=== PATIENT | male | born 1960 | race Caucasian/White ===

== ENCOUNTER 2016-05-05 08:18 | Observation (INO) | payer BC ==
[~2016-05-05] VITALS: Ht 175.3 cm; Wt 87.7 kg
--- OUTSIDE RECORDS SUMMARY | 2016-05-05 08:23 | XMS REPORT | Continuity of Care Document ---
Author Author [facility] Organization [facility] Address Unknown Phone Unavailable Allergies Medications Problems Date Dx Coded Attending Type Code Diagnosis Diagnosed By 12/20/2014 LUCY SINGH MD Ot J32.9 05/05/2016 LUCY SINGH MD Ot J32.9 CHRONIC SINUSITIS, UNSPECIFIED Procedures Results Encounters ACCT No. Visit Date/Time Discharge Status Pt. Type Provider Facility Loc./Unit Complaint [id number] 11/26/2014 16:13:00 2014 23:59:59 CLS Outpatient LUCY SINGH MD [facility] RAD CHRONIC SINUSITIS [id number] 05/05/2016 08:19:00 ACT Emergency MADAY SAGASTUME MD [facility] ER L SIDE SWELLING ON LOWER JAW/NECK
[2016-05-05] MEDS ORDERED: NS IV 1000 ML 1,000 ML IV ONE (08:32)
[2016-05-05 08:41] LABS: BASOPHILS % (AUTO) 0 % (0-10); EOSINOPHILS # (AUTO) 0.1 10^3/uL (0.0-0.3); EOSINOPHILS % (AUTO) 1 % (0-10); LYMPHOCYTES % (AUTO) 16 % (12-44); MEAN CORPUSCULAR HEMOGLOBIN 30 PG (25-34); MEAN CORPUSCULAR HGB CONC 35 G/DL (32-36); MEAN CORPUSCULAR VOLUME 87 FL (80-99); MEAN PLATELET VOLUME 9.8 FL (7.4-10.4); MONOCYTES # (AUTO) 1.8 X 10^3 (0.0-1.0); MONOCYTES % (AUTO) 14 % (0-12); NEUTROPHILS % (AUTO) 70 % (42-75); PLATELET COUNT 293 10^3/uL (130-400); RED BLOOD COUNT 5.28 10^6/uL (4.35-5.85); RED CELL DISTRIBUTION WIDTH 12.8 % (10.0-14.5); WHITE BLOOD COUNT 12.9 10^3/uL (4.3-11.0)
--- NOTE | 2016-05-05 08:48 | ED EENT ---
History of Present Illness General Chief Complaint: Oral/Throat Problems Stated Complaint: L SIDE SWELLING ON LOWER JAW/NECK Source: patient Exam Limitations: no limitations History of Present Illness Time seen by provider: 08:26 Initial Comments Here with report of left-sided neck swelling that has been going on for 6 days. It has worsened this day today. He has seen his doctor twice this week. Currently he is on ciprofloxacin and he has not had improvement in his symptoms. States now he is having difficulty with swallowing because of the swelling on the left side and feels that it is impeding on his throat actually. Denies fevers currently but states he may have had fever earlier. He is drinking fluids okay but having difficulty with foods. Denies nausea or vomiting. Denies other upper respiratory symptoms. Timing/Duration: gradual Severity: moderate Location: throat, facial Prearrival Treatment: prescription meds Associated Symptoms: No cough, facial pain/swellingNo fever, No nasal congestion/drainage, poor solids intake sore throat Allergies and Home Medications Allergies Coded Allergies: No Known Drug Allergies (Unverified , 05/05/16) Review of Systems Constitutional: see HPINo chills, No fever Eyes: No Symptoms Reported Ears: No Symptoms Reported Nose: no symptoms reported Mouth: no symptoms reported Throat: see HPI swelling painful swallowing Respiratory: no symptoms reported Cardiovascular: no symptoms reported Gastrointestinal: No abdominal pain, No nausea, No vomiting Musculoskeletal: no symptoms reported Skin: no symptoms reported Neurological: No Symptoms Reported All Other Systems Reviewed Negative Unless Noted: Yes Past Glxdslc-Muqbav-Mivkat Hx Patient Social History Alcohol Use: Denies Use Recreational Drug Use: No Smoking Status: Never a Smoker Type Used: Smokeless Tobacco 2nd Hand Smoke Exposure: No Recent Foreign Travel: No Contact w/Someone Who Travel: No Recent Hopitalizations: No Surgeries HX Surgeries: Yes (SINUS) Respiratory Hx Respiratory Disorders: No Cardiovascular Hx Cardiac Disorders: Yes Cardiac Disorders: Hypertension Neurological Hx Neurological Disorders: No Reproductive System Hx Reproductive Disorders: No Genitourinary Hx Genitourinary Disorders: No Gastrointestinal Hx Gastrointestinal Disorders: No Musculoskeletal Hx Musculoskeletal Disorders: No Endocrine Hx Endocrine Disorders: No HEENT HX ENT Disorders: No Cancer Hx Cancer: No Psychosocial Hx Psychiatric Problems: No Reviewed Nursing Assessment Reviewed/Agree w Nursing PMH: Yes Family Medical History Significant Family History: No Pertinent Family Hx Physical Exam Vital Signs Vital Sign - Last 12Hours 05/05/16 08:20 Temp 97.0 Pulse 75 Resp 16 B/P 142/88 Pulse Ox 97 O2 Delivery Room Air General Appearance: WD/WN mild distress (pain) Eyes: bilateral eye EOMI, bilateral eye PERRL, bilateral eye normal inspection Ears: bilateral ear TM normal, bilateral ear auricle normal, bilateral ear canal normal Mouth/Throat: pharynx swelling (left sided)No tonsillar exudate, No uvula swelling, other (no sublingual fullness or tenderness. Only has lower frontal teeth remaining and otherwise without teeth. No obvious injuries within the mouth.) Neck: full range of motion other (moderate to significant fullness to the left upper neck below the jaw. Moderate tenderness to palpation with this region.) Cardiovascular: regular rate, rhythm no murmur Respiratory: lungs clear normal breath sounds Gastrointestinal: non tender soft Neurologic/Psychiatric: alert oriented x 3 Skin: normal color warm/dry Progress/Results/Core Measures Results/Orders Lab Results Laboratory Tests Test 05/05/16 08:30 Range/Units Alanine Aminotransferase (ALT/SGPT) 21 0-55 U/L Albumin 4.3 3.2-4.5 G/DL Alkaline Phosphatase 98 40-136 U/L Anion Gap 15 H 5-14 MMOL/L Aspartate Amino Transf (AST/SGOT) 19 5-34 U/L BUN/Creatinine Ratio 10 Basophils # (Auto) 0.0 0.0-0.1 10^3/uL Basophils (%) (Auto) 0 0-10 % Blood Urea Nitrogen 10 7-18 MG/DL C-Reactive Protein High Sensitivity 4.84 H 0.00-0.50 MG/DL Calcium Level 10.0 8.5-10.1 MG/DL Carbon Dioxide Level 21 21-32 MMOL/L Chloride Level 103 98-107 MMOL/L Creatinine 0.99 0.60-1.30 MG/DL Eosinophils # (Auto) 0.1 0.0-0.3 10^3/uL Eosinophils (%) (Auto) 1 0-10 % Estimat Glomerular Filtration Rate > 60 Glucose Level 110 H 70-105 MG/DL Hematocrit 46 40-54 % Hemoglobin 16.0 13.3-17.7 G/DL Lymphocytes # (Auto) 2.0 1.0-4.0 X 10^3 Lymphocytes (%) (Auto) 16 12-44 % Mean Corpuscular Hemoglobin 30 25-34 PG Mean Corpuscular Hemoglobin Concent 35 32-36 G/DL Mean Corpuscular Volume 87 80-99 FL Mean Platelet Volume 9.8 7.4-10.4 FL Monocytes # (Auto) 1.8 H 0.0-1.0 X 10^3 Monocytes (%) (Auto) 14 H 0-12 % Neutrophils # (Auto) 9.0 H 1.8-7.8 X 10^3 Neutrophils (%) (Auto) 70 42-75 % Platelet Count 293 130-400 10^3/uL Potassium Level 3.9 3.6-5.0 MMOL/L Red Blood Count 5.28 4.35-5.85 10^6/uL Red Cell Distribution Width 12.8 10.0-14.5 % Sodium Level 139 135-145 MMOL/L Total Bilirubin 0.9 0.1-1.0 MG/DL Total Protein 7.8 6.4-8.2 G/DL White Blood Count 12.9 H 4.3-11.0 10^3/uL My Orders Orders-MADAY SAGASTUME MD Cbc With Automated Diff (05/05/16 08:32) Comprehensive Metabolic Panel (05/05/16 08:32) Hs C Reactive Protein (05/05/16 08:32) Saline Lock/Iv-Start (05/05/16 08:32) Ct Neck (Soft Tissue) W (05/05/16 08:32) Ns Iv 1000 Ml (Sodium Chloride 0.9%) (05/05/16 08:32) Iohexol Injection (Omnipaque 350 Mg/Ml 1 (05/05/16 09:30) Ns (Ivpb) (Sodium Chloride 0.9% Ivpb Bag (05/05/16 09:30) Sodium Chloride Flush (Catheter Flush Sy (05/05/16 09:30) Fentanyl Injection (Sublimaze Injection (05/05/16 10:53) Oxymetazoline 0.05% Nasal [place] (Afrin 0. (05/05/16 21:00) Oxymetazoline 0.05% Nasal [place] (Afrin 0. (05/05/16 11:26) Dexamethasone Pf Injection (Decadron Pf (05/05/16 12:11) Cefuroxime Injection (Zinacef Injection) (05/05/16 12:15) Hydrocodone/Apap Oral Solution (Lortab 7 (05/05/16 12:30) Medications Given in ED Current Medications Medications Dose Ordered Sig/Darek Route Start Time Stop Time Status Last Admin Dose Admin Iohexol 100 ml ONCE ONCE IV 05/05/16 09:30 05/05/16 09:31 DC 05/05/16 09:25 75 ML Sodium Chloride 100 ml ONCE ONCE IV 05/05/16 09:30 05/05/16 09:31 DC 05/05/16 09:25 80 ML Sodium Chloride 1,000 ml @ 0 mls/hr Q0M ONCE IV 05/05/16 08:32 05/05/16 08:34 DC 05/05/16 08:47 0 MLS/HR Vital Signs/I&O Vital Sign - Last 12Hours 05/05/16 08:20 Temp 97.0 Pulse 75 Resp 16 B/P 142/88 Pulse Ox 97 O2 Delivery Room Air Progress Note : Progress Note Seen and evaluated. IV, labs, normal saline [address] neck soft tissue ordered. Monitor patient. 1015: I have reviewed the CT. Results reviewed with Anita Sears APRN, on-call for ear nose and throat. We reviewed the results of the CT and labs. She will come see the patient and contact Dr. Spann. I have reexamined the patient to evaluate if stone is palpable and I am not able to palpate the stone. Patient has fairly significant gag reflex as well limiting exam. 1115: Renu evaluating patient currently. 1215: Decision for admission. Bridge orders written by me with orders requested by Dr. Spann. Decadron 10 mg IV. Ceftin 1.5 g IV. Hydrocodone/APAP 7.5 mg by mouth oral solution. Admit, observation status. Patient agrees with plan. Diagnostic Imaging Diagonstic Imaging: CT Plain Films/CT/US/NM/MRI: other (soft tissue neck) Comments NAME: ISADORA DALE Daniela MED REC#: [id number] PT STATUS: REG ER : 1960 PHYSICIAN: MADAY SAGASTUME MD ADMIT DATE: 05/05/16/ER Draft Date of Exam:05/05/16 CT NECK (SOFT TISSUE) W PROCEDURE: CT neck soft tissue with contrast. TECHNIQUE: Multiple contiguous axial images were obtained through the neck after the administration of contrast. INDICATION: Swelling left side of face with difficulty swallowing. FINDINGS: There is asymmetric enlargement and enhancement in overall edematous appearance about the left submandibular gland. There is a large calcified stone along the medial aspect of the gland measuring 10 x 8 x 13 mm likely reflective of a ductal stone. There is some fluid along the anterior medial margins of this and possibility of developing abscess not excluded. Asymmetric surrounding edema is also present including the left pharyngeal soft tissues. This extends into the left aspect of the hypopharynx with slight deviation asymmetric narrowing of the hypopharynx on the left. Additionally, low-density is noted at the level of the vallecula may reflect some fluid or perhaps extension of the inflammation. The right submandibular gland unremarkable. Parotid glands are unremarkable. The tonsils appearing unremarkable. Patient is noted be edentulous. Visualized paranasal sinuses trace areas of mucosal thickening and thickening of the ethmoid air cells. Lung apices unremarkable. IMPRESSION:. Large stone in the left medial submandibular region with rather marked asymmetric enlargement of the left submandibular gland most compatible to a sialoadenitis. There is surrounding edema possibility of early abscess formation not excluded. Prominent edema about the parapharyngeal soft tissues including extending across the vallecula is present. This does result in some narrowing of the hypopharynx and airway. Clinical correlation recommended. Dictated on workstation # [id number] Dict: 05/05/16 0942 Trans: 05/05/16 1001 [id number] Interpreted by: BORIS ARELLANO DO Electronically signed by: Reviewed: Reviewed by Me Departure Communication Time/Spoke to Admitting Phy: 10:10 Impression Impression: Primary Impression: Sialoadenitis of submandibular gland Disposition: ADMITTED INPATIENT Condition: Stable Decision to Admit Reason: Admit from ER (General) Decision to Admit/Date: May 05, 2016 Time/Decision to Admit Time: 12:15 Departure-Patient Inst. Referrals: JAMESON MCCLELLAN DO (PCP/Family) Primary Care Physician MADAY SAGASTUME MD May 05, 2016 08:48
[2016-05-05 09:07] LABS: ALANINE AMINOTRANSFERASE 21 U/L (0-55); ALBUMIN 4.3 G/DL (3.2-4.5); ANION GAP 15 MMOL/L (5-14); ASPARTATE AMINO TRANSFERASE 19 U/L (5-34); BILIRUBIN,TOTAL 0.9 MG/DL (0.1-1.0); BLOOD UREA NITROGEN 10 MG/DL (7-18); BUN/CREATININE RATIO 10; CARBON DIOXIDE 21 MMOL/L (21-32); CHLORIDE 103 MMOL/L (98-107); CREATININE SERUM 0.99 MG/DL (0.60-1.30); GFR ESTIMATED > 60; GLUCOSE 110 MG/DL (70-105); POTASSIUM 3.9 MMOL/L (3.6-5.0); SODIUM 139 MMOL/L (135-145); TOTAL PROTEIN 7.8 G/DL (6.4-8.2); hs C REACTIVE PROTEIN 4.84 MG/DL (0.00-0.50)
[2016-05-05] MEDS ORDERED: NS 100 ML (IVPB) BAG IV ONE (09:30)
[2016-05-05] MEDS ORDERED: IOHEXOL 350 MG/ML 100 ML (OMNIPAQUE 350) VIAL IV ONE (09:30)
[2016-05-05] MEDS ORDERED: CATHETER FLUSH 10 ML SYR IV PRN ×2 (09:30→13:30)
--- NOTE | 2016-05-05 10:02 | Diagnostic Imaging Report ---
PROCEDURE: CT neck soft tissue with contrast. TECHNIQUE: Multiple contiguous axial images were obtained through the neck after the administration of contrast. INDICATION: Swelling left side of face with difficulty swallowing. FINDINGS: There is asymmetric enlargement and enhancement in overall edematous appearance about the left submandibular gland. There is a large calcified stone along the medial aspect of the gland measuring 10 x 8 x 13 mm likely reflective of a ductal stone. There is some fluid along the anterior medial margins of this and possibility of developing abscess not excluded. Asymmetric surrounding edema is also present including the left pharyngeal soft tissues. This extends into the left aspect of the hypopharynx with slight deviation asymmetric narrowing of the hypopharynx on the left. Additionally, low-density is noted at the level of the vallecula may reflect some fluid or perhaps extension of the inflammation. The right submandibular gland unremarkable. Parotid glands are unremarkable. The tonsils appearing unremarkable. Patient is noted be edentulous. Visualized paranasal sinuses trace areas of mucosal thickening and thickening of the ethmoid air cells. Lung apices unremarkable. IMPRESSION:. Large stone in the left medial submandibular region with rather marked asymmetric enlargement of the left submandibular gland most compatible to a sialoadenitis. There is surrounding edema possibility of early abscess formation not excluded. Prominent edema about the parapharyngeal soft tissues including extending across the vallecula is present. This does result in some narrowing of the hypopharynx and airway. Clinical correlation recommended. Dictated by: Dictated on workstation # [id number]
[2016-05-05] MEDS ORDERED: fentaNYL INJECTION 100 MCG/2 ML AMP IVP STA (10:53)
[2016-05-05] MEDS ORDERED: OXYMETAZOLINE (AFRIN) 0.05% NA 15 ML BTL ONE (11:26)
[2016-05-05] MEDS ORDERED: DEXAMETHASONE PF 10 MG/ML (DECADRON) VIAL IV STA (12:11)
[2016-05-05] MEDS ORDERED: CEFUROXIME INJECTION 1,500 MG in NS (IVPB) 50 ML IV ONE (12:15)
[2016-05-05] MEDS ORDERED: NS (IVPB) 50 ML ONE (12:20)
[2016-05-05] MEDS ORDERED: HYDROcodone/APAP 7.5MG-325 MG/15 ML (LORTAB) UDC PO PRN ×2 (12:30→13:30)
--- NOTE | 2016-05-05 13:14 | Progress Note-Standard ---
Standard Progress Note Progress Notes/Assess & Plan Progress/Assessment & Plan XPW-SAcjb-KGqespz and PHysical cc: Left Neck swelling/pain HPI: Patient presented for evaluation of a 6 day history of left neck pain and swelling. Saw doctor times two. Treataed first iwth tamiflu and then started on cipro. Symptoms progressively worse. Unalbe to swallow or eat for three days at least. CT shows left submandibular sialoadenitis with large stone at hilum of gland. mild inflammation in t hroat PMHX;unremarkable Fam Hx-+ for stones in his fat er both submandibular and kidney all-nkda Meds: cipro Ct-with finding as noted above Exam: OC-no trismus or swelling of floor of the mouth-no stone palpable laterally in duct Phyarnx-clear Neck-marked swelling left submandibular triangle-no abscess sseen or palpated. no swelling lower in neck IMP 1. Acute Left Submandibular Sialoadenitis 2. Left Submandibular Duct Stone REc: 1. admit observation for IV antibiotics nad steroids and fluids. Orders written 2. Hopefully can cool gland off treat infection and will need r emoval of gland /stone after infection better. NO abscess to drain at this time 3. Diet as haley 4. May take home meds 5. Will reevaluate in AM Final Diagnosis Left Submandibualr Sialoadenitis/Stone LUCY SINGH MD May 05, 2016 1:14 pm
[2016-05-05] MEDS ORDERED: NS IV 1000 ML 1,000 ML ONE (13:19)
[2016-05-05 13:20] VITALS: BP 147/75
[2016-05-05] MEDS ORDERED: ONDANSETRON 4 MG/2 ML (SDV) Z0FRAN IV PRN (13:30)
[2016-05-05] MEDS: NS IV 1000 ML 1,000 ML IV SCH ×3 (13:49→20:40)
[2016-05-05] MEDS: CATHETER FLUSH 10 ML SYR IV SCH ×2 (13:50→21:36)
[2016-05-05] MEDS ORDERED: FLU TRIvalent (5 YOA+) 2016-17 (AFLURIA) 0.5 ML IM ONE (14:00)
--- NOTE | 2016-05-05 14:05 | History & Physicial ---
History of Present Illness History of Present Illness Reason for visit/HPI 05-05-16 AT 11OO [facility] ER Consultation due to pt diagnosis with Left jaw swelling, unable to swallow due to pain, and Ct showing Left sialoadenitis Pt stated started having pain last Saturday - noticed some pain and swelling. Went PCP Dr. Pena on Saturday and was treated with Tamiflu this did not help and make pt sick. Continued to have more pain and swelling and was not improving so pt was started on Cipro by PCP. Pt stated Saturday still not improved called PCP office but no call back. Came to ER today due to continued pain, swelling, unable to eat due to pain and decreased drinking due to pain. Pt denies true fever thinks may of had some low grade fever. Date of Admission May 05, 2016 at 12:15 I consulted on this patient on 05/05/16 13:59 Pt was seen in ER. Pt was sitting in room with noticeable Left side jaw line / facial swelling. Ct of neck was reviewed and labs reviewed Pt was breathing well on his own Exam: Pt has Left jaw line swelling with mid jaw line firmness 2 inch long x 1 inch wide no redness or warmth at this time, pt does have discomfort with palpation of this area Pt stated has pain from left ear to middle of chin. Oral Cavity with only bottom teeth frontline missing back teeth and molars- oral cavity and mucosa dry with thick mucus, no swelling of gums or abscess noted Bimanual palpation of left paroitid gland normal no tenderness or discomfort , Left sublingual area no stone palpated some discomfort with palpation Nasopharyngeal endoscopy preformed through left nostril. Neosynephrine and Lidocaine Topical was applied to Left nare. Fiberoptic scope was advanced throught nostril. Abnormals on endoscopy - aretynoid area on Left by vocal cords slightly swollen, pooling of secretion very thick around larynx. Hypopharynx on left has some swelling but it is not impinging on airway at this time. Able to visualize both vocal cords and do look to be moving with full range of motion. Pt and physical exam findings were discussed with Dr. Spann. Orders to admit Observation 1.5 gram IV Ceftin q12 hours 10mg IV Decadron Q6 x 24 hours soft diet NS IV 250ml /hr x 2 hours then decrease to 100ml/hr pain meds discussed with Dr. Zhang in ER Liquid Hydrocodone 7.5mg in 15ml orders were written by Dr Zhang due to computer logon issues Dr. Spann will round on pt later today Attending Physician Lucy Spann MD Admitting Physician Akash Pena DO Consult Allergies and Home Medications Allergies Coded Allergies: No Known Drug Allergies (Unverified , 05/05/16) Home Medications Losartan Potassium 50 Mg Tablet 50 MG PO DAILY (Reported) Past Qjwdmgc-Pzgvgp-Ygtgsf Hx Patient Social History Alcohol Use: Denies Use Recreational Drug Use: No Smoking Status: Never a Smoker Type Used: Smokeless Tobacco 2nd Hand Smoke Exposure: No Physical Abuse Screen: No Sexual Abuse: No Recent Foreign Travel: No Contact w/other who traveled: No Recent Hopitalizations: No Recent Infectious Disease Expo: No Seasonal Allergies Seasonal Allergies: No Surgeries HX Surgeries: Yes (SINUS) Respiratory Hx Respiratory Disorders: No Cardiovascular Hx Cardiovascular Disorders: Yes Cardiac Disorders: Hypertension Neurological Hx Neurological Disorders: No Reproductive System Hx Reproductive Disorders: No Sexually Transmitted Disease: No HIV/AIDS: No Genitourinary Hx Genitourinary Disorders: No Gastrointestinal Hx Gastrointestinal Disorders: No Musculoskeletal Hx Musculoskeletal Disorders: No Endocrine Hx Endocrine Disorders: No HEENT HX ENT Disorders: No Loss of Vision: Bilateral Cancer Hx Cancer: No Psychosocial Hx Psychiatric Problems: No Blood Transfusions Adverse Reaction to a Blood Tr: No Reviewed Nursing Assessment Reviewed/Agree w Nursing PMH: Yes Family Medical History Significant Family History: No Pertinent Family Hx Family Hx: Colon cancer 19 FATHER Diabetes mellitus 19 MOTHER Headache disorder G8 SISTER Thyroid disease G8 SISTER Constitutional: see HPI EENTM: blurred vision dental problems double vision ear discharge ear pain epistaxis eye pain hearing loss hoarseness mouth pain mouth swelling no symptoms reported nose congestion nose pain other see HPI tearing throat pain throat swelling vision loss Respiratory: see HPI Cardiovascular: see HPI Gastrointestinal: see HPI Genitourinary: see HPI Musculoskeletal: see HPI Skin: see HPI Psychiatric/Neurological: No Symptoms Reported See HPI All Other Systems Reviewed Negative Unless Noted: Yes Physical Exam Vital Signs Vital Sign - Last 12Hours 05/05/16 08:20 Temp 97.0 Pulse 75 Resp 16 B/P 142/88 Pulse Ox 97 O2 Delivery Room Air Capillary Refill : Less Than 3 Seconds General Appearance: No Apparent Distress WD/WN Eyes: Bilateral Eye Normal Inspection HEENT: PERRL/EOMI TMs Normal Normal ENT Inspection Pharynx Normal Pale Conjunctivae (L) Pale Conjunctivae (R) Pharyngeal Erythema Photophobia Scleral Icterus (L) Scleral Icterus (R) TM Abnormal (L) TM Abnormal (R) Tonsillar Exudate Tonsillar Enlargement Other (see above) Neck: Other (see above ) Respiratory: Chest Non Tender Lungs Clear Normal Breath Sounds No Accessory Muscle Use No Respiratory Distress Cardiovascular: Regular Rate, Rhythm No Edema No Gallop No JVD No Murmur Normal Peripheral Pulses Gastrointestinal: Normal Bowel Sounds No Organomegaly No Pulsatile Mass Non Tender Soft Back: Normal Inspection No CVA Tenderness No Vertebral Tenderness Extremity: Normal Capillary Refill Normal Inspection Normal Range of Motion Non Tender No Calf Tenderness No Pedal Edema Neurologic/Psychiatric: Alert Oriented x3 No Motor/Sensory Deficits Normal Mood/Affect Skin: Normal Color Warm/Dry Lymphatic: No Adenopathy Assessment/Plan Assessment and Plan see above Admission Diagnosis Sialoadenitis Left Submandibular Dehydration Possible Abscess Uncontrolled Pain Clinical Quality Measures DVT/VTE Risk/Contraindication: Risk Factor Score Per Nursin RFS Level Per Nursing on Admit: 1=Low/No VTE PPX Copy Copies To 1: LUCY SPANN MD, ANDRA J FNP May 05, 2016 14:05
[2016-05-05] MEDS ORDERED: LOSA50TA36 PO (14:26)
[2016-05-05 16:00] VITALS: BP 148/76
[2016-05-05 20:00] VITALS: BP 139/82
[2016-05-05] MEDS ORDERED: OXYMETAZOLINE (AFRIN) 0.05% NA 15 ML BTL SCH (21:00)
[2016-05-05] MEDS: CEFUROXIME INJECTION 1,500 MG in NS (IVPB) 50 ML IV SCH (21:35)
[2016-05-05] MEDS: DEXAMETHASONE 4 MG/ML SDV (DECADRON) IV SCH (21:36)
[2016-05-06] VITALS: BP 135/86
[2016-05-06 04:00] VITALS: BP 130/73
[2016-05-06] MEDS: CEFUROXIME INJECTION 1,500 MG in NS (IVPB) 50 ML IV SCH (06:35)
[2016-05-06] MEDS: DEXAMETHASONE 4 MG/ML SDV (DECADRON) IV SCH (06:35)
[2016-05-06] MEDS: CATHETER FLUSH 10 ML SYR IV SCH (06:36)
--- NOTE | 2016-05-06 07:24 | Progress Note-Standard ---
Standard Progress Note Progress Notes/Assess & Plan Progress/Assessment & Plan QQT-ODzko-YMuzkss and PHysical cc: Left Neck swelling/pain HPI: Patient presented for evaluation of a 6 day history of left neck pain and swelling. Saw doctor times two. Treataed first iwth tamiflu and then started on cipro. Symptoms progressively worse. Unalbe to swallow or eat for three days at least. CT shows left submandibular sialoadenitis with large stone at hilum of gland. mild inflammation in t hroat PMHX;unremarkable Fam Hx-+ for stones in his fat er both submandibular and kidney all-nkda Meds: cipro Ct-with finding as noted above Exam: OC-no trismus or swelling of floor of the mouth-no stone palpable laterally in duct Phyarnx-clear Neck-marked swelling left submandibular triangle-no abscess sseen or palpated. no swelling lower in neck IMP 1. Acute Left Submandibular Sialoadenitis 2. Left Submandibular Duct Stone REc: 1. admit observation for IV antibiotics nad steroids and fluids. Orders written 2. Hopefully can cool gland off treat infection and will need r emoval of gland /stone after infection better. NO abscess to drain at this time 3. Diet as haley 4. May take home meds 5. Will reevaluate in AM ENT-Paula-05/06 Doing much better able to eat and drink-swelling much better no trismus breathing and swallwoing fine danial ld/c after breakfast RTC-2 weeks Discharge prescriptions given and note for work written LUCY SINGH MD May 06, 2016 7:23 am
[2016-05-06] MEDS: NS IV 1000 ML 1,000 ML IV SCH (07:30)
[2016-05-06 08:00] VITALS: BP 155/92
[2016-05-06] MEDS ORDERED: PRD20T PO (08:08)
[2016-05-06] MEDS ORDERED: HYDROCODONE/APAP (08:08)
[2016-05-06] MEDS ORDERED: CEFUROXIME 250 MG (08:08)
[2016-05-06] MEDS ORDERED: CEFUROXIME 250 MG PO (08:09)
[2016-05-06] MEDS ORDERED: HYDROCODONE/APAP PO (08:11)
[2016-05-06 09:00] VITALS: BP 155/92
== END 2016-05-06 07:24 | disposition home or self-care (01) ==
LOC: EDUNIT# 08:18 → ER 08:19 → 4TH 12:15 → UNDOADMOB 12:15 → 4TH 13:30 → UNDODISOB 05-06 09:00
PROVIDERS: ADMIT Otolaryngology Otolaryngology/Facial Plastic Surgery; ATTEND Otolaryngology Otolaryngology/Facial Plastic Surgery
DX: K11.20 Sialoadenitis, unspecified (principal); K11.5 Sialolithiasis; I10 Essential (primary) hypertension
CPT/HCPCS: 36415; 70491; 80053; 85025; 86141; 96361; 96365; 96375; G0378

== ENCOUNTER 2016-05-17 20:25 | Emergency (ER) | payer BC ==
[~2016-05-17] VITALS: Ht 175.3 cm; Wt 90.7 kg
[~2016-05-17 20:25] MED LIST: CEFUROXIME 250 MG; CEFUROXIME 250 MG PO; HYDROCODONE/APAP; HYDROCODONE/APAP PO; LOSA50TA36 PO; PRD20T PO
[2016-05-17 20:56] LABS: BASOPHILS % (AUTO) 0 % (0-10); EOSINOPHILS # (AUTO) 0.1 10^3/uL (0.0-0.3); EOSINOPHILS % (AUTO) 0 % (0-10); LYMPHOCYTES # (AUTO) 2.4 X 10^3 (1.0-4.0); LYMPHOCYTES % (AUTO) 12 % (12-44); MEAN CORPUSCULAR HEMOGLOBIN 30 PG (25-34); MEAN CORPUSCULAR HGB CONC 34 G/DL (32-36); MEAN CORPUSCULAR VOLUME 88 FL (80-99); MEAN PLATELET VOLUME 9.1 FL (7.4-10.4); MONOCYTES # (AUTO) 1.4 X 10^3 (0.0-1.0); MONOCYTES % (AUTO) 7 % (0-12); NEUTROPHILS # (AUTO) 16.9 X 10^3 (1.8-7.8); NEUTROPHILS % (AUTO) 81 % (42-75); PLATELET COUNT 388 10^3/uL (130-400); RED BLOOD COUNT 5.28 10^6/uL (4.35-5.85); RED CELL DISTRIBUTION WIDTH 13.4 % (10.0-14.5); WHITE BLOOD COUNT 20.9 10^3/uL (4.3-11.0)
[2016-05-17] MEDS ORDERED: NS 100 ML (IVPB) BAG IV ONE (21:00)
[2016-05-17] MEDS ORDERED: IOHEXOL 350 MG/ML 100 ML (OMNIPAQUE 350) VIAL IV ONE (21:00)
[2016-05-17] MEDS ORDERED: KETOROLAC 30 MG/ML VIAL IVP ONE (21:00)
--- NOTE | 2016-05-17 21:03 | ED EENT ---
History of Present Illness General Chief Complaint: General Problems/Pain Stated Complaint: RT SIDE FACIAL SWELLING,FEVER Source: patient, old records History of Present Illness Time seen by provider: 20:45 Initial Comments C/O PAIN OVER RIGHT MAXILLA AND SIDE OF NOSE FOR 3-4 DAYS STATES HE HAS BAD ALLERGIES AND SINUS PROBLEMS AND HAS HAD SINUS SURGERY IN THE PAST, AND THIS FEELS LIKE A SINUS INFECTION. HAS CLARITIN AND FLONASE AT HOME, BUT HAS NOT BEEN TAKING THEM HAS HAD SUBJECTIVE FEVER, SWEATS AND CHILLS PT WAS ADMITTED LAST WEEK FOR LEFT SUBMANDIBULAR SALIVARY GLAND STONE AND TOOK 9 DAYS OF PREDNISONE AND ANTIBIOTICS--FINISHED YESTERDAY PT IS TO FOLLOW UP WITH DR. SINGH NEXT SATURDAY TO SCHEDULE SURGERY TO REMOVE STONE THOSE SYMPTOMS ARE MUCH BETTER C/O NAUSEA AND DECREASED APPETITE AND MINIMAL FOOD/FLUID INTAKE--THINKS HE IS DEHYDRATED YESTERDAY A DEPO-MEDROL SHOT WAS ORDERED FOR PT TO HAVE IN DR. MCCLELLAN'S OFFICE AND HAD THAT TODAY--DID NOT SEE ANYONE YESTERDAY OR TODAY. HAS NOT SEEN ANYONE IN CLINIC SINCE DISMISSED FROM HOSPITAL PT HAS PAIN MEDICATION AT HOME, BUT HAS NOT TAKEN ANY PT HAS NOT TAKEN ANYTHING FOR HIS SYMPTOMS PCP: DR. MCCLELLAN ENT: DR. SINGH Allergies and Home Medications Allergies Coded Allergies: No Known Drug Allergies (Unverified , 05/05/16) Home Medications Losartan Potassium 50 Mg Tablet, 50 MG PO DAILY, (Reported) Prednisone 20 Mg Tab, 60 MG PO DAILY, #18 TAKE 3 TABS DAILY TIMES 3 DAYS THEN 2 TABS DAILY TIMES 3 DAYS THEN 1 TAB DAILY TIMES 3 DAYS Prescribed by: MIGUEL BELL on 05/06/16 0808 [[id number]] , 250 MG PO BID, #20 Prescribed by: MIGUEL BELL on 05/06/16 0809 [Hydrocodone/Apap] , 1-2 TAB PO Q4H PRN for PAIN, #40 Prescribed by: MIGUEL BELL on 05/06/16 0811 Review of Systems Constitutional: see HPI, chills, diaphoresis, fever Eyes: No Symptoms Reported Ears: No Symptoms Reported Nose: congestion, other (SINUS PAIN ) Mouth: no symptoms reported Throat: no symptoms reported Respiratory: no symptoms reported Cardiovascular: no symptoms reported Gastrointestinal: see HPI, No abdominal pain, loss of appetite, nausea, No vomiting Musculoskeletal: no symptoms reported Skin: no symptoms reported Neurological: No Symptoms Reported, Denies Headache, Denies Numbness, Denies Paresthesia, Denies Tingling, Denies Tremors, Denies Weakness Hematologic/Lymphatic: No Symptoms Reported Immunological/Allergic: see HPI (ENVIRONMENTAL ALLERGIES) Past Mdfeytf-Xdayak-Yjqsnv Hx Patient Social History Alcohol Use: Denies Use Recreational Drug Use: No Smoking Status: Never a Smoker Type Used: Smokeless Tobacco 2nd Hand Smoke Exposure: No Recent Foreign Travel: No Contact w/Someone Who Travel: No Recent Hopitalizations: No Seasonal Allergies Seasonal Allergies: Yes Surgeries HX Surgeries: Yes (SINUS SURGERY) Respiratory Hx Respiratory Disorders: Yes Respiratory Disorders: Pneumonia Cardiovascular Hx Cardiac Disorders: Yes Cardiac Disorders: Hypertension Neurological Hx Neurological Disorders: No Reproductive System Hx Reproductive Disorders: No Sexually Transmitted Disease: No HIV/AIDS: No Genitourinary Hx Genitourinary Disorders: No Gastrointestinal Hx Gastrointestinal Disorders: No Musculoskeletal Hx Musculoskeletal Disorders: No Endocrine Hx Endocrine Disorders: No HEENT HX ENT Disorders: Yes (SINUSITIS; LEFT SALIVARY GLAND STONE) Loss of Vision: Bilateral Cancer Hx Cancer: No Psychosocial Hx Psychiatric Problems: No Integumentary HX Skin/Integumentary Disorder: No Blood Transfusions Hx Blood Disorders: No Adverse Reaction to a Blood Tr: No Family Medical History Significant Family History: No Pertinent Family Hx Family Medial History: Colon cancer 19 FATHER Diabetes mellitus 19 MOTHER Headache disorder G8 SISTER Thyroid disease G8 SISTER Physical Exam Vital Signs Vital Sign - Last 12Hours 05/17/16 20:37 Temp 95.5 Pulse 77 Resp 18 B/P (MAP) 139/93 Pulse Ox 97 O2 Delivery Room Air General Appearance: WD/WN, no apparent distress Eyes: bilateral eye EOMI, bilateral eye PERRL, bilateral eye normal inspection Ears: bilateral ear TM normal, bilateral ear auricle normal, bilateral ear canal normal Nose: sinus tenderness (RIGHT MAXILLARY AND ETHMOID ), other (MILD NASAL MUCOSAL EDEMA AND POST NASAL DRAINAGE. ) Mouth/Throat: other (THRUSH TO TONGUE; NO UPPER TEETH, LOWER TEETH IN POOR CONDITION) Neck: full range of motion, supple, other (LEFT SUBMANDIBULAR NODULE-- APPROXIMATELY 1 CM IN DIAMETER AND MILDLY TENDER) Cardiovascular: regular rate, rhythm, no murmur Respiratory: normal breath sounds, no respiratory distress, no accessory muscle use Gastrointestinal: non tender, soft Neurologic/Psychiatric: felt coverer II-XII nml as tested, no motor/sensory deficits, alert, normal mood/affect, oriented x 3 Skin: normal color, warm/dry, No rash, tattoos/piercings (MULTIPLE TATTOOS) Progress/Results/Core Measures Results/Orders Lab Results Laboratory Tests Test 05/17/16 20:50 Range/Units White Blood Count 20.9 H 4.3-11.0 10^3/uL Red Blood Count 5.28 4.35-5.85 10^6/uL Hemoglobin 15.8 13.3-17.7 G/DL Hematocrit 46 40-54 % Mean Corpuscular Volume 88 80-99 FL Mean Corpuscular Hemoglobin 30 25-34 PG Mean Corpuscular Hemoglobin Concent 34 32-36 G/DL Red Cell Distribution Width 13.4 10.0-14.5 % Platelet Count 388 130-400 10^3/uL Mean Platelet Volume 9.1 7.4-10.4 FL Neutrophils (%) (Auto) 81 H 42-75 % Lymphocytes (%) (Auto) 12 12-44 % Monocytes (%) (Auto) 7 0-12 % Eosinophils (%) (Auto) 0 0-10 % Basophils (%) (Auto) 0 0-10 % Neutrophils # (Auto) 16.9 H 1.8-7.8 X 10^3 Lymphocytes # (Auto) 2.4 1.0-4.0 X 10^3 Monocytes # (Auto) 1.4 H 0.0-1.0 X 10^3 Eosinophils # (Auto) 0.1 0.0-0.3 10^3/uL Basophils # (Auto) 0.0 0.0-0.1 10^3/uL Neutrophils % (Manual) 86 % Lymphocytes % (Manual) 8 % Monocytes % (Manual) 6 % Eosinophils % (Manual) 0 % Basophils % (Manual) 0 % Band Neutrophils 0 % Blood Morphology Comment NORMAL Sodium Level 139 135-145 MMOL/L Potassium Level 4.1 3.6-5.0 MMOL/L Chloride Level 104 98-107 MMOL/L Carbon Dioxide Level 23 21-32 MMOL/L Anion Gap 12 5-14 MMOL/L Blood Urea Nitrogen 12 7-18 MG/DL Creatinine 0.81 0.60-1.30 MG/DL Estimat Glomerular Filtration Rate > 60 BUN/Creatinine Ratio 15 Glucose Level 104 70-105 MG/DL Calcium Level 9.4 8.5-10.1 MG/DL Total Bilirubin 1.0 0.1-1.0 MG/DL Aspartate Amino Transf (AST/SGOT) 25 5-34 U/L Alanine Aminotransferase (ALT/SGPT) 76 H 0-55 U/L Alkaline Phosphatase 91 40-136 U/L Total Protein 7.2 6.4-8.2 G/DL Albumin 4.1 3.2-4.5 G/DL Amylase Level 59 25-125 U/L Lipase 27 8-78 U/L My Orders Orders - JCOELYNE CHOW DO Saline Lock/Iv-Start (05/17/16 20:46) Amylase (05/17/16 20:46) Cbc With Automated Diff (05/17/16 20:46) Comprehensive Metabolic Panel (05/17/16 20:46) Lipase (05/17/16 20:46) Ct Maxillofacial W (05/17/16 20:46) Ketorolac Injection (Toradol Injection) (05/17/16 21:00) Iohexol Injection (Omnipaque 350 Mg/Ml 1 (05/17/16 21:00) Ns (Ivpb) (Sodium Chloride 0.9% Ivpb Bag (05/17/16 21:00) Manual Differential (05/17/16 20:50) Ceftriaxone Injection (Rocephin Injectio (05/17/16 21:45) Amoxicillin/Clavulanate Tablet (Augmenti (05/17/16 21:45) Medications Given in ED Current Medications Medications Dose Ordered Sig/Darek Route Start Time Stop Time Status Last Admin Dose Admin Iohexol 100 ml ONCE ONCE IV 05/17/16 21:00 05/17/16 21:01 DC 05/17/16 21:06 100 ML Ketorolac Tromethamine 30 mg ONCE ONCE IVP 05/17/16 21:00 05/17/16 21:01 DC 05/17/16 20:56 30 MG Sodium Chloride 100 ml ONCE ONCE IV 05/17/16 21:00 05/17/16 21:01 DC 05/17/16 21:06 80 ML Vital Signs/I&O Vital Sign - Last 12Hours 05/17/16 20:37 Temp 95.5 Pulse 77 Resp 18 B/P (MAP) 139/93 Pulse Ox 97 O2 Delivery Room Air Departure Impression Impression: Primary Impression: Sinusitis Additional Impression: Oral thrush Departure-Patient Inst. Referrals: LUCY SINGH MD, WILLIAM J DO (PCP/Family) Primary Care Physician Patient Instructions: Sinusitis, Adult (DC), Thrush (DC) Add. Discharge Instructions: USE YOUR CLARITIN AND FLONASE DAILY TAKE YOUR HOME PAIN MEDICATION PRESCRIBED FOLLOW UP WITH DR. SINGH NEXT WEEK SCHEDULED All discharge instructions reviewed with patient and/or family. Voiced understanding. Scripts Lactobacillus Acidophilus (Acidophilus) 1 Each Capsule 2 EACH PO QID, #80 CAP Prov: JOCELYNE CHOW DO 05/17/16 Fluconazole (Diflucan) 200 Mg Tablet 200 MG PO DAILY for FOR YEAST INFECTION, #10 TAB Prov: JOCELYNE CHOW DO 05/17/16 Amoxicillin/Potassium Clav (Augmentin 875-125 Tablet) 1 Each Tablet 1 EACH PO BID for INFECTION, #20 TAB Prov: JOCELYNE CHOW DO 05/17/16 JOCELYNE CHOW DO May 17, 2016 21:03
[2016-05-17 21:07] LABS: BAND NEUTROPHILS 0 %; BASOPHILS % (MANUAL) 0 %; EOSINOPHILS % (MANUAL) 0 %; LYMPHOCYTES % (MANUAL) 8 %; NEUTROPHILS % (MANUAL) 86 %
[2016-05-17 21:15] LABS: ALANINE AMINOTRANSFERASE 76 U/L (0-55); ALBUMIN 4.1 G/DL (3.2-4.5); AMYLASE 59 U/L (25-125); ANION GAP 12 MMOL/L (5-14); ASPARTATE AMINO TRANSFERASE 25 U/L (5-34); BLOOD UREA NITROGEN 12 MG/DL (7-18); BUN/CREATININE RATIO 15; CALCIUM 9.4 MG/DL (8.5-10.1); CARBON DIOXIDE 23 MMOL/L (21-32); CHLORIDE 104 MMOL/L (98-107); CREATININE SERUM 0.81 MG/DL (0.60-1.30); GFR ESTIMATED > 60; GLUCOSE 104 MG/DL (70-105); LIPASE 27 U/L (8-78); POTASSIUM 4.1 MMOL/L (3.6-5.0); SODIUM 139 MMOL/L (135-145); TOTAL PROTEIN 7.2 G/DL (6.4-8.2)
--- NOTE | 2016-05-17 21:28 | Diagnostic Imaging Report ---
PROCEDURE: CT maxillofacial with contrast. TECHNIQUE: After intravenous administration of contrast, axial images were obtained through the face and reformatted into coronal and sagittal planes. INDICATION: Right-sided sinus pressure. Fever. History of sinus surgery. Comparison is made with a previous CT of the neck from May 05, 2016. FINDINGS: The patient is status post previous middle meatus antrostomies and uncinectomies as well as partial middle turbinectomies. There have also been previous internal ethmoidectomies. There is no air-fluid level demonstrated within the paranasal sinuses. There is no significant residual mucosal thickening. There is leftward nasal septal deviation. The intraorbital contents appear unremarkable. The visualized portion of the mastoids and the middle ear appear clear. Limited assessment of intracranial contents demonstrates no evidence of mass effect or abnormal enhancement. The visualized suprahyoid soft tissues demonstrate appropriate symmetry. There is a mildly prominent left-sided level II lymph node which measures 1.4 cm. There is a stable calcification associated left submandibular gland compatible with a large sialolith. IMPRESSION: 1. Prior surgical changes of functional endoscopic sinus surgery as described. There is no significant residual mucosal thickening within the paranasal sinuses or evidence of an air-fluid level. 2. Visualized intracranial contents demonstrate no mass effect or abnormal enhancement. 3. Mastoids and middle ears appear clear. 4. Orbital contents unremarkable. 5. Mildly prominent left level II cervical lymph node. 6. Stable left submandibular sialolith. The edema associated with submandibular gland appears slightly improved from the previous exam. Dictated by: Dictated on workstation # [id number]
[2016-05-17] MEDS ORDERED: AUGMENTIN 875 MG TAB (AMOXICILLIN/CLAVULANATE) PO SCH (21:45)
[2016-05-17] MEDS ORDERED: cefTRIAXone INJECTION 1,000 MG in NS (IVPB) 50 ML IV ONE (21:45)
[2016-05-17] MEDS ORDERED: AMOX-358 PO (21:48)
[2016-05-17] MEDS ORDERED: FLUC200T PO (21:48)
[2016-05-17] MEDS ORDERED: LACT1CAP8 PO (21:48)
[2016-05-17 22:22] VITALS: BP 128/95
--- OUTSIDE RECORDS SUMMARY | 2016-05-20 10:49 | XMS REPORT | Continuity of Care Document ---
Author Author [facility] [address] Organization [facility] [address] Address Unknown Phone Unavailable Allergies Active Description Code Type Severity Reaction Onset Reported/Identified Relationship to Patient Clinical Status Yes No Known Drug Allergies [id number] Drug Allergy Unknown N/ A 05/05/2016 Medications Problems Date Dx Coded Attending Type Code Diagnosis Diagnosed By 12/20/2014 LUCY SINGH MD Ot J32.9 05/05/2016 LUCY SINGH MD Ot J32.9 CHRONIC SINUSITIS, UNSPECIFIED 05/06/2016 LUCY SINGH MD Ot I10 ESSENTIAL (PRIMARY) HYPERTENSION 05/06/2016 LUCY SINGH MD Ot K11.20 SIALOADENITIS, UNSPECIFIED 05/06/2016 LUCY SINGH MD Ot K11.5 SIALOLITHIASIS 05/06/2016 LUCY SINGH MD Ot I10 ESSENTIAL (PRIMARY) HYPERTENSION 05/06/2016 LUCY SINGH MD Ot K11.20 SIALOADENITIS, UNSPECIFIED 05/06/2016 LUCY SINGH MD Ot K11.5 SIALOLITHIASIS Procedures Results Test Result Range Complete blood count (CBC) with automated white blood cell (WBC) differential - 05/05/16 08:30 Blood leukocytes automated count (number/volume) 12.9 10*3/ uL 4.3-11.0 Blood erythrocytes automated count (number/volume) 5.28 10*6 /uL 4.35-5.85 Venous blood hemoglobin measurement (mass/volume) 16.0 g/dL 13.3-17.7 Blood hematocrit (volume fraction) 46 % 40-54 Automated erythrocyte mean corpuscular volume 87 [foz_us] 80-99 Automated erythrocyte mean corpuscular hemoglobin (mass per erythrocyte) 30 pg 25-34 Automated erythrocyte mean corpuscular hemoglobin concentration measurement ( mass/volume) 35 g/dL 32-36 Automated erythrocyte distribution width ratio 12.8 % 10.0-14.5 Automated blood platelet count (count/volume) 293 10*3/uL 130-400 Automated blood platelet mean volume measurement 9.8 [foz_us ] 7.4-10.4 Automated blood neutrophils/100 leukocytes 70 % 42-75 Automated blood lymphocytes/100 leukocytes 16 % 12-44 Blood monocytes/100 leukocytes 14 % 0-12 Automated blood eosinophils/100 leukocytes 1 % 0-10 Automated blood basophils/100 leukocytes 0 % 0-10 Blood neutrophils automated count (number/volume) 9.0 10*3 1.8-7.8 Blood lymphocytes automated count (number/volume) 2.0 10*3 1.0-4.0 Blood monocytes automated count (number/volume) 1.8 10*3 0.0-1.0 Automated eosinophil count 0.1 10*3/uL 0.0-0.3 Automated blood basophil count (count/volume) 0.0 10*3/uL 0.0-0.1 Comprehensive metabolic panel - 05/05/16 08:30 Serum or plasma sodium measurement (moles/volume) 139 mmol/ L 135-145 Serum or plasma potassium measurement (moles/volume) 3.9 mmol/L 3.6-5.0 Serum or plasma chloride measurement (moles/volume) 103 mmol /L 98-107 Carbon dioxide 21 mmol/L 21-32 Serum or plasma anion gap determination (moles/volume) 15 mmol/L 5-14 Serum or plasma urea nitrogen measurement (mass/volume) 10 mg/dL 7-18 Serum or plasma creatinine measurement (mass/volume) 0.99 mg /dL 0.60-1.30 Serum or plasma urea nitrogen/creatinine mass ratio 10 NRG Serum or plasma creatinine measurement with calculation of estimated glomerular filtration rate > NRG Serum or plasma glucose measurement (mass/volume) 110 mg/dL 70-105 Serum or plasma calcium measurement (mass/volume) 10.0 mg/ dL 8.5-10.1 Serum or plasma total bilirubin measurement (mass/volume) 0.9 mg/dL 0.1-1.0 Serum or plasma alkaline phosphatase measurement (enzymatic activity/volume) 98 U/L 40-136 Serum or plasma aspartate aminotransferase measurement (enzymatic activity/ volume) 19 U/L 5-34 Serum or plasma alanine aminotransferase measurement (enzymatic activity/volume ) 21 U/L 0-55 Serum or plasma protein measurement (mass/volume) 7.8 g/dL 6.4-8.2 Serum or plasma albumin measurement (mass/volume) 4.3 g/dL 3.2-4.5 Serum or plasma C reactive protein measurement (mass/volume) - 05/05/16 08:30 Serum or plasma C reactive protein measurement (mass/volume) 4.84 mg/dL 0.00-0.50 Complete blood count (CBC) with automated white blood cell (WBC) differential - 05/17/16 20:50 Blood leukocytes automated count (number/volume) 20.9 10*3/ uL 4.3-11.0 Blood erythrocytes automated count (number/volume) 5.28 10*6 /uL 4.35-5.85 Venous blood hemoglobin measurement (mass/volume) 15.8 g/dL 13.3-17.7 Blood hematocrit (volume fraction) 46 % 40-54 Automated erythrocyte mean corpuscular volume 88 [foz_us] 80-99 Automated erythrocyte mean corpuscular hemoglobin (mass per erythrocyte) 30 pg 25-34 Automated erythrocyte mean corpuscular hemoglobin concentration measurement ( mass/volume) 34 g/dL 32-36 Automated erythrocyte distribution width ratio 13.4 % 10.0-14.5 Automated blood platelet count (count/volume) 388 10*3/uL 130-400 Automated blood platelet mean volume measurement 9.1 [foz_us ] 7.4-10.4 Automated blood neutrophils/100 leukocytes 81 % 42-75 Automated blood lymphocytes/100 leukocytes 12 % 12-44 Blood monocytes/100 leukocytes 7 % 0-12 Automated blood eosinophils/100 leukocytes 0 % 0-10 Automated blood basophils/100 leukocytes 0 % 0-10 Blood neutrophils automated count (number/volume) 16.9 10*3 1.8-7.8 Blood lymphocytes automated count (number/volume) 2.4 10*3 1.0-4.0 Blood monocytes automated count (number/volume) 1.4 10*3 0.0-1.0 Automated eosinophil count 0.1 10*3/uL 0.0-0.3 Automated blood basophil count (count/volume) 0.0 10*3/uL 0.0-0.1 Blood manual differential performed detection - 05/17/16 20:50 Blood monocytes/100 leukocytes 6 % NRG Manual blood segmented neutrophils/100 leukocytes 86 % NRG Blood band neutrophils/100 leukocytes 0 % NRG Manual blood lymphocytes/100 leukocytes 8 % NRG Manual eosinophils/100 leukocytes in nose 0 % NRG Manual blood basophils/100 leukocytes 0 % NR Blood erythrocyte morphology finding identification NORMAL [facility] Comprehensive metabolic panel - 05/17/16 20:50 Serum or plasma sodium measurement (moles/volume) 139 mmol/ L 135-145 Serum or plasma potassium measurement (moles/volume) 4.1 mmol/L 3.6-5.0 Serum or plasma chloride measurement (moles/volume) 104 mmol /L 98-107 Carbon dioxide 23 mmol/L 21-32 Serum or plasma anion gap determination (moles/volume) 12 mmol/L 5-14 Serum or plasma urea nitrogen measurement (mass/volume) 12 mg/dL 7-18 Serum or plasma creatinine measurement (mass/volume) 0.81 mg /dL 0.60-1.30 Serum or plasma urea nitrogen/creatinine mass ratio 15 NRG Serum or plasma creatinine measurement with calculation of estimated glomerular filtration rate > NR Serum or plasma glucose measurement (mass/volume) 104 mg/dL 70-105 Serum or plasma calcium measurement (mass/volume) 9.4 mg/dL 8.5-10.1 Serum or plasma total bilirubin measurement (mass/volume) 1.0 mg/dL 0.1-1.0 Serum or plasma alkaline phosphatase measurement (enzymatic activity/volume) 91 U/L 40-136 Serum or plasma aspartate aminotransferase measurement (enzymatic activity/ volume) 25 U/L 5-34 Serum or plasma alanine aminotransferase measurement (enzymatic activity/volume ) 76 U/L 0-55 Serum or plasma protein measurement (mass/volume) 7.2 g/dL 6.4-8.2 Serum or plasma albumin measurement (mass/volume) 4.1 g/dL 3.2-4.5 Serum or plasma amylase measurement (enzymatic activity/volume) - 05/17/16 20: 50 Serum or plasma amylase measurement (enzymatic activity/volume) 59 U/L 25-125 Lipase - 05/17/16 20:50 Lipase 27 U/L 8-78 Encounters ACCT No. Visit Date/Time Discharge Status Pt. Type Provider Facility Loc./Unit Complaint [id number] 05/05/2016 12:15:00 2016 09:00:00 DIS Outpatient FRANCISCO VALADEZ, LUCY Lange [facility] [address] 4TH SIALOADENITIS [id number] 11/26/2014 16:13:00 2014 23:59:59 CLS Outpatient FRANCISCO VALADEZ, LUCY [facility]aga [facility] [address] RAD CHRONIC SINUSITIS [id number] 05/17/2016 20:58:00 Document Registration
== END 2016-05-17 22:22 | disposition home or self-care (01) ==
LOC: EDUNIT# 20:25 → ER 20:26
DX: J32.9 Chronic sinusitis, unspecified (principal); K11.5 Sialolithiasis; B37.0 Candidal stomatitis
CPT/HCPCS: 36415; 70487; 80053; 82150; 83690; 85007; 85025; 85027; 96365; 96375

== ENCOUNTER 2016-06-04 14:41 | Outpatient (CLI) | payer BC ==
[~2016-06-04] VITALS: Ht 175.3 cm; Wt 92.1 kg
[~2016-06-04 14:41] MED LIST changes: +AMOX-358 PO; +FLUC200T PO; +LACT1CAP8 PO
[2016-06-04 14:49] VITALS: BP 145/89
[2016-06-04] MEDS ORDERED: FLUT9.9S NS (14:49)
[2016-06-04] MEDS ORDERED: RT-ALBUINH IH (14:49)
[2016-06-04] MEDS ORDERED: LORA10TA76 PO (14:49)
[2016-06-04 15:35] LABS: BASOPHILS % (AUTO) 0 % (0-10); EOSINOPHILS # (AUTO) 0.2 10^3/uL (0.0-0.3); EOSINOPHILS % (AUTO) 1 % (0-10); LYMPHOCYTES # (AUTO) 2.4 X 10^3 (1.0-4.0); LYMPHOCYTES % (AUTO) 19 % (12-44); MEAN CORPUSCULAR HEMOGLOBIN 30 PG (25-34); MEAN CORPUSCULAR HGB CONC 33 G/DL (32-36); MEAN CORPUSCULAR VOLUME 90 FL (80-99); MEAN PLATELET VOLUME 9.6 FL (7.4-10.4); MONOCYTES % (AUTO) 8 % (0-12); NEUTROPHILS # (AUTO) 9.4 X 10^3 (1.8-7.8); NEUTROPHILS % (AUTO) 72 % (42-75); PLATELET COUNT 338 10^3/uL (130-400)
--- NOTE | 2016-06-04 15:50 | Diagnostic Imaging Report ---
INDICATION: Preoperative evaluation. DISCUSSION: Two views of the chest were obtained, comparison 10/11/2006. No adverse interval change. The heart and lungs remain normal. No osseous abnormality. Antecedent granulomatous disease is again noted, benign. IMPRESSION: 1. Negative chest. Dictated by: Dictated on workstation # [id number]
[2016-06-04 16:00] LABS: ANION GAP 10 MMOL/L (5-14); BLOOD UREA NITROGEN 12 MG/DL (7-18); BUN/CREATININE RATIO 14; CALCIUM 9.2 MG/DL (8.5-10.1); CARBON DIOXIDE 25 MMOL/L (21-32); CHLORIDE 105 MMOL/L (98-107); CREATININE SERUM 0.87 MG/DL (0.60-1.30); GFR ESTIMATED > 60; GLUCOSE 96 MG/DL (70-105); POTASSIUM 3.7 MMOL/L (3.6-5.0); SODIUM 140 MMOL/L (135-145)
== END 2016-06-04 15:15 | disposition home or self-care (01) ==
LOC: PREOP 14:41
PROVIDERS: ATTEND Otolaryngology Otolaryngology/Facial Plastic Surgery
DX: Z01.818 Encounter for other preprocedural examination (principal); Z01.812 Encounter for preprocedural laboratory examination; Z11.2 Encounter for screening for other bacterial diseases; K11.5 Sialolithiasis
CPT/HCPCS: 36415; 71020; 80048; 85025; 87081; 93005

== ENCOUNTER 2016-06-08 06:40 | Day surgery (SDC) | payer BC ==
[~2016-06-08] VITALS: Ht 175.3 cm; Wt 92.1 kg
[~2016-06-08 06:40] MED LIST changes: +FLUT9.9S NS; +LORA10TA76 PO; +RT-ALBUINH IH
--- NOTE | 2016-06-08 06:48 | Progress Note-Pre Operative ---
Pre-Operative Progress Note H&P Reviewed The H&P was reviewed, patient examined and no changes noted. Date H&P Reviewed: Jun 08, 2016 Time H&P Reviewed: 06:45 Pre-Operative Diagnosis: LEft Submandular Gland rec INf with Ductal Stone LUCY SINGH MD Jun 08, 2016 6:48 am
[2016-06-08 07:25] VITALS: BP 118/78
[2016-06-08] MEDS: LACTATED RINGERS 1,000 ML IV PRN ×3 (07:36→11:05)
[2016-06-08] MEDS ORDERED: ONDANSETRON 4 MG/2 ML (SDV) Z0FRAN ONE (07:43)
[2016-06-08] MEDS ORDERED: DEXAMETHASONE PF 10 MG/ML (DECADRON) VIAL ONE (07:43)
[2016-06-08] MEDS ORDERED: LACTATED RINGERS 1,000 ML IV ONE ×3 (07:43→11:02)
[2016-06-08] MEDS ORDERED: ROCURONIUM 50 MG/5 ML (ZEMURON) VIAL IV ONE (07:43)
[2016-06-08] MEDS ORDERED: LIDOCAINE PF 2% 10 ML (XYLOCAINE) AMP ONE (07:43)
[2016-06-08] MEDS ORDERED: proPOfol 200 MG/20 ML (DIPRIVAN) VIAL IV ONE (07:43)
[2016-06-08] MEDS ORDERED: SEVOFLURANE (ULTANE) 15 ML INHAL SOLN ONE ×7 (07:43→10:16)
[2016-06-08] MEDS ORDERED: fentaNYL INJECTION 250 MCG/5 ML AMP ONE (07:44)
[2016-06-08] MEDS ORDERED: MIDAZOLAM 2 MG/2 ML (VERSED) VIAL ONE (07:44)
[2016-06-08] MEDS ORDERED: LIDOCAINE/EPI 1%-1:100,000 (XYLOCAINE) 20ML ONE (08:15)
[2016-06-08] MEDS ORDERED: MUPIROCIN 2% OINT 22 GM (BACTROBAN) TUBE ONE (08:15)
[2016-06-08] MEDS ORDERED: GLYCOPYRROLATE 0.2 MG/ML (ROBINUL) 2 ML VIAL ONE (10:31)
[2016-06-08] MEDS ORDERED: NEOSTIGMINE (BLOXIVERZ ) 1 MG/1ML 10 ML VIAL ONE (10:31)
--- NOTE | 2016-06-08 10:36 | Progress Note-Post Operative ---
Post-Operative Progess Note Surgeon (s)/Stitch Marker (s) Surgeon LUCY SINGH MD Stitch Marker: n/a Pre-Operative Diagnosis LEft Submandular Gland rec INf with Ductal Stone Post-Operative Diagnosis same Post-Op Procedure Note Date of Procedure: Jun 08, 2016 Name of Procedure Performed: Excision of Left Submandibular Gland Description of the Procedure: n/a Findings of the Procedure n/a Anesthesia Type get Estimated blood loss (mL): 25cc Packin 7 ALANNA drain with grenade suction Specimen(s) collected/removed left submandibular gland/stone LUCY SINGH MD Jun 08, 2016 10:36 am
[2016-06-08] MEDS ORDERED: ACETAMINOPHEN 325 MG TABLET/CAPLET (TYLENOL) PO PRN (10:45)
[2016-06-08] MEDS: MEPERIDINE (DEMEROL) INJ 50 MG/ML IVP PRN ×2 (10:59→11:16)
[2016-06-08] MEDS ORDERED: ONDANSETRON 4 MG/2 ML (SDV) Z0FRAN IVP PRN (11:00)
[2016-06-08] MEDS ORDERED: morphine INJ 10 MG/ML 1ML (SYR OR VIAL) IVP PRN (11:00)
[2016-06-08] MEDS ORDERED: morphine INJ 10 MG/ML 1ML (SYR OR VIAL) ONE (11:15)
[2016-06-08] MEDS ORDERED: RT-ALBUTEROL SULF 2.5 MG/3 ML PRE-MIX VIAL IH PRN (11:30)
[2016-06-08] MEDS ORDERED: CATHETER FLUSH 10 ML SYR IV PRN (11:30)
[2016-06-08 12:00] VITALS: BP 152/86
[2016-06-08] MEDS: D5 1/2 NS W/KCL 20 MEQ/L 1,000 ML IV SCH (12:33)
[2016-06-08] MEDS: HYDROcodone/APAP 5 MG/325 MG (LORTAB) TAB PO PRN ×3 (12:33→22:48)
[2016-06-08 15:25] VITALS: BP 150/85
--- NOTE | 2016-06-08 17:23 | Progress Note-Standard ---
Standard Progress Note Progress Notes/Assess & Plan Progress/Assessment & Plan ENT-Paula Doing Well minimal drainage fro mdrain Nerves intact Incision intact and dry [facility] and then home tomorrow after drain removed LUCY SINGH MD Jun 08, 2016 5:23 pm
[2016-06-08 19:25] VITALS: BP 136/81
[2016-06-09] VITALS: BP 144/82
[2016-06-09] MEDS: HYDROcodone/APAP 5 MG/325 MG (LORTAB) TAB PO PRN ×2 (02:39→08:03)
[2016-06-09] MEDS: D5 1/2 NS W/KCL 20 MEQ/L 1,000 ML IV SCH (03:16)
[2016-06-09 04:00] VITALS: BP 98/65
--- NOTE | 2016-06-09 06:28 | Progress Note-Standard ---
Standard Progress Note Progress Notes/Assess & Plan Progress/Assessment & Plan ENT-[facility] Doing Well minimal drainage fro mdrain Nerves intact Incision intact and dry danial lobserve tongiht and then home tomorrow after drain removed ENTShakira-/15-6am Doing well-no problems overnight Drain-D/C'ed Incision dry flat and intact pain controlled with oral pain medication danial ldischarge after breakfast RTC-1 week Discharge instructions given Precription in chart along with note for work Final Diagnosis Left Submandibular sialadenitis with ductal stone LUCY SINGH MD Jun 09, 2016 6:28 am
[2016-06-09 08:00] VITALS: BP 164/83
[2016-06-09] MEDS: LORATADINE (CLARITIN) 10 MG TAB PO SCH ×2 (08:03→08:32)
[2016-06-09] MEDS: LOSARTAN 50 MG (COZAAR) TAB PO SCH ×2 (08:03→08:32)
[2016-06-09 09:48] VITALS: BP 164/83
== END 2016-06-09 08:45 | disposition home or self-care (01) ==
LOC: SDC 06:40 → 4TH 12:27 → SDC 06-09 08:45
PROVIDERS: ATTEND Otolaryngology Otolaryngology/Facial Plastic Surgery
DX: K11.20 Sialoadenitis, unspecified (principal); K11.5 Sialolithiasis
CPT/HCPCS: 88305

== ENCOUNTER 2016-06-16 12:57 | Observation (INO) | payer BC ==
[~2016-06-16] VITALS: Ht 175.3 cm; Wt 92.1 kg
[2016-06-16] MEDS ORDERED: CEFU250T80 PO (13:22)
[2016-06-16] MEDS ORDERED: NS 100 ML (IVPB) BAG IV ONE (13:45)
[2016-06-16] MEDS ORDERED: IOHEXOL 350 MG/ML 100 ML (OMNIPAQUE 350) VIAL IV ONE (13:45)
--- NOTE | 2016-06-16 14:05 | ED Integumentary General ---
General Chief Complaint: Skin/Wound Problems Stated Complaint: L SIDE NECK SURGICAL WOUND, DISCHARGE Nursing Triage Note: AMB TO ED HAD SUBMANDIBULAIR CYST REMOVE [address] SPANN. SATURDAY SUTURES REMOVED, AND WAS STARTED ON ANTIBIOTIC. TODAY IS HAVING DRAINAGE FROM AREA. Source: patient Exam Limitations: no limitations History of Present Illness Time seen by provider: 14:04 Initial Comments On 06/08, patient had excision of a left submandibular gland done here by Dr. Spann. He had the sutures removed 06/[address] Spann and was started on antibiotic due to some drainage. This morning he awakened and noticed more swelling to the side of his neck and much more purulent drainage. No fevers. On Cefuroxime 250mg po BID, this will be his 3rd day. Timing/Duration: getting worse Severity: moderate Possible Cause: no cause identified Allergies and Home Medications Allergies Coded Allergies: No Known Drug Allergies (Unverified , 05/05/16) Home Medications Albuterol Sulfate 1 Puff Puff, 2 PUFF IH Q4H PRN for WHEEZING, (Reported) Cefuroxime Axetil 250 Mg Tablet, 250 MG PO, (Reported) Fluticasone Propionate 9.9 Ml [place].susp, 1 SPRAY NS DAILY, (Reported) Loratadine 10 Mg Tablet, 10 MG PO DAILY, (Reported) Losartan Potassium 50 Mg Tablet, 50 MG PO DAILY, (Reported) Constitutional: see HPI EENTM: other (induration), see HPI, throat swelling Respiratory: no symptoms reported Cardiovascular: no symptoms reported Genitourinary: no symptoms reported Musculoskeletal: no symptoms reported Skin: no symptoms reported Past Cbqxfpe-Ivxzjr-Rumhxq Hx Patient Social History Alcohol Use: Denies Use Recreational Drug Use: No Smoking Status: Never a Smoker Type Used: Smokeless Tobacco 2nd Hand Smoke Exposure: No Recent Foreign Travel: No Contact w/Someone Who Travel: No Recent Infectious Disease Expo: No Recent Hopitalizations: No Seasonal Allergies Seasonal Allergies: Yes Surgeries HX Surgeries: Yes (SINUS SURGEY NECK) Respiratory Hx Respiratory Disorders: Yes Respiratory Disorders: Asthma Cardiovascular Hx Cardiac Disorders: Yes Cardiac Disorders: Hypertension Neurological Hx Neurological Disorders: No Reproductive System Hx Reproductive Disorders: No Sexually Transmitted Disease: No HIV/AIDS: No Genitourinary Hx Genitourinary Disorders: No Gastrointestinal Hx Gastrointestinal Disorders: No Musculoskeletal Hx Musculoskeletal Disorders: No Endocrine Hx Endocrine Disorders: No HEENT HX ENT Disorders: Yes (SINUSITIS; LEFT SALIVARY GLAND STONE) Loss of Vision: Bilateral Cancer Hx Cancer: No Psychosocial Hx Psychiatric Problems: No Integumentary HX Skin/Integumentary Disorder: No Blood Transfusions Hx Blood Disorders: No Adverse Reaction to a Blood Tr: No Family Medical History Significant Family History: No Pertinent Family Hx Family Medial History: Colon cancer 19 FATHER Diabetes mellitus 19 MOTHER Headache disorder G8 SISTER Thyroid disease G8 SISTER Physical Exam Vital Signs Vital Sign - Last 12Hours 06/16/16 13:13 Temp 97.6 Pulse 72 Resp 18 B/P (MAP) 133/84 O2 Delivery Room Air Capillary Refill : Less Than 3 Seconds General Appearance: WD/WN, no apparent distress HEENT: PERRL/EOMI, normal ENT inspection Neck: non-tender, full range of motion, other (induration and erythema the left side of the neck. With palpation of this area I'm able to express a moderate amount of purulent material. Culture of this was collected and sent to lab.) Respiratory: normal breath sounds, no respiratory distress, no accessory muscle use Extremities: normal range of motion, non-tender Neurologic/Psychiatric: alert, normal mood/affect, oriented x 3 Skin: normal color, warm/dry Progress/Results/Core Measures Results/Orders Lab Results Laboratory Tests Test 06/16/16 14:26 Range/Units White Blood Count 19.5 H 4.3-11.0 10^3/uL Red Blood Count 4.82 4.35-5.85 10^6/uL Hemoglobin 14.2 13.3-17.7 G/DL Hematocrit 43 40-54 % Mean Corpuscular Volume 90 80-99 FL Mean Corpuscular Hemoglobin 30 25-34 PG Mean Corpuscular Hemoglobin Concent 33 32-36 G/DL Red Cell Distribution Width 13.3 10.0-14.5 % Platelet Count 346 130-400 10^3/uL Mean Platelet Volume 9.5 7.4-10.4 FL Neutrophils (%) (Auto) 79 H 42-75 % Lymphocytes (%) (Auto) 12 12-44 % Monocytes (%) (Auto) 9 0-12 % Eosinophils (%) (Auto) 0 0-10 % Basophils (%) (Auto) 0 0-10 % Neutrophils # (Auto) 15.4 H 1.8-7.8 X 10^3 Lymphocytes # (Auto) 2.3 1.0-4.0 X 10^3 Monocytes # (Auto) 1.7 H 0.0-1.0 X 10^3 Eosinophils # (Auto) 0.1 0.0-0.3 10^3/uL Basophils # (Auto) 0.1 0.0-0.1 10^3/uL Neutrophils % (Manual) 76 % Lymphocytes % (Manual) 14 % Monocytes % (Manual) 8 % Eosinophils % (Manual) 1 % Basophils % (Manual) 0 % Band Neutrophils 0 % Reactive Lymphocytes 1 % Blood Morphology Comment NORMAL Sodium Level 136 135-145 MMOL/L Potassium Level 4.1 3.6-5.0 MMOL/L Chloride Level 99 98-107 MMOL/L Carbon Dioxide Level 25 21-32 MMOL/L Anion Gap 12 5-14 MMOL/L Blood Urea Nitrogen 10 7-18 MG/DL Creatinine 0.90 0.60-1.30 MG/DL Estimat Glomerular Filtration Rate > 60 BUN/Creatinine Ratio 11 Glucose Level 96 70-105 MG/DL Calcium Level 9.6 8.5-10.1 MG/DL My Orders Orders - NEGRITA GARCIA APRN Wound Culture (06/16/16 13:41) Cbc With Automated Diff (06/16/16 13:41) Basic Metabolic Panel (06/16/16 13:41) Saline Lock/Iv-Start (06/16/16 13:41) Ct Neck (Soft Tissue) W (06/16/16 13:41) Iohexol Injection (Omnipaque 350 Mg/Ml 1 (06/16/16 13:45) Ns (Ivpb) (Sodium Chloride 0.9% Ivpb Bag (06/16/16 13:45) Clindamycin Injection (Cleocin Injection (06/16/16 14:15) Manual Differential (06/16/16 14:26) Medications Given in ED Current Medications Medications Dose Ordered Sig/Darek Route Start Time Stop Time Status Last Admin Dose Admin Clindamycin Phosphate 900 mg/ Sodium Chloride 56 ml @ 100 mls/hr ONCE ONCE IV 06/16/16 14:15 06/16/16 14:48 DC 06/16/16 14:55 100 MLS/HR Iohexol 100 ml ONCE ONCE IV 06/16/16 13:45 06/16/16 13:46 DC 06/16/16 13:58 75 ML Sodium Chloride 100 ml ONCE ONCE IV 06/16/16 13:45 06/16/16 13:46 DC 06/16/16 13:58 80 ML Vital Signs/I&O Vital Sign - Last 12Hours 06/16/16 13:13 Temp 97.6 Pulse 72 Resp 18 B/P (MAP) 133/84 O2 Delivery Room Air Blood Pressure Mean: 100 Departure Communication Time/Spoke to Admitting Phy: 15:57 Communication Miriam Martinez, nurse practitioner for Dr. Spann has been here to see the patient. She evaluated him and discussed the case with Dr. Spann. We'll admit the patient, IV cefuroxime, hydrocodone for pain and repeat CBC in the morning. Impression Impression: Primary Impression: Postoperative abscess Disposition: ADMITTED INPATIENT Condition: Stable Departure-Patient Inst. Referrals: JAMESON MCCLELLAN DO (PCP/Family) Primary Care Physician NEGRITA GARCIA APRN Jun 16, 2016 14:05
[2016-06-16] MEDS ORDERED: CLINDAMYCIN INJECTION 900 MG in NS (IVPB) 50 ML IV ONE (14:15)
--- NOTE | 2016-06-16 14:26 | Diagnostic Imaging Report ---
PROCEDURE: CT neck soft tissue with contrast. TECHNIQUE: Multiple contiguous axial images were obtained through the neck after the administration of contrast. INDICATION: Recent left submandibular gland resection. Left neck soreness. Comparison is made with a previous study from May 05, 2016. Findings: When compared to the previous examination there has been interval surgical resection of the left submandibular gland and the patient's large left-sided sialolith. There is some fluid demonstrated at the surgical bed deep to the platysma as well as some fluid tracking towards the skin surface with overlying left-sided skin thickening. Underlying infection and cellulitis with developing abscess cannot be excluded by imaging alone, but these findings may simply reflect immediate postoperative changes. There is no evidence of mass effect on the airway. The parotid glands, the right submandibular gland appeared normal. There are small left-sided cervical lymph nodes. The largest is at level IIA and measures 14 x 7 mm. This is diminished in size when compared to the previous study. Vascular structures of the neck unremarkable. There is no significant carotid stenosis evident. The internal jugular veins are patent. The intracranial contents appear unremarkable. The mastoids appear clear. The visualized paranasal sinuses clear. Lung apices clear. There are degenerative features within the cervical spine which are unchanged from previous exam. No acute osseous abnormality demonstrated. IMPRESSION: 1. Interval operative changes of resection of the left submandibular gland and prior large left-sided sialolith. There is some fluid within the surgical bed as well as fluid tracking through the platysma to the skin surface with overlying superficial space subcutaneous induration and skin thickening. The findings could simply be on the immediate postoperative basis though infection with cellulitis and possible developing abscess cannot be excluded based on imaging alone. There is no mass effect on the airway. The patient's prior left cervical lymphadenopathy is improving. Dictated by: Dictated on workstation # [id number]
[2016-06-16 14:32] LABS: BASOPHILS # (AUTO) 0.1 10^3/uL (0.0-0.1); BASOPHILS % (AUTO) 0 % (0-10); EOSINOPHILS # (AUTO) 0.1 10^3/uL (0.0-0.3); EOSINOPHILS % (AUTO) 0 % (0-10); LYMPHOCYTES # (AUTO) 2.3 X 10^3 (1.0-4.0); LYMPHOCYTES % (AUTO) 12 % (12-44); MEAN CORPUSCULAR HEMOGLOBIN 30 PG (25-34); MEAN CORPUSCULAR HGB CONC 33 G/DL (32-36); MEAN CORPUSCULAR VOLUME 90 FL (80-99); MEAN PLATELET VOLUME 9.5 FL (7.4-10.4); MONOCYTES # (AUTO) 1.7 X 10^3 (0.0-1.0); MONOCYTES % (AUTO) 9 % (0-12); NEUTROPHILS # (AUTO) 15.4 X 10^3 (1.8-7.8); NEUTROPHILS % (AUTO) 79 % (42-75); PLATELET COUNT 346 10^3/uL (130-400); RED BLOOD COUNT 4.82 10^6/uL (4.35-5.85); RED CELL DISTRIBUTION WIDTH 13.3 % (10.0-14.5); WHITE BLOOD COUNT 19.5 10^3/uL (4.3-11.0)
[2016-06-16 14:48] LABS: ANION GAP 12 MMOL/L (5-14); BLOOD UREA NITROGEN 10 MG/DL (7-18); BUN/CREATININE RATIO 11; CALCIUM 9.6 MG/DL (8.5-10.1); CARBON DIOXIDE 25 MMOL/L (21-32); CHLORIDE 99 MMOL/L (98-107); GFR ESTIMATED > 60; GLUCOSE 96 MG/DL (70-105); POTASSIUM 4.1 MMOL/L (3.6-5.0); SODIUM 136 MMOL/L (135-145)
[2016-06-16 15:19] LABS: BAND NEUTROPHILS 0 %; BASOPHILS % (MANUAL) 0 %; EOSINOPHILS % (MANUAL) 1 %; LYMPHOCYTES % (MANUAL) 14 %; NEUTROPHILS % (MANUAL) 76 %
[2016-06-16 15:20] LABS: REACTIVE LYMPHOCYTES 1 %
--- NOTE | 2016-06-16 16:11 | Progress Note-Standard ---
Standard Progress Note Progress Notes/Assess & Plan Progress/Assessment & Plan Patient evaluated in ER for drainage from left neck incision following surgery. He states he applied heat to the incision and began to have drainage. A culture of the drainage was obtained in the ER. Patient believes the area is smaller in size than when evaluated in office on . He does report some pain. A CT was obtained noting some fluid in the surgical bed. An abscess couldn 't be ruled out. There was no airway concerns. WBC are elevated. Observations- Incision was emily in color with induration. A mild amount of purulent drainage was excised from incision. No warmth noted. . Assessment- Abscess verse cellulitis Plan- We will admit the patient for observation. He will need to be NPO after midnight. Warm compresses to the affected area. Patient was advised to milk the area as best as possible. Will begin Cefuroxime 1.5 grams Q 8. Can have Vicodin 5-324mg 1-2 tabs q 4 hours PRN pain. Patient will need a CBC drawn at 0500 on June 17. We will re-evaluate tomorrow. 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
[2016-06-16 16:44] VITALS: BP 141/70
[2016-06-16] MEDS ORDERED: CATHETER FLUSH 10 ML SYR IV PRN (16:45)
[2016-06-16] MEDS: NS IV 1000 ML 1,000 ML IV SCH (16:59)
[2016-06-16] MEDS: CEFUROXIME 1.5 GM/NS 50 ML IVPB IV SCH ×2 (17:00)
[2016-06-16] MEDS: HYDROcodone/APAP 5 MG/325 MG (LORTAB) TAB PO PRN ×2 (17:00→20:50)
[2016-06-16 19:38] VITALS: BP 134/62
[2016-06-17] VITALS (7 sets, daily range): BP systolic 123–155; BP diastolic 70–90
[2016-06-17] MEDS: NS IV 1000 ML 1,000 ML IV SCH ×4 (01:12→19:30)
[2016-06-17] MEDS: CEFUROXIME 1.5 GM/NS 50 ML IVPB IV SCH ×6 (01:12→16:53)
[2016-06-17] MEDS: HYDROcodone/APAP 5 MG/325 MG (LORTAB) TAB PO PRN ×5 (01:13→20:55)
[2016-06-17 05:08] LABS: BASOPHILS % (AUTO) 0 % (0-10); EOSINOPHILS # (AUTO) 0.2 10^3/uL (0.0-0.3); EOSINOPHILS % (AUTO) 1 % (0-10); LYMPHOCYTES # (AUTO) 2.4 X 10^3 (1.0-4.0); LYMPHOCYTES % (AUTO) 16 % (12-44); MEAN CORPUSCULAR HEMOGLOBIN 29 PG (25-34); MEAN CORPUSCULAR HGB CONC 33 G/DL (32-36); MEAN CORPUSCULAR VOLUME 91 FL (80-99); MEAN PLATELET VOLUME 9.6 FL (7.4-10.4); MONOCYTES # (AUTO) 1.4 X 10^3 (0.0-1.0); MONOCYTES % (AUTO) 10 % (0-12); NEUTROPHILS # (AUTO) 10.8 X 10^3 (1.8-7.8); NEUTROPHILS % (AUTO) 73 % (42-75); PLATELET COUNT 356 10^3/uL (130-400); RED BLOOD COUNT 4.72 10^6/uL (4.35-5.85); RED CELL DISTRIBUTION WIDTH 13.4 % (10.0-14.5); WHITE BLOOD COUNT 14.8 10^3/uL (4.3-11.0)
--- NOTE | 2016-06-17 06:40 | Progress Note-Standard ---
Standard Progress Note Progress Notes/Assess & Plan Progress/Assessment & Plan ENT-Maria Ines Doing better Minimal drainage from incision site overnight WBC-14.8 which is improved over 19 yesterday afternoon Minimal paijn Swelling down Films reviewed Left Neck-much improved over when I saw him t as outpatient minimla discomfort-no fluctuance-redness better will keep today for one more day of IV antibtiocis with cbc in am plan on home in am-watinig on prelim culture results as well may eat normal diet-up and ambulate cbc in am Final Diagnosis Left Neck cellulitis/abscess s/p left submandibualr gland excision LUCY SINGH MD Jun 17, 2016 6:40 am
[2016-06-17] MEDS ORDERED: LOSARTAN 50 MG (COZAAR) TAB PO SCH (09:00)
[2016-06-18] MEDS: HYDROcodone/APAP 5 MG/325 MG (LORTAB) TAB PO PRN (00:41)
[2016-06-18] MEDS: CEFUROXIME 1.5 GM/NS 50 ML IVPB IV SCH ×2 (00:42)
[2016-06-18 04:00] VITALS: BP 161/89
[2016-06-18] MEDS: NS IV 1000 ML 1,000 ML IV SCH (04:09)
[2016-06-18 05:35] LABS: BASOPHILS % (AUTO) 0 % (0-10); EOSINOPHILS # (AUTO) 0.1 10^3/uL (0.0-0.3); EOSINOPHILS % (AUTO) 1 % (0-10); LYMPHOCYTES # (AUTO) 2.4 X 10^3 (1.0-4.0); LYMPHOCYTES % (AUTO) 23 % (12-44); MEAN CORPUSCULAR HEMOGLOBIN 29 PG (25-34); MEAN CORPUSCULAR HGB CONC 33 G/DL (32-36); MEAN CORPUSCULAR VOLUME 91 FL (80-99); MEAN PLATELET VOLUME 9.5 FL (7.4-10.4); MONOCYTES # (AUTO) 0.9 X 10^3 (0.0-1.0); MONOCYTES % (AUTO) 9 % (0-12); NEUTROPHILS # (AUTO) 6.8 X 10^3 (1.8-7.8); NEUTROPHILS % (AUTO) 66 % (42-75); PLATELET COUNT 346 10^3/uL (130-400); RED BLOOD COUNT 4.72 10^6/uL (4.35-5.85); RED CELL DISTRIBUTION WIDTH 13.3 % (10.0-14.5); WHITE BLOOD COUNT 10.3 10^3/uL (4.3-11.0)
--- NOTE | 2016-06-18 06:12 | Progress Note-Standard ---
Standard Progress Note Progress Notes/Assess & Plan Progress/Assessment & Plan ENT-Maria Ines Doing better Minimal drainage from incision site overnight WBC-14.8 which is improved over 19 yesterday afternoon Minimal paijn Swelling down Films reviewed Left Neck-much improved over when I saw him t as outpatient minimla discomfort-no fluctuance-redness better will keep today for one more day of IV antibtiocis with cbc in am plan on home in am-watinig on prelim culture results as well may eat normal diet-up and ambulate cbc in am ENT-06/18 WBC-10.3 this am Minimal to no swelling or drainage will discharge this am Home on ceftin 250bid for ten days Discharge instructions given RTc-2 weeks-sooner is swelling recurs LUCY SINGH MD Jun 18, 2016 6:12 am
== END 2016-06-18 06:16 | disposition home or self-care (01) ==
LOC: EDUNIT# 12:57 → ER 12:58 → 4TH 15:56 → UNDOADMOB 15:56 → 4TH 16:45 → UNDODISOB 06-18 07:05
PROVIDERS: ADMIT Otolaryngology Otolaryngology/Facial Plastic Surgery; ATTEND Otolaryngology Otolaryngology/Facial Plastic Surgery
DX: T81.4XXA Infection following a procedure, initial encounter (principal); I10 Essential (primary) hypertension; J45.909 Unspecified asthma, uncomplicated
CPT/HCPCS: 36415; 70491; 80048; 85007; 85025; 85027; 87070; 87205; 96365; G0378

== ENCOUNTER 2017-02-03 14:11 | Emergency (ER) | payer BC ==
[~2017-02-03] VITALS: Ht 175.3 cm; Wt 90.7 kg
[~2017-02-03 14:11] MED LIST changes: +CEFU250T80 PO
[2017-02-03] MEDS ORDERED: LACTATED RINGERS 1,000 ML IV ONE (15:09)
[2017-02-03] MEDS ORDERED: RT-ALBUTEROL/IPRATROPIUM 3 ML (DUONEB) VIAL INH ONE (15:15)
[2017-02-03] MEDS ORDERED: KETOROLAC 30 MG/ML VIAL IVP ONE (15:15)
[2017-02-03 15:37] LABS: BASOPHILS # (AUTO) 0.1 10^3/uL (0.0-0.1); BASOPHILS % (AUTO) 0 % (0-10); EOSINOPHILS # (AUTO) 0.2 10^3/uL (0.0-0.3); EOSINOPHILS % (AUTO) 1 % (0-10); LYMPHOCYTES # (AUTO) 1.7 X 10^3 (1.0-4.0); LYMPHOCYTES % (AUTO) 11 % (12-44); MEAN CORPUSCULAR HEMOGLOBIN 31 PG (25-34); MEAN CORPUSCULAR HGB CONC 34 G/DL (32-36); MEAN CORPUSCULAR VOLUME 91 FL (80-99); MEAN PLATELET VOLUME 9.3 FL (7.4-10.4); MONOCYTES # (AUTO) 2.3 X 10^3 (0.0-1.0); MONOCYTES % (AUTO) 14 % (0-12); NEUTROPHILS # (AUTO) 11.6 X 10^3 (1.8-7.8); NEUTROPHILS % (AUTO) 73 % (42-75); PLATELET COUNT 351 10^3/uL (130-400); RED BLOOD COUNT 5.27 10^6/uL (4.35-5.85); RED CELL DISTRIBUTION WIDTH 13.6 % (10.0-14.5); WHITE BLOOD COUNT 15.8 10^3/uL (4.3-11.0)
[2017-02-03 15:54] LABS: BAND NEUTROPHILS 3 %; EOSINOPHILS % (MANUAL) 3 %; LYMPHOCYTES % (MANUAL) 9 %; NEUTROPHILS % (MANUAL) 67 %
[2017-02-03 16:02] LABS: ANION GAP 14 MMOL/L (5-14); BLOOD UREA NITROGEN 10 MG/DL (7-18); BUN/CREATININE RATIO 12; CALCIUM 9.9 MG/DL (8.5-10.1); CARBON DIOXIDE 22 MMOL/L (21-32); CHLORIDE 104 MMOL/L (98-107); CREATININE SERUM 0.82 MG/DL (0.60-1.30); GFR ESTIMATED > 60; GLUCOSE 100 MG/DL (70-105); MAGNESIUM 2.2 MG/DL (1.8-2.4); POTASSIUM 3.6 MMOL/L (3.6-5.0); SODIUM 140 MMOL/L (135-145)
[2017-02-03 16:27] VITALS: BP 129/81
[2017-02-03] MEDS ORDERED: PRD20T PO (16:48)
--- NOTE | 2017-02-03 16:48 | ED General ---
General Chief Complaint: Cough/Cold/Flu Symptoms Stated Complaint: SINUS INFECTION Nursing Triage Note: AMB TO ROOM REPORTS HE HAS BEEN TAKING MEDS FOR SINUS INFETION SINCE 01/30 NOT HELPING.HAS BEEN TAKING OTC SINUS MEDS ALSO Nursing Sepsis Screen: No Definite Risk Source of Information: Patient Exam Limitations: No Limitations History of Present Illness Time Seen by Provider: 19:53 Initial Comments This 56-year-old man presents to the emergency room with complaints of sinus pressure, headache especially on the right side, postnasal drip, questionable fever, and leg cramping. He had been in contact with Dr. Spann's office by phone and was started on Dr. Spann's nasal spray and cefuroxime. He has been taking antibiotics for 4 days but still is struggling with symptoms. He particularly has difficulty lying flat because of headache, congestion, and breathing issues. He has a history of asthma and is wheezing. He reports he feels dehydrated. He has been taking yypt-bkv-owjrcsh sinus medications and likely has doubled up on phenylephrine as he is taking multiple brands of similar medicines. His blood pressure is elevated on assessment. Patient reports he was also seen 1-2 weeks ago in the outpatient setting and received an injection of Depo-Medrol. Patient has not taken any medications for his pain today. Allergies and Home Medications Allergies Coded Allergies: No Known Drug Allergies (Unverified , 05/05/16) Home Medications Albuterol Sulfate 1 Puff Puff, 2 PUFF IH Q4H PRN for WHEEZING, (Reported) Cefuroxime Axetil 250 Mg Tablet, 250 MG PO, (Reported) Fluticasone Propionate 9.9 Ml [place].susp, 1 SPRAY NS DAILY, (Reported) Loratadine 10 Mg Tablet, 10 MG PO DAILY, (Reported) Losartan Potassium 50 Mg Tablet, 50 MG PO DAILY, (Reported) Prednisone 20 Mg Tab, 20 MG PO DAILY, #5 Prescribed by: MELVINA HERNANDEZ on 02/03/17 [id number] Constitutional: no symptoms reported EENTM: see HPI Respiratory: see HPI Cardiovascular: no symptoms reported Gastrointestinal: no symptoms reported Genitourinary: no symptoms reported Musculoskeletal: see HPI Skin: no symptoms reported Psychiatric/Neurological: No Symptoms Reported Hematologic/Lymphatic: No Symptoms Reported Past Yjluhyw-Wuiixv-Utuqzd Hx Patient Social History Alcohol Use: Denies Use Recreational Drug Use: No Type Used: Smokeless Tobacco 2nd Hand Smoke Exposure: No Recent Foreign Travel: No Contact w/Someone Who Travel: No Recent Infectious Disease Expo: No Recent Hopitalizations: No Seasonal Allergies Seasonal Allergies: Yes Surgeries History of Surgeries: Yes (SINUS SURGEY, SUBMANDIBULAR GLAND RESECTION) Respiratory History of Respiratory Disorde: Yes Respiratory Disorders: Asthma Currently Using CPAP: No Currently Using BIPAP: No Cardiovascular History of Cardiac Disorders: Yes Cardiac Disorders: Hypertension Neurological History of Neurological Disord: No Reproductive System Hx Reproductive Disorders: No Sexually Transmitted Disease: No HIV/AIDS: No Genitourinary History of Genitourinary Disor: No Gastrointestinal History of Gastrointestinal Di: No Musculoskeletal History of Musculoskeletal Dis: No Endocrine History of Endocrine Disorders: No HEENT History of HEENT Disorders: Yes (wears glasses) Loss of Vision: Bilateral Cancer History of Cancer: No Psychosocial History of Psychiatric Problem: No Integumentary History of Skin or Integumenta: No Blood Transfusions History of Blood Disorders: No Adverse Reaction to a Blood Tr: No Family Medical History Significant Family History: No Pertinent Family Hx Family Medial History: Colon cancer 19 FATHER Diabetes mellitus 19 MOTHER Headache disorder G8 SISTER Thyroid disease G8 SISTER Physical Exam Vital Signs Vital Sign - Last 12Hours 02/03/17 14:51 Temp 98.2 Pulse 94 Resp 18 B/P (MAP) 159/123 (135) Pulse Ox 96 O2 Delivery Room Air Capillary Refill : Less Than 3 Seconds General Appearance: No Apparent Distress, WD/WN HEENT: PERRL/EOMI, TMs Normal, Other (Cobblestoning in the posterior pharynx. 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 II-XII Norm as Tested Skin: Normal Color, Warm/Dry Progress/Results/Core Measures Suspected Sepsis Recent Fever Within 48 Hours: No Infection Criteria Present: Documented Infection New/Unexplained Altered Menta: No Sepsis Screen: No Definite Risk Sepsis Diagnosis: SIRS Temperature:98.2 Pulse: 94 Respiratory Rate: 18 Laboratory Tests 12/10/17 15:21: White Blood Count 15.8H Blood Pressure 129 /81 Mean: 97 Laboratory Tests 02/03/17 15:21: Creatinine 0.82, Platelet Count 351 Results/Orders Lab Results Laboratory Tests Test 02/03/17 15:21 Range/Units White Blood Count 15.8 H 4.3-11.0 10^3/uL Red Blood Count 5.27 4.35-5.85 10^6/uL Hemoglobin 16.2 13.3-17.7 G/DL Hematocrit 48 40-54 % Mean Corpuscular Volume 91 80-99 FL Mean Corpuscular Hemoglobin 31 25-34 PG Mean Corpuscular Hemoglobin Concent 34 32-36 G/DL Red Cell Distribution Width 13.6 10.0-14.5 % Platelet Count 351 130-400 10^3/uL Mean Platelet Volume 9.3 7.4-10.4 FL Neutrophils (%) (Auto) 73 42-75 % Lymphocytes (%) (Auto) 11 L 12-44 % Monocytes (%) (Auto) 14 H 0-12 % Eosinophils (%) (Auto) 1 0-10 % Basophils (%) (Auto) 0 0-10 % Neutrophils # (Auto) 11.6 H 1.8-7.8 X 10^3 Lymphocytes # (Auto) 1.7 1.0-4.0 X 10^3 Monocytes # (Auto) 2.3 H 0.0-1.0 X 10^3 Eosinophils # (Auto) 0.2 0.0-0.3 10^3/uL Basophils # (Auto) 0.1 0.0-0.1 10^3/uL Neutrophils % (Manual) 67 % Lymphocytes % (Manual) 9 % Monocytes % (Manual) 18 % Eosinophils % (Manual) 3 % Band Neutrophils 3 % Toxic Granulation 1+ Blood Morphology Comment NORMAL Sodium Level 140 135-145 MMOL/L Potassium Level 3.6 3.6-5.0 MMOL/L Chloride Level 104 98-107 MMOL/L Carbon Dioxide Level 22 21-32 MMOL/L Anion Gap 14 5-14 MMOL/L Blood Urea Nitrogen 10 7-18 MG/DL Creatinine 0.82 0.60-1.30 MG/DL Estimat Glomerular Filtration Rate > 60 BUN/Creatinine Ratio 12 Glucose Level 100 70-105 MG/DL Calcium Level 9.9 8.5-10.1 MG/DL Magnesium Level 2.2 1.8-2.4 MG/DL My Orders Orders - MELVINA ROOT MD Albuterol/Ipra Inhalation Soln (Duoneb I (02/03/17 15:15) Svn Sm Volume Nebulizer Rt-Rfs (02/03/17 15:09) Basic Metabolic Panel (02/03/17 15:09) Cbc With Automated Diff (02/03/17 15:09) Magnesium (02/03/17 15:09) Saline Lock/Iv-Start (02/03/17 15:09) Ketorolac Injection (Toradol Injection) (02/03/17 15:15) Lactated Ringers (Lr 1000 Ml Iv Solution (02/03/17 15:09) Manual Differential (02/03/17 15:21) Medications Given in ED Current Medications Medications Dose Ordered Sig/Darek Route Start Time Stop Time Status Last Admin Dose Admin Albuterol/ Ipratropium 3 ml ONCE ONCE INH 02/03/17 15:15 02/03/17 15:16 DC 02/03/17 15:21 3 ML Ketorolac Tromethamine 30 mg ONCE ONCE IVP 02/03/17 15:15 02/03/17 15:16 DC 02/03/17 15:28 30 MG Lactated Ringer's 1,000 ml @ 0 mls/hr Q0M ONCE IV 02/03/17 15:09 02/03/17 15:12 DC 02/03/17 15:28 1,000 MLS/HR Vital Signs/I&O Vital Sign - Last 12Hours 02/03/17 02/03/17 02/03/17 14:51 16:27 16:59 Temp 98.2 Pulse 94 77 Resp 18 18 B/P (MAP) 159/123 (135) 129/81 (97) Pulse Ox 96 98 O2 Delivery Room Air Room Air Capillary Refill : Less Than 3 Seconds Blood Pressure Mean: 97 Progress Note : Progress Note Patient was treated with IV fluids and Toradol. This reduced his pain moderately. Blood pressure seemed to improve after treatment of pain. He had a leukocytosis likely owing to recent steroid injection. His wheezing was treated with a DuoNeb treatment. Wheezing resolved and lungs were clear after treatment. He did feel better in regard to his breathing. Patient was instructed to continue on the antibiotics and nasal spray as prescribed by Dr. Spann. I added oral steroids to help with his asthma exacerbation and his sinus symptoms. Departure Impression Impression: Primary Impression: Sinusitis Qualified Codes: J01.90 - Acute sinusitis, unspecified Additional Impressions: Asthma exacerbation Qualified Codes: J45.901 - Unspecified asthma with (acute) exacerbation Muscle cramps Acute headache Qualified Codes: R51 - Headache Hypertension Qualified Codes: I10 - Essential (primary) hypertension Disposition: HOME, SELF-CARE Condition: Improved Departure-Patient Inst. Decision time for Depature: 15:10 Referrals: JAMESON MCCLELLAN DO (PCP/Family) Primary Care Physician Patient Instructions: Sinusitis in Adults Add. Discharge Instructions: Complete your antibiotics as prescribed. Use the steroids (prednisone) as prescribed to help with inflammation and asthma exacerbation. Use your inhaler up to 4 puffs every 4 hours as needed for shortness of air and wheezing. Follow -up with Dr. Spann as soon as possible. Drink plenty of clear liquids. You may use ibuprofen up to 600 mg every 6 hours as needed for headache. Add Tylenol (acetaminophen) up to 1000 g every 6 hours as needed for pain not controlled by ibuprofen. Avoid use of wkxi-zsm-rvpwdly medications with decongestants such as phenylephrine as this may exacerbate your high blood pressure which may in turn worsen your headaches. Return to the ER symptoms are worsening. You do not need an additional nasal steroid spray as Dr. Spann' s nasal spray has a steroid in it. All discharge instructions reviewed with patient and/or family. Voiced understanding. Scripts Prednisone (Prednisone) 20 Mg Tab 20 MG PO DAILY, #5 TAB Prov: MELVINA ROOT MD 02/03/17 Copy Copies To 1: LUCY SPANN MD, JOSHUA T MD Feb 03, 2017 16:48
[2017-02-03 16:59] VITALS: BP 150/97
== END 2017-02-03 16:59 | disposition left against medical advice (07) ==
LOC: EDUNIT# 14:11 → ER 14:12
DX: J01.90 Acute sinusitis, unspecified (principal); J45.901 Unspecified asthma with (acute) exacerbation; R51 Headache; R25.2 Cramp and spasm; I10 Essential (primary) hypertension
CPT/HCPCS: 36415; 80048; 83735; 85007; 85027

== ENCOUNTER 2017-10-06 16:16 | Day surgery (SDC) | payer BC ==
[2017-10-06] VITALS (13 sets, daily range): BP systolic 131–162; BP diastolic 70–98
[~2017-10-06] VITALS: Ht 175.3 cm; Wt 88.3 kg
[2017-10-06] MEDS ORDERED: morphine INJ 10 MG/ML 1ML (SYR OR VIAL) ONE ×2 (16:21→16:32)
--- OUTSIDE RECORDS SUMMARY | 2017-10-06 16:22 | XMS REPORT | Continuity of Care Document ---
Author Author [facility] Organization [facility] Address Unknown Phone Unavailable Allergies Active Description Code Type Severity Reaction Onset Reported/Identified Relationship to Patient Clinical Status Yes No Known Drug Allergies [id number] Drug Allergy Unknown N/A 05/05/2016 Medications There is no data. Problems Date Dx Coded Attending Type Code Diagnosis Diagnosed By 12/20/2014 LUCY SINGH MD, Ot J32.9 05/05/2016 LUCY SINGH MD, Ot J32.9 CHRONIC SINUSITIS, UNSPECIFIED 05/06/2016 LUCY SINGH MD Ot I10 ESSENTIAL (PRIMARY) HYPERTENSION 05/06/2016 LUCY SINGH MD Ot K11.20 SIALOADENITIS, UNSPECIFIED 05/06/2016 LUCY SINGH MD Ot K11.5 SIALOLITHIASIS 05/06/2016 LUCY SINGH MD Ot I10 ESSENTIAL (PRIMARY) HYPERTENSION 05/06/2016 LUCY SINGH MD Ot K11.20 SIALOADENITIS, UNSPECIFIED 05/06/2016 LUCY SINGH MD Ot K11.5 SIALOLITHIASIS 05/17/2016 CLAUDINE NAVARRO JOCELYNE K Ot B37.0 CANDIDAL STOMATITIS 05/17/2016 CLAUDINE NAVARRO JOCELYNE K Ot J32.9 CHRONIC SINUSITIS, UNSPECIFIED 05/17/2016 CLAUDINE NAVARRO JOCELYNE K Ot K11.5 SIALOLITHIASIS 05/17/2016 CLAUDINE DO, JOCELYNE K Ot R22.0 LOCALIZED SWELLING, MASS AND LUMP, HEAD 05/18/2016 CLAUDINEPhilipp NAVARRO JOCELYNE K Ot B37.0 CANDIDAL STOMATITIS 05/18/2016 CLAUDINE NAVARRO JOCELYNE K Ot J32.9 CHRONIC SINUSITIS, UNSPECIFIED 05/18/2016 CLAUDINEPhilipp NAVARRO JOCELYNE K Ot K11.5 SIALOLITHIASIS 05/18/2016 CLAUDINE NAVARRO JOCELYNE K Ot R22.0 LOCALIZED SWELLING, MASS AND LUMP, HEAD 06/04/2016 LUCY SINGH MD Ot K11.5 SIALOLITHIASIS 06/04/2016 LUCY SINGH MD, Ot Z01.812 ENCOUNTER FOR PREPROCEDURAL LABORATORY E 06/04/2016 LUCY SINGH MD Ot Z01.818 ENCOUNTER FOR OTHER PREPROCEDURAL EXAMIN 06/04/2016 LUCY SINGH MD Ot Z11.2 ENCOUNTER FOR SCREENING FOR OTHER BACTER 06/05/2016 LUCY SINGH MD Ot K11.5 SIALOLITHIASIS 06/05/2016 LUCY SINGH MD Ot Z01.812 ENCOUNTER FOR PREPROCEDURAL LABORATORY E 06/05/2016 LUCY SINGH MD Ot Z01.818 ENCOUNTER FOR OTHER PREPROCEDURAL EXAMIN 06/05/2016 LUCY SINGH MD Ot Z11.2 ENCOUNTER FOR SCREENING FOR OTHER BACTER 06/08/2016 LUCY SINGH MD Ot J32.9 CHRONIC SINUSITIS, UNSPECIFIED 06/09/2016 FRANCISCO VALADEZ, LUCY Lange Ot K11.20 SIALOADENITIS, UNSPECIFIED 06/09/2016 FRANCISCO VALADEZ, LUCY Lange Ot K11.5 SIALOLITHIASIS 06/12/2016 LUCY SINGH MD P Ot K11.20 SIALOADENITIS, UNSPECIFIED 06/12/2016 LUCY SINGH MD P Ot K11.5 SIALOLITHIASIS 06/14/2016 FRANCISCO VALADEZ, LUCY P Ot K11.20 SIALOADENITIS, UNSPECIFIED 06/14/2016 FRANCISCO VALADEZ, LUCY Lange Ot K11.5 SIALOLITHIASIS 06/18/2016 FRANCISCO VALADEZ, LUCY Lange Ot I10 ESSENTIAL (PRIMARY) HYPERTENSION 06/18/2016 FRANCISCO VALADEZ, LUCY Lange Ot J45.909 UNSPECIFIED ASTHMA, UNCOMPLICATED 06/18/2016 LUCY SINGH MD Ot T81.4XXA INFECTION FOLLOWING A PROCEDURE, INITIAL 02/03/2017 DK VALADEZ, MELVINA Britton Ot I10 ESSENTIAL (PRIMARY) HYPERTENSION 02/03/2017 DK VALADEZ, MELVINA Britton Ot J01.90 ACUTE SINUSITIS, UNSPECIFIED 02/03/2017 DK VALADEZ, MELVINA Britton Ot J45.901 UNSPECIFIED ASTHMA WITH (ACUTE) EXACERBA 02/03/2017 DK VALADEZ, MELVINA Britton Ot R25.2 CRAMP AND SPASM 02/03/2017 DK VALADEZ, MELVINA Britton Ot R51 HEADACHE Procedures There is no data. Results Test Result Range Complete blood count (CBC) with automated white blood cell (WBC) differential - 05/05/16 08:30 Blood leukocytes automated count (number/volume) 12.9 10*3/uL 4.3-11.0 Blood erythrocytes automated count (number/volume) 5.28 10*6/uL 4.35-5.85 Venous blood hemoglobin measurement (mass/volume) 16.0 [...] Automated blood platelet mean volume measurement 9.8 [foz_us] 7.4-10.4 Automated blood neutrophils/100 leukocytes 70 % [...] Serum or plasma sodium measurement (moles/volume) 139 mmol/L 135-145 Serum or plasma potassium measurement (moles/volume) 3.9 mmol/L 3.6-5.0 Serum or plasma chloride measurement (moles/volume) 103 mmol/L 98-107 Carbon dioxide 21 mmol/L 21-32 Serum or plasma anion gap determination (moles/volume) 15 mmol/L 5-14 Serum or plasma urea nitrogen measurement (mass/volume) 10 mg/dL 7-18 Serum or plasma creatinine measurement (mass/volume) 0.99 mg/dL 0.60-1.30 Serum or plasma urea nitrogen/creatinine mass ratio 10 NRG Serum or plasma creatinine measurement with calculation of estimated glomerular filtration rate > NRG Serum or plasma glucose measurement (mass/volume) 110 mg/dL 70-105 Serum or plasma calcium measurement (mass/volume) 10.0 mg/dL 8.5-10.1 Serum or plasma total bilirubin [...] plasma C reactive protein measurement (mass/volume) 4.84 mg /dL 0.00-0.50 Complete blood count (CBC) with automated white blood cell (WBC) differential - 05/17/16 20:50 Blood leukocytes automated count (number/volume) 20.9 10*3/uL 4.3-11.0 Blood erythrocytes automated count (number/volume) 5.28 10*6/uL 4.35-5.85 Venous blood hemoglobin measurement (mass/volume) 15.8 [...] Automated blood platelet mean volume measurement 9.1 [foz_us] 7.4-10.4 Automated blood neutrophils/100 leukocytes 81 % [...] NRG Manual blood basophils/100 leukocytes 0 % NRG Blood erythrocyte morphology finding identification NORMAL NR Comprehensive metabolic panel - 05/17/16 20:50 Serum or plasma sodium measurement (moles/volume) 139 mmol/L 135-145 Serum or plasma potassium measurement (moles/volume) 4.1 mmol/L 3.6-5.0 Serum or plasma chloride measurement (moles/volume) 104 mmol/L 98-107 Carbon dioxide 23 mmol/L 21-32 Serum or plasma anion gap determination (moles/volume) 12 mmol/L 5-14 Serum or plasma urea nitrogen measurement (mass/volume) 12 mg/dL 7-18 Serum or plasma creatinine measurement (mass/volume) 0.81 mg/dL 0.60-1.30 Serum or plasma urea nitrogen/creatinine mass ratio 15 NRG Serum or plasma creatinine measurement with calculation of estimated glomerular filtration rate > NRG Serum or plasma glucose measurement (mass/volume) 104 [...] or plasma amylase measurement (enzymatic activity/volume) 59 U /L 25-125 Lipase - 05/17/16 20:50 Lipase 27 U/L 8-78 Complete blood count (CBC) with automated white blood cell (WBC) differential - 06/04/16 15:00 Blood leukocytes automated count (number/volume) 13.0 10*3/uL 4.3-11.0 Blood erythrocytes automated count (number/volume) 4.50 10*6/uL 4.35-5.85 Venous blood hemoglobin measurement (mass/volume) 13.4 g/dL 13.3-17.7 Blood hematocrit (volume fraction) 40 % 40-54 Automated erythrocyte mean corpuscular volume 90 [foz_us] 80-99 Automated erythrocyte mean corpuscular hemoglobin (mass per erythrocyte) 30 pg 25-34 Automated erythrocyte mean corpuscular hemoglobin concentration measurement ( mass/volume) 33 g/dL 32-36 Automated erythrocyte distribution width ratio 13.0 % 10.0-14.5 Automated blood platelet count (count/volume) 338 10*3/uL 130-400 Automated blood platelet mean volume measurement 9.6 [foz_us] 7.4-10.4 Automated blood neutrophils/100 leukocytes 72 % 42-75 Automated blood lymphocytes/100 leukocytes 19 % 12-44 Blood monocytes/100 leukocytes 8 % 0-12 Automated blood eosinophils/100 leukocytes 1 % 0-10 Automated blood basophils/100 leukocytes 0 % 0-10 Blood neutrophils automated count (number/volume) 9.4 10*3 1.8-7.8 Blood lymphocytes automated count (number/volume) 2.4 10*3 1.0-4.0 Blood monocytes automated count (number/volume) 1.0 10*3 0.0-1.0 Automated eosinophil count 0.2 10*3/uL 0.0-0.3 Automated blood basophil count (count/volume) 0.0 10*3/uL 0.0-0.1 Whole blood basic metabolic panel - 06/04/16 15:00 Serum or plasma sodium measurement (moles/volume) 140 mmol/L 135-145 Serum or plasma potassium measurement (moles/volume) 3.7 mmol/L 3.6-5.0 Serum or plasma chloride measurement (moles/volume) 105 mmol/L 98-107 Carbon dioxide 25 mmol/L 21-32 Serum or plasma anion gap determination (moles/volume) 10 mmol/L 5-14 Serum or plasma urea nitrogen measurement (mass/volume) 12 mg/dL 7-18 Serum or plasma creatinine measurement (mass/volume) 0.87 mg/dL 0.60-1.30 Serum or plasma urea nitrogen/creatinine mass ratio 14 NRG Serum or plasma creatinine measurement with calculation of estimated glomerular filtration rate > NRG Serum or plasma glucose measurement (mass/volume) 96 mg/dL 70-105 Serum or plasma calcium measurement (mass/volume) 9.2 mg/dL 8.5-10.1 Methicillin resistant Staphylococcus aureus (MRSA) screening culture - 15:00 Methicillin resistant Staphylococcus aureus (MRSA) screening culture NEG NRG Gram stain microscopy - 06/16/16 13:35 GRAM STAIN RESULT MODERATE # WBC'S, NO BACTERIA OBSERVED NRG Bacteria identification in wound by culture - 06/16/16 13:35 Bacteria identification in wound by culture [id number] NRG QUANTITY OF GROWTH Moderate Growth NRG Complete blood count (CBC) with automated white blood cell (WBC) differential - 06/16/16 14:26 Blood leukocytes automated count (number/volume) 19.5 10*3/uL 4.3-11.0 Blood erythrocytes automated count (number/volume) 4.82 10*6/uL 4.35-5.85 Venous blood hemoglobin measurement (mass/volume) 14.2 g/dL 13.3-17.7 Blood hematocrit (volume fraction) 43 % 40-54 Automated erythrocyte mean corpuscular volume 90 [foz_us] 80-99 Automated erythrocyte mean corpuscular hemoglobin (mass per erythrocyte) 30 pg 25-34 Automated erythrocyte mean corpuscular hemoglobin concentration measurement ( mass/volume) 33 g/dL 32-36 Automated erythrocyte distribution width ratio 13.3 % 10.0-14.5 Automated blood platelet count (count/volume) 346 10*3/uL 130-400 Automated blood platelet mean volume measurement 9.5 [foz_us] 7.4-10.4 Automated blood neutrophils/100 leukocytes 79 % 42-75 Automated blood lymphocytes/100 leukocytes 12 % 12-44 Blood monocytes/100 leukocytes 9 % 0-12 Automated blood eosinophils/100 leukocytes 0 % 0-10 Automated blood basophils/100 leukocytes 0 % 0-10 Blood neutrophils automated count (number/volume) 15.4 10*3 1.8-7.8 Blood lymphocytes automated count (number/volume) 2.3 10*3 1.0-4.0 Blood monocytes automated count (number/volume) 1.7 10*3 0.0-1.0 Automated eosinophil count 0.1 10*3/uL 0.0-0.3 Automated blood basophil count (count/volume) 0.1 10*3/uL 0.0-0.1 Whole blood basic metabolic panel - 06/16/16 14:26 Serum or plasma sodium measurement (moles/volume) 136 mmol/L 135-145 Serum or plasma potassium measurement (moles/volume) 4.1 mmol/L 3.6-5.0 Serum or plasma chloride measurement (moles/volume) 99 mmol/L 98-107 Carbon dioxide 25 mmol/L 21-32 Serum or plasma anion gap determination (moles/volume) 12 mmol/L 5-14 Serum or plasma urea nitrogen measurement (mass/volume) 10 mg/dL 7-18 Serum or plasma creatinine measurement (mass/volume) 0.90 mg/dL 0.60-1.30 Serum or plasma urea nitrogen/creatinine mass ratio 11 NRG Serum or plasma creatinine measurement with calculation of estimated glomerular filtration rate > NRG Serum or plasma glucose measurement (mass/volume) 96 mg/dL 70-105 Serum or plasma calcium measurement (mass/volume) 9.6 mg/dL 8.5-10.1 Blood manual differential performed detection - 06/16/16 14:26 Blood monocytes/100 leukocytes 8 % NRG Manual blood segmented neutrophils/100 leukocytes 76 % NRG Blood band neutrophils/100 leukocytes 0 % NRG Manual blood lymphocytes/100 leukocytes 14 % NRG Manual eosinophils/100 leukocytes in nose 1 % NRG Manual blood basophils/100 leukocytes 0 % NRG Blood lymphocytes variant/100 leukocytes 1 % NRG Blood erythrocyte morphology finding identification NORMAL NRG Complete blood count (CBC) with automated white blood cell (WBC) differential - 06/17/16 04:28 Blood leukocytes automated count (number/volume) 14.8 10*3/uL 4.3-11.0 Blood erythrocytes automated count (number/volume) 4.72 10*6/uL 4.35-5.85 Venous blood hemoglobin measurement (mass/volume) 13.9 g/dL 13.3-17.7 Blood hematocrit (volume fraction) 43 % 40-54 Automated erythrocyte mean corpuscular volume 91 [foz_us] 80-99 Automated erythrocyte mean corpuscular hemoglobin (mass per erythrocyte) 29 pg 25-34 Automated erythrocyte mean corpuscular hemoglobin concentration measurement ( mass/volume) 33 g/dL 32-36 Automated erythrocyte distribution width ratio 13.4 % 10.0-14.5 Automated blood platelet count (count/volume) 356 10*3/uL 130-400 Automated blood platelet mean volume measurement 9.6 [foz_us] 7.4-10.4 Automated blood neutrophils/100 leukocytes 73 % 42-75 Automated blood lymphocytes/100 leukocytes 16 % 12-44 Blood monocytes/100 leukocytes 10 % 0-12 Automated blood eosinophils/100 leukocytes 1 % 0-10 Automated blood basophils/100 leukocytes 0 % 0-10 Blood neutrophils automated count (number/volume) 10.8 10*3 1.8-7.8 Blood lymphocytes automated count (number/volume) 2.4 10*3 1.0-4.0 Blood monocytes automated count (number/volume) 1.4 10*3 0.0-1.0 Automated eosinophil count 0.2 10*3/uL 0.0-0.3 Automated blood basophil count (count/volume) 0.0 10*3/uL 0.0-0.1 Complete blood count (CBC) with automated white blood cell (WBC) differential - 06/18/16 04:35 Blood leukocytes automated count (number/volume) 10.3 10*3/uL 4.3-11.0 Blood erythrocytes automated count (number/volume) 4.72 10*6/uL 4.35-5.85 Venous blood hemoglobin measurement (mass/volume) 13.9 g/dL 13.3-17.7 Blood hematocrit (volume fraction) 43 % 40-54 Automated erythrocyte mean corpuscular volume 91 [foz_us] 80-99 Automated erythrocyte mean corpuscular hemoglobin (mass per erythrocyte) 29 pg 25-34 Automated erythrocyte mean corpuscular hemoglobin concentration measurement ( mass/volume) 33 g/dL 32-36 Automated erythrocyte distribution width ratio 13.3 % 10.0-14.5 Automated blood platelet count (count/volume) 346 10*3/uL 130-400 Automated blood platelet mean volume measurement 9.5 [foz_us] 7.4-10.4 Automated blood neutrophils/100 leukocytes 66 % 42-75 Automated blood lymphocytes/100 leukocytes 23 % 12-44 Blood monocytes/100 leukocytes 9 % 0-12 Automated blood eosinophils/100 leukocytes 1 % 0-10 Automated blood basophils/100 leukocytes 0 % 0-10 Blood neutrophils automated count (number/volume) 6.8 10*3 1.8-7.8 Blood lymphocytes automated count (number/volume) 2.4 10*3 1.0-4.0 Blood monocytes automated count (number/volume) 0.9 10*3 0.0-1.0 Automated eosinophil count 0.1 10*3/uL 0.0-0.3 Automated blood basophil count (count/volume) 0.0 10*3/uL 0.0-0.1 Complete blood count (CBC) with automated white blood cell (WBC) differential - 02/03/17 15:21 Blood leukocytes automated count (number/volume) 15.8 10*3/uL 4.3-11.0 Blood erythrocytes automated count (number/volume) 5.27 10*6/uL 4.35-5.85 Venous blood hemoglobin measurement (mass/volume) 16.2 g/dL 13.3-17.7 Blood hematocrit (volume fraction) 48 % 40-54 Automated erythrocyte mean corpuscular volume 91 [foz_us] 80-99 Automated erythrocyte mean corpuscular hemoglobin (mass per erythrocyte) 31 pg 25-34 Automated erythrocyte mean corpuscular hemoglobin concentration measurement ( mass/volume) 34 g/dL 32-36 Automated erythrocyte distribution width ratio 13.6 % 10.0-14.5 Automated blood platelet count (count/volume) 351 10*3/uL 130-400 Automated blood platelet mean volume measurement 9.3 [foz_us] 7.4-10.4 Automated blood neutrophils/100 leukocytes 73 % 42-75 Automated blood lymphocytes/100 leukocytes 11 % 12-44 Blood monocytes/100 leukocytes 14 % 0-12 Automated blood eosinophils/100 leukocytes 1 % 0-10 Automated blood basophils/100 leukocytes 0 % 0-10 Blood neutrophils automated count (number/volume) 11.6 10*3 1.8-7.8 Blood lymphocytes automated count (number/volume) 1.7 10*3 1.0-4.0 Blood monocytes automated count (number/volume) 2.3 10*3 0.0-1.0 Automated eosinophil count 0.2 10*3/uL 0.0-0.3 Automated blood basophil count (count/volume) 0.1 10*3/uL 0.0-0.1 Blood manual differential performed detection - 02/03/17 15:21 Blood monocytes/100 leukocytes 18 % NRG Manual blood segmented neutrophils/100 leukocytes 67 % NRG Blood band neutrophils/100 leukocytes 3 % NRG Manual blood lymphocytes/100 leukocytes 9 % NRG Manual eosinophils/100 leukocytes in nose 3 % NRG Blood erythrocyte morphology finding identification NORMAL NRG Blood toxic granules detection by light microscopy 1+ NRG Whole blood basic metabolic panel - 02/03/17 15:21 Serum or plasma sodium measurement (moles/volume) 140 mmol/L 135-145 Serum or plasma potassium measurement (moles/volume) 3.6 mmol/L 3.6-5.0 Serum or plasma chloride measurement (moles/volume) 104 mmol/L 98-107 Carbon dioxide 22 mmol/L 21-32 Serum or plasma anion gap determination (moles/volume) 14 mmol/L 5-14 Serum or plasma urea nitrogen measurement (mass/volume) 10 mg/dL 7-18 Serum or plasma creatinine measurement (mass/volume) 0.82 mg/dL 0.60-1.30 Serum or plasma urea nitrogen/creatinine mass ratio 12 NRG Serum or plasma creatinine measurement with calculation of estimated glomerular filtration rate > NRG Serum or plasma glucose measurement (mass/volume) 100 mg/dL 70-105 Serum or plasma calcium measurement (mass/volume) 9.9 mg/dL 8.5-10.1 Magnesium - 02/03/17 15:21 Magnesium 2.2 mg/dL 1.8-2.4 Encounters ACCT No. Visit Date/Time Discharge Status Pt. Type Provider Facility Loc./Unit Complaint [id number] 02/03/2017 14:12:00 02/03/2017 16:59:00 DIS Emergency DK VALADEZ, MELVINA [facility] ER SINUS INFECTION [id number] 06/16/2016 15:56:00 06/18/2016 07:05:00 DIS Inpatient LUCY SIGNH MD [facility] 4TH POST OPERATIVE WOUND INFECTION [id number] 06/08/2016 06:40:00 06/09/2016 08:45:00 DIS Outpatient LUCY SINGH MD [facility] SDC LEFT SUBMANDIBULAR CYST [id number] 06/04/2016 14:41:00 06/04/2016 15:15:00 DIS Outpatient LUCY SINGH MD [facility] PREOP LEFT SUBMANDIBULAR CYST [id number] 05/17/2016 20:26:00 05/17/2016 22:22:00 DIS Emergency JOCELYNE CHOW DO [facility] ER RT SIDE FACIAL SWELLING, FEVER [id number] 05/05/2016 12:15:00 05/06/2016 09:00:00 DIS Inpatient LUCY SINGH MD [facility] 4TH SIALOADENITIS [id number] 11/26/2014 16:13:00 11/26/2014 23:59:59 CLS Outpatient LUCY SINGH MD [facility] RAD CHRONIC SINUSITIS [id number] 11/27/2014 07:24:57 ACT Document Registration
[2017-10-06] MEDS ORDERED: HEParin (CATH LAB) 2,000 ML IV ONE (16:27)
[2017-10-06] MEDS ORDERED: LIDOCAINE 1% INJ 20 ML 20 ML VIAL ONE (16:27)
[2017-10-06] MEDS ORDERED: NS IV 1000 ML 1,000 ML ONE ×2 (16:27→17:10)
--- NOTE | 2017-10-06 16:31 | ED Chest Pain ---
General Chief Complaint: Chest Pain Stated Complaint: CHEST PAIN,SOB History of Present Illness Date Seen by Provider: Oct 06, 2017 Time Seen by Provider: 16:18 Initial Comments Here with report of onset of chest pain approximately 20 minutes prior to arrival. EMS called and activated STEMI at 1610. Veterinary Technician Instructor team called. On patient arrival, patient having severe central chest pain with ST elevation ND noted in leads 2, 3 and aVF with reciprocal changes in V1 and V2, indicating inferior posterior infarct. Only has history of hypertension. Does report sweating and nausea. Patient given 324 mg of aspirin in route as well as 4 mg of morphine. Complaining of persistent significant pain. 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 SHIPFITTERS: Yes NTG SL SUPERVISOR SHIPFITTERS: No Associated Symptoms: No abdominal pain, No back pain; nausea/vomiting, shortness of breath; No weakness Allergies and Home Medications Allergies Coded Allergies: No Known Drug Allergies (Unverified , 05/05/16) Home Medications Albuterol Sulfate 1 Puff Puff, 2 PUFF IH Q4H PRN for WHEEZING, (Reported) Fluticasone Propionate 9.9 Ml [place].susp, 1 SPRAY NS DAILY, (Reported) Loratadine 10 Mg Tablet, 10 MG PO DAILY, (Reported) Losartan Potassium 50 Mg Tablet, 50 MG PO DAILY, (Reported) Prednisone 20 Mg Tab, 20 MG PO DAILY Prescribed by: MELVINA HERNANDEZ on 02/03/17 1648 Patient Home Medication List Home Medication List Reviewed: Yes Review of Systems Constitutional: see HPI; No chills, No fever EENTM: No Symptoms Reported Respiratory: No Symptoms Reported Cardiovascular: See HPI, Chest Pain; Denies Palpitations Gastrointestinal: Nausea; Denies Vomiting Genitourinary: No Symptoms Reported All Other Systems Reviewed Negative Unless Noted: Yes Past Oboyxql-Nxnzlt-Ofzkbp Hx Past Med/Social Hx: Reviewed Nursing Past Med/Soc Hx Patient Social History Alcohol Use: Denies Use Recreational Drug Use: No Smoking Status: Never a Smoker Type Used: Smokeless Tobacco 2nd Hand Smoke Exposure: No Recent Foreign Travel: No Contact w/Someone Who Travel: No Recent Hopitalizations: No Seasonal Allergies Seasonal Allergies: Yes Past Medical History Surgeries: Yes (SINUS SURGEY, SUBMANDIBULAR GLAND RESECTION) Respiratory: Yes Asthma Currently Using CPAP: No Currently Using BIPAP: No Cardiac: Yes Hypertension Neurological: No Reproductive Disorders: No Sexually Transmitted Disease: No HIV/AIDS: No Genitourinary: No Gastrointestinal: No Musculoskeletal: No Endocrine: No HEENT: Yes (wears glasses) Loss of Vision: Bilateral Cancer: No Psychosocial: No Integumentary: No Blood Disorders: No Adverse Reaction/Blood Tranf: No Family Medical History Reviewed Nursing Family Hx Colon cancer 19 FATHER Diabetes mellitus 19 MOTHER Headache disorder G8 SISTER Thyroid disease G8 SISTER No Pertinent Family Hx Physical Exam Vital Signs Vital Signs - First Documented 10/06/17 16:17 Temp 98.0 Pulse 73 Resp 18 B/P (MAP) 184/104 (130) Pulse Ox 100 O2 Delivery Nasal Cannula Capillary Refill : Height, Weight, BMI Height: 5'9.00" Weight: 200lbs. 0.0oz. 90.956514al; 30.0 BMI Method:Stated General Appearance: No Apparent Distress, WD/WN HEENT: PERRL/EOMI, Pharynx Normal Neck: Non Tender, Supple Respiratory: Lungs Clear, Normal Breath Sounds Cardiovascular: Regular Rate, Rhythm, Normal Peripheral Pulses Gastrointestinal: Non Tender, Soft Extremity: Normal Range of Motion, Non Tender Neurologic/Psychiatric: Alert, Oriented x3 Skin: Normal Color, Warm/Dry Progress/Results/Core Measures Results/Orders Lab Results Laboratory Tests Test 10/06/17 16:22 Range/Units White Blood Count 27.4 H 4.3-11.0 10^3/uL Red Blood Count 5.13 4.35-5.85 10^6/uL Hemoglobin 15.4 13.3-17.7 G/DL Hematocrit 45 40-54 % Mean Corpuscular Volume 89 80-99 FL Mean Corpuscular Hemoglobin 30 25-34 PG Mean Corpuscular Hemoglobin Concent 34 32-36 G/DL Red Cell Distribution Width 14.2 10.0-14.5 % Platelet Count 368 130-400 10^3/uL Mean Platelet Volume 9.3 7.4-10.4 FL Neutrophils (%) (Auto) 73 42-75 % Lymphocytes (%) (Auto) 17 12-44 % Monocytes (%) (Auto) 9 0-12 % Eosinophils (%) (Auto) 1 0-10 % Basophils (%) (Auto) 0 0-10 % Neutrophils # (Auto) 20.1 H 1.8-7.8 X 10^3 Lymphocytes # (Auto) 4.6 H 1.0-4.0 X 10^3 Monocytes # (Auto) 2.6 H 0.0-1.0 X 10^3 Eosinophils # (Auto) 0.1 0.0-0.3 10^3/uL Basophils # (Auto) 0.0 0.0-0.1 10^3/uL My Orders Orders - MADAY SAGASTUME MD Cbc With Automated Diff (10/06/17 16:17) Comprehensive Metabolic Panel (10/06/17 16:17) Protime With Inr (10/06/17 16:17) Partial Thromboplastin Time (10/06/17 16:17) Magnesium (10/06/17 16:17) Cardiac Profile 1 (10/06/17 16:17) Myoglobin Serum (10/06/17 16:17) Chest 1 View, Ap/Pa Only (10/06/17 16:17) Ekg Tracing (10/06/17 16:17) O2 (10/06/17 16:17) Monitor-Rhythm Ecg Trace Only (10/06/17 16:17) Lipid Panel (10/07/17 06:00) Saline Lock/Iv-Start (10/06/17 16:17) Morphine Injection (Morphine Injection (10/06/17 16:21) Manual Differential (10/06/17 16:22) Medications Given in ED Current Medications Medications Dose Ordered Sig/Darek Route Start Time Stop Time Status Last Admin Dose Admin Morphine Sulfate 10 mg STK-MED ONCE .ROUTE 10/06/17 16:21 10/06/17 16:25 DC 10/06/17 16:25 10 MG Vital Signs/I&O 10/06/17 16:17 Temp 98.0 Pulse 73 Resp 18 B/P (MAP) 184/104 (130) Pulse Ox 100 O2 Delivery Nasal Cannula Progress Progress Note : Progress Note Seen and evaluated on arrival by EMS. Veterinary Technician Instructor team activated prior to patient arrival. As a grocery clerk checking notified and is in route. Patient will get chest pain order set initiated and have morphine 4 mg IV for continued pain. Pending arrival of Veterinary Technician Instructor team. 1636: Repeat morphine 4 mg IV for persistent pain. 1638: I did discuss the case with Dr. Giron. We will give Brillinta 180 mg by mouth as well as 5000 units of heparin IV and 5 mg of Lopressor IV. This was ordered. 1642 patient in route to Veterinary Technician Instructor. Veterinary Technician Instructor team. Meds given to Veterinary Technician Instructor team for administration. Family and patient informed and agree with plan. Initial ECG Impression Date: Oct 06, 2017 Initial ECG Impression Time: 16:20 Initial ECG Rate: 75 Initial ECG Rhythm: Normal Sinus Initial ECG Impression: Acute ND Comment ST elevation in leads 2, 3 and aVF with reciprocal changes in leads V1 and V2 as well as lead 1, aVR and aVL. Findings concerning for inferior posterior infarct that is acute. Interpreted by me. Normal axis noted. Diagnostic Imaging Diagonstic Imaging: Xray Plain Films/CT/US/NM/MRI: chest Comments VIA [facility], [facility]. [place], [place] NAME: ISADORA DALE [facility] REC#: [id number] PT STATUS: REG SDC : 1960 PHYSICIAN: MADAY SAGASTUME MD ADMIT DATE: 10/06/17/CATH Draft Date of Exam:10/06/17 CHEST 1 VIEW, AP/PA ONLY INDICATION: Chest pain. COMPARISON: 06/04/2016. FINDINGS: Single view of the chest demonstrates clear lungs bilaterally. The heart is normal. There is no pneumothorax. Osseous structures are normal. IMPRESSION: Negative chest. Dictated on workstation # [id number] Dict: 10/06/17 1636 Trans: 10/06/[address] [place] [address] [id number] Interpreted by: GENIA SANTANA Electronically signed by: Reviewed: Reviewed by Me Departure Communication (Admissions) Time/Spoke to Admitting Phy: 16:14 Impression Primary Impression: Acute ND, inferoposterior wall Disposition: ADMITTED INPATIENT Condition: Critical Admissions Decision to Admit Reason: Admit from ER (General) Decision to Admit/Date: Oct 06, 2017 Time/Decision to Admit Time: 16:20 Departure-Patient Inst. Referrals: JAMESON MCCLELLAN DO (PCP/Family) Primary Care Physician MADAY SAGASTUME MD Oct 06, 2017 16:31
[2017-10-06 16:33] LABS: BASOPHILS % (AUTO) 0 % (0-10); EOSINOPHILS # (AUTO) 0.1 10^3/uL (0.0-0.3); EOSINOPHILS % (AUTO) 1 % (0-10); HEMATOCRIT 45 % (40-54); HEMOGLOBIN 15.4 G/DL (13.3-17.7); LYMPHOCYTES # (AUTO) 4.6 X 10^3 (1.0-4.0); LYMPHOCYTES % (AUTO) 17 % (12-44); MEAN CORPUSCULAR HEMOGLOBIN 30 PG (25-34); MEAN CORPUSCULAR HGB CONC 34 G/DL (32-36); MEAN CORPUSCULAR VOLUME 89 FL (80-99); MEAN PLATELET VOLUME 9.3 FL (7.4-10.4); MONOCYTES # (AUTO) 2.6 X 10^3 (0.0-1.0); MONOCYTES % (AUTO) 9 % (0-12); NEUTROPHILS # (AUTO) 20.1 X 10^3 (1.8-7.8); NEUTROPHILS % (AUTO) 73 % (42-75); PLATELET COUNT 368 10^3/uL (130-400); RED BLOOD COUNT 5.13 10^6/uL (4.35-5.85); RED CELL DISTRIBUTION WIDTH 14.2 % (10.0-14.5); WHITE BLOOD COUNT 27.4 10^3/uL (4.3-11.0)
[2017-10-06] MEDS ORDERED: MIDAZOLAM 5 MG/5 ML (VERSED) VIAL ONE (16:34)
[2017-10-06] MEDS ORDERED: fentaNYL INJECTION 100 MCG/2 ML AMP ONE (16:34)
--- OUTSIDE RECORDS SUMMARY | 2017-10-06 16:34 | XMS REPORT | Continuity of Care Document ---
Author Author [facility] Organization [facility] Address Unknown Phone Unavailable Allergies Active Description Code Type Severity Reaction Onset Reported/Identified Relationship to Patient Clinical Status Yes No Known Drug Allergies [id number] Drug Allergy Unknown N/A 05/05/2016 Medications There [...] 13:35 Bacteria identification in wound by culture [id number] NRG QUANTITY OF GROWTH Moderate Growth NRG [...] Status Pt. Type Provider Facility Loc./Unit Complaint [id number] 02/03/2017 14:12:00 02/03/2017 16:59:00 DIS Emergency DK VALADEZ, MELVINA [facility] ER SINUS INFECTION [id number] 06/16/2016 15:56:00 06/18/2016 07:05:00 DIS Inpatient LUCY SINGH MD [facility] 4TH POST OPERATIVE WOUND INFECTION [id number] 06/08/2016 06:40:00 06/09/2016 08:45:00 DIS Outpatient LUCY SINGH MD [facility] SDC LEFT SUBMANDIBULAR CYST [id number] 06/04/2016 14:41:00 06/04/2016 15:15:00 DIS Outpatient LUCY SINGH MD [facility] PREOP LEFT SUBMANDIBULAR CYST [id number] 05/17/2016 20:26:00 05/17/2016 22:22:00 DIS Emergency JOCELYNE CHOW DO [facility] ER RT SIDE FACIAL SWELLING, FEVER [id number] 05/05/2016 12:15:00 05/06/2016 09:00:00 DIS Inpatient LUCY SINGH MD [facility] 4TH SIALOADENITIS [id number] 11/26/2014 16:13:00 11/26/2014 23:59:59 CLS Outpatient LUCY SINGH MD [facility] RAD CHRONIC SINUSITIS [id number] 11/27/2014 07:24:57 ACT Document Registration
[2017-10-06] MEDS ORDERED: meTOprolol 5 MG/5 ML (LOPRESSOR) VIAL ONE (16:39)
[2017-10-06] MEDS ORDERED: HEParin 1000 UNIT/ML (10ML VIAL) FOR BOLUS ONE (16:39)
[2017-10-06] MEDS ORDERED: TICAGRELOR 90 MG TABLET (BRILINTA) PO ONE (16:39)
--- NOTE | 2017-10-06 16:41 | Diagnostic Imaging Report ---
INDICATION: Chest pain. COMPARISON: 06/04/2016. FINDINGS: Single view of the chest demonstrates clear lungs bilaterally. The heart is normal. There is no pneumothorax. Osseous structures are normal. IMPRESSION: Negative chest. Dictated by: Dictated on workstation # [id number]
[2017-10-06 16:45] LABS: PROTHROMBIN TIME PATIENT 13.3 SEC (12.2-14.7)
[2017-10-06] MEDS ORDERED: meTOprolol 5 MG/5 ML (LOPRESSOR) VIAL IV ONE (16:45)
[2017-10-06] MEDS ORDERED: morphine INJ 10 MG/ML 1ML (SYR OR VIAL) IVP ONE (16:45)
[2017-10-06 16:49] LABS: BAND NEUTROPHILS 1 %; NEUTROPHILS % (MANUAL) 73 %
[2017-10-06 16:50] LABS: BASOPHILS % (MANUAL) 0 %; EOSINOPHILS % (MANUAL) 0 %; LYMPHOCYTES % (MANUAL) 12 %; METAMYELOCYTES % 1 %; MONOCYTES % (MANUAL) 8 %; RBC MORPH NORMAL; REACTIVE LYMPHOCYTES 5 %; SMUDGE CELLS MOD; TOXIC GRANULATION/VACUOLAZATIO 1+
[2017-10-06 16:53] LABS: ALANINE AMINOTRANSFERASE 33 U/L (0-55); ALBUMIN 4.3 GM/DL (3.2-4.5); ALKALINE PHOSPHATASE 89 U/L (40-136); BILIRUBIN,TOTAL 0.5 MG/DL (0.1-1.0); BUN/CREATININE RATIO 18; CARBON DIOXIDE 24 MMOL/L (21-32); CHLORIDE 102 MMOL/L (98-107); CREATININE SERUM 0.89 MG/DL (0.60-1.30); GFR ESTIMATED > 60; GLUCOSE 111 MG/DL (70-105); MAGNESIUM 2.2 MG/DL (1.8-2.4); POTASSIUM 3.8 MMOL/L (3.6-5.0); SODIUM 138 MMOL/L (135-145); TOTAL PROTEIN 7.6 GM/DL (6.4-8.2)
[2017-10-06] MEDS ORDERED: ATROPINE INJECTION 1 MG/10 ML SYR (ABBOTT) ONE (16:57)
[2017-10-06 16:59] LABS: MYOGLOBIN SERUM 53.3 NG/ML (10.0-92.0)
[2017-10-06] MEDS ORDERED: EPTIFIBATIDE BOLUS 20 ML IV ONE (17:03)
[2017-10-06] MEDS ORDERED: niCARdipine 25 MG/10 ML (CARDENE) AMP IV ONE (17:04)
[2017-10-06] MEDS ORDERED: NS (IVPB) 250 ML ONE (17:05)
[2017-10-06] MEDS ORDERED: EPTIFIBATIDE DRIP 100 ML IV ONE (17:11)
--- NOTE | 2017-10-06 17:31 | History & Physicial-Cardiolgy ---
HPI-Cardiology Cardiology Consultation: Date of Consultation 10/06/17 Date of Admission Attending Physician Latanya Giron MD Admitting Physician Akash Pena DO Consulting Physician Latanya GIRON MD HPI: Time Seen by Provider: 16:30 Chief Complaint: Chest pain This is 57-year-old gentleman who has history of hypertension. He denies smoking, diabetes or hyperlipidemia. He has family history of premature CAD. He presented with acute chest pain for 2 hours. He was found to have injury pattern in the inferior leads on EKG. Review of Systems-Cardiology Review of Systems Constitutional: As described under HPI; No As described under HPI, No no symptoms reported, No chills, No fever, No lightheadedness Eyes: No As described under HPI, No no symptoms reported, No blindness, No blurred vision, No contact lenses, No drainage, No decreased acuity, No foreign body sensation, No pain, No vision change Ears/Nose/Throat: No As described under HPI, No no symptoms reported, No chronic hearing loss, No ear discharge, No ear pain, No nasal drainage, No ulcerations Respiratory: No no symptoms reported; As described under HPI; No As described under HPI, No cough, No orthopnea, No shortness of breath, No SOB with excertion Cardiovascular: No no symptoms reported; As described under HPI; No As described under HPI; chest pain; No edema, No irregular heart rate, No lightheadedness, No palpitations Gastrointestinal: No no symptoms reported, No As described under HPI, No abdomen distended, No abdominal pain, No blood streaked bowels, No constipation , No diarrhea, No nausea, No vomiting, No stool coloration changes Genitourinary: No As described under HPI, No burning, No dysuria, No discharge , No frequency, No flank pain, No hematuria, No urgency Skin: No no symptoms reported, No As described under HPI, No change in color, No change in hair/nails, No dryness, No lesions, No lumps, No rash, No other, No skin related problems, No ulcerations, No rash on exposed areas, No ulcerations on exposed areas Psychiatric/Neurological: No no symptoms reported, No As described under HPI, No anxiety, No depression, No emotional problems, No headache, No numbness, No pre-existing deficit, No seizure, No tingling, No tremors, No weakness, No other , No focal weakness, No syncope Hematologic: No bleeding abnormalities All Other Systems Reviewed Negative Unless Noted: Yes AVD-Eqgbkt-Igjlqh Hx Patient Social History Alcohol Use: Denies Use Recreational Drug Use: No Smoking Status: Never a Smoker Type Used: Smokeless Tobacco 2nd Hand Smoke Exposure: No Recent Foreign Travel: No Recent Infectious Disease Expo: No Hospitalization with Isolation: Denies Past Medical History PMH As described under Assessment. Family Medical History Family History: Colon cancer 19 FATHER Diabetes mellitus 19 MOTHER Headache disorder G8 SISTER Thyroid disease G8 SISTER Allergies and Home Medications Allergies Coded Allergies: No Known Drug Allergies (Unverified , 05/05/16) Home Medications Albuterol Sulfate 1 Puff Puff, 2 PUFF IH Q4H PRN for WHEEZING, (Reported) Fluticasone Propionate 9.9 Ml [place].susp, 1 SPRAY NS DAILY, (Reported) Loratadine 10 Mg Tablet, 10 MG PO DAILY, (Reported) Losartan Potassium 50 Mg Tablet, 50 MG PO DAILY, (Reported) Prednisone 20 Mg Tab, 20 MG PO DAILY Prescribed by: MELVINA HERNANDEZ on 02/03/17 1648 Patient Home Medication List Home Medication List Reviewed: Yes Physical Exam-Cardiology Physical Exam Vital Signs/I&O 10/06/17 10/06/17 10/06/17 10/06/17 16:17 16:28 16:40 16:40 Temp 98.0 Pulse 73 70 70 Resp 18 18 18 B/P (MAP) 184/104 (130) 162/93 (116) 162/93 Pulse Ox 100 100 100 O2 Delivery Nasal Cannula Nasal Cannula Nasal Cannula O2 Flow Rate 2.00 Capillary Refill : Less Than 3 Seconds Constitutional: appears stated age, AAO x 3, apparent distress, well-developed , well-nourished HEENT: PERRL; No discharge; hearing is well preserved, oral hygience is good; No ulceration, No xanthelasmas are seen Neck: No carotid bruit; carotid pulses are 2 + bilaterally Respiratory: No accessory muscle use, No respiratory distress, No chest tender , No chest expansion is symmetric; chest is bilaterally symmetric; No lungs clear to percussion; lungs clear to auscultation; No crackles, No rhonchi, No rales, No stridor, No wheezing, No pleural rub, No other Cardiovascular: regular rate-rhythm; No irregularly irregular, No extra beats, No parasternal heave is noted, No JVD, No edema, No bradycardia, No tachycardia , No point of maximal impulse, No cardiac thrills are palpable; S1 and S2; No gallop/S3, No gallop/S4, No diastolic murmur, No systolic murmur, No friction rub, No click, No other Gastrointestinal: No tender, No soft, No round, No distended, No pulsatile mass , No organomegaly, No guarding, No rebound, No tenderness, No hernia, No mass, No audible bowel sounds, No abnormal bowel sounds, No abdominal bruits, No spleenomegaly, No other Rectal: deferred Extremities: No normal range of motion, No non-tender, No normal inspection, No pedal edema, No calf tenderness, No normal capillary refill, No pelvis stable , No calf tenderness, No inflammation, No pedal edema, No slow capillary refill , No swelling, No other, No abrasion, No clubbing, No cyanosis, No ecchymosis, No laceration, No no lower extremity edema bilateral, No significant edema, No tenderness, No wound Neurologic/Psychiatric: no motor/sensory deficits, alert, normal mood/affect, oriented x 3, power is 5/5 both on sides Skin: No normal color, No warm/dry, No cyanosis, No cool, No diaphoresis, No damp, No ecchymosis, No jaundice, No mottled, No pallor, No rash, No tattoos/ piercings, No ulcerations, No rash on exposed areas, No ulcerations on exposed areas, No other Data Review Labs Laboratory Tests 10/06/17 16:22: White Blood Count 27.4H, Red Blood Count 5.13, Hemoglobin 15.4, Hematocrit 45, Mean Corpuscular Volume 89, Mean Corpuscular Hemoglobin 30, Mean Corpuscular Hemoglobin Concent 34, Red Cell Distribution Width 14.2, Platelet Count 368, Mean Platelet Volume 9.3, Neutrophils (%) (Auto) 73, Lymphocytes (%) (Auto) 17, Monocytes (%) (Auto) 9, Eosinophils (%) (Auto) 1, Basophils (%) (Auto) 0, Neutrophils # (Auto) 20.1H, Lymphocytes # (Auto) 4.6H, Monocytes # (Auto) 2.6H, Eosinophils # (Auto) 0.1, Basophils # (Auto) 0.0, Neutrophils % (Manual) 73, Lymphocytes % (Manual) 12, Monocytes % (Manual) 8, Eosinophils % (Manual) 0, Basophils % (Manual) 0, Metamyelocytes % 1, Band Neutrophils 1, Reactive Lymphocytes 5, Smudge Cells MOD, Toxic Granulation 1+, Blood Morphology Comment NORMAL, Prothrombin Time 13.3, INR Comment 1.0, Activated Partial Thromboplast Time 21L, Sodium Level 138, Potassium Level 3.8, Chloride Level 102, Carbon Dioxide Level 24, Anion Gap 12, Blood Urea Nitrogen 16, Creatinine 0.89, Estimat Glomerular Filtration Rate > 60, BUN/Creatinine Ratio 18, Glucose Level 111H, Calcium Level 10.0, Corrected Calcium 9.8, Magnesium Level 2.2, Total Bilirubin 0.5, Aspartate Amino Transf (AST/SGOT) 27, Alanine Aminotransferase ( ALT/SGPT) 33, Alkaline Phosphatase 89, Myoglobin 53.3, Troponin I 2.02*H, Total Protein 7.6, Albumin 4.3 ECG Impression ECG Initial ECG Impression: Acute ME A/P-Cardiology Assessment/Admission Diagnosis Acute STEMI Admission Status: Inpatient Order (span 2 midnights) Reason for Inpatient Admission: Acute STEMI Plan Primary PCI is recommended. Aspirin bolus, Brilinta bolus, heparin bolus. We will beta chantel and lisinopril post-PCI. All risks and complication explained including the risk of vascular damage, bleeding, stroke, ME and even . Emergent procedure therefore will proceed with coronary angiography. Echocardiogram in the morning. Dr. Eisenberg to take over care tomorrow. Clinical Quality Measures AMI/AHF: ASA po Prior to arrival: Yes Latanya GIRON MD Oct 06, 2017 17:31
--- NOTE | 2017-10-06 17:31 | Cardiac Procedure Note-CS/ASA ---
Pre-Procedure Note Pre-Op Procedure Note H&P Reviewed The H&P was reviewed, patient examined and no changes noted. Date H&P Reviewed: Oct 06, 2017 Time H&P Reviewed: 16:45 Conscious Sedation Pre-Proced Time Reviewed: 16:45 ASA Class: 3 Airway Mallampati Classification: ([place] appropriate class) I. II. III, IV Lungs Heart ASA score ASA 1: a normal healthy patient ASA 2: a patient with a mild systemic disease (mid diabetes, controlled hypertension, obesity ASA 3: a patient with a severe systemic disease that limits activity (angina , COPD, prior Myocardial infarction) ASA 4: a patient with an incapacitating disease that is a constant threat to life (CHF, renal failure) ASA 5: a moribund patient not expected to survive 24 hrs. (ruptured aneurysm) ASA 6: a declared brain patient whose organs are being harvested. For emergent operations, add the letter E after the classification Grade 1 Sedation Plan: Analgesia, Amnesia, Plan communicated to team members, Discussed options with patient/fam, Discussed risks with patient/fam Note The patient is an appropriate candidate to undergo the planned procedure, sedation, and anesthesia. The patient immediately re-assessed prior to indication. Latanya NGUYEN MD Oct 06, 2017 17:31
--- NOTE | 2017-10-06 17:43 | Coronary Angiography & PCI ---
Coronary Angiography & PCI DATE OF PROCEDURE: 10/06/17 INDICATION: Acute inferior posterior STEMI. PREOPERATIVE DIAGNOSIS: Acute inferior posterior STEMI. POSTOPERATIVE DIAGNOSIS: Status post successful primary PCI to proximal RCA. HISTORY: This is 57-year-old gentleman who has history of hypertension. He denies smoking, diabetes or hyperlipidemia. He has family history of premature CAD. He presented with acute chest pain for 2 hours. He was found to have injury pattern in the inferior leads on EKG. Therefore, the patient was scheduled for emergent coronary angiography. PROCEDURES PERFORMED: 1.Coronary angiography. 2.Left heart catheterization. 3.PCI to the proximal RCA with drug-eluting stent. 4. Aortic arch angiogram COMPLICATIONS: None. SPECIMENS: None. ESTIMATED BLOOD LOSS: 10 mL ANESTHESIA: Conscious sedation ANTICOAGULATION: IV heparin, IV Integrilin. CONTRAST: 145 mL. FLUOROSCOPY: 5.9 minutes. FLOUROSCOPY DOSE: 838 MGy. PROCEDURE DETAILS: The patient is a 57 male and was brought to the stucco laborer after informed consent was taken. All the risks and complications were explained in detail; this included the risk of bleeding, vascular damage, stroke , [place] and even . The patient was draped and prepped in the usual sterile fashion. Access was gained in the right femoral artery with a 6 [place] sheath. Right coronary angiography with an JR4 guide, left coronary system was engaged with a JL4 catheter. Pigtail catheter was used for left heart catheterization and aortic arch angiogram. FINDINGS: 1.Left main: Patent. 2.LAD: Mild to moderate mid disease. Apical vessel. 3.Left circumflex artery: No significant disease. 4.RCA: Occluded proximal RCA. 5.Left heart catheterization: Aortic pressure 169/93 mmHg. LV pressure 160/4 mmHg. LVEDP 25 mmHg. Normal LV function with inferior akinesis. No gradient across the aortic valve. 6. Aortic arch angiogram: No evidence of aneurysm or dissection. Patent proximal segments of the great arteries including brachycephalic artery, common carotid artery and subclavian artery. RECOMMENDATIONS: Primary PCI to proximal RCA is recommended. INTERVENTION DETAILS: JR4 guide catheter, BMW guidewire, IV heparin and Integrilin for anticoagulation. ACT was done twice. The first ACT was 185 seconds. The second ACT was over 300 seconds. The lesion was crossed with the guidewire. Initial balloon inflation was done with emerge 2.0 X12 millimeter balloon at 10 josé. Recanalization was established. Though to balloon time 38 minutes. Xience Alpine 4.0 X 23 mm stent was deployed at 18 josé for 23 seconds. Postdilatation with an NC Quantum 4.5X 15 mm noncompliant balloon. 2 inflations in the proximal and distal segment at 18 josé each. Significant clot burden therefore nicardipine intracoronary 200 g was given 3 times. Improved flow was noted however significant distal embolization is noted. Therefore IV Integrilin was started and will be continued on overnight. However MIGUEL ÁNGEL-3 flow with no residue stenosis. Right femoral artery was closed with a Mynx closure device. The patient was transferred to the ICU with stable hemodynamics. CONCLUSIONS: 1. Primary PCI to proximal RCA with drug eluting stent in a patient with acute inferior posterior STEMI. 2. Aspirin and Brilinta for at least a year. Start beta chantel, lisinopril and high-dose statin. 3. Echocardiogram. 4. Admit to the ICU and watch for arrhythmias and BUN/creatinine. Franki Giron MD, FACP, FACC, [facility] Interventional Cardiology Latanya GIRON MD Oct 06, 2017 17:43
[2017-10-06] MEDS ORDERED: PATIENT MAY USE OWN MEDS, ALL PO SCH (17:45)
[2017-10-06] MEDS ORDERED: lisINopril 20 MG (PRINIVIL) TABLET ONE (19:58)
[2017-10-06] MEDS: lisINopril 40 MG (PRINIVIL) TABLET PO SCH (20:07)
[2017-10-06] MEDS: TICAGRELOR 90 MG TABLET (BRILINTA) PO SCH (21:45)
[2017-10-06] MEDS: ATORVASTATIN 80 MG (LIPITOR) TABLET PO SCH (21:45)
[2017-10-06] MEDS: meTOprolol TARTRATE 25 MG (LOPRESSOR) TABLET PO SCH (21:46)
[2017-10-06] MEDS: EPTIFIBATIDE DRIP 100 ML IV SCH (22:52)
[2017-10-07] VITALS (18 sets, daily range): BP systolic 100–145; BP diastolic 57–94
[2017-10-07] MEDS ORDERED: KCL 20 MEQ TAB (K-DUR) PO ONE (00:15)
[2017-10-07 03:42] LABS: HEMOGLOBIN 13.8 G/DL (13.3-17.7); MEAN PLATELET VOLUME 9.2 FL (7.4-10.4); RED BLOOD COUNT 4.56 10^6/uL (4.35-5.85); RED CELL DISTRIBUTION WIDTH 14.2 % (10.0-14.5); WHITE BLOOD COUNT 23.7 10^3/uL (4.3-11.0)
[2017-10-07 04:00] LABS: PHOSPHORUS 3.7 MG/DL (2.3-4.7)
[2017-10-07 04:02] LABS: BUN/CREATININE RATIO 14; CALCIUM 9.2 MG/DL (8.5-10.1); CARBON DIOXIDE 22 MMOL/L (21-32); CHLORIDE 105 MMOL/L (98-107); CHOLESTEROL 189 MG/DL (< 200); CREATININE SERUM 0.77 MG/DL (0.60-1.30); GFR ESTIMATED > 60; GLUCOSE 139 MG/DL (70-105); HDL CHOLESTEROL 40 MG/DL (40-60); POTASSIUM 4.1 MMOL/L (3.6-5.0); SODIUM 136 MMOL/L (135-145); TRIGLYCERIDES 103 MG/DL (<150); VLDL CHOLESTEROL 21 MG/DL (5-40)
[2017-10-07] MEDS: MAGNESIUM 1 GM/100 ML IVPB 100 ML IV SCH (05:07)
[2017-10-07] MEDS: POTASSIUM CL 10MEQ/50ML IVPB 50 ML IV SCH (05:07)
[2017-10-07] MEDS: KCL 20 MEQ TAB (K-DUR) PO SCH (05:08)
[2017-10-07] MEDS ORDERED: EPTIFIBATIDE DRIP 100 ML IV ONE (05:28)
[2017-10-07] MEDS ORDERED: RT-ALBUTEROL SULF 2.5 MG/3 ML PRE-MIX VIAL ONE (05:33)
[2017-10-07] MEDS: EPTIFIBATIDE DRIP 100 ML IV SCH (05:35)
[2017-10-07] MEDS: NS IV 1000 ML 1,000 ML IV SCH ×2 (05:36→09:00)
[2017-10-07] MEDS ORDERED: RT-ALBUTEROL SULF 2.5 MG/3 ML PRE-MIX VIAL IH ONE (06:00)
[2017-10-07] MEDS ORDERED: RT-ALBUTEROL SULF 2.5 MG/3 ML PRE-MIX VIAL IH PRN (06:45)
[2017-10-07] MEDS ORDERED: RT-ALBUTEROL SULF 2.5 MG/3 ML PRE-MIX VIAL IH SCH (08:00)
[2017-10-07] MEDS: TICAGRELOR 90 MG TABLET (BRILINTA) PO SCH ×2 (08:16→20:22)
[2017-10-07] MEDS: meTOprolol TARTRATE 25 MG (LOPRESSOR) TABLET PO SCH ×2 (08:16→20:22)
[2017-10-07] MEDS: lisINopril 40 MG (PRINIVIL) TABLET PO SCH (08:16)
--- NOTE | 2017-10-07 08:40 | Cardiology Progress Note ---
Subjective Date Seen by Provider: Oct 07, 2017 Time Seen by Provider: 08:34 Subjective/Events-last exam Patient is in bed, having mild shortness of breath, no chest pain. No palpitation Review of Systems General: No Chills, No Night Sweats, No Fatigue, No Malaise, No Appetite, No Other HEENT: No Head Aches, No Visual Changes, No Eye Pain, No Ear Pain, No Dysphasia , No Sinus Congestion, No Post Nasal Drip, No Sore Throat, No Other Pulmonary: Dyspnea; No Cough, No Pleuritic Chest Pain, No Other Cardiovascular: No: Chest Pain, Palpitations, Orthopnea, Paroxysmal Noc. Dyspnea, Edema, Lt Headedness, Other Objective-Cardiology Exam Last Set of Vital Signs Vital Signs 10/07/17 10/07/17 10/07/17 00:00 05:39 08:00 Temp 98.5 Pulse 65 Resp 20 B/P (MAP) 129/77 (94) Pulse Ox 98 O2 Delivery Room Air O2 Flow Rate 0.50 Capillary Refill : Less Than 3 Seconds I&O Intake and Output 10/07/17 00:00 Intake Total 400 ml Output Total 650 ml Balance -250 ml Intake Oral 400 ml Output Urine Total 650 ml Daily Weight Change No General: Alert, Oriented X3, Cooperative HEENT: Atraumatic, PERRLA Neck: Supple, No JVD, No Thyromegaly Lungs: Clear to Auscultation, Normal Air Movement Heart: Regular Rate, Normal S1, Normal S2, No Murmurs Abdomen: Normal Bowel Sounds, Soft, No Tenderness, No Hepatosplenomegaly, No Masses Extremities: No Clubbing, No Cyanosis, No Edema, Normal Pulses, No Tenderness/ Swelling Skin: No Rashes, No Breakdown, No Significant Lesion Neuro: Normal Gait, Normal Speech, Strength at 5/5 X4 Ext, Normal Tone, Sensation Intact Psych/Mental Status: Mental Status NL, Mood NL Results Lab Laboratory Tests 10/06/17 16:22 10/07/17 03:26 A/P-Cardiology Admission Diagnosis Acute ST elevation myocardial infarction Shortness of breath Hypertension Hyperlipidemia Assessment/Plan Acute ST elevation myocardial infarction in the inferior wall status post stenting to the right coronary artery, doing well Shortness of breath, slightly worse today. Echocardiogram was done, I will evaluate chest x-ray. Recent steroid injection could be the reason for his leukocytosis or reactive secondary to the myocardial infarction, no signs of infection. I will continue monitoring Hypertension, blood pressure under better control continue to monitor Hyperlipidemia, started on Lipitor 80 mg daily. Continue to monitor Clinical Quality Measures AMI/AHF: ASA po Prior to arrival: Yes DVT/VTE Risk/Contraindication: Risk Factor Score Per Nursin RFS Level Per Nursing on Admit: 4+=Very High ABBEY ARVIZU MD Oct 07, 2017 08:40
[2017-10-07] MEDS ORDERED: ASPIRIN E.C. 81 MG (ECOTRIN) TAB PO SCH (09:00)
--- NOTE | 2017-10-07 09:44 | Diagnostic Imaging Report ---
INDICATION: Dyspnea. Patient is status post myocardial infarct yesterday. TIME OF EXAM: 9:58 AM Correlation is made with prior study from 10/06/2017. FINDINGS: The heart size is normal. No pulmonary infiltrates are detected. There is no evidence of pulmonary edema. No effusion or pneumothorax is seen. IMPRESSION: No acute cardiopulmonary process is detected. Dictated by: Dictated on workstation # [id number]
[2017-10-07] MEDS: ACETAMINOPHEN 500 MG TAB (TYLENOL) PO PRN (19:41)
[2017-10-07] MEDS: ATORVASTATIN 80 MG (LIPITOR) TABLET PO SCH (20:22)
[2017-10-07] MEDS ORDERED: MELATONIN 3 MG TABLET ONE (22:00)
[2017-10-07] MEDS ORDERED: MELATONIN 3 MG TABLET PO PRN (23:00)
[2017-10-08] VITALS (10 sets, daily range): BP systolic 89–114; BP diastolic 52–78
[2017-10-08] MEDS: NS IV 1000 ML 1,000 ML IV SCH (00:22)
[2017-10-08 04:35] LABS: BASOPHILS % (AUTO) 0 % (0-10); EOSINOPHILS # (AUTO) 0.1 10^3/uL (0.0-0.3); EOSINOPHILS % (AUTO) 0 % (0-10); HEMATOCRIT 41 % (40-54); HEMOGLOBIN 13.8 G/DL (13.3-17.7); LYMPHOCYTES # (AUTO) 2.3 X 10^3 (1.0-4.0); LYMPHOCYTES % (AUTO) 9 % (12-44); MEAN CORPUSCULAR HEMOGLOBIN 30 PG (25-34); MEAN CORPUSCULAR HGB CONC 34 G/DL (32-36); MEAN CORPUSCULAR VOLUME 89 FL (80-99); MEAN PLATELET VOLUME 9.6 FL (7.4-10.4); MONOCYTES % (AUTO) 8 % (0-12); NEUTROPHILS # (AUTO) 20.1 X 10^3 (1.8-7.8); NEUTROPHILS % (AUTO) 82 % (42-75); PLATELET COUNT 308 10^3/uL (130-400); RED BLOOD COUNT 4.59 10^6/uL (4.35-5.85); RED CELL DISTRIBUTION WIDTH 14.1 % (10.0-14.5); WHITE BLOOD COUNT 24.4 10^3/uL (4.3-11.0)
[2017-10-08 04:57] LABS: ALANINE AMINOTRANSFERASE 52 U/L (0-55); ALBUMIN 3.8 GM/DL (3.2-4.5); ALKALINE PHOSPHATASE 76 U/L (40-136); BILIRUBIN,TOTAL 1.8 MG/DL (0.1-1.0); BUN/CREATININE RATIO 14; CALCIUM 9.4 MG/DL (8.5-10.1); CARBON DIOXIDE 22 MMOL/L (21-32); CHLORIDE 105 MMOL/L (98-107); CREATININE SERUM 0.78 MG/DL (0.60-1.30); GFR ESTIMATED > 60; GLUCOSE 119 MG/DL (70-105); PHOSPHORUS 3.3 MG/DL (2.3-4.7); POTASSIUM 4.1 MMOL/L (3.6-5.0); SODIUM 136 MMOL/L (135-145); TOTAL PROTEIN 6.8 GM/DL (6.4-8.2)
[2017-10-08] MEDS: KCL 20 MEQ TAB (K-DUR) PO SCH (05:10)
[2017-10-08] MEDS: POTASSIUM CL 10MEQ/50ML IVPB 50 ML IV SCH (05:10)
[2017-10-08] MEDS: MAGNESIUM 1 GM/100 ML IVPB 100 ML IV SCH (05:10)
--- NOTE | 2017-10-08 06:03 | Cardiology Discharge Summary ---
Diagnosis/Chief Complaint Date of Admission October 06, 2017 Date of Discharge October 08, [address] elevation myocardial infarction Shortness of breath Hypertension Hyperlipidemia Discharge Diagnosis Acute ST elevation myocardial infarction Coronary artery disease Shortness of breath Hyperlipidemia Tobaccoism Chief Complaint/HPI Chief Complaint/HPI This is 57-year-old gentleman who has history of hypertension. He denies smoking, diabetes or hyperlipidemia. He has family history of premature CAD. He presented with acute chest pain for 2 hours. He was found to have injury pattern in the inferior leads on EKG. Discharge Summary Hospital Course Hospital Course Acute ST elevation myocardial infarction in the inferior wall status post stenting to the right coronary artery, doing well Shortness of breath, reporting improvement, no shortness of breath was reported today. Chest x-ray was normal. Echocardiogram showed mild hypokinesia Dr. Wall with preserved systolic function. Recent steroid injection could be the reason for his leukocytosis or reactive secondary to the myocardial infarction, no signs of infection. I will continue monitoring Hypertension, borderline low blood pressure today. Hyperlipidemia, started on Lipitor 80 mg daily. Continue to monitor Labs Laboratory Tests 10/06/17 16:22: White Blood Count 27.4H, Neutrophils # (Auto) 20.1H, Lymphocytes # (Auto) 4.6H, Monocytes # (Auto) 2.6H, Activated Partial Thromboplast Time 21L, Glucose Level 111H, Troponin I 2.02*H 10/07/17 03:26: White Blood Count 23.7H, Glucose Level 139H, Troponin I 55.17*H, LDL Cholesterol Direct 132H 10/08/17 04:15: White Blood Count 24.4H, Neutrophils # (Auto) 20.1H, Monocytes # (Auto) 2.0H, Glucose Level 119H, Neutrophils (%) (Auto) 82H, Lymphocytes (%) (Auto) 9L, Total Bilirubin 1.8H, Aspartate Amino Transf (AST/SGOT) 94H Procedures None. Discharge Physical Examination Allergies: Coded Allergies: No Known Drug Allergies (Unverified , 05/05/16) Vitals & I&Os Vital Signs Date Time Temp Pulse Resp B/P (MAP) Pulse Ox O2 Delivery O2 Flow Rate FiO2 10/08/17 04:00 Room Air 10/08/17 04:00 66 24 99/64 (76) 96 10/07/17 08:00 98.0 10/07/17 05:39 0.50 General Appearance: Alert, Oriented X3, Cooperative, No Acute Distress HEENT: Atraumatic, PERRLA Respiratory: Clear to Auscultation, Normal Air Movement Cardiovascular: Regular Rate, Normal S1, Normal S2, No Murmurs Abdominal: Normal Bowel Sounds, Soft, No Tenderness, No Hepatosplenomegaly, No Masses Extremities: No Clubbing, No Cyanosis, No Edema, Normal Pulses, No Tenderness/ Swelling Skin: No Rashes, No Breakdown, No Significant Lesion Neuro: Normal Gait, Normal Speech, Strength at 5/5 X4 Ext, Normal Tone, Sensation Intact, Cranial Nerves 3-12 NL, Reflexes 2+ Psych/Mental Status: Mental Status NL, Mood NL Discharge Home Medications Reviewed and agree with Discharge Medication list on patient's Discharge Instruction sheet Instructions to Patient/Family Please see electronic discharge instructions given to patient. Clinical Quality Measures Admission Status Admission Status: Inpatient Order (span 2 midnights) Reason for Inpatient Admission: Acute ST elevation myocardial infarction Shortness of breath and slight coronary artery disease AMI/AHF: ASA po Prior to arrival: Yes DVT/VTE Risk/Contraindication: Risk Factor Score Per Nursin RFS Level Per Nursing on Admit: 4+=Very High ABBEY ARVIZU MD Oct 08, 2017 06:03
[2017-10-08] MEDS ORDERED: TICA90TA PO (06:05)
[2017-10-08] MEDS ORDERED: ASPI-983 PO (06:05)
[2017-10-08] MEDS ORDERED: LISI-556 PO (06:05)
[2017-10-08] MEDS ORDERED: METO-333 PO (06:05)
[2017-10-08] MEDS ORDERED: ATOR80TA76 PO (06:05)
--- NOTE | 2017-10-08 06:06 | Discharge Inst-Post CATH ---
Discharge Inst-CATH Post Cardiac Cath D/C Inst CARDIAC CATH DISCHARGE INSTRUCTIONS *Hold Metformin for 48 hours post heart cath. ACTIVITY * Go Home directly and rest. * Limit activity of the leg (or wrist if it was used) for 7 days including aerobics, swimming, jogging, bicycling, etc. * Restrict stair-climbing for 7 days if possible, if not, climb up with your non -cath leg, then bring together on the same step. * Avoid lifting, pushing, pulling or excessive movement of the affected extremity for 7 days. * Customary sexual activity may be resumed after 2 days-use caution not to use a position that strains or causes pain to the affected extremity. * No driving for 24 hours. * NO SMOKING. * Avoid straining for bowel movements for 7 days. * Gentle walking on level ground is allowed. * Returning to work will depend on the type of procedure and the results. Your doctor will discuss this with you. CALL YOUR DOCTOR FOR ANY OF THE FOLLOWING: *If bleeding from the puncture site occurs- Apply gentle pressure to site with clean cloth and call your doctor or EMS. * If a knot or lump forms under the skin, increases in size, or causes pain. * If bruising appears to be worsening or moving further down your leg instead of disappearing. * Temperature above 101 F. CARE OF YOUR GROIN INCISION; * Bruising or purple discoloration of the skin near the puncture site is common. * You may shower only, no bathtub bathing for 5 days. Be careful to avoid slipping as your leg may feel stiff. * If a closure device was used on your femoral artery, please see the attached guide regarding care of the device and your leg. * REMOVE the dressing from your groin the next day after your procedure in the shower. CARE OF YOUR WRIST INCISION; * Bruising or purple discoloration of the skin near the puncture site is common. * You may shower. * DO NOT submerge wrist. * Remove dressing in 24 hours. ABBEY ARVIZU MD Oct 08, 2017 06:06
[2017-10-08] MEDS: ACETAMINOPHEN 500 MG TAB (TYLENOL) PO PRN (08:22)
== END 2017-10-08 08:34 | disposition home or self-care (01) ==
LOC: EDUNIT# 16:16 → ER 16:17 → CATH 16:29 → ICU 17:45 → CATH 10-08 08:34
PROVIDERS: ATTEND Internal Medicine Interventional Cardiology
DX: I21.19 ST elevation (STEMI) myocardial infarction involving other coronary artery of inferior wall (principal); I25.10 Atherosclerotic heart disease of native coronary artery without angina pectoris; I10 Essential (primary) hypertension; E78.5 Hyperlipidemia, unspecified; F17.220 Nicotine dependence, chewing tobacco, uncomplicated
CPT/HCPCS: 36415; 71045; 71046; 80048; 80053; 80061; 83735; 83874; 84100; 84484; 85007; 85025; 85027; 85347; 85610; 85730; 87081; 93005; 93041; 93306; 93458

== ENCOUNTER → 2017-10-29 | Outpatient (CLI) | payer BC, OTHER ==
[~2017-10-29] MED LIST changes: +ASPI-983 PO; +ATOR80TA64 PO; +ATOR80TA76 PO; +CEPH-507 PO; +LISI-556 PO; -LOSA50TA36 PO; +LOSA50TA7 PO; +METO-333 PO; +TICA90TA PO
== END ==
LOC: CARD 08:31
PROVIDERS: ATTEND Internal Medicine Interventional Cardiology
DX: I25.10 Atherosclerotic heart disease of native coronary artery without angina pectoris (principal); R42 Dizziness and giddiness; E78.5 Hyperlipidemia, unspecified; I10 Essential (primary) hypertension; R06.02 Shortness of breath; Z72.0 Tobacco use
CPT/HCPCS: 93225; 93226

== ENCOUNTER 2017-10-31 22:01 | Observation (INO) | payer BC, OTHER ==
[~2017-10-31] VITALS: Ht 175.3 cm; Wt 92.4 kg
[~2017-10-31 22:01] MED LIST changes: -ATOR80TA64 PO; -CEPH-507 PO
[2017-10-31 22:18] LABS: BASOPHILS % (AUTO) 0 % (0-10); EOSINOPHILS # (AUTO) 0.1 10^3/uL (0.0-0.3); EOSINOPHILS % (AUTO) 1 % (0-10); HEMATOCRIT 35 % (40-54); LYMPHOCYTES # (AUTO) 3.3 X 10^3 (1.0-4.0); LYMPHOCYTES % (AUTO) 19 % (12-44); MEAN CORPUSCULAR HEMOGLOBIN 30 PG (25-34); MEAN CORPUSCULAR HGB CONC 34 G/DL (32-36); MEAN CORPUSCULAR VOLUME 89 FL (80-99); MEAN PLATELET VOLUME 9.5 FL (7.4-10.4); MONOCYTES # (AUTO) 1.4 X 10^3 (0.0-1.0); MONOCYTES % (AUTO) 8 % (0-12); NEUTROPHILS # (AUTO) 12.5 X 10^3 (1.8-7.8); NEUTROPHILS % (AUTO) 72 % (42-75); PLATELET COUNT 399 10^3/uL (130-400); RED BLOOD COUNT 3.95 10^6/uL (4.35-5.85); RED CELL DISTRIBUTION WIDTH 13.3 % (10.0-14.5); WHITE BLOOD COUNT 17.2 10^3/uL (4.3-11.0)
[2017-10-31 22:31] LABS: INR 1.1 (0.8-1.4); PROTHROMBIN TIME PATIENT 14.6 SEC (12.2-14.7)
[2017-10-31 22:33] LABS: ALANINE AMINOTRANSFERASE 31 U/L (0-55); ALBUMIN 4.1 GM/DL (3.2-4.5); ALKALINE PHOSPHATASE 89 U/L (40-136); BILIRUBIN,TOTAL 0.4 MG/DL (0.1-1.0); BUN/CREATININE RATIO 9; CALCIUM 9.6 MG/DL (8.5-10.1); CARBON DIOXIDE 19 MMOL/L (21-32); CHLORIDE 101 MMOL/L (98-107); CREATININE SERUM 1.67 MG/DL (0.60-1.30); GFR ESTIMATED 43; GLUCOSE 105 MG/DL (70-105); MAGNESIUM 2.2 MG/DL (1.8-2.4); POTASSIUM 3.8 MMOL/L (3.6-5.0); SODIUM 134 MMOL/L (135-145)
[2017-10-31 22:40] LABS: MYOGLOBIN SERUM 142.3 NG/ML (10.0-92.0)
[2017-10-31 22:42] LABS: BAND NEUTROPHILS 1 %; BASOPHILS % (MANUAL) 1 %; EOSINOPHILS % (MANUAL) 2 %; LYMPHOCYTES % (MANUAL) 16 %; MONOCYTES % (MANUAL) 5 %; NEUTROPHILS % (MANUAL) 75 %
[2017-10-31 22:43] LABS: RBC MORPH NORMAL
[2017-10-31] MEDS ORDERED: NS IV 1000 ML 1,000 ML IV ONE (22:50)
--- OUTSIDE RECORDS SUMMARY | 2017-10-31 23:18 | XMS REPORT | Continuity of Care Document ---
Author Author [facility] Organization [facility] Address Unknown Phone Unavailable Allergies Active Description Code Type Severity Reaction Onset Reported/Identified Relationship to Patient Clinical Status Yes No Known Drug Allergies [id number] Drug Allergy Unknown N/A 05/05/2016 Medications There [...] Z01.812 ENCOUNTER FOR PREPROCEDURAL LABORATORY E 06/04/2016 FRANCISCO VALADEZ, LUCY Lange Ot Z01.818 ENCOUNTER FOR OTHER PREPROCEDURAL EXAMIN 06/04/2016 LUCY SINGH MD Ot Z11.2 ENCOUNTER FOR SCREENING FOR OTHER BACTER 06/05/2016 LUCY SINGH MD Ot K11.5 SIALOLITHIASIS 06/05/2016 LUCY SINGH MD Ot Z01.812 ENCOUNTER FOR PREPROCEDURAL LABORATORY E 06/05/2016 LUCY SINGH MD Ot Z01.818 ENCOUNTER FOR OTHER PREPROCEDURAL EXAMIN 06/05/2016 LUCY SINGH MD Ot Z11.2 ENCOUNTER FOR SCREENING FOR OTHER BACTER 06/08/2016 FRANCISCO VALADEZ, LUCY Lange Ot J32.9 CHRONIC SINUSITIS, UNSPECIFIED 06/09/2016 FRANCISCO VALADEZ, LUCY Lange Ot K11.20 SIALOADENITIS, UNSPECIFIED 06/09/2016 FRANCISCO VALADEZ, LUCY Lange Ot K11.5 SIALOLITHIASIS 06/12/2016 FRANCISCO VALADEZ, LUCY P Ot K11.20 SIALOADENITIS, UNSPECIFIED 06/12/2016 FRANCISCO VALADEZ, LUCY P Ot K11.5 SIALOLITHIASIS 06/14/2016 FRANCISCO VALADEZ, LUCY P Ot K11.20 SIALOADENITIS, UNSPECIFIED 06/14/2016 FRANCISCO VALADEZ, LUCY P Ot K11.5 SIALOLITHIASIS 06/18/2016 FRANCISCO VALADEZ, LUCY P Ot I10 ESSENTIAL (PRIMARY) HYPERTENSION 06/18/2016 FRANCISCO VALADEZ, LUCY Lange Ot J45.909 UNSPECIFIED ASTHMA, UNCOMPLICATED 06/18/2016 FRANCISCO VALADEZ, LUCY Lange Ot T81.4XXA INFECTION FOLLOWING A PROCEDURE, INITIAL 02/03/2017 DK VALADEZ, MELVINA T Ot I10 ESSENTIAL (PRIMARY) HYPERTENSION 02/03/2017 DK VALADEZ, MELVINA Britton Ot J01.90 ACUTE SINUSITIS, UNSPECIFIED 02/03/2017 DK VALADEZ, MELVINA Britton Ot J45.901 UNSPECIFIED ASTHMA WITH (ACUTE) EXACERBA 02/03/2017 DK VALADEZ, MELVINA Britton Ot R25.2 CRAMP AND SPASM 02/03/2017 DK VALADEZ, MELVINA Britton Ot R51 HEADACHE 10/08/2017 Latanya NGUYEN MD Ot E78.5 HYPERLIPIDEMIA, UNSPECIFIED 10/08/2017 PATRICK VALADEZ M JAYCEE Ot F17.220 NICOTINE DEPENDENCE, CHEWING TOBACCO, UN 10/08/2017 Latanya NGUYEN MD Ot I10 ESSENTIAL (PRIMARY) HYPERTENSION 10/08/2017 Latanya NGUYEN MD, Ot 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 I 10/08/2017 Latanya NGUYEN MD, Ot I25.10 ATHSCL HEART DISEASE OF [place] CORONARY Procedures Code Description Performed By Performed On [id number] DILATION OF 1 COR ART WITH DRUG-ELUT INT 10/06/2017 [id number] MEASURE OF CARDIAC SAMPL PRESSURE, L H 10/06/2017 [id number] FLUOROSCOPY OF MULT COR ART USING L OSM 10/06/2017 [id number] FLUOROSCOPY OF LEFT HEART USING LOW OSMO 10/06/2017 [id number] FLUOROSCOPY OF THORACIC AORTA USING LOW 10/06/2017 Results Test Result Range Complete blood count [...] 05/17/16 20:50 Blood monocytes/100 leukocytes 6 % NR Manual blood segmented neutrophils/100 leukocytes 86 % NRG Blood band neutrophils/100 leukocytes 0 % NRG Manual blood lymphocytes/100 leukocytes 8 % NRG Manual eosinophils/100 leukocytes in nose 0 % NR Manual blood basophils/100 leukocytes 0 % NR Blood erythrocyte morphology finding identification [facility] Comprehensive metabolic panel - 05/17/16 20:50 Serum [...] 13:35 Bacteria identification in wound by culture [id number] NRG QUANTITY OF GROWTH Moderate Growth NRG [...] Status Pt. Type Provider Facility Loc./Unit Complaint [id number] 10/06/2017 16:29:00 10/08/2017 08:34:00 DIS Outpatient Latanya NGUYEN MD [facility] ICU STEMI [id number] 02/03/2017 14:12:00 02/03/2017 16:59:00 DIS Emergency MELVINA ROOT MD [facility] ER SINUS INFECTION [id number] 06/16/2016 15:56:00 06/18/2016 07:05:00 DIS Inpatient LUCY SINGH MD [facility] 4TH POST OPERATIVE WOUND INFECTION [id number] 06/08/2016 06:40:00 06/09/2016 08:45:00 DIS Outpatient LUCY SINGH MD [facility] SDC LEFT SUBMANDIBULAR CYST [id number] 06/04/2016 14:41:00 06/04/2016 15:15:00 DIS Outpatient LUCY SINGH MD [facility] PREOP LEFT SUBMANDIBULAR CYST [id number] 05/17/2016 20:26:00 05/17/2016 22:22:00 DIS Emergency JOCELYNE CHOW DO [facility] ER RT SIDE FACIAL SWELLING, FEVER [id number] 05/05/2016 12:15:00 05/06/2016 09:00:00 DIS Inpatient LUCY SINGH MD [facility] 4TH SIALOADENITIS [id number] 11/26/2014 16:13:00 11/26/2014 23:59:59 CLS Outpatient FRANCISCO VALADEZ, LUCY [facility] RAD CHRONIC SINUSITIS [id number] 11/27/2014 07:24:57 ACT Document Registration
[2017-10-31 23:26] LABS: BILIRUBIN,URINE NEGATIVE (NEGATIVE); CLARITY,URINE SLIGHTLY CLOUDY; COLOR,URINE YELLOW; GLUCOSE, URINE (UA) NEGATIVE (NEGATIVE); KETONES,URINE 1+ (NEGATIVE); LEUKOCYTE ESTERASE ,URINE 1+ (NEGATIVE); NITRITE,URINE NEGATIVE (NEGATIVE); PH,URINE 5 (5-9); PROTEIN,URINE 3+ (NEGATIVE); UROBILINOGEN,URINE NORMAL (NORMAL)
[2017-10-31] MEDS ORDERED: cefTRIAXone FOR IV USE 1,000 MG in NS (IVPB) 50 ML IV ONE (23:45)
[2017-11-01] VITALS (12 sets, daily range): BP systolic 89–136; BP diastolic 54–84
[2017-11-01] MEDS ORDERED: NS IV 1000 ML 1,000 ML IV ONE ×3 (00:13→14:30)
--- NOTE | 2017-11-01 00:23 | ED General ---
General Chief Complaint: Cardiac/General Problems Stated Complaint: DIZZY,DIAPHORETIC Nursing Triage Note: PT BROUGHT IN BY EMS WITH COMPLAINT OF SWEATING AND DIZZINESS THAT STARTED AROUND 2100. PT HAD A HEART ATTACK ON 10/06 AND HAD STENTS PLACED. PT WAS CONCERNED HE WAS HAVING ANOTHER HEARTATTACK. PT WAS GIVEN 324MG ASPIRIN BY EMS. Nursing Sepsis Screen: No Definite Risk Source of Information: Patient Exam Limitations: No Limitations History of Present Illness Date Seen by Provider: Nov 01, 2017 Time Seen by Provider: 22:08 Initial Comments This 57-year-old gentleman presents to the emergency room with complaints of diaphoresis and dizziness that started while standing in the kitchen at about 21 :00. He denies any chest pain. Patient has been concerned about his symptoms particularly because he had an ST elevation myocardial infarction with RCA stent placement October 06. Dr. Giron is his community life director. Aspirin was administered by EMS. Patient denies having any chest pain at any point in time this evening. Symptoms have since resolved. He denies any cough or fever or other signs of acute infection. Patient reports he has had some mild episodes of lightheadedness since his DC. He therefore decided to hold losartan this morning. He reports compliance with all of his other medications. Allergies and Home Medications Allergies Coded Allergies: No Known Drug Allergies (Unverified , 05/05/16) Home Medications Albuterol Sulfate 1 Puff Puff, 2 PUFF IH Q4H, (Reported) Aspirin 81 Mg Tablet.dr, 81 MG PO DAILY Prescribed by: ABBEY EISENBERG on 10/08/17604 Atorvastatin Calcium 80 Mg Tablet, 80 MG PO HS Prescribed by: ABBEY EISENBERG on 10/08/17604 Fluticasone Propionate 9.9 Ml [place].susp, 1 SPRAY NS DAILY, (Reported) Lisinopril 5 Mg Tablet, 5 MG PO DAILY Prescribed by: ABBEY EISENBERG on 10/08/17604 Loratadine 10 Mg Tablet, 10 MG PO DAILY, (Reported) Losartan Potassium 50 Mg Tablet, 50 MG PO DAILY, (Reported) Metoprolol Tartrate 25 Mg Tablet, 25 MG PO BID Prescribed by: ABBEY EISENBERG on 10/08/17604 Ticagrelor 90 Mg Tablet, 90 MG PO BID Prescribed by: ABBEY EISENBERG on 10/08/17604 Patient Home Medication List Home Medication List Reviewed: Yes Review of Systems Review of Systems Constitutional: see HPI EENTM: no symptoms reported Respiratory: short of breath Cardiovascular: see HPI Gastrointestinal: no symptoms reported Genitourinary: no symptoms reported Musculoskeletal: no symptoms reported Skin: no symptoms reported Psychiatric/Neurological: See HPI Hematologic/Lymphatic: No Symptoms Reported Immunological/Allergic: no symptoms reported Past Cvynase-Dmptrf-Gcbjbj Hx Past Med/Social Hx: Reviewed and Corrections made Patient Social History Alcohol Use: Denies Use Recreational Drug Use: No Type Used: Smokeless Tobacco 2nd Hand Smoke Exposure: No Recent Foreign Travel: No Contact w/Someone Who Travel: No Recent Infectious Disease Expo: No Recent Hopitalizations: No Seasonal Allergies Seasonal Allergies: Yes Past Medical History Surgeries: Yes (SINUS SURGEY, SUBMANDIBULAR GLAND RESECTION) Coronary Stent Respiratory: Yes Asthma Currently Using CPAP: No Currently Using BIPAP: No Cardiac: Yes Coronary Artery Disease, Heart Attack, Hypertension Neurological: No Reproductive Disorders: No Sexually Transmitted Disease: No HIV/AIDS: No Genitourinary: No Gastrointestinal: No Musculoskeletal: No Endocrine: No HEENT: Yes (wears glasses) Loss of Vision: Bilateral Cancer: No Psychosocial: No Integumentary: No Blood Disorders: No Adverse Reaction/Blood Tranf: No Family Medical History Reviewed Nursing Family Hx Colon cancer 19 FATHER Diabetes mellitus 19 MOTHER Headache disorder G8 SISTER Thyroid disease G8 SISTER No Pertinent Family Hx Physical Exam Vital Signs Vital Signs - First Documented 10/31/17 22:03 Temp 98.0 Pulse 70 Resp 20 B/P (MAP) 106/67 (80) Pulse Ox 96 O2 Delivery Room Air Capillary Refill : Less Than 3 Seconds Height, Weight, BMI Height: 5'9.00" Weight: 200lbs. 9.0oz. 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 Norm as Tested Skin: Normal Color, Warm/Dry Progress/Results/Core Measures Suspected Sepsis Recent Fever Within 48 Hours: No Infection Criteria Present: None New/Unexplained Altered Menta: No Sepsis Screen: No Definite Risk SIRS Temperature:98.0 Pulse: 70 Respiratory Rate: 20 Laboratory Tests 10/31/17 22:08: White Blood Count 17.2H Blood Pressure 106 /67 Mean: 80 Laboratory Tests 10/31/17 22:08: Creatinine 1.67H, INR Comment 1.1, Platelet Count 399, Total Bilirubin 0.4 Results/Orders Lab Results Laboratory Tests Test 10/31/17 22:08 10/31/17 23:18 Range/Units White Blood Count 17.2 H 4.3-11.0 10^3/uL Red Blood Count 3.95 L 4.35-5.85 10^6/uL Hemoglobin 12.0 L 13.3-17.7 G/DL Hematocrit 35 L 40-54 % Mean Corpuscular Volume 89 80-99 FL Mean Corpuscular Hemoglobin 30 25-34 PG Mean Corpuscular Hemoglobin Concent 34 32-36 G/DL Red Cell Distribution Width 13.3 10.0-14.5 % Platelet Count 399 130-400 10^3/uL Mean Platelet Volume 9.5 7.4-10.4 FL Neutrophils (%) (Auto) 72 42-75 % Lymphocytes (%) (Auto) 19 12-44 % Monocytes (%) (Auto) 8 0-12 % Eosinophils (%) (Auto) 1 0-10 % Basophils (%) (Auto) 0 0-10 % Neutrophils # (Auto) 12.5 H 1.8-7.8 X 10^3 Lymphocytes # (Auto) 3.3 1.0-4.0 X 10^3 Monocytes # (Auto) 1.4 H 0.0-1.0 X 10^3 Eosinophils # (Auto) 0.1 0.0-0.3 10^3/uL Basophils # (Auto) 0.0 0.0-0.1 10^3/uL Neutrophils % (Manual) 75 % Lymphocytes % (Manual) 16 % Monocytes % (Manual) 5 % Eosinophils % (Manual) 2 % Basophils % (Manual) 1 % Band Neutrophils 1 % Blood Morphology Comment NORMAL Prothrombin Time 14.6 12.2-14.7 SEC INR Comment 1.1 0.8-1.4 Activated Partial Thromboplast Time 24 24-35 SEC Sodium Level 134 L 135-145 MMOL/L Potassium Level 3.8 3.6-5.0 MMOL/L Chloride Level 101 98-107 MMOL/L Carbon Dioxide Level 19 L 21-32 MMOL/L Anion Gap 14 5-14 MMOL/L Blood Urea Nitrogen 15 7-18 MG/DL Creatinine 1.67 H 0.60-1.30 MG/DL Estimat Glomerular Filtration Rate 43 BUN/Creatinine Ratio 9 Glucose Level 105 70-105 MG/DL Calcium Level 9.6 8.5-10.1 MG/DL Corrected Calcium 9.5 8.5-10.1 MG/DL Magnesium Level 2.2 1.8-2.4 MG/DL Total Bilirubin 0.4 0.1-1.0 MG/DL Aspartate Amino Transf (AST/SGOT) 19 5-34 U/L Alanine Aminotransferase (ALT/SGPT) 31 0-55 U/L Alkaline Phosphatase 89 40-136 U/L Myoglobin 142.3 H 10.0-92.0 NG/ML Troponin I < 0.30 <0.30 NG/ML C-Reactive Protein High Sensitivity 0.20 0.00-0.50 MG/DL Total Protein 7.0 6.4-8.2 GM/DL Albumin 4.1 3.2-4.5 GM/DL Urine Color YELLOW Urine Clarity SLIGHTLY CLOUDY Urine pH 5 5-9 Urine Specific [place] 1.020 1.016-1.022 Urine Protein 3+ H NEGATIVE Urine Glucose (UA) NEGATIVE NEGATIVE Urine Ketones 1+ H NEGATIVE Urine Nitrite NEGATIVE NEGATIVE Urine Bilirubin NEGATIVE NEGATIVE Urine Urobilinogen NORMAL NORMAL MG/DL Urine Leukocyte Esterase 1+ H NEGATIVE Urine RBC (Auto) 2+ H NEGATIVE Urine RBC 5-10 H /HPF Urine WBC 10-25 H /HPF Urine Crystals NONE /LPF Urine Bacteria NONE /HPF Urine Casts NONE /LPF Urine Mucus MODERATE H /LPF Urine Culture Indicated YES My Orders Orders - MELVINA ROOT MD Cbc With Automated Diff (10/31/17 22:12) Magnesium (10/31/17 22:12) Chest 1 View, Ap/Pa Only (10/31/17 22:12) Ekg Tracing (10/31/17 22:12) Cardiac Profile 1 (10/31/17 22:12) Comprehensive Metabolic Panel (10/31/17 22:12) Myoglobin Serum (10/31/17 22:12) Protime With Inr (10/31/17 22:12) Partial Thromboplastin Time (10/31/17 22:12) O2 (10/31/17 22:12) Monitor-Rhythm Ecg Trace Only (10/31/17 22:12) Lipid Panel (11/01/17 06:00) Saline Lock/Iv-Start (10/31/17 22:12) Manual Differential (10/31/17 22:08) Saline Lock/Iv-Start (10/31/17 22:50) Ns Iv 1000 Ml (Sodium Chloride 0.9%) (10/31/17 22:50) Ua Culture If Indicated (10/31/17 22:50) Hs C Reactive Protein (10/31/17 22:53) Urine Culture (10/31/17 23:18) Ceftriaxone For Iv Use (Rocephin For I (10/31/17 23:45) Ns Iv 1000 Ml (Sodium Chloride 0.9%) (11/01/17 00:13) Ticagrelor Tablet (Brilinta Tablet) (11/01/17 09:00) Ticagrelor Tablet (Brilinta Tablet) (11/01/17 00:32) Medications Given in ED Current Medications Medications Dose Ordered Sig/Darek Route Start Time Stop Time Status Last Admin Dose Admin Ceftriaxone Sodium 1000 mg/ Sodium Chloride 50 ml @ 100 mls/hr ONCE ONCE IV 10/31/17 23:45 11/01/17 00:14 DC 10/31/17 23:47 100 MLS/HR Sodium Chloride 1,000 ml @ 0 mls/hr Q0M ONCE IV 10/31/17 22:50 10/31/17 22:52 DC 10/31/17 22:57 1,000 MLS/HR Vital Signs/I&O 10/31/17 11/01/17 11/01/17 11/01/17 22:03 00:57 01:34 02:02 Temp 98.0 97.6 Pulse 70 67 75 66 Resp 20 20 16 B/P (MAP) 106/67 (80) 102/57 117/56 (76) Pulse Ox 96 100 99 O2 Delivery Room Air Room Air Room Air 11/01/17 11/01/17 11/01/17 02:17 02:18 03:10 Pulse 67 67 70 Resp 16 16 B/P (MAP) 89/54 (66) 92/58 (69) 104/63 (77) Pulse Ox 96 98 O2 Delivery Room Air Room Air Room Air 11/01/17 00:00 Intake Total 1000 ml Balance 1000 ml Capillary Refill : Less Than 3 Seconds Blood Pressure Mean: 80 Progress Note : Progress Note Patient was assessed with EKG, x-ray, and labs. He is found to have acute renal failure with elevated creatinine. He was given a liter of IV fluid. He still had some marginal blood pressures despite hydration with a 1 L bolus. His second liter was ordered and administered. Patient did admit to being more active today but not drinking water very well. Patient denied any further symptoms during his stay. Leukocytosis was noted. This may be related to suggestion of urinary tract infection on urinalysis. Patient was given Rocephin for treatment of urinary tract infection. ECG Initial ECG Impression Date: Oct 31, 2017 Initial ECG Impression Time: 22:03 Initial ECG Rate: 77 Initial ECG Rhythm: Normal Sinus Comment Normal sinus rhythm with no ST elevation or depression. Borderline prolonged QT interval. No axis deviation. Diagnostic Imaging Diagonstic Imaging: Xray Plain Films/CT/US/NM/MRI: chest Comments Chest x-ray viewed by me. Report not yet available. No acute abnormalities appreciated. Departure Communication (Admissions) Time/Spoke to Admitting Phy: 00:12 Dr. Fuller Time/Spoke to Consulting Phy: 22:28 Dr. Eisenberg Impression Primary Impression: Acute renal failure Qualified Codes: N17.9 - Acute kidney failure, unspecified Additional Impressions: Hypovolemia Lightheadedness Urinary tract infection Qualified Codes: N39.0 - Urinary tract infection, site not specified Disposition: ADMITTED INPATIENT Condition: Improved Admissions Decision to Admit Reason: Admit from ER (General) Decision to Admit/Date: Nov 01, 2017 Time/Decision to Admit Time: 22:28 Departure-Patient Inst. Referrals: JAMESON MCCLELLAN DO (PCP/Family) Primary Care Physician MELVINA ROOT MD Nov 01, 2017 00:23
[2017-11-01] MEDS ORDERED: TICAGRELOR 90 MG TABLET (BRILINTA) PO ONE ×2 (00:32→09:00)
--- OUTSIDE RECORDS SUMMARY | 2017-11-01 00:46 | XMS REPORT | Continuity of Care Document ---
Author Author [facility] Organization [facility] Address Unknown Phone Unavailable Allergies Active Description Code Type Severity Reaction Onset Reported/Identified Relationship to Patient Clinical Status Yes No Known Drug Allergies [id number] Drug Allergy Unknown N/A 05/05/2016 Medications There [...] J32.9 CHRONIC SINUSITIS, UNSPECIFIED 05/18/2016 CLAUDINEPhilipp NAVARRO OJCELYNE K Ot K11.5 SIALOLITHIASIS 05/18/2016 CLAUDINE NAVARRO [...] MD, Ot I25.10 ATHSCL HEART DISEASE OF [place] CORONARY Procedures Code Description Performed By Performed On [id number] DILATION OF 1 COR ART WITH DRUG-ELUT INT 10/06/2017 [id number] MEASURE OF CARDIAC SAMPL PRESSURE, L H 10/06/2017 [id number] FLUOROSCOPY OF MULT COR ART USING L OSM 10/06/2017 [id number] FLUOROSCOPY OF LEFT HEART USING LOW OSMO 10/06/2017 [id number] FLUOROSCOPY OF THORACIC AORTA USING LOW 10/06/2017 [...] NR Blood erythrocyte morphology finding identification NORMAL [facility] Comprehensive metabolic panel - 05/17/16 20:50 Serum [...] 13:35 Bacteria identification in wound by culture [id number] NRG QUANTITY OF GROWTH Moderate Growth NRG [...] Status Pt. Type Provider Facility Loc./Unit Complaint [id number] 10/06/2017 16:29:00 10/08/2017 08:34:00 DIS Outpatient Latanya NGUYEN MD [facility] ICU STEMI [id number] 02/03/2017 14:12:00 02/03/2017 16:59:00 DIS Emergency MELVINA ROOT MD [facility] ER SINUS INFECTION [id number] 06/16/2016 15:56:00 06/18/2016 07:05:00 DIS Inpatient LUCY SINGH MD [facility] 4TH POST OPERATIVE WOUND INFECTION [id number] 06/08/2016 06:40:00 06/09/2016 08:45:00 DIS Outpatient LUCY SINGH MD [facility] SDC LEFT SUBMANDIBULAR CYST [id number] 06/04/2016 14:41:00 06/04/2016 15:15:00 DIS Outpatient LUCY SINGH MD [facility] PREOP LEFT SUBMANDIBULAR CYST [id number] 05/17/2016 20:26:00 05/17/2016 22:22:00 DIS Emergency JOCELYNE CHOW DO [facility] ER RT SIDE FACIAL SWELLING, FEVER [id number] 05/05/2016 12:15:00 05/06/2016 09:00:00 DIS Inpatient LUCY SINGH MD [facility] 4TH SIALOADENITIS [id number] 11/26/2014 16:13:00 11/26/2014 23:59:59 CLS Outpatient FRANCISCO VALADEZ, LUCY [facility] RAD CHRONIC SINUSITIS [id number] 11/27/2014 07:24:57 ACT Document Registration
[2017-11-01] MEDS: NS IV 1000 ML 1,000 ML IV SCH ×2 (01:10→04:21)
[2017-11-01] MEDS ORDERED: ONDANSETRON 4 MG/2 ML (SDV) Z0FRAN IV PRN (02:00)
[2017-11-01 06:15] LABS: BASOPHILS % (AUTO) 0 % (0-10); EOSINOPHILS # (AUTO) 0.1 10^3/uL (0.0-0.3); EOSINOPHILS % (AUTO) 1 % (0-10); HEMATOCRIT 31 % (40-54); HEMOGLOBIN 10.5 G/DL (13.3-17.7); LYMPHOCYTES # (AUTO) 2.3 X 10^3 (1.0-4.0); LYMPHOCYTES % (AUTO) 20 % (12-44); MEAN CORPUSCULAR HEMOGLOBIN 31 PG (25-34); MEAN CORPUSCULAR HGB CONC 34 G/DL (32-36); MEAN CORPUSCULAR VOLUME 90 FL (80-99); MEAN PLATELET VOLUME 9.9 FL (7.4-10.4); MONOCYTES % (AUTO) 8 % (0-12); NEUTROPHILS # (AUTO) 8.1 X 10^3 (1.8-7.8); NEUTROPHILS % (AUTO) 70 % (42-75); PLATELET COUNT 355 10^3/uL (130-400); RED BLOOD COUNT 3.42 10^6/uL (4.35-5.85); RED CELL DISTRIBUTION WIDTH 13.3 % (10.0-14.5); WHITE BLOOD COUNT 11.5 10^3/uL (4.3-11.0)
[2017-11-01 06:35] LABS: BUN/CREATININE RATIO 12; CALCIUM 8.3 MG/DL (8.5-10.1); CARBON DIOXIDE 20 MMOL/L (21-32); CHLORIDE 110 MMOL/L (98-107); CREATININE SERUM 0.97 MG/DL (0.60-1.30); GFR ESTIMATED > 60; GLUCOSE 102 MG/DL (70-105); POTASSIUM 3.8 MMOL/L (3.6-5.0); SODIUM 139 MMOL/L (135-145)
[2017-11-01 06:37] LABS: CHOLESTEROL 105 MG/DL (< 200); HDL CHOLESTEROL 25 MG/DL (40-60); TRIGLYCERIDES 70 MG/DL (<150); VLDL CHOLESTEROL 14 MG/DL (5-40)
--- NOTE | 2017-11-01 07:09 | Diagnostic Imaging Report ---
INDICATION: Chest pain COMPARISON STUDY: Chest from October 07. FINDINGS: Portable upright view of the chest demonstrates the lungs to be clear. The heart, mediastinum, pulmonary vascularity and visualized bony thorax are normal. IMPRESSION: Normal chest. Dictated by: Dictated on workstation # [id number]
[2017-11-01] MEDS ORDERED: ASPIRIN 81 MG CHEW (CHILDREN'S ASA) PO SCH (09:00)
[2017-11-01] MEDS ORDERED: TICAGRELOR 90 MG TABLET (BRILINTA) PO SCH (09:00)
[2017-11-01] MEDS ORDERED: meTOprolol TARTRATE 25 MG (LOPRESSOR) TABLET PO SCH (09:00)
--- NOTE | 2017-11-01 11:13 | Consultation-Cardiology ---
HPI-Cardiology Cardiology Consultation: Date of Consultation 11/01/17 Date of Admission Attending Physician Tonya Fuller DO Admitting Physician Akash Pena DO Consulting Physician Latanya GIRON MD HPI: Time Seen by Provider: 12:44 Chief Complaint: Dizziness This is a 57-year-old gentleman who had recent acute ST elevation CA with proximal RCA occlusion which was treated with primary PCI with a drug-eluting stent to the proximal RCA. Complained of an episode of dizziness, nausea and sweating. No chest pain. Continued on dual antiplatelet therapy. Was found to be dehydrated and given IV fluids in the ER. Review of Systems-Cardiology Review of Systems Constitutional: As described under HPI; No As described under HPI, No no symptoms reported, No chills, No fever; lightheadedness Eyes: No As described under HPI, No no symptoms reported, No blindness, No blurred vision, No contact lenses, No drainage, No decreased acuity, No foreign body sensation, No pain, No vision change Ears/Nose/Throat: No As described under HPI, No no symptoms reported, No chronic hearing loss, No ear discharge, No ear pain, No nasal drainage, No ulcerations Respiratory: No no symptoms reported; As described under HPI; No As described under HPI, No cough, No orthopnea, No shortness of breath, No SOB with excertion Cardiovascular: No no symptoms reported; As described under HPI; No As described under HPI, No chest pain, No edema, No irregular heart rate, No lightheadedness, No palpitations Gastrointestinal: No no symptoms reported, No As described under HPI, No abdomen distended, No abdominal pain, No blood streaked bowels, No constipation , No diarrhea, No nausea, No vomiting; nausea/vomiting/diarrhea; No stool coloration changes Genitourinary: No As described under HPI, No burning, No dysuria, No discharge , No frequency, No flank pain, No hematuria, No urgency Musculoskeletal: No no symptoms reported, No As describe under HPI, No back pain, No gout, No joint pain, No joint swelling, No muscle pain, No muscle stiffness, No neck pain, No other Skin: No no symptoms reported, No As described under HPI, No change in color, No change in hair/nails, No dryness, No lesions, No lumps, No rash, No other, No skin related problems, No ulcerations, No rash on exposed areas, No ulcerations on exposed areas Psychiatric/Neurological: No no symptoms reported, No As described under HPI, No anxiety, No depression, No emotional problems, No headache, No numbness, No pre-existing deficit, No seizure, No tingling, No tremors, No weakness, No other , No focal weakness, No syncope Hematologic: No bleeding abnormalities EPW-Lyqfba-Jopkhv Hx Patient Social History Alcohol Use: Denies Use Recreational Drug Use: No Type Used: Smokeless Tobacco 2nd Hand Smoke Exposure: No Recent Foreign Travel: No Recent Infectious Disease Expo: No Hospitalization with Isolation: Denies Physical Abuse Screen: No Sexual Abuse: No Past Medical History PMH As described under Assessment. Family Medical History Family History: Colon cancer 19 FATHER Diabetes mellitus 19 MOTHER Headache disorder G8 SISTER Thyroid disease G8 SISTER Allergies and Home Medications Allergies Coded Allergies: No Known Drug Allergies (Unverified , 05/05/16) Home Medications Albuterol Sulfate 1 Puff Puff, 2 PUFF IH Q4H PRN for SHORTNESS OF BREATH, ( Reported) Aspirin 81 Mg Tablet.dr, 81 MG PO DAILY, (Reported) Atorvastatin Calcium 80 Mg Tablet, 40 MG PO HS, (Reported) TAKES 1/2 (80MG) TABLET Fluticasone Propionate 9.9 Ml Weed.susp, 1 SPRAY NS DAILY, (Reported) Lisinopril 5 Mg Tablet, 5 MG PO DAILY, (Reported) Loratadine 10 Mg Tablet, 10 MG PO DAILY, (Reported) Losartan Potassium 50 Mg Tablet, 50 MG PO DAILY, (Reported) Metoprolol Tartrate 25 Mg Tablet, 25 MG PO BID, (Reported) Ticagrelor 90 Mg Tablet, 90 MG PO BID, (Reported) Patient Home Medication List Home Medication List Reviewed: Yes Physical Exam-Cardiology Physical Exam Vital Signs/I&O 11/01/17 11/01/17 11/01/17 11/01/17 00:57 01:34 02:02 02:17 Temp 97.6 Pulse 67 75 66 67 Resp 20 16 16 B/P (MAP) 102/57 117/56 (76) 89/54 (66) Pulse Ox 100 99 96 O2 Delivery Room Air Room Air Room Air 11/01/17 11/01/17 11/01/17 11/01/17 02:18 03:10 04:20 04:26 Pulse 67 70 62 Resp 16 16 B/P (MAP) 92/58 (69) 104/63 (77) 99/68 (78) 118/70 (86) Pulse Ox 98 99 O2 Delivery Room Air Room Air Room Air 11/01/17 11/01/17 11/01/17 11/01/17 05:39 06:00 06:55 07:00 Pulse 66 67 66 57 Resp 16 16 16 B/P (MAP) 110/64 (79) 109/76 (87) 98/63 (75) Pulse Ox 99 98 100 O2 Delivery Room Air Room Air Room Air 11/01/17 08:00 Temp 97.3 Pulse 55 Resp 16 B/P (MAP) 128/64 (85) Pulse Ox 97 O2 Delivery Room Air 11/01/17 00:00 Intake Total 1000 ml Balance 1000 ml Capillary Refill : Less Than 3 Seconds Constitutional: appears stated age, AAO x 3; No apparent distress; well- developed, well-nourished HEENT: PERRL; No normal ENT inspection, No TMs normal, No pharynx normal, No scleral icterus (R), No scleral icterus (L), No pale conjunctivae (R), No pale conjunctivae (L), No photophobia, No TM abnormal (R), No TM abnormal (L), No pharyngeal erythema, No tonsillar exudate, No other, No discharge, No EOMI; hearing is well preserved; No hard of hearing; oral hygience is good; No ulceration, No xanthelasmas are seen Neck: No non-tender, No full range of motion, No supple, No normal inspection, No carotid bruit, No limited range of motion, No lymphadenopathy (R), No lymphadenopathy (L), No tender lateral, No tender midline, No thyromegaly, No other; carotid pulses are 2 + bilaterally; No with good upstrokes Respiratory: No accessory muscle use, No respiratory distress, No chest tender , No chest expansion is symmetric; chest is bilaterally symmetric; No lungs clear to percussion; lungs clear to auscultation; No crackles, No rhonchi, No rales, No stridor, No wheezing, No pleural rub, No other Cardiovascular: regular rate-rhythm; No irregularly irregular, No extra beats, No parasternal heave is noted, No JVD, No edema, No bradycardia, No tachycardia , No point of maximal impulse, No cardiac thrills are palpable; S1 and S2; No gallop/S3, No gallop/S4, No diastolic murmur, No systolic murmur, No friction rub, No click, No other Gastrointestinal: No tender, No soft, No round, No distended, No pulsatile mass , No organomegaly, No guarding, No rebound, No tenderness, No hernia, No mass, No audible bowel sounds, No abnormal bowel sounds, No abdominal bruits, No spleenomegaly, No other Rectal: deferred Extremities: No normal range of motion, No non-tender, No normal inspection, No pedal edema, No calf tenderness, No normal capillary refill, No pelvis stable , No calf tenderness, No inflammation, No pedal edema, No slow capillary refill , No swelling, No other, No abrasion, No clubbing, No cyanosis, No ecchymosis, No laceration, No no lower extremity edema bilateral, No significant edema, No tenderness, No wound Neurologic/Psychiatric: no motor/sensory deficits, alert, normal mood/affect, oriented x 3, power is 5/5 both on sides Skin: No normal color, No warm/dry, No cyanosis, No cool, No diaphoresis, No damp, No ecchymosis, No jaundice, No mottled, No pallor, No rash, No tattoos/ piercings, No ulcerations, No rash on exposed areas, No ulcerations on exposed areas, No other Data Review Labs Laboratory Tests 10/31/17 22:08: White Blood Count 17.2H, Red Blood Count 3.95L, Hemoglobin 12.0L, Hematocrit 35L , Mean Corpuscular Volume 89, Mean Corpuscular Hemoglobin 30, Mean Corpuscular Hemoglobin Concent 34, Red Cell Distribution Width 13.3, Platelet Count 399, Mean Platelet Volume 9.5, Neutrophils (%) (Auto) 72, Lymphocytes (%) (Auto) 19, Monocytes (%) (Auto) 8, Eosinophils (%) (Auto) 1, Basophils (%) (Auto) 0, Neutrophils # (Auto) 12.5H, Lymphocytes # (Auto) 3.3, Monocytes # (Auto) 1.4H, Eosinophils # (Auto) 0.1, Basophils # (Auto) 0.0, Neutrophils % (Manual) 75, Lymphocytes % (Manual) 16, Monocytes % (Manual) 5, Eosinophils % (Manual) 2, Basophils % (Manual) 1, Band Neutrophils 1, Blood Morphology Comment NORMAL, Prothrombin Time 14.6, INR Comment 1.1, Activated Partial Thromboplast Time 24, Sodium Level 134L, Potassium Level 3.8, Chloride Level 101, Carbon Dioxide Level 19L, Anion Gap 14, Blood Urea Nitrogen 15, Creatinine 1.67H, Estimat Glomerular Filtration Rate 43, BUN/Creatinine Ratio 9, Glucose Level 105, Calcium Level 9.6, Corrected Calcium 9.5, Magnesium Level 2.2, Total Bilirubin 0.4, Aspartate Amino Transf (AST/SGOT) 19, Alanine Aminotransferase (ALT/SGPT) 31, Alkaline Phosphatase 89, Myoglobin 142.3H, Troponin I < 0.30, C-Reactive Protein High Sensitivity 0.20, Total Protein 7.0, Albumin 4.1 10/31/17 23:18: Urine Color YELLOW, Urine Clarity SLIGHTLY CLOUDY, Urine pH 5, Urine Specific [place] 1.020, Urine Protein 3+H, Urine Glucose (UA) NEGATIVE, Urine Ketones 1+H , Urine Nitrite NEGATIVE, Urine Bilirubin NEGATIVE, Urine Urobilinogen NORMAL, Urine Leukocyte Esterase 1+H, Urine RBC (Auto) 2+H, Urine RBC 5-10H, Urine WBC 10-25H, Urine Crystals NONE, Urine Bacteria NONE, Urine Casts NONE, Urine Mucus MODERATEH, Urine Culture Indicated YES 11/01/17 05:35: White Blood Count 11.5H, Red Blood Count 3.42L, Hemoglobin 10.5L, Hematocrit 31L , Mean Corpuscular Volume 90, Mean Corpuscular Hemoglobin 31, Mean Corpuscular Hemoglobin Concent 34, Red Cell Distribution Width 13.3, Platelet Count 355, Mean Platelet Volume 9.9, Neutrophils (%) (Auto) 70, Lymphocytes (%) (Auto) 20, Monocytes (%) (Auto) 8, Eosinophils (%) (Auto) 1, Basophils (%) (Auto) 0, Neutrophils # (Auto) 8.1H, Lymphocytes # (Auto) 2.3, Monocytes # (Auto) 1.0, Eosinophils # (Auto) 0.1, Basophils # (Auto) 0.0, Sodium Level 139, Potassium Level 3.8, Chloride Level 110H, Carbon Dioxide Level 20L, Anion Gap 9, Blood Urea Nitrogen 12, Creatinine 0.97, Estimat Glomerular Filtration Rate > 60, BUN/ Creatinine Ratio 12, Glucose Level 102, Calcium Level 8.3L, Troponin I < 0.30, Triglycerides Level 70, Cholesterol Level 105, LDL Cholesterol Direct 63, VLDL Cholesterol 14, HDL Cholesterol 25L ECG Impression ECG Initial ECG Rhythm: Normal Sinus Comment Normal sinus rhythm with T-wave inversions. A/P-Cardiology Assessment/Admission Diagnosis CAD, recent CA, Dizziness, Acute kidney injury Plan Acute coronary syndrome has been ruled out with negative serial enzymes and EKG. Continue dual antiplatelet therapy. Dizziness: Likely due to dehydration. We'll discontinue losartan. Continue lisinopril low dose for now. Will cut metoprolol in half. Will check orthostatics. Continue IV fluids for now. Acute kidney injury with a creatinine of 1.7 on admission. Will recommend nephrology follow-up as an outpatient. Once okay with the primary team, patient can be discharged to follow with me in the office in 2 weeks or so. Thank you for your consultation. Please call me if you have any questions. Franki Giron MD, FACP, FACC, FSCAI, FHRS, CCDS Interventional Cardiology Cardiac Electrophysiology Vascular Medicine and Endovascular Interventions Clinical Quality Measures DVT/VTE Risk/Contraindication: Risk Factor Score Per Nursin RFS Level Per Nursing on Admit: 3=High Latanya GIRON MD Nov 01, 2017 11:13 am
--- NOTE | 2017-11-01 11:30 | History & Physical-Hospitalist ---
History of Present Illness HPI/Chief Complaint Pt is a 57CM with a PMH recent CAD with recent STEMI and stenting to the RCA, HTN who presented to the ER with a CC dizziness and diaphoresis. He states his dizziness has been persistent since his STEMI on 10/06. He has attempted to call his PCP and his inspector paper products to discuss this but states he has not gotten any answers. Last night he developed diaphoresis with his dizziness and was worried that this was related to his heart disease so called EMS. On arrival he was found to be mildly hypotensive and have a UTI and JAC. He states his is feeling better today and would like to discharge. I advised waiting until cardiology has evaluated but he is unsure he will stay that long. Source: patient Exam Limitations: no limitations Date Seen 11/01/17 Time Seen by Provider: 11:00 Attending Physician Tonya Fuller DO PCP Akash Pena DO Referring Physician Date of Admission Nov 01, 2017 at 00:12 Home Medications & Allergies Home Medications Reviewed patient Home Medication Reconciliation performed by pharmacy medication reconciliations corn lab technician and/or nursing. Patients Allergies have been reviewed. Allergies Allergies Coded Allergies No Known Drug Allergies (Unverified05/05/16) Past Zjllkuj-Wunkgv-Lbqqyy Hx Past Med/Social Hx: Reviewed and Corrections made Patient Social History Employed/Student: employed Alcohol Use: Denies Use Recreational Drug Use: No Type Used: Smokeless Tobacco 2nd Hand Smoke Exposure: No Physical Abuse Screen: No Sexual Abuse: No Recent Foreign Travel: No Contact w/other who traveled: No Recent Hopitalizations: No Recent Infectious Disease Expo: No Seasonal Allergies Seasonal Allergies: Yes Past Medical History Surgeries: Coronary Stent Currently Using CPAP: No Currently Using BIPAP: No Cardiac: Coronary Artery Disease, Heart Attack, Hypertension Reproductive: No Sexually Transmitted Disease: No HIV/AIDS: No Loss of Vision: Bilateral History of Blood Disorders: No Adverse Reaction to Blood Steele: No Family History Reviewed Nursing Family Hx Colon cancer 19 FATHER Diabetes mellitus 19 MOTHER Headache disorder G8 SISTER Thyroid disease G8 SISTER Cancer, Diabetes Review of Systems Constitutional: diaphoresis, dizziness EENTM: no symptoms reported Respiratory: no symptoms reported Cardiovascular: no symptoms reported Gastrointestinal: no symptoms reported Genitourinary: no symptoms reported Musculoskeletal: no symptoms reported Skin: no symptoms reported Psychiatric/Neurological: No Symptoms Reported Physical Exam Physical Exam Vital Signs Vital Signs - First Documented 10/31/17 22:03 Temp 98.0 Pulse 70 Resp 20 B/P (MAP) 106/67 (80) Pulse Ox 96 O2 Delivery Room Air Capillary Refill : Less Than 3 Seconds Height, Weight, BMI Height: 5'9.00" Weight: 203lbs. 9.6oz. 92.454033gz; 30.0 BMI Method:Stated General Appearance: No Apparent Distress, WD/WN Respiratory: Lungs Clear, No Respiratory Distress Cardiovascular: Regular Rate, Rhythm, No Murmur Gastrointestinal: Normal Bowel Sounds, Soft Neurologic/Psychiatric: Alert, Oriented x3 Results Results/Procedures Labs Laboratory Tests 10/31/17 22:08 11/01/17 05:35 Patient resulted labs reviewed. Assessment/Plan Admission Diagnosis UTI and JAC Diagnosis/Problems Diagnosis/Problems (1) Acute renal failure Status: Acute Assessment & Plan: Now resolved, near his baseline Continue IVF Qualifiers: Acute renal failure type: unspecified Qualified Codes: N17.9 - Acute kidney failure, unspecified (2) Urinary tract infection Status: Acute Assessment & Plan: Continue on Rocephin Await culture Qualifiers: Urinary tract infection type: site unspecified Hematuria presence: without hematuria Qualified Codes: N39.0 - Urinary tract infection, site not specified (3) Lightheadedness Status: Acute Assessment & Plan: Likely due to hypotension- worsening yesterday by hypovolemia Clinical Quality Measures DVT/VTE Risk/Contraindication: Risk Factor Score Per Nursin RFS Level Per Nursing on Admit: 3=High BLANCA RICO MD Nov 01, 2017 11:30
[2017-11-01] MEDS ORDERED: ASPI-983 PO ×2 (12:17)
[2017-11-01] MEDS ORDERED: METO-333 PO ×4 (12:17→12:57)
[2017-11-01] MEDS ORDERED: ATOR80TA64 PO ×2 (12:17)
[2017-11-01] MEDS ORDERED: TICA90TA PO ×2 (12:17)
[2017-11-01] MEDS ORDERED: LISI-556 PO ×2 (12:17)
--- NOTE | 2017-11-01 12:42 | Short Stay Summary-Hospitalist ---
History of Present Illness HPI/Chief Complaint Pt is a 57CM with a PMH recent CAD with recent STEMI and stenting to the RCA, HTN who presented to the ER with a CC dizziness and diaphoresis. He states his dizziness has been persistent since his STEMI on 10/06. He has attempted to call his PCP and his leaf stamper to discuss this but states he has not gotten any answers. Last night he developed diaphoresis with his dizziness and was worried that this was related to his heart disease so called EMS. On arrival he was found to be mildly hypotensive and have a UTI and JAC. He states his is feeling better today and would like to discharge. I advised waiting until cardiology has evaluated but he is unsure he will stay that long. Source: patient Exam Limitations: no limitations Date Seen 11/01/17 Time Seen by Provider: 10:30 Attending Physician Tonya Fuller DO PCP Akash Pena DO Referring Physician Date of Admission Nov 01, 2017 at 00:12 Home Medications & Allergies Home Medications Reviewed patient Home Medication Reconciliation performed by pharmacy medication reconciliations pc network technician and/or nursing. Patients Allergies have been reviewed. Allergies Allergies Coded Allergies No Known Drug Allergies (Unverified05/05/16) Past Mhdnexf-Dwfeur-Yotqxx Hx Past Med/Social Hx: Reviewed and Corrections made Patient Social History Employed/Student: employed Alcohol Use: Denies Use Recreational Drug Use: No Type Used: Smokeless Tobacco 2nd Hand Smoke Exposure: No Physical Abuse Screen: No Sexual Abuse: No Recent Foreign Travel: No Contact w/other who traveled: No Recent Hopitalizations: No Recent Infectious Disease Expo: No Seasonal Allergies Seasonal Allergies: Yes Past Medical History Surgeries: Coronary Stent Currently Using CPAP: No Currently Using BIPAP: No Cardiac: Coronary Artery Disease, Heart Attack, Hypertension Reproductive: No Sexually Transmitted Disease: No HIV/AIDS: No Loss of Vision: Bilateral History of Blood Disorders: No Adverse Reaction to Blood Steele: No Family History Reviewed Nursing Family Hx Colon cancer 19 FATHER Diabetes mellitus 19 MOTHER Headache disorder G8 SISTER Thyroid disease G8 SISTER Cancer, Diabetes Review of Systems Constitutional: see HPI, diaphoresis, dizziness Respiratory: no symptoms reported Cardiovascular: see HPI Gastrointestinal: no symptoms reported Genitourinary: see HPI Musculoskeletal: no symptoms reported Skin: no symptoms reported Psychiatric/Neurological: No Symptoms Reported Physical Exam Physical Exam Vital Signs Capillary Refill : Less Than 3 Seconds Height, Weight, BMI Height: 5'9.00" Weight: 203lbs. 9.6oz. 92.455616cd; 30.0 BMI Method:Stated General Appearance: No Apparent Distress, WD/WN HEENT: PERRL/EOMI, Moist Mucous Membranes Neck: Non Tender, Supple Respiratory: Lungs Clear, No Respiratory Distress Cardiovascular: Regular Rate, Rhythm, No Murmur Gastrointestinal: Normal Bowel Sounds, Non Tender, Soft Extremity: Normal Capillary Refill, No Calf Tenderness Neurologic/Psychiatric: Alert, Oriented x3, Normal Mood/Affect Skin: Normal Color, Warm/Dry Results Results/Procedures Labs Patient resulted labs reviewed. Short Stay Diagnosis Discharge Diagnosis-Short Stay Admission Diagnosis UTI and JAC Final Discharge Diagnosis JAC and UTI Conclusion Plan See below Diagnosis/Problems Diagnosis/Problems (1) Acute renal failure Status: Acute Assessment & Plan: Now resolved, near his baseline Continue IVF Qualifiers: Qualified Codes: N17.9 - Acute kidney failure, unspecified (2) Urinary tract infection Status: Acute Assessment & Plan: Continue Rocephin Qualifiers: Qualified Codes: N39.0 - Urinary tract infection, site not specified (3) Lightheadedness Status: Acute Assessment & Plan: Likely due to hypotension- worsening yesterday likely due to acute hypovolemia DC lisinopril and decrease metoprolol Offered another night of admission to ensure symptoms resolved with treatment of hypovolemia but he declined DC home with cardiology follow up and close PCP follow up Clinical Quality Measures DVT/VTE Risk/Contraindication: Risk Factor Score Per Nursin RFS Level Per Nursing on Admit: 3=High BLANCA RICO MD Nov 01, 2017 12:42
--- NOTE | 2017-11-01 12:54 | Discharge Inst-Simple/Standard ---
Discharge Inst-Standard Discharge Medications New, Converted or Re-Newed RX: Transmitted to Pharmacy Patient Instructions/Follow Up Plan of Care/Instructions/FU: Please continue to take your medications as written. Please follow up with Dr Pena and Dr Giron as scheduled. Activity as Tolerated: Yes Discharge Diet: Cardiac Diet Return to The Hospital For: Chest pain, shortness of breath, diaphoresis, palpitations, if you feel you are getting worse. BLANCA RICO MD Nov 01, 2017 12:54
[2017-11-01] MEDS ORDERED: CEPH-507 PO ×2 (12:57)
[2017-11-02] MEDS ORDERED: cefTRIAXone 1 GM/NS 50 ML IVPB IV SCH ×2
--- OUTSIDE RECORDS SUMMARY | 2017-11-06 13:16 | XMS REPORT | Continuity of Care Document ---
Author Author [facility] Organization [facility] Address Unknown Phone Unavailable Allergies Active Description Code Type Severity Reaction Onset Reported/Identified Relationship to Patient Clinical Status Yes No Known Drug Allergies [id number] Drug Allergy Unknown N/A 05/05/2016 Medications There [...] JOCELYNE K Ot K11.5 SIALOLITHIASIS 05/17/2016 CLAUDINE NAVARRO JOCELYNE K Ot R22.0 LOCALIZED SWELLING, MASS AND LUMP, HEAD 05/18/2016 CLAUDINE NAVARRO JOCELYNE K Ot B37.0 CANDIDAL STOMATITIS 05/18/2016 CLAUDINE NAVARRO JOCELYNE K Ot J32.9 CHRONIC SINUSITIS, UNSPECIFIED 05/18/2016 CLAUDINE NAVARRO JOCELYNE K Ot K11.5 SIALOLITHIASIS 05/18/2016 CLAUDINE NAVARRO JOCELYEN K Ot R22.0 LOCALIZED SWELLING, MASS AND LUMP, HEAD 06/04/2016 LUCY SINGH MD Ot K11.5 SIALOLITHIASIS 06/04/2016 LUCY SINGH MD Ot Z01.812 ENCOUNTER FOR [...] MD Ot E78.5 HYPERLIPIDEMIA, UNSPECIFIED 10/08/2017 PATRICK VALADEZ, Latanya CHAMPION Ot F17.220 NICOTINE DEPENDENCE, CHEWING TOBACCO, UN 10/08/2017 PATRICK VALADEZ, Latanya CHAMPION Ot I10 ESSENTIAL (PRIMARY) HYPERTENSION 10/08/2017 PATRICK VALADEZ, Latanya CHAMPION Ot 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 I 10/08/2017 Latanya NGUYEN MD Ot I25.10 ATHSCL HEART DISEASE OF [place] CORONARY 11/01/2017 PRECIOUS NAVARRO GERARDO Ot F17.290 NICOTINE DEPENDENCE, OTHER TOBACCO PRODU 11/01/2017 PRECIOUS NAVARRO GERARDO Ot I10 ESSENTIAL (PRIMARY) HYPERTENSION 11/01/2017 EVAN LANG DOI Ot I21.3 ST ELEVATION (STEMI) MYOCARDIAL INFARCTI 11/01/2017 EVAN LANG DOI Ot I25.10 ATHSCL HEART DISEASE OF [place] CORONARY 11/01/2017 EVAN LANG DOI Ot N17.9 ACUTE KIDNEY FAILURE, UNSPECIFIED 11/01/2017 GERARDO LANG DO Ot N39.0 URINARY TRACT INFECTION, SITE NOT SPECIF 11/01/2017 GERARDO LANG DO Ot R42 DIZZINESS AND GIDDINESS 11/01/2017 EVAN LANG DOI Ot 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 11/01/2017 GERARDO LANG DO Ot Z79.899 OTHER [facility] (CURRENT) DRUG THERAPY 11/01/2017 GERARDO LANG DO Ot Z95.5 PRESENCE OF CORONARY ANGIOPLASTY IMPLANT Procedures Code Description Performed By Performed On 139621K DILATION OF 1 COR ART WITH DRUG-ELUT INT 10/06/2017 [id number] MEASURE OF CARDIAC SAMPL PRESSURE, L H 10/06/2017 [id number] FLUOROSCOPY OF MULT COR ART USING L OSM 10/06/2017 [id number] FLUOROSCOPY OF LEFT HEART USING LOW OSMO 10/06/2017 [id number] FLUOROSCOPY OF THORACIC AORTA USING LOW 10/06/2017 [...] 13:35 Bacteria identification in wound by culture [id number] NRG QUANTITY OF GROWTH Moderate Growth NRG [...] - 02/03/17 15:21 Magnesium 2.2 mg/dL 1.8-2.4 Complete blood count (CBC) with automated white blood cell (WBC) differential - 10/31/17 22:08 Blood leukocytes automated count (number/volume) 17.2 10*3/uL 4.3-11.0 Blood erythrocytes automated count (number/volume) 3.95 10*6/uL 4.35-5.85 Venous blood hemoglobin measurement (mass/volume) 12.0 g/dL 13.3-17.7 Blood hematocrit (volume fraction) 35 % 40-54 Automated erythrocyte mean corpuscular volume 89 [foz_us] 80-99 Automated erythrocyte mean corpuscular hemoglobin (mass per erythrocyte) 30 pg 25-34 Automated erythrocyte mean corpuscular hemoglobin concentration measurement ( mass/volume) 34 g/dL 32-36 Automated erythrocyte distribution width ratio 13.3 % 10.0-14.5 Automated blood platelet count (count/volume) 399 10*3/uL 130-400 Automated blood platelet mean volume measurement 9.5 [foz_us] 7.4-10.4 Automated blood neutrophils/100 leukocytes 72 % 42-75 Automated blood lymphocytes/100 leukocytes 19 % 12-44 Blood monocytes/100 leukocytes 8 % 0-12 Automated blood eosinophils/100 leukocytes 1 % 0-10 Automated blood basophils/100 leukocytes 0 % 0-10 Blood neutrophils automated count (number/volume) 12.5 10*3 1.8-7.8 Blood lymphocytes automated count (number/volume) 3.3 10*3 1.0-4.0 Blood monocytes automated count (number/volume) 1.4 10*3 0.0-1.0 Automated eosinophil count 0.1 10*3/uL 0.0-0.3 Automated blood basophil count (count/volume) 0.0 10*3/uL 0.0-0.1 Comprehensive metabolic panel - 10/31/17 22:08 Serum or plasma sodium measurement (moles/volume) 134 mmol/L 135-145 Serum or plasma potassium measurement (moles/volume) 3.8 mmol/L 3.6-5.0 Serum or plasma chloride measurement (moles/volume) 101 mmol/L 98-107 Carbon dioxide 19 mmol/L 21-32 Serum or plasma anion gap determination (moles/volume) 14 mmol/L 5-14 Serum or plasma urea nitrogen measurement (mass/volume) 15 mg/dL 7-18 Serum or plasma creatinine measurement (mass/volume) 1.67 mg/dL 0.60-1.30 Serum or plasma urea nitrogen/creatinine mass ratio 9 NRG Serum or plasma creatinine measurement with calculation of estimated glomerular filtration rate 43 NRG Serum or plasma glucose measurement (mass/volume) 105 mg/dL 70-105 Serum or plasma calcium measurement (mass/volume) 9.6 mg/dL 8.5-10.1 Serum or plasma total bilirubin measurement (mass/volume) 0.4 mg/dL 0.1-1.0 Serum or plasma alkaline phosphatase measurement (enzymatic activity/volume) 89 U/L 40-136 Serum or plasma aspartate aminotransferase measurement (enzymatic activity/ volume) 19 U/L 5-34 Serum or plasma alanine aminotransferase measurement (enzymatic activity/volume ) 31 U/L 0-55 Serum or plasma protein measurement (mass/volume) 7.0 g/dL 6.4-8.2 Serum or plasma albumin measurement (mass/volume) 4.1 g/dL 3.2-4.5 CALCIUM CORRECTED 9.5 mg/dL 8.5-10.1 Magnesium - 10/31/17 22:08 Magnesium 2.2 mg/dL 1.8-2.4 PT panel in platelet poor plasma by coagulation assay - 10/31/17 22:08 Prothrombin time (PT) in platelet poor plasma by coagulation assay 14.6 s 12.2-14.7 INR in platelet poor plasma or blood by coagulation assay 1.1 0.8-1.4 Activated partial thromboplastin time (aPTT) in platelet poor plasma bycoagulation assay - 10/31/17 22:08 Activated partial thromboplastin time (aPTT) in platelet poor plasma bycoagulation assay 24 s 24-35 Serum or plasma troponin i.cardiac measurement (mass/volume) - 10/31/17 22:08 Serum or plasma troponin i.cardiac measurement (mass/volume) < ng/ mL <0.30 Myoglobin, serum - 10/31/17 22:08 Myoglobin, serum 142.3 ng/mL 10.0-92.0 Blood manual differential performed detection - 10/31/17 22:08 Blood monocytes/100 leukocytes 5 % NRG Manual blood segmented neutrophils/100 leukocytes 75 % NRG Blood band neutrophils/100 leukocytes 1 % NRG Manual blood lymphocytes/100 leukocytes 16 % NRG Manual eosinophils/100 leukocytes in nose 2 % NRG Manual blood basophils/100 leukocytes 1 % NRG Blood erythrocyte morphology finding identification NORMAL NRG Serum or plasma C reactive protein measurement (mass/volume) - 10/31/17 22:08 Serum or plasma C reactive protein measurement (mass/volume) 0.20 mg /dL 0.00-0.50 Complete urinalysis with reflex to culture - 10/31/17 23:18 Urine color determination YELLOW NRG Urine clarity determination SLIGHTLY CLOUDY NRG Urine pH measurement by test strip 5 5-9 Specific gravity of urine by test strip 1.020 1.016- 1.022 Urine protein assay by test strip, semi-quantitative 3+ NEGATIVE Urine glucose detection by automated test strip NEGATIVE NEGATIVE Erythrocytes detection in urine sediment by light microscopy 2+ NEGATIVE Urine ketones detection by automated test strip 1+ NEGATIVE Urine nitrite detection by test strip NEGATIVE NEGATIVE Urine total bilirubin detection by test strip NEGATIVE NEGATIVE Urine urobilinogen measurement by automated test strip (mass/volume) NORMAL NORMAL Urine leukocyte esterase detection by dipstick 1+ NEGATIVE Automated urine sediment erythrocyte count by microscopy (number/high power field) [HPF] NRG Automated urine sediment leukocyte count by microscopy (number/high power field ) [HPF] NRG Bacteria detection in urine sediment by light microscopy NONE NRG Crystals detection in urine sediment by light microscopy NONE NRG Casts detection in urine sediment by light microscopy NONE NRG Mucus detection in urine sediment by light microscopy MODERATE NRG Complete urinalysis with reflex to culture YES NRG Bacterial urine culture - 10/31/17 23:18 Bacterial urine culture NG NRG Complete blood count (CBC) with automated white blood cell (WBC) differential - 11/01/17 05:35 Blood leukocytes automated count (number/volume) 11.5 10*3/uL 4.3-11.0 Blood erythrocytes automated count (number/volume) 3.42 10*6/uL 4.35-5.85 Venous blood hemoglobin measurement (mass/volume) 10.5 g/dL 13.3-17.7 Blood hematocrit (volume fraction) 31 % 40-54 Automated erythrocyte mean corpuscular volume 90 [foz_us] 80-99 Automated erythrocyte mean corpuscular hemoglobin (mass per erythrocyte) 31 pg 25-34 Automated erythrocyte mean corpuscular hemoglobin concentration measurement ( mass/volume) 34 g/dL 32-36 Automated erythrocyte distribution width ratio 13.3 % 10.0-14.5 Automated blood platelet count (count/volume) 355 10*3/uL 130-400 Automated blood platelet mean volume measurement 9.9 [foz_us] 7.4-10.4 Automated blood neutrophils/100 leukocytes 70 % 42-75 Automated blood lymphocytes/100 leukocytes 20 % 12-44 Blood monocytes/100 leukocytes 8 % 0-12 Automated blood eosinophils/100 leukocytes 1 % 0-10 Automated blood basophils/100 leukocytes 0 % 0-10 Blood neutrophils automated count (number/volume) 8.1 10*3 1.8-7.8 Blood lymphocytes automated count (number/volume) 2.3 10*3 1.0-4.0 Blood monocytes automated count (number/volume) 1.0 10*3 0.0-1.0 Automated eosinophil count 0.1 10*3/uL 0.0-0.3 Automated blood basophil count (count/volume) 0.0 10*3/uL 0.0-0.1 Whole blood basic metabolic panel - 11/01/17 05:35 Serum or plasma sodium measurement (moles/volume) 139 mmol/L 135-145 Serum or plasma potassium measurement (moles/volume) 3.8 mmol/L 3.6-5.0 Serum or plasma chloride measurement (moles/volume) 110 mmol/L 98-107 Carbon dioxide 20 mmol/L 21-32 Serum or plasma anion gap determination (moles/volume) 9 mmol/L 5-14 Serum or plasma urea nitrogen measurement (mass/volume) 12 mg/dL 7-18 Serum or plasma creatinine measurement (mass/volume) 0.97 mg/dL 0.60-1.30 Serum or plasma urea nitrogen/creatinine mass ratio 12 NRG Serum or plasma creatinine measurement with calculation of estimated glomerular filtration rate > NRG Serum or plasma glucose measurement (mass/volume) 102 mg/dL 70-105 Serum or plasma calcium measurement (mass/volume) 8.3 mg/dL 8.5-10.1 Lipid 1996 panel - 11/01/17 05:35 Serum or plasma triglyceride measurement (mass/volume) 70 mg/dL <150 Serum or plasma cholesterol measurement (mass/volume) 105 mg/dL < 200 Serum or plasma cholesterol in HDL measurement (mass/volume) 25 mg/ dL 40-60 Cholesterol in LDL [mass/volume] in serum or plasma by direct assay 63 mg/dL 1-129 Serum or plasma cholesterol in VLDL measurement (mass/volume) 14 mg/ dL 5-40 Serum or plasma troponin i.cardiac measurement (mass/volume) - 11/01/17 05:35 Serum or plasma troponin i.cardiac measurement (mass/volume) < ng/ mL <0.30 Encounters ACCT No. Visit Date/Time Discharge Status Pt. Type Provider Facility Loc./Unit Complaint [id number] 10/31/2017 22:03:00 11/01/2017 13:04:00 DIS Inpatient GERARDO LANG DO [facility] 4TH ARF,UTI,LIGHTHEADEDNESS [id number] 10/23/2017 15:12:00 10/23/2017 23:59:59 CLS Preadmit Latanya NGUYEN MD [facility] CARD CAD,HTN,SOB,DIZZINESS [id number] 10/06/2017 16:29:00 10/08/2017 08:34:00 DIS Outpatient Latanya NGUYEN MD [facility] ICU STEMI [id number] 02/03/2017 14:12:00 02/03/2017 16:59:00 DIS Emergency DK VALADEZ, MELVINA T [facility] ER SINUS INFECTION [id number] 06/16/2016 15:56:00 06/18/2016 07:05:00 DIS Inpatient LUCY SINGH MD [facility] 4TH POST OPERATIVE WOUND INFECTION [id number] 06/08/2016 06:40:00 06/09/2016 08:45:00 DIS Outpatient LUCY SINGH MD [facility] SDC LEFT SUBMANDIBULAR CYST [id number] 06/04/2016 14:41:00 06/04/2016 15:15:00 DIS Outpatient LUCY SINGH MD [facility] PREOP LEFT SUBMANDIBULAR CYST [id number] 05/17/2016 20:26:00 05/17/2016 22:22:00 DIS Emergency CLAUDINE DO, JOCELYNE K [facility] ER RT SIDE FACIAL SWELLING, FEVER [id number] 05/05/2016 12:15:00 05/06/2016 09:00:00 DIS Inpatient LUCY SINGH MD [facility] 4TH SIALOADENITIS [id number] 11/26/2014 16:13:00 11/26/2014 23:59:59 CLS Outpatient LUCY SINGH MD [facility] RAD CHRONIC SINUSITIS [id number] 11/27/2014 07:24:57 ACT Document Registration
== END 2017-11-01 13:04 | disposition home or self-care (01) ==
LOC: EDUNIT# 22:01 → ER 22:02 → 4TH 22:03 → UNDOADMOB 11-01 00:12 → UNDODISOB 11-01 17:00
PROVIDERS: ADMIT Internal Medicine; ATTEND Internal Medicine
DX: N17.9 Acute kidney failure, unspecified (principal); N39.0 Urinary tract infection, site not specified; R42 Dizziness and giddiness; I21.3 ST elevation (STEMI) myocardial infarction of unspecified site; I10 Essential (primary) hypertension; I25.10 Atherosclerotic heart disease of native coronary artery without angina pectoris; Z95.5 Presence of coronary angioplasty implant and graft; F17.290 Nicotine dependence, other tobacco product, uncomplicated; Z79.82 Long term (current) use of aspirin; Z79.899 Other long term (current) drug therapy
CPT/HCPCS: 36415; 71045; 80048; 80053; 80061; 81000; 83735; 83874; 84484; 85007; 85025; 85027; 85610; 85730; 86141; 87088; 93005; 93041; 96361; 96365; G0378

== ENCOUNTER 2017-11-03 19:23 | Emergency (ER) | payer BC, OTHER ==
[~2017-11-03] VITALS: Ht 172.7 cm; Wt 86.2 kg
[~2017-11-03 19:23] MED LIST changes: +ATOR80TA64 PO; +CEPH-507 PO
--- OUTSIDE RECORDS SUMMARY | 2017-11-03 19:30 | XMS REPORT | Continuity of Care Document ---
Author Author [facility] Organization [facility] Address Unknown Phone Unavailable Allergies Active Description Code Type Severity Reaction Onset Reported/Identified Relationship to Patient Clinical Status Yes No Known Drug Allergies [id number] Drug Allergy Unknown N/A 05/05/2016 Medications There [...] MD, Ot I25.10 ATHSCL HEART DISEASE OF [place] CORONARY Procedures Code Description Performed By Performed On [id number] DILATION OF 1 COR ART WITH DRUG-ELUT INT 10/06/2017 [id number] MEASURE OF CARDIAC SAMPL PRESSURE, L H 10/06/2017 [id number] FLUOROSCOPY OF MULT COR ART USING L OSM 10/06/2017 [id number] FLUOROSCOPY OF LEFT HEART USING LOW OSMO 10/06/2017 [id number] FLUOROSCOPY OF THORACIC AORTA USING LOW 10/06/2017 [...] NR Blood erythrocyte morphology finding identification NORMAL [facility] Comprehensive metabolic panel - 05/17/16 [...] 13:35 Bacteria identification in wound by culture [id number] NRG QUANTITY OF GROWTH Moderate Growth NRG [...] Status Pt. Type Provider Facility Loc./Unit Complaint [id number] 10/06/2017 16:29:00 10/08/2017 08:34:00 DIS Outpatient Latanya NGUYEN MD [facility] ICU STEMI [id number] 02/03/2017 14:12:00 02/03/2017 16:59:00 DIS Emergency MELVINA ROOT MD [facility] ER SINUS INFECTION [id number] 06/16/2016 15:56:00 06/18/2016 07:05:00 DIS Inpatient LUCY SINGH MD [facility] 4TH POST OPERATIVE WOUND INFECTION [id number] 06/08/2016 06:40:00 06/09/2016 08:45:00 DIS Outpatient LUCY SINGH MD [facility] SDC LEFT SUBMANDIBULAR CYST [id number] 06/04/2016 14:41:00 06/04/2016 15:15:00 DIS Outpatient LUCY SINGH MD [facility] PREOP LEFT SUBMANDIBULAR CYST [id number] 05/17/2016 20:26:00 05/17/2016 22:22:00 DIS Emergency JOCELYNE CHOW DO [facility] ER RT SIDE FACIAL SWELLING, FEVER [id number] 05/05/2016 12:15:00 05/06/2016 09:00:00 DIS Inpatient LUCY SINGH MD [facility] 4TH SIALOADENITIS [id number] 11/26/2014 16:13:00 11/26/2014 23:59:59 CLS Outpatient FRANCISCO VALADEZ, LUCY [facility] RAD CHRONIC SINUSITIS [id number] 11/27/2014 07:24:57 ACT Document Registration
[2017-11-03 19:40] LABS: BILIRUBIN,URINE NEGATIVE (NEGATIVE); CLARITY,URINE CLEAR; COLOR,URINE YELLOW; GLUCOSE, URINE (UA) NEGATIVE (NEGATIVE); KETONES,URINE NEGATIVE (NEGATIVE); LEUKOCYTE ESTERASE ,URINE NEGATIVE (NEGATIVE); NITRITE,URINE NEGATIVE (NEGATIVE); PH,URINE 7 (5-9); PROTEIN,URINE NEGATIVE (NEGATIVE); UROBILINOGEN,URINE NORMAL (NORMAL)
[2017-11-03 19:52] LABS: BACTERIA,URINE NEGATIVE /HPF; WBC,URINE RARE /HPF
[2017-11-03 19:59] LABS: BASOPHILS % (AUTO) 0 % (0-10); EOSINOPHILS # (AUTO) 0.1 10^3/uL (0.0-0.3); EOSINOPHILS % (AUTO) 1 % (0-10); HEMATOCRIT 35 % (40-54); HEMOGLOBIN 12.1 G/DL (13.3-17.7); LYMPHOCYTES % (AUTO) 16 % (12-44); MEAN CORPUSCULAR HEMOGLOBIN 31 PG (25-34); MEAN CORPUSCULAR HGB CONC 35 G/DL (32-36); MEAN CORPUSCULAR VOLUME 89 FL (80-99); MEAN PLATELET VOLUME 9.6 FL (7.4-10.4); MONOCYTES # (AUTO) 1.1 X 10^3 (0.0-1.0); MONOCYTES % (AUTO) 9 % (0-12); NEUTROPHILS # (AUTO) 9.1 X 10^3 (1.8-7.8); NEUTROPHILS % (AUTO) 74 % (42-75); PLATELET COUNT 364 10^3/uL (130-400); RED BLOOD COUNT 3.91 10^6/uL (4.35-5.85); RED CELL DISTRIBUTION WIDTH 13.2 % (10.0-14.5); WHITE BLOOD COUNT 12.3 10^3/uL (4.3-11.0)
--- NOTE | 2017-11-03 20:02 | ED General ---
General Stated Complaint: DIZZY,LIGHTHEADED Source of Information: Patient Exam Limitations: No Limitations History of Present Illness Date Seen by Provider: Nov 03, 2017 Time Seen by Provider: 19:57 Initial Comments The patient is a 57-year-old white male who presents with complaints of dizziness and lightheadedness. He reports that he had a heart attack on 10/06. He had PCTA and stenting. The infarct was in the distribution of the right coronary artery. Subsequent ejection fraction was rated at 50 percent. He reports that he has had lightheadedness and dizziness since that event. He was admitted here on 10/31 with similar complaints. His medications were adjusted with reduction in the dose of metoprolol and lisinopril. He continues to have this symptomatology. Timing/Duration: 1 Day (since 10/06), Other (since ) Allergies and Home Medications Allergies Coded Allergies: No Known Drug Allergies (Unverified , 05/05/16) Home Medications Albuterol Sulfate 1 Puff Puff, 2 PUFF IH Q4H PRN for SHORTNESS OF BREATH, ( Reported) Aspirin 81 Mg Tablet.dr, 81 MG PO DAILY, (Reported) Atorvastatin Calcium 80 Mg Tablet, 40 MG PO HS, (Reported) TAKES 1/2 (80MG) TABLET Cephalexin 500 Mg Capsule, 500 MG PO BID Prescribed by: BLANCA RICO on 11/01/17 1257 Fluticasone Propionate 9.9 Ml [place].susp, 1 SPRAY NS DAILY, (Reported) Lisinopril 5 Mg Tablet, 5 MG PO DAILY, (Reported) Loratadine 10 Mg Tablet, 10 MG PO DAILY, (Reported) Metoprolol Tartrate 25 Mg Tablet, 12.5 MG PO BID Prescribed by: BLANCA RICO on 11/01/17 1257 Ticagrelor 90 Mg Tablet, 90 MG PO BID, (Reported) Patient Home Medication List Home Medication List Reviewed: Yes Review of Systems Review of Systems Constitutional: see HPI EENTM: no symptoms reported Respiratory: no symptoms reported Cardiovascular: Hx of Intervention, other ([place] 10/06) Gastrointestinal: no symptoms reported Genitourinary: no symptoms reported Musculoskeletal: no symptoms reported Skin: no symptoms reported Psychiatric/Neurological: No Symptoms Reported Hematologic/Lymphatic: No Symptoms Reported Immunological/Allergic: no symptoms reported Past Vtejlnn-Fkvvjl-Wsbhdc Hx Patient Social History Type Used: Smokeless Tobacco 2nd Hand Smoke Exposure: No Recent Foreign Travel: No Contact w/Someone Who Travel: No Recent Hopitalizations: No Seasonal Allergies Seasonal Allergies: Yes Past Medical History Surgeries: Yes (SINUS SURGEY, SUBMANDIBULAR GLAND RESECTION, ) Coronary Stent Respiratory: Yes Asthma Currently Using CPAP: No Currently Using BIPAP: No Cardiac: Yes Coronary Artery Disease, Heart Attack, Hypertension Neurological: No Reproductive Disorders: No Sexually Transmitted Disease: No HIV/AIDS: No Genitourinary: No Gastrointestinal: No Musculoskeletal: No Endocrine: No HEENT: Yes (wears glasses) Loss of Vision: Bilateral Cancer: No Psychosocial: No Integumentary: No Blood Disorders: No Adverse Reaction/Blood Tranf: No Family Medical History Colon cancer 19 FATHER Diabetes mellitus 19 MOTHER Headache disorder G8 SISTER Thyroid disease G8 SISTER Cancer, Diabetes Physical Exam Vital Signs Vital Signs - First Documented 11/03/17 19:25 Pulse 73 Resp 17 B/P (MAP) 145/88 (107) Pulse Ox 99 O2 Delivery Room Air Capillary Refill : Height, Weight, BMI Height: 5'9.00" Weight: 203lbs. 9.6oz. [id number]; 30.0 BMI Method:Stated General Appearance: No Apparent Distress, WD/WN Eyes: Bilateral Eye Normal Inspection HEENT: Normal ENT Inspection Neck: Normal Inspection Respiratory: Chest Non Tender, Lungs Clear, Normal Breath Sounds, No Accessory Muscle Use, No Respiratory Distress Cardiovascular: Regular Rate, Rhythm, No Edema, No Gallop, No JVD, No Murmur, Normal Peripheral Pulses Gastrointestinal: Normal Bowel Sounds, No Organomegaly, No Pulsatile Mass, Non Tender, Soft Extremity: Normal Capillary Refill, Normal Inspection, Normal Range of Motion, Non Tender, No Calf Tenderness, No Pedal Edema Neurologic/Psychiatric: Alert, Oriented x3, No Motor/Sensory Deficits, Normal Mood/Affect Skin: Normal Color, Warm/Dry Lymphatic: No Adenopathy Progress/Results/Core Measures Suspected Sepsis SIRS Temperature: Pulse: Respiratory Rate: Laboratory Tests 11/03/17 19:55: White Blood Count 12.3H Blood Pressure / Mean: Laboratory Tests 11/03/17 19:55: Creatinine 0.92, Platelet Count 364, Total Bilirubin 0.4 Results/Orders Lab Results Laboratory Tests Test 11/03/17 19:34 11/03/17 19:55 Range/Units Urine Color YELLOW Urine Clarity CLEAR Urine pH 7 5-9 Urine Specific [place] 1.005 L 1.016-1.022 Urine Protein NEGATIVE NEGATIVE Urine Glucose (UA) NEGATIVE NEGATIVE Urine Ketones NEGATIVE NEGATIVE Urine Nitrite NEGATIVE NEGATIVE Urine Bilirubin NEGATIVE NEGATIVE Urine Urobilinogen NORMAL NORMAL MG/DL Urine Leukocyte Esterase NEGATIVE NEGATIVE Urine RBC (Auto) 1+ H NEGATIVE Urine RBC 2-5 H /HPF Urine WBC RARE /HPF Urine Crystals NONE /LPF Urine Bacteria NEGATIVE /HPF Urine Casts NONE /LPF Urine Mucus NEGATIVE /LPF Urine Culture Indicated NO White Blood Count 12.3 H 4.3-11.0 10^3/uL Red Blood Count 3.91 L 4.35-5.85 10^6/uL Hemoglobin 12.1 L 13.3-17.7 G/DL Hematocrit 35 L 40-54 % Mean Corpuscular Volume 89 80-99 FL Mean Corpuscular Hemoglobin 31 25-34 PG Mean Corpuscular Hemoglobin Concent 35 32-36 G/DL Red Cell Distribution Width 13.2 10.0-14.5 % Platelet Count 364 130-400 10^3/uL Mean Platelet Volume 9.6 7.4-10.4 FL Neutrophils (%) (Auto) 74 42-75 % Lymphocytes (%) (Auto) 16 12-44 % Monocytes (%) (Auto) 9 0-12 % Eosinophils (%) (Auto) 1 0-10 % Basophils (%) (Auto) 0 0-10 % Neutrophils # (Auto) 9.1 H 1.8-7.8 X 10^3 Lymphocytes # (Auto) 2.0 1.0-4.0 X 10^3 Monocytes # (Auto) 1.1 H 0.0-1.0 X 10^3 Eosinophils # (Auto) 0.1 0.0-0.3 10^3/uL Basophils # (Auto) 0.0 0.0-0.1 10^3/uL Sodium Level 142 135-145 MMOL/L Potassium Level 3.3 L 3.6-5.0 MMOL/L Chloride Level 109 H 98-107 MMOL/L Carbon Dioxide Level 22 21-32 MMOL/L Anion Gap 11 5-14 MMOL/L Blood Urea Nitrogen 6 L 7-18 MG/DL Creatinine 0.92 0.60-1.30 MG/DL Estimat Glomerular Filtration Rate > 60 BUN/Creatinine Ratio 7 Glucose Level 105 70-105 MG/DL Calcium Level 9.6 8.5-10.1 MG/DL Corrected Calcium 9.7 8.5-10.1 MG/DL Total Bilirubin 0.4 0.1-1.0 MG/DL Aspartate Amino Transf (AST/SGOT) 19 5-34 U/L Alanine Aminotransferase (ALT/SGPT) 24 0-55 U/L Alkaline Phosphatase 93 40-136 U/L Total Protein 6.8 6.4-8.2 GM/DL Albumin 3.9 3.2-4.5 GM/DL My Orders Orders - MACIE MACE MD Cbc With Automated Diff (11/03/17 19:28) Comprehensive Metabolic Panel (11/03/17 19:28) Ua Culture If Indicated (11/03/17 19:) Ekg Tracing (11/03/17 19:37) Vital Signs/I&O 11/03/17 19:25 Pulse 73 Resp 17 B/P (MAP) 145/88 (107) Pulse Ox 99 O2 Delivery Room Air Capillary Refill : Departure Communication (Admissions) 2050 laboratory has returned and is normal. Cardiogram is unchanged from 10/31. Discussed with Dr. Eisenberg and we believe that cessation of his lisinopril and his metoprolol and an appointment to see Dr. Giron this week is in order. This was relayed to the patient and it was also stated that improvement would not begin immediately on cessation of these medications. Impression Primary Impression: recent inferior [place] Additional Impression: medication side effect Disposition: 01 HOME, SELF-CARE Condition: Stable/Unchanged Departure-Patient Inst. Decision time for Depature: 20:50 Referrals: JAMESON MCCLELLAN DO (PCP/Family) Primary Care Physician Add. Discharge Instructions: Stop lisinopril and metoprolol. Call Dr. Giron's office in a.m. for an appointment this week. MACIE MACE MD Nov 03, 2017 20:02
[2017-11-03 20:21] LABS: ALANINE AMINOTRANSFERASE 24 U/L (0-55); ALBUMIN 3.9 GM/DL (3.2-4.5); ALKALINE PHOSPHATASE 93 U/L (40-136); BILIRUBIN,TOTAL 0.4 MG/DL (0.1-1.0); BUN/CREATININE RATIO 7; CALCIUM 9.6 MG/DL (8.5-10.1); CARBON DIOXIDE 22 MMOL/L (21-32); CHLORIDE 109 MMOL/L (98-107); CREATININE SERUM 0.92 MG/DL (0.60-1.30); GFR ESTIMATED > 60; GLUCOSE 105 MG/DL (70-105); POTASSIUM 3.3 MMOL/L (3.6-5.0); SODIUM 142 MMOL/L (135-145); TOTAL PROTEIN 6.8 GM/DL (6.4-8.2)
[2017-11-03 21:18] VITALS: BP 148/97
== END 2017-11-03 21:18 | disposition home or self-care (01) ==
LOC: EDUNIT# 19:23 → ER 19:25
DX: I21.9 Acute myocardial infarction, unspecified (principal); T44.7X5A Adverse effect of beta-adrenoreceptor antagonists, initial encounter; T46.4X5A Adverse effect of angiotensin-converting-enzyme inhibitors, initial encounter; I25.10 Atherosclerotic heart disease of native coronary artery without angina pectoris; J45.909 Unspecified asthma, uncomplicated; I10 Essential (primary) hypertension; Z80.0 Family history of malignant neoplasm of digestive organs; Z82.49 Family history of ischemic heart disease and other diseases of the circulatory system; Z95.5 Presence of coronary angioplasty implant and graft; Z79.51 Long term (current) use of inhaled steroids; Z79.82 Long term (current) use of aspirin
CPT/HCPCS: 36415; 80053; 81000; 85025; 93005

== ENCOUNTER → 2017-11-21 | Outpatient (CLI) | payer BC ==
[2017-11-21 15:38] LABS: CREATINE KINASE 142 U/L (30-200)
== END ==
LOC: LAB 15:03
PROVIDERS: ATTEND Internal Medicine
DX: R07.9 Chest pain, unspecified (principal); I25.10 Atherosclerotic heart disease of native coronary artery without angina pectoris
CPT/HCPCS: 36415; 82550; 83874; 84484

== ENCOUNTER 2017-11-22 10:11 | Outpatient (RCR) | payer BC | END 2017-11-24 | disposition home or self-care (01) | LOC: CR 10:11 | PROVIDERS: ATTEND Internal Medicine Interventional Cardiology | DX: Z48.812 Encounter for surgical aftercare following surgery on the circulatory system (principal); I25.2 Old myocardial infarction; Z95.5 Presence of coronary angioplasty implant and graft | CPT/HCPCS: 93798 ==

== ENCOUNTER 2017-12-06 08:44 | Outpatient (RCR) | payer BC | END 2018-02-23 | disposition home or self-care (01) | LOC: CR 08:44 | PROVIDERS: ATTEND Internal Medicine Interventional Cardiology | DX: Z48.812 Encounter for surgical aftercare following surgery on the circulatory system (principal); I25.2 Old myocardial infarction; Z95.5 Presence of coronary angioplasty implant and graft | CPT/HCPCS: 93798 ==

== ENCOUNTER 2018-03-01 09:03 | Emergency (ER) | payer BC ==
[~2018-03-01] VITALS: Ht 172.7 cm; Wt 86.5 kg
--- OUTSIDE RECORDS SUMMARY | 2018-03-01 09:10 | XMS REPORT | Continuity of Care Document ---
Author Author [facility] Organization [facility] Address Unknown Phone Unavailable Allergies Active Description Code Type Severity Reaction Onset Reported/Identified Relationship to Patient Clinical Status Yes No Known Drug Allergies [id number] Drug Allergy Unknown N/A 05/05/2016 Medications There [...] NAVARRO JOCELYNE K Ot K11.5 SIALOLITHIASIS 05/17/2016 CLAUDINEPhilipp NAVARRO JOCELYNE K Ot R22.0 LOCALIZED SWELLING, [...] NGUYEN MD Ot E78.5 HYPERLIPIDEMIA, UNSPECIFIED 10/08/2017 Latanya NGUEYN MD Ot F17.220 NICOTINE DEPENDENCE, CHEWING TOBACCO, UN 10/08/2017 Latanya NGUYEN MD Ot I10 ESSENTIAL (PRIMARY) HYPERTENSION 10/08/2017 Latanya NGUYEN MD Ot 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 I 10/08/2017 Latanya NGUYEN MD Ot I25.10 ATHSCL HEART DISEASE OF [place] CORONARY 10/31/2017 Latanya NGUYEN MD Ot E78.5 HYPERLIPIDEMIA, UNSPECIFIED 10/31/2017 Latanya NGUYEN MD Ot I10 ESSENTIAL (PRIMARY) HYPERTENSION 10/31/2017 Latanya NGUYEN MD Ot I25.10 ATHSCL HEART DISEASE OF [place] CORONARY 10/31/2017 Latanya NGUYEN MD Ot R06.02 SHORTNESS OF BREATH 10/31/2017 Latanya NGUYEN MD Ot R42 DIZZINESS AND GIDDINESS 10/31/2017 Latanya NGUYEN MD Ot Z72.0 TOBACCO USE 11/01/2017 Latanya NGUYEN MD Ot E78.5 HYPERLIPIDEMIA, UNSPECIFIED 11/01/2017 Latanya NGUYEN MD Ot I10 ESSENTIAL (PRIMARY) HYPERTENSION 11/01/2017 Latanya NGUYEN MD Ot I25.10 ATHSCL HEART DISEASE OF [place] CORONARY 11/01/2017 Latanya NGUYEN MD Ot R06.02 SHORTNESS OF BREATH 11/01/2017 Latanya NGUYEN MD Ot R42 DIZZINESS AND GIDDINESS 11/01/2017 Latanya NGUYEN MD Ot Z72.0 TOBACCO USE 11/01/2017 GERARDO LANG DO Ot F17.290 NICOTINE DEPENDENCE, OTHER TOBACCO PRODU 11/01/2017 PRECIOUS NAVARRO GERARDO Ot I10 ESSENTIAL (PRIMARY) HYPERTENSION 11/01/2017 EVAN LANG DOI Ot I21.3 ST ELEVATION (STEMI) MYOCARDIAL INFARCTI 11/01/2017 EVAN LANG DOI Ot I25.10 ATHSCL HEART DISEASE OF [place] CORONARY 11/01/2017 LANG DO, GERARDO Ot N17.9 ACUTE KIDNEY FAILURE, UNSPECIFIED 11/01/2017 LANG DO, GERARDO Ot N39.0 URINARY TRACT INFECTION, SITE NOT SPECIF 11/01/2017 LANG DO, GERARDO Ot R42 DIZZINESS AND GIDDINESS 11/01/2017 LANG DO, GERARDO Ot Z79.82 STUDENT WORKER (CURRENT) USE OF ASPIRIN 11/01/2017 LANG DO, GERARDO Ot Z79.899 OTHER SENIOR CARE (CURRENT) DRUG THERAPY 11/01/2017 LANG DO, GERARDO Ot Z95.5 PRESENCE OF CORONARY ANGIOPLASTY IMPLANT 11/01/2017 LANG DO, GERARDO Ot F17.290 NICOTINE DEPENDENCE, OTHER TOBACCO PRODU 11/01/2017 LANG DO, GERARDO Ot I10 ESSENTIAL (PRIMARY) HYPERTENSION 11/01/2017 LANG DO, GERARDO Ot I21.3 ST ELEVATION (STEMI) MYOCARDIAL INFARCTI 11/01/2017 LANG DO, GERARDO Ot I25.10 ATHSCL HEART DISEASE OF [place] CORONARY 11/01/2017 LANG DO GERARDO Ot N17.9 ACUTE KIDNEY FAILURE, UNSPECIFIED 11/01/2017 LANG DO, GERARDO Ot N39.0 URINARY TRACT INFECTION, SITE NOT SPECIF 11/01/2017 LANG DO, GERARDO Ot R42 DIZZINESS AND GIDDINESS 11/01/2017 LANG DO GERARDO Ot Z79.82 STUDENT WORKER (CURRENT) USE OF ASPIRIN 11/01/2017 LANG DO GERARDO Ot Z79.899 OTHER SENIOR CARE (CURRENT) DRUG THERAPY 11/01/2017 LANG DO GERARDO Ot Z95.5 PRESENCE OF CORONARY ANGIOPLASTY IMPLANT 11/03/2017 Latanya NGUYEN MD Ot E78.5 HYPERLIPIDEMIA, UNSPECIFIED 11/03/2017 Latanya NGUYEN MD Ot I10 ESSENTIAL (PRIMARY) HYPERTENSION 11/03/2017 Latanya NGUYEN MD Ot I25.10 ATHSCL HEART DISEASE OF [place] CORONARY 11/03/2017 Latanya NGUYEN MD Ot R06.02 SHORTNESS OF BREATH 11/03/2017 Latanya NGUYEN MD Ot R42 DIZZINESS AND GIDDINESS 11/03/2017 Latanya NGUYEN MD Ot Z72.0 TOBACCO USE 11/03/2017 MACIE MACE MD Ot I10 ESSENTIAL (PRIMARY) HYPERTENSION 11/03/2017 MACIE MACE MD Ot I21.9 ACUTE MYOCARDIAL INFARCTION, UNSPECIFIED 11/03/2017 MACIE MACE MD, Ot I25.10 ATHSCL HEART DISEASE OF [place] CORONARY 11/03/2017 MACIE MACE MD Ot J45.909 UNSPECIFIED ASTHMA, UNCOMPLICATED 11/03/2017 MACIE MACE MD Ot R42 DIZZINESS AND GIDDINESS 11/03/2017 MACIE MACE MD, Ot T44.7X5A ADVERSE EFFECT OF BETA-ADRENORECEPTOR AN 11/03/2017 MACIE MACE MD, Ot T46.4X5A ADVERSE EFFECT OF [id number] 11/03/2017 MACIE MACE MD, Ot Z79.51 STUDENT WORKER (CURRENT) USE OF INHALED STERO 11/03/2017 MACIE MACE MD Ot Z79.82 STUDENT WORKER (CURRENT) USE OF ASPIRIN 11/03/2017 MACIE MACE MD Ot Z80.0 FAMILY HISTORY OF MALIGNANT NEOPLASM OF 11/03/2017 MACIE MACE MD Ot Z82.49 FAMILY HX OF ISCHEM HEART DIS AND OTH DI 11/03/2017 MACIE MACE MD Ot Z95.5 PRESENCE OF CORONARY ANGIOPLASTY IMPLANT 11/04/2017 Latanya NGUYEN MD Ot E78.5 HYPERLIPIDEMIA, UNSPECIFIED 11/04/2017 Latanya NGUYEN MD Ot I10 ESSENTIAL (PRIMARY) HYPERTENSION 11/04/2017 Latanya NGUYEN MD Ot I25.10 ATHSCL HEART DISEASE OF [place] CORONARY 11/04/2017 Latanya NGUYEN MD Ot R06.02 SHORTNESS OF BREATH 11/04/2017 Latanya NGUYEN MD Ot R42 DIZZINESS AND GIDDINESS 11/04/2017 Latanya NGUYEN MD Ot Z72.0 TOBACCO USE 11/04/2017 Latanya NGUYEN MD Ot E78.5 HYPERLIPIDEMIA, UNSPECIFIED 11/04/2017 Latanya NGUYEN MD Ot I10 ESSENTIAL (PRIMARY) HYPERTENSION 11/04/2017 Latanya NGUYEN MD Ot I25.10 ATHSCL HEART DISEASE OF [place] CORONARY 11/04/2017 Latanya NGUYEN MD Ot R06.02 SHORTNESS OF BREATH 11/04/2017 Latanya NGUYEN MD Ot R42 DIZZINESS AND GIDDINESS 11/04/2017 Latanya NGUYEN MD Ot Z72.0 TOBACCO USE 11/05/2017 MACIE MACE MD Ot I10 ESSENTIAL (PRIMARY) HYPERTENSION 11/05/2017 MACIE MACE MD Ot I21.9 ACUTE MYOCARDIAL INFARCTION, UNSPECIFIED 11/05/2017 MACIE MACE MD Ot I25.10 ATHSCL HEART DISEASE OF [place] CORONARY 11/05/2017 MACIE MACE MD Ot J45.909 UNSPECIFIED ASTHMA, UNCOMPLICATED 11/05/2017 MACIE MACE MD Ot R42 DIZZINESS AND GIDDINESS 11/05/2017 MACIE MACE MD, Ot T44.7X5A ADVERSE EFFECT OF BETA-ADRENORECEPTOR AN 11/05/2017 MACIE MACE MD, Ot T46.4X5A ADVERSE EFFECT OF [id number] 11/05/2017 MACIE MACE MD, Ot Z79.51 STUDENT WORKER (CURRENT) USE OF INHALED STERO 11/05/2017 MACIE MACE MD, Ot Z79.82 STUDENT WORKER (CURRENT) USE OF ASPIRIN 11/05/2017 MACIE MACE MD Ot Z80.0 FAMILY HISTORY OF MALIGNANT NEOPLASM OF 11/05/2017 MACIE MACE MD Ot Z82.49 FAMILY HX OF ISCHEM HEART DIS AND OTH DI 11/05/2017 MACIE MACE MD Ot Z95.5 PRESENCE OF CORONARY ANGIOPLASTY IMPLANT 11/14/2017 Latanya NGUYEN MD Ot E78.5 HYPERLIPIDEMIA, UNSPECIFIED 11/14/2017 Latanya NGUYEN MD Ot I10 ESSENTIAL (PRIMARY) HYPERTENSION 11/14/2017 Latanya NGUYEN MD Ot I25.10 ATHSCL HEART DISEASE OF [place] CORONARY 11/14/2017 Latanya NGUYEN MD Ot R06.02 SHORTNESS OF BREATH 11/14/2017 Latanya NGUYEN MD Ot R42 DIZZINESS AND GIDDINESS 11/14/2017 Latanya NGUYEN MD Ot Z72.0 TOBACCO USE 11/24/2017 Latanya NGUYEN MD Ot I25.2 OLD MYOCARDIAL INFARCTION 11/24/2017 PATRICK VALADEZ, Latanya CHAMPION Ot Z48.812 ENCNTR FOR SURGICAL AFTCR FOLLOWING SURG 11/24/2017 Latanya NGUYEN MD Ot Z95.5 PRESENCE OF CORONARY ANGIOPLASTY IMPLANT 11/25/2017 JAMESON MCCLELLAN DO Ot I25.10 ATHSCL HEART DISEASE OF [place] CORONARY 11/25/2017 JAMESON MCCLELLAN DO Ot R07.9 CHEST PAIN, UNSPECIFIED 11/27/2017 Latanya NGUYEN MD Ot I25.2 OLD MYOCARDIAL INFARCTION 11/27/2017 Latanya NGUYEN MD, Ot Z48.812 ENCNTR FOR SURGICAL AFTCR FOLLOWING SURG 11/27/2017 Latanya NGUYEN MD Ot Z95.5 PRESENCE OF CORONARY ANGIOPLASTY IMPLANT 12/04/2017 JAMESON MCCLELLAN DO Ot I25.10 ATHSCL HEART DISEASE OF [place] CORONARY 12/04/2017 JAMESON MCCLELLAN DO Ot R07.9 CHEST PAIN, UNSPECIFIED 12/24/2017 JAMESON MCCLELLAN DO Ot I25.10 ATHSCL HEART DISEASE OF [place] CORONARY 12/24/2017 JAMESON MCCLELLAN DO Ot R07.9 CHEST PAIN, UNSPECIFIED 12/24/2017 Latanya NGUYEN MD Ot E78.5 HYPERLIPIDEMIA, UNSPECIFIED 12/24/2017 Latanya NGUYEN MD Ot I10 ESSENTIAL (PRIMARY) HYPERTENSION 12/24/2017 Latanya NGUYEN MD Ot I25.10 ATHSCL HEART DISEASE OF [place] CORONARY 12/24/2017 Latanya NGUYEN MD Ot R06.02 SHORTNESS OF BREATH 12/24/2017 Latanya NGUYEN MD Ot R42 DIZZINESS AND GIDDINESS 12/24/2017 Latanya NGUYEN MD Ot Z72.0 TOBACCO USE 01/01/2018 Latanya NGUYEN MD Ot I25.2 OLD MYOCARDIAL INFARCTION 01/01/2018 Latanya NGUYEN MD Ot Z48.812 ENCNTR FOR SURGICAL AFTCR FOLLOWING SURG 01/01/2018 PATRICK VALADEZ, Latanya CHAMPION Ot Z95.5 PRESENCE OF CORONARY ANGIOPLASTY IMPLANT 02/23/2018 PATRICK VALADEZ, Latanya CHAMPION Ot I25.2 OLD MYOCARDIAL INFARCTION 02/23/2018 PATRICK VALADEZ, Latanya CHAMPION Ot Z48.812 ENCNTR FOR SURGICAL AFTCR FOLLOWING SURG 02/23/2018 Latanya NGUYEN MD Ot Z95.5 PRESENCE OF CORONARY ANGIOPLASTY IMPLANT 02/24/2018 PATRICK VALADEZ, Latanya CHAMPION Ot I25.2 OLD MYOCARDIAL INFARCTION 02/24/2018 PATRICK VALADEZ, Latanya CHAMPION Ot Z48.812 ENCNTR FOR SURGICAL AFTCR FOLLOWING SURG 02/24/2018 Latanya NGUYEN MD, Ot Z95.5 PRESENCE OF CORONARY ANGIOPLASTY IMPLANT Procedures Code Description Performed By Performed On 386081G DILATION OF 1 COR ART WITH DRUG-ELUT INT 10/06/2017 [id number] MEASURE OF CARDIAC SAMPL PRESSURE, L H 10/06/2017 [id number] FLUOROSCOPY OF MULT COR ART USING L OSM 10/06/2017 [id number] FLUOROSCOPY OF LEFT HEART USING LOW OSMO 10/06/2017 [id number] FLUOROSCOPY OF THORACIC AORTA USING LOW 10/06/2017 [...] Blood erythrocyte morphology finding identification NORMAL NRG Comprehensive metabolic panel - 05/17/16 20:50 Serum [...] or plasma urea nitrogen/creatinine mass ratio 15 [facility] Serum or plasma creatinine measurement with calculation of estimated glomerular filtration rate > [facility] Serum or plasma glucose measurement (mass/volume) 104 [...] 13:35 Bacteria identification in wound by culture [id number] NRG QUANTITY OF GROWTH Moderate Growth NRG [...] Blood erythrocyte morphology finding identification NORMAL NR Complete blood count (CBC) with automated white [...] i.cardiac measurement (mass/volume) < ng/ mL <0.30 Complete urinalysis with reflex to culture - 11/03/17 19:34 Urine color determination YELLOW NRG Urine clarity determination CLEAR NRG Urine pH measurement by test strip 7 5-9 Specific gravity of urine by test strip 1.005 1.016- 1.022 Urine protein assay by test strip, semi-quantitative NEGATIVE NEGATIVE Urine glucose detection by automated test strip NEGATIVE NEGATIVE Erythrocytes detection in urine sediment by light microscopy 1+ NEGATIVE Urine ketones detection by automated test strip NEGATIVE NEGATIVE Urine nitrite detection by test strip NEGATIVE NEGATIVE Urine total bilirubin detection by test strip NEGATIVE NEGATIVE Urine urobilinogen measurement by automated test strip (mass/volume) NORMAL NORMAL Urine leukocyte esterase detection by dipstick NEGATIVE NEGATIVE Automated urine sediment erythrocyte count by microscopy (number/high power field) [HPF] NRG Automated urine sediment leukocyte count by microscopy (number/high power field ) RARE NRG Bacteria detection in urine sediment by light microscopy NEGATIVE NRG Crystals detection in urine sediment by light microscopy NONE NRG Casts detection in urine sediment by light microscopy NONE NRG Mucus detection in urine sediment by light microscopy NEGATIVE NRG Complete urinalysis with reflex to culture NO NRG Complete blood count (CBC) with automated white blood cell (WBC) differential - 11/03/17 19:55 Blood leukocytes automated count (number/volume) 12.3 10*3/uL 4.3-11.0 Blood erythrocytes automated count (number/volume) 3.91 10*6/uL 4.35-5.85 Venous blood hemoglobin measurement (mass/volume) 12.1 g/dL 13.3-17.7 Blood hematocrit (volume fraction) 35 % 40-54 Automated erythrocyte mean corpuscular volume 89 [foz_us] 80-99 Automated erythrocyte mean corpuscular hemoglobin (mass per erythrocyte) 31 pg 25-34 Automated erythrocyte mean corpuscular hemoglobin concentration measurement ( mass/volume) 35 g/dL 32-36 Automated erythrocyte distribution width ratio 13.2 % 10.0-14.5 Automated blood platelet count (count/volume) 364 10*3/uL 130-400 Automated blood platelet mean volume measurement 9.6 [foz_us] 7.4-10.4 Automated blood neutrophils/100 leukocytes 74 % 42-75 Automated blood lymphocytes/100 leukocytes 16 % 12-44 Blood monocytes/100 leukocytes 9 % 0-12 Automated blood eosinophils/100 leukocytes 1 % 0-10 Automated blood basophils/100 leukocytes 0 % 0-10 Blood neutrophils automated count (number/volume) 9.1 10*3 1.8-7.8 Blood lymphocytes automated count (number/volume) 2.0 10*3 1.0-4.0 Blood monocytes automated count (number/volume) 1.1 10*3 0.0-1.0 Automated eosinophil count 0.1 10*3/uL 0.0-0.3 Automated blood basophil count (count/volume) 0.0 10*3/uL 0.0-0.1 Comprehensive metabolic panel - 11/03/17 19:55 Serum or plasma sodium measurement (moles/volume) 142 mmol/L 135-145 Serum or plasma potassium measurement (moles/volume) 3.3 mmol/L 3.6-5.0 Serum or plasma chloride measurement (moles/volume) 109 mmol/L 98-107 Carbon dioxide 22 mmol/L 21-32 Serum or plasma anion gap determination (moles/volume) 11 mmol/L 5-14 Serum or plasma urea nitrogen measurement (mass/volume) 6 mg/dL 7-18 Serum or plasma creatinine measurement (mass/volume) 0.92 mg/dL 0.60-1.30 Serum or plasma urea nitrogen/creatinine mass ratio 7 NRG Serum or plasma creatinine measurement with calculation of estimated glomerular filtration rate > NRG Serum or plasma glucose measurement (mass/volume) 105 mg/dL 70-105 Serum or plasma calcium measurement (mass/volume) 9.6 mg/dL 8.5-10.1 Serum or plasma total bilirubin measurement (mass/volume) 0.4 mg/dL 0.1-1.0 Serum or plasma alkaline phosphatase measurement (enzymatic activity/volume) 93 U/L 40-136 Serum or plasma aspartate aminotransferase measurement (enzymatic activity/ volume) 19 U/L 5-34 Serum or plasma alanine aminotransferase measurement (enzymatic activity/volume ) 24 U/L 0-55 Serum or plasma protein measurement (mass/volume) 6.8 g/dL 6.4-8.2 Serum or plasma albumin measurement (mass/volume) 3.9 g/dL 3.2-4.5 CALCIUM CORRECTED 9.7 mg/dL 8.5-10.1 Serum or plasma creatine kinase measurement (enzymatic activity/volume) - 11/21 15:19 Serum or plasma creatine kinase measurement (enzymatic activity/volume) 142 U/L 30-200 Serum or plasma troponin i.cardiac measurement (mass/volume) - 11/21/17 15:19 Serum or plasma troponin i.cardiac measurement (mass/volume) < ng/ mL <0.30 Myoglobin, serum - 11/21/17 15:19 Myoglobin, serum 78.0 ng/mL 10.0-92.0 Encounters ACCT No. Visit Date/Time Discharge Status Pt. Type Provider Facility Loc./Unit Complaint [id number] 02/24/2018 09:00:00 02/24/2018 23:59:59 CLS Preadmit Latanya NGUYEN MD [facility] CR AMI,STENT [id number] 12/06/2017 08:44:00 02/23/2018 00:01:00 DIS Outpatient Latanya NGUYEN MD [facility] CR AMI,STENT [id number] 11/22/2017 10:11:00 11/24/2017 00:01:00 DIS Outpatient Latanya NGUYEN MD [facility] CR AMI,STENT [id number] 11/21/2017 15:03:00 11/21/2017 23:59:59 CLS Outpatient JAMESON MCCLELLAN DO [facility] LAB R07.9,I25.10 [id number] 11/03/2017 19:25:00 11/03/2017 21:18:00 DIS Emergency NAKITA VALADEZ, MACIE K [facility] ER DIZZY,LIGHTHEADED [id number] 11/01/2017 00:12:00 11/01/2017 17:00:00 DIS Outpatient GERARDO LANG DO [facility] 4TH ARF,UTI,LIGHTHEADEDNESS [id number] 10/29/2017 08:31:00 10/29/2017 23:59:59 CLS Outpatient Latanya NGUYEN MD [facility] CARD CAD,HTN,SOB,DIZZINESS [id number] 10/06/2017 16:29:00 10/08/2017 08:34:00 DIS Inpatient Latanya NGUYEN MD [facility] ICU STEMI [id number] 02/03/2017 14:12:00 02/03/2017 16:59:00 DIS Emergency MELVINA ROOT MD [facility] ER SINUS INFECTION [id number] 06/16/2016 15:56:00 06/18/2016 07:05:00 DIS Inpatient LUCY SINGH MD [facility] 4TH POST OPERATIVE WOUND INFECTION [id number] 06/08/2016 06:40:00 06/09/2016 08:45:00 DIS Outpatient LUCY SINGH MD [facility] SDC LEFT SUBMANDIBULAR CYST [id number] 06/04/2016 14:41:00 06/04/2016 15:15:00 DIS Outpatient LUCY SINGH MD [facility] PREOP LEFT SUBMANDIBULAR CYST [id number] 05/17/2016 20:26:00 05/17/2016 22:22:00 DIS Emergency JOEL CHOW DOA K [facility] ER RT SIDE FACIAL SWELLING, FEVER [id number] 05/05/2016 12:15:00 05/06/2016 09:00:00 DIS Inpatient LUCY SINGH MD [facility] 4TH SIALOADENITIS [id number] 11/26/2014 16:13:00 11/26/2014 23:59:59 CLS Outpatient LUCY SINGH MD [facility] RAD CHRONIC SINUSITIS [id number] 03/01/2018 09:04:00 ACT Emergency COURTNEY MAURO MD [facility] ER CONGESTION/COUGH/SOB [id number] 11/27/2014 07:24:57 ACT Document Registration
--- NOTE | 2018-03-01 09:21 | ED Cough/URI ---
General Stated Complaint: CONGESTION/COUGH/SOB Source: patient Exam Limitations: no limitations History of Present Illness Date Seen by Provider: Mar 01, 2018 Time Seen by Provider: 09:10 Initial Comments Patient presents to ER by private conveyance with chief complaint that for the past 3 days been having some cough congestion and nonproductive cough feeling tight and difficult to breathe. He does have a history of asthma as well as a CO earlier last year. He has a stent. He is not having any chest pain or swelling in his hands or feet. No weight gain. No fevers or chills. Last week he was treated with cefdinir for a sinus infection by Dr. Spann, ENT. He says the sinus infection went away but now for the last couple days he's had to use his albuterol inhaler several times a day with only mild to moderate success. Allergies and Home Medications Allergies Coded Allergies: No Known Drug Allergies (Unverified , 05/05/16) Home Medications Albuterol Sulfate 1 Puff Puff, 2 PUFF IH Q4H PRN for SHORTNESS OF BREATH, ( Reported) Aspirin 81 Mg Tablet.dr, 81 MG PO DAILY, (Reported) Atorvastatin Calcium 80 Mg Tablet, 40 MG PO HS, (Reported) TAKES 1/2 (80MG) TABLET Cephalexin 500 Mg Capsule, 500 MG PO BID Prescribed by: BLANCA RICO on 11/01/17 1257 Fluticasone Propionate 9.9 Ml [place].susp, 1 SPRAY NS DAILY, (Reported) Lisinopril 5 Mg Tablet, 5 MG PO DAILY, (Reported) Loratadine 10 Mg Tablet, 10 MG PO DAILY, (Reported) Metoprolol Tartrate 25 Mg Tablet, 12.5 MG PO BID Prescribed by: BLANCA RICO on 11/01/17 1257 Ticagrelor 90 Mg Tablet, 90 MG PO BID, (Reported) Patient Home Medication List Home Medication List Reviewed: Yes Review of Systems Review of Systems Constitutional: No chills, No diaphoresis, No fever EENTM: No ear discharge, No ear pain Respiratory: cough; No phlegm; short of breath; No stridor; wheezing Cardiovascular: No chest pain, No palpitations Gastrointestinal: No abdominal pain Genitourinary: No discharge, No dysuria Musculoskeletal: No back pain, No joint pain Past Kmzrpjp-Ydkazl-Xhqpyb Hx Patient Social History Alcohol Use: Denies Use Recreational Drug Use: No Smoking Status: Never a Smoker Type Used: Smokeless Tobacco (can/week) 2nd Hand Smoke Exposure: No Recent Foreign Travel: No Contact w/Someone Who Travel: No Recent Hopitalizations: No Seasonal Allergies Seasonal Allergies: Yes Past Medical History Surgeries: Yes (SINUS SURGEY, SUBMANDIBULAR GLAND RESECTION, ) Coronary Stent Respiratory: Yes Asthma Currently Using CPAP: No Currently Using BIPAP: No Cardiac: Yes Coronary Artery Disease, Heart Attack, Hypertension Neurological: No Reproductive Disorders: No Sexually Transmitted Disease: No HIV/AIDS: No Genitourinary: No Gastrointestinal: No Musculoskeletal: No Endocrine: No HEENT: Yes (wears glasses) Loss of Vision: Bilateral Cancer: No Psychosocial: No Integumentary: No Blood Disorders: No Adverse Reaction/Blood Tranf: No Family Medical History Colon cancer 19 FATHER Diabetes mellitus 19 MOTHER Headache disorder G8 SISTER Thyroid disease G8 SISTER Cancer, Diabetes Physical Exam Vital Signs - First Documented 03/01/18 09:11 Temp 97.6 Pulse 73 Resp 18 B/P (MAP) 142/72 (95) Pulse Ox 98 O2 Delivery Room Air Capillary Refill : Height: 5'8.00" Weight: 190lbs. 9.6oz. [id number]; 30.0 BMI Method:Stated General Appearance: WD/WN, no apparent distress Eyes: Bilateral Eye Normal Inspection, Bilateral Eye PERRL, Bilateral Eye EOMI HEENT: PERRL/EOMI, normal ENT inspection, TMs normal, pharynx normal Neck: non-tender, full range of motion, normal inspection Respiratory: chest non-tender, no respiratory distress, no accessory muscle use , wheezing, expiration (increased) Cardiovascular: normal peripheral pulses, regular rate, rhythm, no edema Gastrointestinal: normal bowel sounds, non tender, soft Extremities: no pedal edema, no calf tenderness, normal capillary refill Neurologic/Psychiatric: alert, normal mood/affect, oriented x 3 Progress/Results/Core Measures Suspected Sepsis SIRS Temperature: Pulse: Respiratory Rate: Laboratory Tests 03/01/18 09:32: White Blood Count 10.1 Blood Pressure / Mean: Laboratory Tests 03/01/18 09:32: Creatinine 0.86, Platelet Count 324, Total Bilirubin 0.6 Results/Orders Lab Results Laboratory Tests Test 03/01/18 09:32 Range/Units White Blood Count 10.1 4.3-11.0 10^3/uL Red Blood Count 5.22 4.35-5.85 10^6/uL Hemoglobin 15.4 13.3-17.7 G/DL Hematocrit 45 40-54 % Mean Corpuscular Volume 86 80-99 FL Mean Corpuscular Hemoglobin 30 25-34 PG Mean Corpuscular Hemoglobin Concent 34 32-36 G/DL Red Cell Distribution Width 12.9 10.0-14.5 % Platelet Count 324 130-400 10^3/uL Mean Platelet Volume 9.7 7.4-10.4 FL Neutrophils (%) (Auto) 64 42-75 % Lymphocytes (%) (Auto) 21 12-44 % Monocytes (%) (Auto) 9 0-12 % Eosinophils (%) (Auto) 5 0-10 % Basophils (%) (Auto) 0 0-10 % Neutrophils # (Auto) 6.5 1.8-7.8 X 10^3 Lymphocytes # (Auto) 2.2 1.0-4.0 X 10^3 Monocytes # (Auto) 0.9 0.0-1.0 X 10^3 Eosinophils # (Auto) 0.6 H 0.0-0.3 10^3/uL Basophils # (Auto) 0.0 0.0-0.1 10^3/uL Sodium Level 138 135-145 MMOL/L Potassium Level 3.8 3.6-5.0 MMOL/L Chloride Level 105 98-107 MMOL/L Carbon Dioxide Level 22 21-32 MMOL/L Anion Gap 11 5-14 MMOL/L Blood Urea Nitrogen 12 7-18 MG/DL Creatinine 0.86 0.60-1.30 MG/DL Estimat Glomerular Filtration Rate > 60 BUN/Creatinine Ratio 14 Glucose Level 109 H 70-105 MG/DL Calcium Level 9.5 8.5-10.1 MG/DL Corrected Calcium 9.2 8.5-10.1 MG/DL Total Bilirubin 0.6 0.1-1.0 MG/DL Aspartate Amino Transf (AST/SGOT) 21 5-34 U/L Alanine Aminotransferase (ALT/SGPT) 32 0-55 U/L Alkaline Phosphatase 110 40-136 U/L C-Reactive Protein High Sensitivity 0.14 0.00-0.50 MG/DL B-Type Natriuretic Peptide 21.7 <100.0 PG/ML Total Protein 7.4 6.4-8.2 GM/DL Albumin 4.4 3.2-4.5 GM/DL My Orders Orders - COURTNEY MAURO BNP (03/01/18 09:16) Cbc With Automated Diff (03/01/18 09:16) Comprehensive Metabolic Panel (03/01/18 09:16) Hs C Reactive Protein (03/01/18 09:16) Chest Pa/Lat (2 View) (03/01/18 09:16) Albuterol/Ipra Inhalation Soln (Duoneb I (03/01/18 09:30) Svn Small Volume Nebulizer (03/01/18 09:16) Medications Given in ED Current Medications Medications Dose Ordered Sig/Darek Route Start Time Stop Time Status Last Admin Dose Admin Albuterol/ Ipratropium 3 ml ONCE ONCE INH 03/01/18 09:30 03/01/18 09:31 DC 03/01/18 09:46 3 ML Vital Signs/I&O 03/01/18 03/01/18 09:11 09:46 Temp 97.6 Pulse 73 Resp 18 B/P (MAP) 142/72 (95) Pulse Ox 98 93 O2 Delivery Room Air Room Air Capillary Refill : Progress Note : Time: 10:17 Progress Note Breath sounds are improved but they are still a few scattered wheezes. He is feeling a little better. Her last set him up with a refill on his albuterol inhaler and some steroids for the next 5 days. He can continue taking the cefdinir for his sinusitis. Diagnostic Imaging Diagonstic Imaging: Xray Plain Films/CT/US/NM/MRI: chest (2v) Comments NAME: BERNABEISADORA JALLOH Daniela MED REC#: [id number] PT STATUS: REG ER : 1960 PHYSICIAN: COURTNEY MAURO MD ADMIT DATE: 03/01/18/ER Draft Date of Exam:03/01/18 CHEST PA/LAT (2 VIEW) EXAMINATION: Chest, PA and lateral views. INDICATION: Labored breathing. COMPARISON: Multiple priors, most recent performed on 10/31/2017. FINDINGS: The lungs are clear and the pulmonary vasculature is normal. No pneumothorax or pleural effusion. The cardiomediastinal silhouette is normal. No acute osseous abnormality. IMPRESSION: No acute chest disease. No significant change. Dictated on workstation # [id number] Dict: 03/01/18 1008 Trans: 03/01/18 1012 [id number] Interpreted by: LUCY GAN DO Electronically signed by: Reviewed: Reviewed by Me Departure Impression Primary Impression: Asthma attack Qualified Codes: J45.901 - Unspecified asthma with (acute) exacerbation Disposition: HOME, SELF-CARE Condition: Improved Departure-Patient Inst. Decision time for Depature: 10:18 Referrals: JAMESON PENA DO (PCP/Family) Primary Care Physician Patient Instructions: Asthma, Adult (DC) Add. Discharge Instructions: 2 puffs of your albuterol every 4 hours as needed for shortness of breath. Take 2 puffs every 6 hours [id number] while awake. 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 If you're not seeing improvement by early next week follow up with Dr. Pena. Scripts Albuterol Sulfate (PROAIR HFA) 1 Puff Puff 2 PUFF IH Q4H PRN for WHEEZING for 30 Days, #1 PUFF 0 Refills 1 PUFF = 90 MCG Prov: COURTNEY MAURO 03/01/18 Prednisone (Prednisone) 20 Mg Tab 40 MG PO DAILY for 5 Days, #10 TAB 0 Refills Prov: COURTNEY MAURO 03/01/18 COURTNEY MAURO Mar 01, 2018 09:21
[2018-03-01] MEDS ORDERED: RT-ALBUTEROL/IPRATROPIUM 3 ML (DUONEB) VIAL INH ONE (09:30)
[2018-03-01 09:37] LABS: BASOPHILS % (AUTO) 0 % (0-10); EOSINOPHILS # (AUTO) 0.6 10^3/uL (0.0-0.3); EOSINOPHILS % (AUTO) 5 % (0-10); HEMATOCRIT 45 % (40-54); HEMOGLOBIN 15.4 G/DL (13.3-17.7); LYMPHOCYTES # (AUTO) 2.2 X 10^3 (1.0-4.0); LYMPHOCYTES % (AUTO) 21 % (12-44); MEAN CORPUSCULAR HEMOGLOBIN 30 PG (25-34); MEAN CORPUSCULAR HGB CONC 34 G/DL (32-36); MEAN CORPUSCULAR VOLUME 86 FL (80-99); MEAN PLATELET VOLUME 9.7 FL (7.4-10.4); MONOCYTES # (AUTO) 0.9 X 10^3 (0.0-1.0); MONOCYTES % (AUTO) 9 % (0-12); NEUTROPHILS # (AUTO) 6.5 X 10^3 (1.8-7.8); NEUTROPHILS % (AUTO) 64 % (42-75); PLATELET COUNT 324 10^3/uL (130-400); RED BLOOD COUNT 5.22 10^6/uL (4.35-5.85); RED CELL DISTRIBUTION WIDTH 12.9 % (10.0-14.5); WHITE BLOOD COUNT 10.1 10^3/uL (4.3-11.0)
[2018-03-01 09:54] LABS: CARBON DIOXIDE 22 MMOL/L (21-32); CHLORIDE 105 MMOL/L (98-107); CREATININE SERUM 0.86 MG/DL (0.60-1.30); POTASSIUM 3.8 MMOL/L (3.6-5.0); SODIUM 138 MMOL/L (135-145)
[2018-03-01 09:55] LABS: ALANINE AMINOTRANSFERASE 32 U/L (0-55); ALBUMIN 4.4 GM/DL (3.2-4.5); ALKALINE PHOSPHATASE 110 U/L (40-136); BILIRUBIN,TOTAL 0.6 MG/DL (0.1-1.0); BUN/CREATININE RATIO 14; CALCIUM 9.5 MG/DL (8.5-10.1); GFR ESTIMATED > 60; GLUCOSE 109 MG/DL (70-105); TOTAL PROTEIN 7.4 GM/DL (6.4-8.2)
--- NOTE | 2018-03-01 10:13 | Diagnostic Imaging Report ---
EXAMINATION: Chest, PA and lateral views. INDICATION: Labored breathing. COMPARISON: Multiple priors, most recent performed on 10/31/2017. FINDINGS: The lungs are clear and the pulmonary vasculature is normal. No pneumothorax or pleural effusion. The cardiomediastinal silhouette is normal. No acute osseous abnormality. IMPRESSION: No acute chest disease. No significant change. Dictated by: Dictated on workstation # [id number]
[2018-03-01] MEDS ORDERED: PRD20T PO (10:20)
[2018-03-01] MEDS ORDERED: RT-ALBUINH IH (10:20)
[2018-03-01] MEDS ORDERED: predniSONE 20 MG TAB PO ONE (10:30)
[2018-03-01 10:32] VITALS: BP 144/78
== END 2018-03-01 10:32 | disposition home or self-care (01) ==
LOC: EDUNIT# 09:03 → ER 09:04
DX: J45.901 Unspecified asthma with (acute) exacerbation (principal); I25.10 Atherosclerotic heart disease of native coronary artery without angina pectoris; I25.2 Old myocardial infarction; I10 Essential (primary) hypertension; F17.200 Nicotine dependence, unspecified, uncomplicated; Z79.51 Long term (current) use of inhaled steroids; Z95.5 Presence of coronary angioplasty implant and graft; Z79.82 Long term (current) use of aspirin; Z90.89 Acquired absence of other organs; Z80.0 Family history of malignant neoplasm of digestive organs
CPT/HCPCS: 36415; 71046; 80053; 83880; 85025; 86141; 94640

== ENCOUNTER 2018-03-18 08:25 | Emergency (ER) | payer BC ==
[~2018-03-18] VITALS: Ht 175.3 cm; Wt 90.7 kg
[~2018-03-18 08:25] MED LIST changes: +LOSA50TA63 PO; -LOSA50TA7 PO
[2018-03-18 08:41] LABS: BASOPHILS # (AUTO) 0.1 10^3/uL (0.0-0.1); BASOPHILS % (AUTO) 1 % (0-10); EOSINOPHILS # (AUTO) 0.3 10^3/uL (0.0-0.3); EOSINOPHILS % (AUTO) 3 % (0-10); HEMATOCRIT 43 % (40-54); HEMOGLOBIN 14.3 G/DL (13.3-17.7); LYMPHOCYTES # (AUTO) 2.2 X 10^3 (1.0-4.0); LYMPHOCYTES % (AUTO) 20 % (12-44); MEAN CORPUSCULAR HEMOGLOBIN 30 PG (25-34); MEAN CORPUSCULAR HGB CONC 34 G/DL (32-36); MEAN CORPUSCULAR VOLUME 88 FL (80-99); MEAN PLATELET VOLUME 9.9 FL (7.4-10.4); MONOCYTES # (AUTO) 0.9 X 10^3 (0.0-1.0); MONOCYTES % (AUTO) 8 % (0-12); NEUTROPHILS # (AUTO) 7.4 X 10^3 (1.8-7.8); NEUTROPHILS % (AUTO) 68 % (42-75); PLATELET COUNT 336 10^3/uL (130-400); RED BLOOD COUNT 4.85 10^6/uL (4.35-5.85); RED CELL DISTRIBUTION WIDTH 13.9 % (10.0-14.5); WHITE BLOOD COUNT 10.9 10^3/uL (4.3-11.0)
[2018-03-18] MEDS ORDERED: KETOROLAC 30 MG/ML VIAL IVP STA (08:43)
[2018-03-18] MEDS ORDERED: ASPIRIN 81 MG CHEW (CHILDREN'S ASA) PO ONE (08:45)
--- OUTSIDE RECORDS SUMMARY | 2018-03-18 08:46 | XMS REPORT | Continuity of Care Document ---
Author Author [facility] Organization [facility] Address Unknown Phone Unavailable Allergies Active Description Code Type Severity Reaction Onset Reported/Identified Relationship to Patient Clinical Status Yes No Known Drug Allergies [id number] Drug Allergy Unknown N/A 05/05/2016 Medications There [...] MD Ot E78.5 HYPERLIPIDEMIA, UNSPECIFIED 10/08/2017 Latanya NGUYEN MD Ot F17.220 NICOTINE DEPENDENCE, CHEWING TOBACCO, UN 10/08/2017 Latanya NGUYEN MD Ot I10 ESSENTIAL (PRIMARY) HYPERTENSION 10/08/2017 Latanya NGUYEN MD Ot 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 I 10/08/2017 Latanya NGUYEN MD Ot I25.10 ATHSCL HEART DISEASE OF [place] CORONARY 10/31/2017 Latanya NGUYEN MD Ot E78.5 HYPERLIPIDEMIA, UNSPECIFIED 10/31/2017 Latanya NGUYEN MD Ot I10 ESSENTIAL (PRIMARY) HYPERTENSION 10/31/2017 Latanya NGUYEN MD Ot I25.10 ATHSCL HEART DISEASE OF [place] CORONARY 10/31/2017 Latanya NGUYEN MD Ot R06.02 SHORTNESS OF BREATH 10/31/2017 Latanya NGUYEN MD Ot R42 DIZZINESS AND GIDDINESS 10/31/2017 Latanya NGUYEN MD Ot Z72.0 TOBACCO USE 11/01/2017 Latanya NGUYEN MD Ot E78.5 HYPERLIPIDEMIA, UNSPECIFIED 11/01/2017 Latanya NGUYEN MD Ot I10 ESSENTIAL (PRIMARY) HYPERTENSION 11/01/2017 Latanya NGUYEN MD Ot I25.10 ATHSCL HEART DISEASE OF [place] CORONARY 11/01/2017 Latanya NGUYEN MD Ot R06.02 [...] DOI Ot I25.10 ATHSCL HEART DISEASE OF [place] CORONARY 11/01/2017 LANG DO, GERARDO Ot N17.9 ACUTE KIDNEY FAILURE, UNSPECIFIED 11/01/2017 LANG DO, GERARDO Ot N39.0 URINARY TRACT INFECTION, SITE NOT SPECIF 11/01/2017 LANG DO, GERARDO Ot R42 DIZZINESS AND GIDDINESS 11/01/2017 LANG DO, GERARDO Ot Z79.82 DIRECTOR TITLE (CURRENT) USE OF ASPIRIN 11/01/2017 LANG DO, GERARDO Ot Z79.899 OTHER [facility] (CURRENT) DRUG THERAPY 11/01/2017 LANG DO, GERARDO Ot Z95.5 PRESENCE OF CORONARY ANGIOPLASTY IMPLANT 11/01/2017 LANG DO, GERARDO Ot F17.290 NICOTINE DEPENDENCE, OTHER TOBACCO PRODU 11/01/2017 LANG DO, GERARDO Ot I10 ESSENTIAL (PRIMARY) HYPERTENSION 11/01/2017 LANG DO, GERARDO Ot I21.3 ST ELEVATION (STEMI) MYOCARDIAL INFARCTI 11/01/2017 LANG DO, GERARDO Ot I25.10 ATHSCL HEART DISEASE OF [place] CORONARY 11/01/2017 LANG DO GERARDO Ot N17.9 ACUTE KIDNEY FAILURE, UNSPECIFIED 11/01/2017 LANG DO, GERARDO Ot N39.0 URINARY TRACT INFECTION, SITE NOT SPECIF 11/01/2017 LANG DO, GERARDO Ot R42 DIZZINESS AND GIDDINESS 11/01/2017 LANG DO GERARDO Ot Z79.82 DIRECTOR TITLE (CURRENT) USE OF ASPIRIN 11/01/2017 LANG DO GERARDO Ot Z79.899 OTHER DIRECTOR TITLE (CURRENT) DRUG THERAPY 11/01/2017 LANG DO GERARDO Ot Z95.5 PRESENCE OF CORONARY ANGIOPLASTY IMPLANT 11/03/2017 Latanya NGUYEN MD Ot E78.5 HYPERLIPIDEMIA, UNSPECIFIED 11/03/2017 Latanya NGUYEN MD Ot I10 ESSENTIAL (PRIMARY) HYPERTENSION 11/03/2017 Latanya NGUYEN MD Ot I25.10 ATHSCL HEART DISEASE OF [place] CORONARY 11/03/2017 Latanya NUGYEN MD Ot R06.02 SHORTNESS OF BREATH 11/03/2017 Latanya NGUYEN MD Ot R42 DIZZINESS AND GIDDINESS 11/03/2017 Latanya NGUYEN MD Ot Z72.0 TOBACCO USE 11/03/2017 MACIE MACE MD Ot I10 ESSENTIAL (PRIMARY) HYPERTENSION 11/03/2017 MACIE MACE MD Ot I21.9 ACUTE MYOCARDIAL INFARCTION, UNSPECIFIED 11/03/2017 MACIE MACE MD, Ot I25.10 ATHSCL HEART DISEASE OF [place] CORONARY 11/03/2017 MACIE MACE MD Ot J45.909 UNSPECIFIED ASTHMA, UNCOMPLICATED 11/03/2017 MACIE MACE MD Ot R42 DIZZINESS AND GIDDINESS 11/03/2017 MACIE MACE MD, Ot T44.7X5A ADVERSE EFFECT OF BETA-ADRENORECEPTOR AN 11/03/2017 MACIE MACE MD, Ot T46.4X5A ADVERSE EFFECT OF STODOWREI-REMFKLP-IXBS 11/03/2017 MACIE MACE MD, Ot Z79.51 DIRECTOR TITLE (CURRENT) USE OF INHALED STERO 11/03/2017 MACIE MACE MD Ot Z79.82 [facility] (CURRENT) USE OF ASPIRIN 11/03/2017 MACIE MACE [...] MD Ot I25.10 ATHSCL HEART DISEASE OF [place] CORONARY 11/04/2017 Latanya NGUYEN MD Ot R06.02 SHORTNESS OF BREATH 11/04/2017 Latanya NGUYEN MD Ot R42 DIZZINESS AND GIDDINESS 11/04/2017 Latanya NGUYEN MD Ot Z72.0 TOBACCO USE 11/04/2017 Latanya NGUYEN MD Ot E78.5 HYPERLIPIDEMIA, UNSPECIFIED 11/04/2017 Latanya NGUYEN MD Ot I10 ESSENTIAL (PRIMARY) HYPERTENSION 11/04/2017 Latanya NGUYEN MD Ot I25.10 ATHSCL HEART DISEASE OF [place] CORONARY 11/04/2017 Latanya NGUYEN MD Ot R06.02 SHORTNESS OF BREATH 11/04/2017 Latanya NGUYEN MD Ot R42 DIZZINESS AND GIDDINESS 11/04/2017 Latanya NGUYEN MD Ot Z72.0 TOBACCO USE 11/05/2017 MACIE MACE MD Ot I10 ESSENTIAL (PRIMARY) HYPERTENSION 11/05/2017 MACIE MACE MD Ot I21.9 ACUTE MYOCARDIAL INFARCTION, UNSPECIFIED 11/05/2017 MACIE MACE MD Ot I25.10 ATHSCL HEART DISEASE OF [place] CORONARY 11/05/2017 MACIE MACE MD Ot J45.909 UNSPECIFIED ASTHMA, UNCOMPLICATED 11/05/2017 MACIE MACE MD Ot R42 DIZZINESS AND GIDDINESS 11/05/2017 MACIE MACE MD, Ot T44.7X5A ADVERSE EFFECT OF BETA-ADRENORECEPTOR AN 11/05/2017 MACIE MACE MD, Ot T46.4X5A ADVERSE EFFECT OF SLNWCRRLE-SZPPOJM-KOJG 11/05/2017 MACIE MACE MD, Ot Z79.51 [facility] (CURRENT) USE OF INHALED STERO 11/05/2017 MACIE MACE MD, Ot Z79.82 DIRECTOR TITLE (CURRENT) USE OF ASPIRIN 11/05/2017 MACIE MACE [...] MD Ot I25.10 ATHSCL HEART DISEASE OF [place] CORONARY 11/14/2017 Latanya NGUYEN MD Ot R06.02 SHORTNESS OF BREATH 11/14/2017 Latanya NGUYEN MD Ot R42 DIZZINESS AND GIDDINESS 11/14/2017 Latanya NGUYEN MD Ot Z72.0 TOBACCO USE 11/24/2017 Latanya NGUYEN MD Ot I25.2 OLD MYOCARDIAL INFARCTION 11/24/2017 PATRICK VALADEZ, Latanya CHAPMION Ot Z48.812 ENCNTR FOR SURGICAL AFTCR FOLLOWING SURG 11/24/2017 Latanya NGUYEN MD Ot Z95.5 PRESENCE OF CORONARY ANGIOPLASTY IMPLANT 11/25/2017 JAMESON MCCLELLAN DO Ot I25.10 ATHSCL HEART DISEASE OF [place] CORONARY 11/25/2017 JAMESON MCCLELLAN DO Ot R07.9 CHEST PAIN, UNSPECIFIED 11/27/2017 Latanya NGUYEN MD Ot I25.2 OLD MYOCARDIAL INFARCTION 11/27/2017 Latanya NGUYEN MD, Ot Z48.812 ENCNTR FOR SURGICAL AFTCR FOLLOWING SURG 11/27/2017 Latanya NGUYEN MD Ot Z95.5 PRESENCE OF CORONARY ANGIOPLASTY IMPLANT 12/04/2017 JAMESON MCCLELLAN DO Ot I25.10 ATHSCL HEART DISEASE OF [place] CORONARY 12/04/2017 JAMESON MCCLELLAN DO Ot R07.9 CHEST PAIN, UNSPECIFIED 12/24/2017 JAMESON MCCLELLAN DO Ot I25.10 ATHSCL HEART DISEASE OF [place] CORONARY 12/24/2017 JAMESON MCCLELLAN DO Ot R07.9 CHEST PAIN, UNSPECIFIED 12/24/2017 Latanya NGUYEN MD Ot E78.5 HYPERLIPIDEMIA, UNSPECIFIED 12/24/2017 Latanya NGUYEN MD Ot I10 ESSENTIAL (PRIMARY) HYPERTENSION 12/24/2017 Latanay NGUYEN MD Ot I25.10 ATHSCL HEART DISEASE OF [place] CORONARY 12/24/2017 Latanya NGUYEN MD Ot R06.02 [...] ENCNTR FOR SURGICAL AFTCR FOLLOWING SURG 02/23/2018 PATRICK VALADEZ, Latanya CHAMPION Ot Z95.5 PRESENCE OF CORONARY ANGIOPLASTY IMPLANT 02/24/2018 PATRICK VALADEZ, Latanya CHAMPION Ot I25.2 OLD MYOCARDIAL INFARCTION 02/24/2018 PATRICK VALADEZ, Latanya CHAMPION Ot Z48.812 ENCNTR FOR SURGICAL AFTCR FOLLOWING SURG 02/24/2018 PATRICK VALADEZ, Latanya CHAMPION Ot Z95.5 PRESENCE OF CORONARY ANGIOPLASTY IMPLANT 03/01/2018 COURTNEY MAURO MD Ot F17.200 NICOTINE DEPENDENCE, UNSPECIFIED, UNCOMP 03/01/2018 COURTNEY MAURO MD Ot I10 ESSENTIAL (PRIMARY) HYPERTENSION 03/01/2018 COURTNEY MAURO MD Ot I25.10 ATHSCL HEART DISEASE OF [place] CORONARY 03/01/2018 COURTNEY MAURO MD Ot I25.2 OLD MYOCARDIAL INFARCTION 03/01/2018 COURTNEY MAURO MD Ot J45.901 UNSPECIFIED ASTHMA WITH (ACUTE) EXACERBA 03/01/2018 COURTNEY MAURO MD Ot R09.81 NASAL CONGESTION 03/01/2018 COURTNEY MAURO MD Ot Z79.51 [facility] (CURRENT) USE OF INHALED STERO 03/01/2018 COURTNEY MAURO MD Ot Z79.82 DIRECTOR TITLE (CURRENT) USE OF ASPIRIN 03/01/2018 COURTNEY MAURO MD Ot Z80.0 FAMILY HISTORY OF MALIGNANT NEOPLASM OF 03/01/2018 COURTNEY MAURO MD Ot Z90.89 ACQUIRED ABSENCE OF OTHER ORGANS 03/01/2018 COURTNEY MAURO MD Ot Z95.5 PRESENCE OF CORONARY ANGIOPLASTY IMPLANT 03/04/2018 COURTNEY MAURO MD Ot F17.200 NICOTINE DEPENDENCE, UNSPECIFIED, UNCOMP 03/04/2018 COURTNEY MAURO MD Ot I10 ESSENTIAL (PRIMARY) HYPERTENSION 03/04/2018 COURTNEY MAURO MD Ot I25.10 ATHSCL HEART DISEASE OF [place] CORONARY 03/04/2018 COURTNEY MAURO MD, Ot I25.2 OLD MYOCARDIAL INFARCTION 03/04/2018 COURTNEY MAURO MD, Ot J45.901 UNSPECIFIED ASTHMA WITH (ACUTE) EXACERBA 03/04/2018 COURTNEY MAURO MD Ot R09.81 NASAL CONGESTION 03/04/2018 COURTNEY MAURO MD Ot Z79.51 [facility] (CURRENT) USE OF INHALED STERO 03/04/2018 COURTNEY MAURO MD Ot Z79.82 DIRECTOR TITLE (CURRENT) USE OF ASPIRIN 03/04/2018 COURTNEY MAURO MD, Ot Z80.0 FAMILY HISTORY OF MALIGNANT NEOPLASM OF 03/04/2018 COURTNEY MAURO MD, Ot Z90.89 ACQUIRED ABSENCE OF OTHER ORGANS 03/04/2018 COURTNEY MAURO MD, Ot Z95.5 PRESENCE OF CORONARY ANGIOPLASTY IMPLANT Procedures Code Description Performed By Performed On [id number] DILATION OF 1 COR ART WITH DRUG-ELUT INT 10/06/2017 [id number] MEASURE OF CARDIAC SAMPL PRESSURE, L H 10/06/2017 [id number] FLUOROSCOPY OF MULT COR ART USING L OSM 10/06/2017 [id number] FLUOROSCOPY OF LEFT HEART USING LOW OSMO 10/06/2017 [id number] FLUOROSCOPY OF THORACIC AORTA USING LOW 10/06/2017 [...] NRG Manual blood basophils/100 leukocytes 0 % [facility] Blood erythrocyte morphology finding identification NORMAL [facility] Comprehensive metabolic panel - 05/17/16 [...] or plasma urea nitrogen/creatinine mass ratio 15 NR Serum or plasma creatinine measurement with calculation of estimated glomerular filtration rate > [facility] Serum or plasma glucose measurement [...] 13:35 Bacteria identification in wound by culture [id number] NRG QUANTITY OF GROWTH Moderate Growth NRG [...] NRG Whole blood basic metabolic panel - 12/10/17 15:21 Serum or plasma sodium measurement (moles/volume) [...] 11/21/17 15:19 Myoglobin, serum 78.0 ng/mL 10.0-92.0 Complete blood count (CBC) with automated white blood cell (WBC) differential - 03/01/18 09:32 Blood leukocytes automated count (number/volume) 10.1 10*3/uL 4.3-11.0 Blood erythrocytes automated count (number/volume) 5.22 10*6/uL 4.35-5.85 Venous blood hemoglobin measurement (mass/volume) 15.4 g/dL 13.3-17.7 Blood hematocrit (volume fraction) 45 % 40-54 Automated erythrocyte mean corpuscular volume 86 [foz_us] 80-99 Automated erythrocyte mean corpuscular hemoglobin (mass per erythrocyte) 30 pg 25-34 Automated erythrocyte mean corpuscular hemoglobin concentration measurement ( mass/volume) 34 g/dL 32-36 Automated erythrocyte distribution width ratio 12.9 % 10.0-14.5 Automated blood platelet count (count/volume) 324 10*3/uL 130-400 Automated blood platelet mean volume measurement 9.7 [foz_us] 7.4-10.4 Automated blood neutrophils/100 leukocytes 64 % 42-75 Automated blood lymphocytes/100 leukocytes 21 % 12-44 Blood monocytes/100 leukocytes 9 % 0-12 Automated blood eosinophils/100 leukocytes 5 % 0-10 Automated blood basophils/100 leukocytes 0 % 0-10 Blood neutrophils automated count (number/volume) 6.5 10*3 1.8-7.8 Blood lymphocytes automated count (number/volume) 2.2 10*3 1.0-4.0 Blood monocytes automated count (number/volume) 0.9 10*3 0.0-1.0 Automated eosinophil count 0.6 10*3/uL 0.0-0.3 Automated blood basophil count (count/volume) 0.0 10*3/uL 0.0-0.1 Comprehensive metabolic panel - 03/01/18 09:32 Serum or plasma sodium measurement (moles/volume) 138 mmol/L 135-145 Serum or plasma potassium measurement (moles/volume) 3.8 mmol/L 3.6-5.0 Serum or plasma chloride measurement (moles/volume) 105 mmol/L 98-107 Carbon dioxide 22 mmol/L 21-32 Serum or plasma anion gap determination (moles/volume) 11 mmol/L 5-14 Serum or plasma urea nitrogen measurement (mass/volume) 12 mg/dL 7-18 Serum or plasma creatinine measurement (mass/volume) 0.86 mg/dL 0.60-1.30 Serum or plasma urea nitrogen/creatinine mass ratio 14 NRG Serum or plasma creatinine measurement with calculation of estimated glomerular filtration rate > NRG Serum or plasma glucose measurement (mass/volume) 109 mg/dL 70-105 Serum or plasma calcium measurement (mass/volume) 9.5 mg/dL 8.5-10.1 Serum or plasma total bilirubin measurement (mass/volume) 0.6 mg/dL 0.1-1.0 Serum or plasma alkaline phosphatase measurement (enzymatic activity/volume) 110 U/L 40-136 Serum or plasma aspartate aminotransferase measurement (enzymatic activity/ volume) 21 U/L 5-34 Serum or plasma alanine aminotransferase measurement (enzymatic activity/volume ) 32 U/L 0-55 Serum or plasma protein measurement (mass/volume) 7.4 g/dL 6.4-8.2 Serum or plasma albumin measurement (mass/volume) 4.4 g/dL 3.2-4.5 CALCIUM CORRECTED 9.2 mg/dL 8.5-10.1 Serum or plasma C reactive protein measurement (mass/volume) - 03/01/18 09:32 Serum or plasma C reactive protein measurement (mass/volume) 0.14 mg /dL 0.00-0.50 Serum or plasma lithium measurement (moles/volume) - 03/01/18 09:32 BNP level 21.7 pg/mL <100.0 Encounters ACCT No. Visit Date/Time Discharge Status Pt. Type Provider Facility Loc./Unit Complaint [id number] 03/01/2018 09:04:00 03/01/2018 10:32:00 DIS Emergency COURTNEY MAURO MD [facility] ER CONGESTION/COUGH/SOB [id number] 02/24/2018 09:00:00 02/24/2018 23:59:59 CLS Preadmit Latanya NGUYEN MD [facility] CR AMI,STENT [id number] 12/06/2017 08:44:00 02/23/2018 00:01:00 DIS Outpatient Latanya NGUYEN MD [facility] CR AMI,STENT [id number] 11/22/2017 10:11:00 11/24/2017 00:01:00 DIS Outpatient Latanya NGUYEN MD [facility] CR AMI,STENT [id number] 11/21/2017 15:03:00 11/21/2017 23:59:59 CLS Outpatient JAMESON MCCLELLAN DO [facility] LAB R07.9,I25.10 [id number] 11/03/2017 19:25:00 11/03/2017 21:18:00 DIS Emergency MACIE MACE MD [facility] ER DIZZY,LIGHTHEADED [id number] 11/01/2017 00:12:00 11/01/2017 17:00:00 DIS Outpatient GERARDO LANG DO [facility] 4TH ARF,UTI,LIGHTHEADEDNESS [id number] 10/29/2017 08:31:00 10/29/2017 23:59:59 CLS Outpatient Latanya NGUYEN MD [facility] CARD CAD,HTN,SOB,DIZZINESS [id number] 10/06/2017 16:29:00 10/08/2017 08:34:00 DIS Inpatient Latanya NGUYEN MD [facility] ICU STEMI [id number] 02/03/2017 14:12:00 02/03/2017 16:59:00 DIS Emergency DK VALADEZ, MELVINA Britton [facility] ER SINUS INFECTION [id number] 06/16/2016 15:56:00 06/18/2016 07:05:00 DIS Inpatient LUCY SINGH MD [facility] 4TH POST OPERATIVE WOUND INFECTION [id number] 06/08/2016 06:40:00 06/09/2016 08:45:00 DIS Outpatient LUCY SINGH MD [facility] SDC LEFT SUBMANDIBULAR CYST [id number] 06/04/2016 14:41:00 06/04/2016 15:15:00 DIS Outpatient LUCY ISNGH MD [facility] PREOP LEFT SUBMANDIBULAR CYST [id number] 05/17/2016 20:26:00 05/17/2016 22:22:00 DIS Emergency CLAUDINE JOCELYNE K [facility] ER RT SIDE FACIAL SWELLING, FEVER [id number] 05/05/2016 12:15:00 05/06/2016 09:00:00 DIS Inpatient LUCY SINGH MD [facility] 4TH SIALOADENITIS [id number] 11/26/2014 16:13:00 11/26/2014 23:59:59 CLS Outpatient LUCY SINGH MD [facility] RAD CHRONIC SINUSITIS [id number] 11/27/2014 07:24:57 ACT Document Registration
--- NOTE | 2018-03-18 09:00 | ED Chest Pain ---
General Chief Complaint: Chest Pain Stated Complaint: CHEST PAIN;SOB Nursing Triage Note: AMB TO ROOM REPORTS FOR APX 1 WEEK HAS HAD PAIN IN L SHOULDER THIS WEEKEND FELT SOA. Nursing Sepsis Screen: No Definite Risk Source: patient Exam Limitations: no limitations History of Present Illness Date Seen by Provider: Mar 18, 2018 Time Seen by Provider: 08:36 Initial Comments Here with report of approximately one week of pain in the left shoulder area and left chest wall. Short of breath this weekend. This worsened some this morning and he called his laserist who directed him to the emergency department for evaluation. Does have history of acute AR with stent to the RCA. Does have mild to moderate disease in the LAD per catheter in September 2017. Denies nausea or vomiting. Did have a cold a few weeks ago and is currently on antibiotic for possible sinus stuff. Has had a mild cough but not significant. Denies diarrhea or sweating. Timing/Duration: 1 week, changing over time Severity/Quality: mild, aching Location: shoulder, back, other (left anterior lateral chest wall) Radiation: back Activities at Onset: none Prior CP/Workup: cardiac cath, echocardiography Modifying Factors: improves with rest ASA po DIRECTOR OF SPEECH PATHOLOGY: No NTG SL DIRECTOR OF SPEECH PATHOLOGY: No Associated Symptoms: No abdominal pain; back pain; No fever/chills, No nausea/ vomiting; shortness of breath; No weakness Allergies and Home Medications Allergies Coded Allergies: No Known Drug Allergies (Unverified , 05/05/16) Home Medications Albuterol Sulfate 1 Puff Puff, 2 PUFF IH Q4H PRN for SHORTNESS OF BREATH, ( Reported) Albuterol Sulfate 1 Puff Puff, 2 PUFF IH Q4H PRN for WHEEZING 1 PUFF = 90 MCG Prescribed by: COURTNEY MAURO on 03/01/18 1020 Aspirin 81 Mg Tablet.dr, 81 MG PO DAILY, (Reported) Atorvastatin Calcium 80 Mg Tablet, 40 MG PO HS, (Reported) TAKES 1/2 (80MG) TABLET Fluticasone Propionate 9.9 Ml [place].susp, 1 SPRAY NS DAILY, (Reported) Lisinopril 5 Mg Tablet, 5 MG PO DAILY, (Reported) Loratadine 10 Mg Tablet, 10 MG PO DAILY, (Reported) Metoprolol Tartrate 25 Mg Tablet, 12.5 MG PO BID Prescribed by: BLANCA RICO on 11/01/17 1257 Ticagrelor 90 Mg Tablet, 90 MG PO BID, (Reported) Patient Home Medication List Home Medication List Reviewed: Yes Review of Systems Review of Systems Constitutional: see HPI; No chills, No fever EENTM: See HPI, Nose Congestion; No Throat Pain Respiratory: Denies Cough, Denies Orthopnea; Shortness of Air Cardiovascular: Chest Pain; Denies Edema Gastrointestinal: Denies Abdominal Pain, Denies Diarrhea, Denies Vomiting Genitourinary: No Symptoms Reported Musculoskeletal: see HPI, back pain, muscle pain Skin: no symptoms reported Psychiatric/Neurological: No Symptoms Reported Endocrine: No Symptoms Reported All Other Systems Reviewed Negative Unless Noted: Yes Past Aaytyae-Nubsin-Neborh Hx Past Med/Social Hx: Reviewed Nursing Past Med/Soc Hx Patient Social History Alcohol Use: Denies Use Recreational Drug Use: No Type Used: Smokeless Tobacco 2nd Hand Smoke Exposure: No Recent Foreign Travel: No Contact w/Someone Who Travel: No Recent Infectious Disease Expo: No Recent Hopitalizations: No Seasonal Allergies Seasonal Allergies: Yes Past Medical History Surgeries: Yes (SINUS SURGEY, SUBMANDIBULAR GLAND RESECTION, ) Coronary Stent Respiratory: Yes Asthma Currently Using CPAP: No Currently Using BIPAP: No Cardiac: Yes Coronary Artery Disease, Heart Attack, Hypertension Neurological: No Reproductive Disorders: No Sexually Transmitted Disease: No HIV/AIDS: No Genitourinary: No Gastrointestinal: No Musculoskeletal: No Endocrine: No HEENT: Yes (wears glasses) Loss of Vision: Bilateral Cancer: No Psychosocial: No Integumentary: No Blood Disorders: No Adverse Reaction/Blood Tranf: No Family Medical History Reviewed Nursing Family Hx Colon cancer 19 FATHER Diabetes mellitus 19 MOTHER Headache disorder G8 SISTER Thyroid disease G8 SISTER Cancer, Diabetes Physical Exam Vital Signs Vital Signs - First Documented 03/18/18 08:25 Temp 96.1 Pulse 65 Resp 18 B/P (MAP) 144/87 (106) Pulse Ox 100 O2 Delivery Room Air Capillary Refill : Less Than 3 Seconds Height, Weight, BMI Height: 5'9.00" Weight: 200lbs. 9.6oz. 90.000491qr; 30.0 BMI Method:Stated General Appearance: No Apparent Distress, WD/WN HEENT: PERRL/EOMI, Pharynx Normal Neck: Non Tender, Supple Respiratory: Lungs Clear, Normal Breath Sounds Cardiovascular: Regular Rate, Rhythm, No Murmur Gastrointestinal: Non Tender, Soft Extremity: Normal Range of Motion, Other (tender to the area of the rhomboids on the left scapula with definite area of muscle spasm and pain with point tenderness at the scapula.) Neurologic/Psychiatric: Alert, Oriented x3, No Motor/Sensory Deficits Skin: Normal Color, Warm/Dry Progress/Results/Core Measures Results/Orders Lab Results Laboratory Tests Test 03/18/18 08:30 Range/Units White Blood Count 10.9 4.3-11.0 10^3/uL Red Blood Count 4.85 4.35-5.85 10^6/uL Hemoglobin 14.3 13.3-17.7 G/DL Hematocrit 43 40-54 % Mean Corpuscular Volume 88 80-99 FL Mean Corpuscular Hemoglobin 30 25-34 PG Mean Corpuscular Hemoglobin Concent 34 32-36 G/DL Red Cell Distribution Width 13.9 10.0-14.5 % Platelet Count 336 130-400 10^3/uL Mean Platelet Volume 9.9 7.4-10.4 FL Neutrophils (%) (Auto) 68 42-75 % Lymphocytes (%) (Auto) 20 12-44 % Monocytes (%) (Auto) 8 0-12 % Eosinophils (%) (Auto) 3 0-10 % Basophils (%) (Auto) 1 0-10 % Neutrophils # (Auto) 7.4 1.8-7.8 X 10^3 Lymphocytes # (Auto) 2.2 1.0-4.0 X 10^3 Monocytes # (Auto) 0.9 0.0-1.0 X 10^3 Eosinophils # (Auto) 0.3 0.0-0.3 10^3/uL Basophils # (Auto) 0.1 0.0-0.1 10^3/uL Prothrombin Time 13.0 12.2-14.7 SEC INR Comment 1.0 0.8-1.4 Activated Partial Thromboplast Time 31 24-35 SEC D-Dimer 0.31 0.00-0.49 UG/ML Sodium Level 141 135-145 MMOL/L Potassium Level 4.0 3.6-5.0 MMOL/L Chloride Level 107 98-107 MMOL/L Carbon Dioxide Level 24 21-32 MMOL/L Anion Gap 10 5-14 MMOL/L Blood Urea Nitrogen 13 7-18 MG/DL Creatinine 0.97 0.60-1.30 MG/DL Estimat Glomerular Filtration Rate > 60 BUN/Creatinine Ratio 13 Glucose Level 120 H 70-105 MG/DL Calcium Level 9.2 8.5-10.1 MG/DL Corrected Calcium 9.3 8.5-10.1 MG/DL Magnesium Level 2.0 1.8-2.4 MG/DL Total Bilirubin 0.3 0.1-1.0 MG/DL Aspartate Amino Transf (AST/SGOT) 20 5-34 U/L Alanine Aminotransferase (ALT/SGPT) 30 0-55 U/L Alkaline Phosphatase 92 40-136 U/L Myoglobin 39.3 10.0-92.0 NG/ML Troponin I < 0.028 <0.028 NG/ML Total Protein 6.4 6.4-8.2 GM/DL Albumin 3.9 3.2-4.5 GM/DL My Orders Orders - MADAY SAGASTUME MD Cbc With Automated Diff (03/18/18 08:32) Magnesium (03/18/18 08:32) Chest 1 View, Ap/Pa Only (03/18/18 08:32) Ekg Tracing (03/18/18 08:32) Cardiac Profile 1 (03/18/18 08:32) Comprehensive Metabolic Panel (03/18/18 08:32) Myoglobin Serum (03/18/18 08:32) Protime With Inr (03/18/18 08:32) Partial Thromboplastin Time (03/18/18 08:32) O2 (03/18/18 08:32) Monitor-Rhythm Ecg Trace Only (03/18/18 08:32) Lipid Panel (03/19/18 06:00) Aspirin Chewable Tablet (Baby Aspirin Ch (03/18/18 08:45) Saline Lock/Iv-Start (03/18/18 08:32) Ketorolac Injection (Toradol Injection) (03/18/18 08:43) Fibrin Degradation Products (03/18/18 08:30) Medications Given in ED Current Medications Medications Dose Ordered Sig/Darek Route Start Time Stop Time Status Last Admin Dose Admin Aspirin 324 mg ONCE ONCE PO 03/18/18 08:45 03/18/18 08:46 DC 03/18/18 08:45 324 MG Vital Signs/I&O 03/18/18 03/18/18 08:25 09:14 Temp 96.1 Pulse 65 61 Resp 18 18 B/P (MAP) 144/87 (106) 137/83 (101) Pulse Ox 100 99 O2 Delivery Room Air Room Air Blood Pressure Mean: 106 Progress Progress Note : Progress Note Seen and evaluated. IV, labs, EKG and chest x-ray ordered. ASA 324 mg by mouth ordered. Toradol 30 mg IV ordered. Monitor patient. 1000: No acute findings. Patient has improvement with his pain. Does have point tenderness at the rhomboids and I do believe this is mostly what the problem is although he does have previous disease. Due to prolonged period of pain without elevation of troponin, things appear okay at this point. Patient agrees. I did discuss the case with Dr. Vila and he would like to see him tomorrow. We will get appointment for him. Discharged home with return precautions. Patient verbalize understanding of instructions and agreement with plan. Initial ECG Impression Date: Mar 18, 2018 Initial ECG Impression Time: 08:27 Initial ECG Rate: 66 Initial ECG Rhythm: Normal Sinus Comment Sinus rhythm with normal axis. No evidence of ST elevation AR. T-wave inversion similar to previous of 11/03/17. Interpreted by me. Diagnostic Imaging Diagonstic Imaging: Xray Plain Films/CT/US/NM/MRI: chest Comments [facility] [place] NAME: ISADORA DALE [facility] REC#: [id number] PT STATUS: REG ER : 1960 PHYSICIAN: MADAY SAGASTUME MD ADMIT DATE: 03/18/18/ER Draft Date of Exam:03/18/18 CHEST 1 VIEW, AP/PA ONLY INDICATION: Shortness of breath and fatigue Frontal chest obtained at 8:54 a.m. and compared with 03/01/2018. Heart and mediastinal silhouette are normal in appearance. The lungs are clear. There is no pneumothorax or pleural fluid. IMPRESSION: No acute process in the chest. Dictated on workstation # [id number] Dict: 03/18/18 0859 Trans: 03/18/18 0903 RAEGAN [id number] Interpreted by: ALDO FARRAR MD Electronically signed by: Departure Impression Primary Impression: Chest pain Qualified Codes: R07.9 - Chest pain, unspecified Additional Impression: Rhomboid muscle strain Qualified Codes: S29.012A - Strain of muscle and tendon of back wall of thorax , initial encounter Disposition: 01 HOME, SELF-CARE Condition: Improved Departure-Patient Inst. Decision time for Depature: 10:08 Referrals: RYAN VILA MD [facility] JAMESON MCCLELLAN DO (PCP/Family) Primary Care Physician Patient Instructions: Chest Pain (DC), Muscle Strain (DC) Add. Discharge Instructions: All discharge instructions reviewed with patient and/or family. Voiced understanding. Follow-up with Dr. Vila tomorrow as scheduled by the nurse. You may use over- the-counter lidocaine patch such as icy hot with lidocaine or Aspercreme with lidocaine or similar per package directions. He may take Tylenol/acetaminophen 1000 mg every 8 hours as needed for pain. Return for worse pain, fever, vomiting, weakness, breathing problems or other concerns as needed. Copy Copies To 1: RYAN VILA MD [facility] MADAY SAGASTUME MD Mar 18, 2018 09:00
--- NOTE | 2018-03-18 09:04 | Diagnostic Imaging Report ---
INDICATION: Shortness of breath and fatigue Frontal chest obtained at 8:54 a.m. and compared with 03/01/2018. Heart and mediastinal silhouette are normal in appearance. The lungs are clear. There is no pneumothorax or pleural fluid. IMPRESSION: No acute process in the chest. Dictated by: Dictated on workstation # [id number]
[2018-03-18 09:06] LABS: BUN/CREATININE RATIO 13; CARBON DIOXIDE 24 MMOL/L (21-32); CHLORIDE 107 MMOL/L (98-107); CREATININE SERUM 0.97 MG/DL (0.60-1.30); SODIUM 141 MMOL/L (135-145)
[2018-03-18 09:07] LABS: ALANINE AMINOTRANSFERASE 30 U/L (0-55); ALBUMIN 3.9 GM/DL (3.2-4.5); ALKALINE PHOSPHATASE 92 U/L (40-136); BILIRUBIN,TOTAL 0.3 MG/DL (0.1-1.0); CALCIUM 9.2 MG/DL (8.5-10.1); GFR ESTIMATED > 60; GLUCOSE 120 MG/DL (70-105); TOTAL PROTEIN 6.4 GM/DL (6.4-8.2)
[2018-03-18 09:13] LABS: MYOGLOBIN SERUM 39.3 NG/ML (10.0-92.0)
--- NOTE | 2018-03-18 09:13 | NUR ---
TO ROOM REPORTS THAT PAIN BETTER.
[2018-03-18 09:14] VITALS: BP 137/83
[2018-03-18 09:34] LABS: FIBRIN DEGRADATION PRODUCTS 0.31 UG/ML (0.00-0.49)
[2018-03-18 10:20] VITALS: BP 146/99
== END 2018-03-18 10:22 | disposition home or self-care (01) ==
LOC: EDUNIT# 08:25 → ER 08:26
DX: S29.012A Strain of muscle and tendon of back wall of thorax, initial encounter (principal); R07.89 Other chest pain; I25.2 Old myocardial infarction; J45.909 Unspecified asthma, uncomplicated; I25.10 Atherosclerotic heart disease of native coronary artery without angina pectoris; I10 Essential (primary) hypertension; Z80.0 Family history of malignant neoplasm of digestive organs; Z98.890 Other specified postprocedural states; Z95.5 Presence of coronary angioplasty implant and graft; Z79.51 Long term (current) use of inhaled steroids; Z79.82 Long term (current) use of aspirin; X58.XXXA Exposure to other specified factors, initial encounter
CPT/HCPCS: 36415; 71045; 80053; 83735; 83874; 84484; 85025; 85379; 85610; 85730; 93005; 93041

== ENCOUNTER → 2018-04-10 | Outpatient (CLI) | payer BC, OTHER ==
[~2018-04-10] VITALS: Ht 175.3 cm; Wt 91.6 kg
[~2018-04-10] MED LIST changes: +CATHETER FLUSH 10 ML SYR IV PRN; +REGADENOSON 0.4 MG/5 ML SYR (LEXISCAN) IV ONE
[2018-04-10 09:14] VITALS: BP 146/87
[2018-04-10 09:17] VITALS: BP 172/87
--- NOTE | 2018-04-10 13:10 | Cardiology Stress Test Report ---
Stress Test Report Date of Procedure/Referring: PCP Latanya Giron MD Admitting Physician Akash Pena DO Baseline Blood Pressure: Blood Pressure Systolic: 172 Blood Pressure Diastolic: 87 Summary & Conclusion: Summary: The patient was brought to the stress lab after informed consent was taken. Stress test was performed according to the Lexiscan protocol. 0.4 mg of IV Lexiscan was given. Low-grade exercise was performed. Baseline EKG showed sinus rhythm at BPM. Initial blood pressure was mmHg. Maximum heart rate was bpm and blood pressure mmHg. Patient did not have any chest pain, arrhythmias or ST segment changes during the stress test. mCi of Myoview were given for rest imaging and mCi of Myoview given for stress imaging. Transient ischemic dilatation score , EF percent. Normal wall motion. Normal myocardial perfusion imaging during rest and stress. Conclusion: Pharmacological stress test was negative for ischemia. Normal LV function with no wall motion abnormalities. Normal myocardial perfusion imaging during rest and stress. Latanya GIRON MD Apr 10, 2018 13:10
== END ==
LOC: CARD 08:08
PROVIDERS: ATTEND Internal Medicine Interventional Cardiology
DX: I25.10 Atherosclerotic heart disease of native coronary artery without angina pectoris (principal); R07.9 Chest pain, unspecified
CPT/HCPCS: 78452; 93017

== ENCOUNTER 2018-08-05 07:10 | Emergency (ER) | payer BC ==
[~2018-08-05] VITALS: Ht 175.3 cm; Wt 90.7 kg
[~2018-08-05 07:10] MED LIST changes: -CATHETER FLUSH 10 ML SYR IV PRN; -REGADENOSON 0.4 MG/5 ML SYR (LEXISCAN) IV ONE
[2018-08-05] MEDS ORDERED: ASPIRIN 81 MG CHEW (CHILDREN'S ASA) PO ONE (07:30)
[2018-08-05 07:36] LABS: BASOPHILS % (AUTO) 0 % (0-10); EOSINOPHILS # (AUTO) 0.2 10^3/uL (0.0-0.3); EOSINOPHILS % (AUTO) 1 % (0-10); HEMATOCRIT 44 % (40-54); HEMOGLOBIN 14.8 G/DL (13.3-17.7); LYMPHOCYTES # (AUTO) 2.4 X 10^3 (1.0-4.0); LYMPHOCYTES % (AUTO) 22 % (12-44); MEAN CORPUSCULAR HEMOGLOBIN 30 PG (25-34); MEAN CORPUSCULAR HGB CONC 33 G/DL (32-36); MEAN CORPUSCULAR VOLUME 89 FL (80-99); MEAN PLATELET VOLUME 9.7 FL (7.4-10.4); MONOCYTES # (AUTO) 0.9 X 10^3 (0.0-1.0); MONOCYTES % (AUTO) 8 % (0-12); NEUTROPHILS # (AUTO) 7.4 X 10^3 (1.8-7.8); NEUTROPHILS % (AUTO) 68 % (42-75); PLATELET COUNT 283 10^3/uL (130-400); WHITE BLOOD COUNT 10.8 10^3/uL (4.3-11.0)
--- NOTE | 2018-08-05 07:50 | ED Cardiac General ---
History of Present Illness General Chief Complaint: Dizziness/Syncope Stated Complaint: FATIGUE,DIZZINESS,HOT FLASHES,HX OF HEART ATTACK Nursing Triage Note: PT AMB TO RM 6 WITH COMPLAINT OF DIZZINESS AND SWEATS THAT STARTED LAST NIGHT. STATES HE HAS HX OF IN. Source: patient Exam Limitations: no limitations (COURTNEY BARLOW) History of Present Illness Date Seen by Provider: Aug 05, 2018 Time Seen by Provider: 07:35 Initial Comments Patient arrives by private conveyance from work with chief complaint that for the past couple days been having intermittent lightheaded spells feeling hot flushed feeling like his about to pass out. He had a stent placed for an IN and September 2017, 10 months ago. He is known to Dr. Nguyen on Brilinta and aspirin. He took all of his medications today except for his discomfort. 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 He wasn't sure if he is dehydrated or if there was something else going on with his heart. He has worn a monitor recently looking for dysrhythmia but none was found. (COURTNEY BARLOW) Allergies and Home Medications Allergies Coded Allergies: No Known Drug Allergies (Unverified , 05/05/16) Home Medications Albuterol Sulfate 1 Puff Puff, 2 PUFF IH Q4H PRN for SHORTNESS OF BREATH, (Reported) Albuterol Sulfate 1 Puff Puff, 2 PUFF IH Q4H PRN for WHEEZING 1 PUFF = 90 MCG Prescribed by: COURTNEY BARLOW on 03/01/18 1020 Aspirin 81 Mg Tablet.dr, 81 MG PO DAILY, (Reported) Atorvastatin Calcium 80 Mg Tablet, 40 MG PO HS, (Reported) TAKES 1/2 (80MG) TABLET Fluticasone Propionate 9.9 Ml [place].susp, 1 SPRAY NS DAILY, (Reported) Loratadine 10 Mg Tablet, 10 MG PO DAILY, (Reported) Metoprolol Tartrate 25 Mg Tablet, 12.5 MG PO BID Prescribed by: BLANCA RICO on 11/01/17 1257 Ticagrelor 90 Mg Tablet, 90 MG PO BID, (Reported) Patient Home Medication List Home Medication List Reviewed: Yes (COURTNEY BARLOW) Review of Systems Review of Systems Constitutional: No chills; diaphoresis, dizziness; No fever, No malaise EENTM: No Blurred Vision, No Double Vision Respiratory: Denies Cough, Denies Shortness of Air Cardiovascular: Denies Chest Pain, Denies Edema Gastrointestinal: Denies Abdominal Pain, Denies Constipated, Denies Diarrhea, Denies Nausea, Denies Vomiting Genitourinary: Denies Burning, Denies Discharge Musculoskeletal: No back pain, No joint pain Skin: No pruritus, No rash Psychiatric/Neurological: Denies Headache, Denies Numbness, Denies Paresthesia (COURTNEY BARLOW) Past Zypmvgc-Xtxkxo-Uzekqe Hx Patient Social History Alcohol Use: Denies Use Recreational Drug Use: No Smoking Status: Never a Smoker Type Used: Smokeless Tobacco 2nd Hand Smoke Exposure: No Recent Foreign Travel: No Contact w/Someone Who Travel: No Recent Infectious Disease Expo: No Recent Hopitalizations: No (COURTNEY BARLOW) Immunizations Up To Date Tetanus Booster (TDap): Unknown (COURTNEY BARLOW) Seasonal Allergies Seasonal Allergies: Yes (COURTNEY BARLOW) Past Medical History Surgeries: Yes (SINUS SURGEY, SUBMANDIBULAR GLAND RESECTION, ) Coronary Stent Respiratory: Yes Asthma Currently Using CPAP: No Currently Using BIPAP: No Cardiac: Yes Coronary Artery Disease, Heart Attack, Hypertension Neurological: No Reproductive Disorders: No Sexually Transmitted Disease: No HIV/AIDS: No Genitourinary: No Gastrointestinal: No Musculoskeletal: No Endocrine: No HEENT: Yes (wears glasses) Loss of Vision: Bilateral Cancer: No Psychosocial: No Integumentary: No Blood Disorders: No Adverse Reaction/Blood Tranf: No (COURTNEY BARLOW) Family Medical History Colon cancer 19 FATHER Diabetes mellitus 19 MOTHER Headache disorder G8 SISTER Thyroid disease G8 SISTER Cancer, Diabetes (COURTNEY BARLOW) Physical Exam Vital Signs Vital Signs - First Documented 08/05/18 07:17 Temp 97.1 Pulse 62 Resp 15 B/P (MAP) 140/88 (105) Pulse Ox 99 O2 Delivery Room Air (MADAY SAGASTUME MD) Vital Signs Capillary Refill : Less Than 3 Seconds (COURTNEY BARLOW) Height, Weight, BMI Height: 5'9.00" Weight: 200lbs. 0.0oz. 90.966828cm; 29.8 BMI Method:Stated General Appearance: No Apparent Distress, WD/WN HEENT: PERRL/EOMI, Pharynx Normal, Moist Mucous Membranes Neck: Full Range of Motion, Normal Inspection Respiratory: Lungs Clear, No Accessory Muscle Use, No Respiratory Distress Cardiovascular: Regular Rate, Rhythm, No Edema, No JVD, No Murmur, Normal Peripheral Pulses Gastrointestinal: Normal Bowel Sounds, Non Tender, Soft Extremity: Normal Capillary Refill, Normal Inspection, Non Tender, No Calf Tenderness, No Pedal Edema Neurologic/Psychiatric: Alert, Oriented x3 Skin: Normal Color, Warm/Dry ([place],COURTNEY J) Progress/Results/Core Measures Results/Orders Lab Results Laboratory Tests Test 08/05/18 07:25 08/05/18 09:28 Range/Units White Blood Count 10.8 4.3-11.0 10^3/uL Red Blood Count 4.99 4.35-5.85 10^6/uL Hemoglobin 14.8 13.3-17.7 G/DL Hematocrit 44 40-54 % Mean Corpuscular Volume 89 80-99 FL Mean Corpuscular Hemoglobin 30 25-34 PG Mean Corpuscular Hemoglobin Concent 33 32-36 G/DL Red Cell Distribution Width 14.0 10.0-14.5 % Platelet Count 283 130-400 10^3/uL Mean Platelet Volume 9.7 7.4-10.4 FL Neutrophils (%) (Auto) 68 42-75 % Lymphocytes (%) (Auto) 22 12-44 % Monocytes (%) (Auto) 8 0-12 % Eosinophils (%) (Auto) 1 0-10 % Basophils (%) (Auto) 0 0-10 % Neutrophils # (Auto) 7.4 1.8-7.8 X 10^3 Lymphocytes # (Auto) 2.4 1.0-4.0 X 10^3 Monocytes # (Auto) 0.9 0.0-1.0 X 10^3 Eosinophils # (Auto) 0.2 0.0-0.3 10^3/uL Basophils # (Auto) 0.0 0.0-0.1 10^3/uL Prothrombin Time 14.1 12.2-14.7 SEC INR Comment 1.0 0.8-1.4 Activated Partial Thromboplast Time 30 24-35 SEC Sodium Level 143 135-145 MMOL/L Potassium Level 4.0 3.6-5.0 MMOL/L Chloride Level 107 98-107 MMOL/L Carbon Dioxide Level 25 21-32 MMOL/L Anion Gap 11 5-14 MMOL/L Blood Urea Nitrogen 8 7-18 MG/DL Creatinine 0.91 0.60-1.30 MG/DL Estimat Glomerular Filtration Rate > 60 BUN/Creatinine Ratio 9 Glucose Level 126 H 70-105 MG/DL Calcium Level 9.7 8.5-10.1 MG/DL Corrected Calcium 9.5 8.5-10.1 MG/DL Magnesium Level 2.2 1.8-2.4 MG/DL Total Bilirubin 0.9 0.1-1.0 MG/DL Aspartate Amino Transf (AST/SGOT) 18 5-34 U/L Alanine Aminotransferase (ALT/SGPT) 25 0-55 U/L Alkaline Phosphatase 114 40-136 U/L Myoglobin 64.9 10.0-92.0 NG/ML Troponin I < 0.028 < 0.028 <0.028 NG/ML Total Protein 7.2 6.4-8.2 GM/DL Albumin 4.3 3.2-4.5 GM/DL (MADAY SAGASTUME MD) My Orders Orders - MADAY SAGASTUME MD Cbc With Automated Diff (08/05/18 07:29) Magnesium (08/05/18 07:29) Chest 1 View, Ap/Pa Only (08/05/18 07:29) Ekg Tracing (08/05/18 07:29) Cardiac Profile 1 (08/05/18 07:29) Comprehensive Metabolic Panel (08/05/18 07:29) Myoglobin Serum (08/05/18 07:29) Protime With Inr (08/05/18 07:29) Partial Thromboplastin Time (08/05/18 07:29) O2 (08/05/18 07:29) Monitor-Rhythm Ecg Trace Only (08/05/18 07:29) Lipid Panel (08/06/18 06:00) Ed Iv/Invasive Line Start (08/05/18 07:29) Aspirin Chewable Tablet (Baby Aspirin Ch (08/05/18 07:30) (MADAY SAGASTUME MD) Medications Given in ED Current Medications Medications Dose Ordered Sig/Darek Route Start Time Stop Time Status Last Admin Dose Admin Aspirin 324 mg ONCE ONCE PO 08/05/18 07:30 08/05/18 07:31 DC 08/05/18 07:49 324 MG Lactated Ringer's 1,000 ml @ 0 mls/hr Q0M ONCE IV 08/05/18 08:24 08/05/18 08:25 DC 08/05/18 08:56 1,000 MLS/HR (MADAY SAGASTUME MD) Vital Signs/I&O 08/05/18 08/05/18 07:17 08:02 Temp 97.1 Pulse 62 58 58 61 Resp 15 B/P (MAP) 140/88 (105) 132/77 (95) 134/97 (109) 146/86 (106) Pulse Ox 99 O2 Delivery Room Air (MADAY SAGASTUME MD) Blood Pressure Mean: 105 Progress Progress Note : Time: 08:16 Progress Note Plan to give him the rest of aspirin on the off chance this is coronary related. Check labs including a troponin. Dehydration versus orthostatic hypotension vers us dysrhythmia. Have not seen anything on EKG or telemetry. Orthostatic vital signs are okay. Patient does appear to be dry on clinical exam. Negative stress test March 2018. Normal ejection fraction. 11/13: ST elevation IN; proximal RCA drug-eluting stent by Dr. Nguyen and discharged on dual antiplatelet therapy. (COURTNEY BARLOW) Progress Note : Progress Note 1015: I have assumed care of the patient from Dr. Barlow pending repeat troponin. This is complete. Still is negative. Overall, patient is feeling much better after fluids. No acute ectopy on the monitor blood pressure and heart rate are in normal range. At this point, all appear safe for discharge home. Discharged home with return precautions. Patient verbalize understanding instructions and agreement with plan. (MADAY SAGASTUME MD) Initial ECG Impression Date: Aug 05, 2018 Initial ECG Impression Time: 07:23 Initial ECG Rate: 62 Initial ECG Rhythm: Normal Sinus Initial ECG Intervals: Normal Initial ECG Impression: Normal, Nonspecific Changes Initial ECG Comparisson: Unchanged Comment No ST elevation or depression. There are some inverted T waves leads 3 and aVF seen on prior EKG from 03/18/18. (COURTNEY BARLOW) Diagnostic Imaging Diagonstic Imaging: Xray Plain Films/CT/US/NM/MRI: chest (1v) Comments NAME: ISADORA DALE [facility] REC#: [id number] PT STATUS: REG ER : 1960 PHYSICIAN: MADAY SAGASTUME MD ADMIT DATE: 08/05/18/ER Draft Date of Exam:08/05/18 CHEST 1 VIEW, AP/PA ONLY INDICATION: Dizziness, sweats. COMPARISON: 03/18/2018. TECHNIQUE: Single radiograph of chest dated 08/05/2018. FINDINGS: The cardiac silhouette and pulmonary vasculature are unremarkable. Minimal right basilar pulmonary opacities are present. Otherwise, lungs appear clear. No pleural effusion. No pneumothorax. No acute osseous abnormality. IMPRESSION: Mild right basilar atelectasis and/or pneumonitis. Dictated on workstation # [id number] Dict: 08/05/18 0757 Trans: 08/05/18 0803 [id number] Interpreted by: PETER BEAN MD Electronically signed by: Reviewed: Reviewed by Me (COURTNEY BARLOW) Consults : Consulting Physician: ABBEY ARVIZU MD Consults Notes Discussed the case lab EKG and imaging and he would recommend a delta troponin and follow-up in the clinic. (COURTNEY BARLOW) Departure Impression Primary Impression: Dizziness Disposition: 01 HOME, SELF-CARE Condition: Improved Departure-Patient Inst. Decision time for Depature: 10:19 (MADAY SAGASTUME MD) Referrals: Latanya NGUYEN MD, WILLIAM J DO (PCP/Family) Primary Care Physician Patient Instructions: Dehydration, Adult (DC), Dizziness, Nonvertigo, (DC) Add. Discharge Instructions: All discharge instructions reviewed with patient and/or family. Voiced understanding. Ensure a normal diet and adequate amount of fluids. Should follow-up with your Dr. for recheck and further evaluation within the next couple days. Rest today. Continue home medicines as previously prescribed. Return for worse pain, fever, vomiting, weakness, breathing problems, chest pain or other concerns as needed. Copy Copies To 1: Latanya NGUYEN MD Copies To 2: JAMESON MCCLELLAN TITUS J Aug 05, 2018 07:50 MADAY SAGASTUME MD Aug 05, 2018 10:21
[2018-08-05 07:58] LABS: ALANINE AMINOTRANSFERASE 25 U/L (0-55); ALBUMIN 4.3 GM/DL (3.2-4.5); ALKALINE PHOSPHATASE 114 U/L (40-136); BILIRUBIN,TOTAL 0.9 MG/DL (0.1-1.0); BUN/CREATININE RATIO 9; CALCIUM 9.7 MG/DL (8.5-10.1); CARBON DIOXIDE 25 MMOL/L (21-32); CHLORIDE 107 MMOL/L (98-107); CREATININE SERUM 0.91 MG/DL (0.60-1.30); GFR ESTIMATED > 60; GLUCOSE 126 MG/DL (70-105); MAGNESIUM 2.2 MG/DL (1.8-2.4); SODIUM 143 MMOL/L (135-145); TOTAL PROTEIN 7.2 GM/DL (6.4-8.2)
[2018-08-05 08:02] VITALS: BP_SYST 132; BP_SYST 134; BP_SYST 146; BP_DIAS 77; BP_DIAS 86; BP_DIAS 97
--- NOTE | 2018-08-05 08:03 | Diagnostic Imaging Report ---
INDICATION: Dizziness, sweats. COMPARISON: 03/18/2018. TECHNIQUE: Single radiograph of chest dated 08/05/2018. FINDINGS: The cardiac silhouette and pulmonary vasculature are unremarkable. Minimal right basilar pulmonary opacities are present. Otherwise, lungs appear clear. No pleural effusion. No pneumothorax. No acute osseous abnormality. IMPRESSION: Mild right basilar atelectasis and/or pneumonitis. Dictated by: Dictated on workstation # [id number]
[2018-08-05 08:09] LABS: PROTHROMBIN TIME PATIENT 14.1 SEC (12.2-14.7)
[2018-08-05] MEDS ORDERED: LACTATED RINGERS 1,000 ML IV ONE (08:24)
[2018-08-05 10:28] VITALS: BP 144/88
== END 2018-08-05 10:28 | disposition home or self-care (01) ==
LOC: EDUNIT# 07:10 → ER 07:11
DX: R42 Dizziness and giddiness (principal); J45.909 Unspecified asthma, uncomplicated; I25.10 Atherosclerotic heart disease of native coronary artery without angina pectoris; I10 Essential (primary) hypertension; I25.2 Old myocardial infarction; Z95.5 Presence of coronary angioplasty implant and graft; Z79.82 Long term (current) use of aspirin; Z80.0 Family history of malignant neoplasm of digestive organs; Z79.51 Long term (current) use of inhaled steroids; Z98.890 Other specified postprocedural states
CPT/HCPCS: 36415; 71045; 80053; 83735; 83874; 84484; 85025; 85610; 85730; 93005; 93041; 96360

== ENCOUNTER 2018-12-07 11:31 | Emergency (ER) | payer BC ==
[~2018-12-07] VITALS: Ht 175 cm; Wt 90.9 kg
[2018-12-07] MEDS ORDERED: LOSA100T57 PO (11:49)
[2018-12-07 12:21] LABS: BASOPHILS % (AUTO) 0 % (0-10); EOSINOPHILS # (AUTO) 0.1 10^3/uL (0.0-0.3); EOSINOPHILS % (AUTO) 1 % (0-10); HEMATOCRIT 42 % (40-54); HEMOGLOBIN 14.1 G/DL (13.3-17.7); LYMPHOCYTES # (AUTO) 2.1 X 10^3 (1.0-4.0); LYMPHOCYTES % (AUTO) 19 % (12-44); MEAN CORPUSCULAR HEMOGLOBIN 31 PG (25-34); MEAN CORPUSCULAR HGB CONC 34 G/DL (32-36); MEAN CORPUSCULAR VOLUME 91 FL (80-99); MONOCYTES # (AUTO) 0.9 X 10^3 (0.0-1.0); MONOCYTES % (AUTO) 8 % (0-12); NEUTROPHILS # (AUTO) 8.2 X 10^3 (1.8-7.8); NEUTROPHILS % (AUTO) 72 % (42-75); PLATELET COUNT 255 10^3/uL (130-400); WHITE BLOOD COUNT 11.4 10^3/uL (4.3-11.0)
--- NOTE | 2018-12-07 12:21 | ED Syncope ---
General Chief Complaint: Respiratory Problems Stated Complaint: LIGHTHEADED/DIZZY/SOB Nursing Triage Note: PT PRESENTS TO ED FROM HOME WITH COMPLAINTS OF SOA, GENERALIZED WEAKNESS/LIGHTHEADED AND DIZZINESS STARTING YESTERDAY. PT DENIES ANY CP AT THIS TIME. Source of Information: Patient Exam Limitations: No Limitations History of Present Illness Date Seen by Provider: Dec 07, 2018 Time Seen by Provider: 12:03 Initial Comments Patient presents ER by private conveyance with chief complaint of mild short of breath and feeling dizzy like he's going to pass out standing up from kneeling down or bending over. He is on metoprolol followed by Dr. Giron with history of coronary disease. He recently had a sinus infection and put an antibiotic which she completed about 2 days ago. He is feeling much better. He still having some nasal congestion however and took a dose of Tylenol with phenylephrine and guaifenesin yesterday and again today. He says he is still feels poorly like he is drained of energy and at times like he might pass out. He's been on metoprolol for many years. No fevers diarrhea nausea or vomiting. Allergies and Home Medications Allergies Coded Allergies: No Known Drug Allergies (Unverified , 05/05/16) Home Medications Albuterol Sulfate 1 Puff Puff, 2 PUFF IH Q4H PRN for SHORTNESS OF BREATH, (Reported) Albuterol Sulfate 1 Puff Puff, 2 PUFF IH Q4H PRN for WHEEZING 1 PUFF = 90 MCG Prescribed by: COURTNEY MAURO on 03/01/18 1020 Aspirin 81 Mg Tablet.dr, 81 MG PO DAILY, (Reported) Atorvastatin Calcium 80 Mg Tablet, 40 MG PO HS, (Reported) TAKES 1/2 (80MG) TABLET Fluticasone Propionate 9.9 Ml [place].susp, 1 SPRAY NS DAILY, (Reported) Loratadine 10 Mg Tablet, 10 MG PO DAILY, (Reported) Losartan Potassium 100 Mg Tablet, 100 MG PO DAILY, (Reported) Metoprolol Tartrate 25 Mg Tablet, 12.5 MG PO BID Prescribed by: BLANCA RICO on 11/01/17 1257 Ticagrelor 90 Mg Tablet, 90 MG PO BID, (Reported) Patient Home Medication List Home Medication List Reviewed: Yes Review of Systems Constitutional: No chills, No fever; malaise, weakness EENTM: No ear pain, No eye pain Respiratory: No cough, No orthopnea, No short of breath, No stridor, No wheezing Cardiovascular: No chest pain, No edema, No palpitations Gastrointestinal: No abdominal pain, No nausea, No vomiting Genitourinary: No discharge, No dysuria Past Icmovzq-Cpxxtm-Ldaoqg Hx Patient Social History Alcohol Use: Denies Use Recreational Drug Use: No Smoking Status: Never a Smoker Type Used: Smokeless Tobacco 2nd Hand Smoke Exposure: No Recent Foreign Travel: No Contact w/Someone Who Travel: No Recent Infectious Disease Expo: No Recent Hopitalizations: No Physical Abuse: No Sexual Abuse: No Mistreated: No Fear: No Immunizations Up To Date Tetanus Booster (TDap): Unknown Seasonal Allergies Seasonal Allergies: Yes Past Medical History Surgeries: Yes (SINUS SURGEY, SUBMANDIBULAR GLAND RESECTION, ) Coronary Stent Respiratory: Yes Asthma Currently Using CPAP: No Currently Using BIPAP: No Cardiac: Yes Coronary Artery Disease, Heart Attack, Hypertension Neurological: No Reproductive Disorders: No Sexually Transmitted Disease: No HIV/AIDS: No Genitourinary: No Gastrointestinal: No Musculoskeletal: No Endocrine: No HEENT: Yes (wears glasses) Loss of Vision: Bilateral Cancer: No Psychosocial: No Integumentary: No Blood Disorders: No Adverse Reaction/Blood Tranf: No Family Medical History Colon cancer 19 FATHER Diabetes mellitus 19 MOTHER Headache disorder G8 SISTER Thyroid disease G8 SISTER Cancer, Diabetes Physical Exam Vital Signs Vital Signs - First Documented 12/07/18 11:42 Temp 36.5 Pulse 55 Resp 20 B/P (MAP) 134/75 (94) Pulse Ox 98 Capillary Refill : Less Than 3 Seconds Height, Weight, BMI Height: 5'9.00" Weight: 200lbs. 0.0oz. [id number]; 29.00 BMI Method:Stated General Appearance: No Apparent Distress, WD/WN HEENT: PERRL/EOMI, Pharynx Normal, Moist Mucous Membranes Neck: Full Range of Motion, Normal Inspection, Non Tender, Supple Cardiovascular: Regular Rate, Rhythm, No Edema, Normal Peripheral Pulses Respiratory: Chest Non Tender, Lungs Clear, Normal Breath Sounds, No Accessory Muscle Use, No Respiratory Distress Gastrointestinal: Normal Bowel Sounds, Non Tender, Soft Neurologic/Psychiatric: Alert, Oriented x3, No Motor/Sensory Deficits Progress/Results/Core Measures Results/Orders Lab Results Laboratory Tests Test 12/07/18 11:40 Range/Units White Blood Count 11.4 H 4.3-11.0 10^3/uL Red Blood Count 4.58 4.35-5.85 10^6/uL Hemoglobin 14.1 13.3-17.7 G/DL Hematocrit 42 40-54 % Mean Corpuscular Volume 91 80-99 FL Mean Corpuscular Hemoglobin 31 25-34 PG Mean Corpuscular Hemoglobin Concent 34 32-36 G/DL Red Cell Distribution Width 13.0 10.0-14.5 % Platelet Count 255 130-400 10^3/uL Mean Platelet Volume 10.0 7.4-10.4 FL Neutrophils (%) (Auto) 72 42-75 % Lymphocytes (%) (Auto) 19 12-44 % Monocytes (%) (Auto) 8 0-12 % Eosinophils (%) (Auto) 1 0-10 % Basophils (%) (Auto) 0 0-10 % Neutrophils # (Auto) 8.2 H 1.8-7.8 X 10^3 Lymphocytes # (Auto) 2.1 1.0-4.0 X 10^3 Monocytes # (Auto) 0.9 0.0-1.0 X 10^3 Eosinophils # (Auto) 0.1 0.0-0.3 10^3/uL Basophils # (Auto) 0.0 0.0-0.1 10^3/uL Sodium Level 139 135-145 MMOL/L Potassium Level 4.0 3.6-5.0 MMOL/L Chloride Level 104 98-107 MMOL/L Carbon Dioxide Level 25 21-32 MMOL/L Anion Gap 10 5-14 MMOL/L Blood Urea Nitrogen 10 7-18 MG/DL Creatinine 0.94 0.60-1.30 MG/DL Estimat Glomerular Filtration Rate > 60 BUN/Creatinine Ratio 11 Glucose Level 128 H 70-105 MG/DL Calcium Level 9.1 8.5-10.1 MG/DL Corrected Calcium 8.9 8.5-10.1 MG/DL Total Bilirubin 0.8 0.1-1.0 MG/DL Aspartate Amino Transf (AST/SGOT) 17 5-34 U/L Alanine Aminotransferase (ALT/SGPT) 25 0-55 U/L Alkaline Phosphatase 120 40-136 U/L Troponin I < 0.028 <0.028 NG/ML B-Type Natriuretic Peptide 46.6 <100.0 PG/ML Total Protein 7.1 6.4-8.2 GM/DL Albumin 4.3 3.2-4.5 GM/DL My Orders Orders - COURTNEY MAURO Cbc With Automated Diff (12/07/18 12:13) Orthostatic Vital Signs (Adult (12/07/18 12:13) Comprehensive Metabolic Panel (12/07/18 12:13) Troponin I (12/07/18 12:13) Ekg Tracing (12/07/18 12:13) Continuous Ekg Monitoring (12/07/18 12:13) BNP (12/07/18 12:13) Chest 1 View, Ap/Pa Only (12/07/18 12:13) Vital Signs/I&O 12/07/18 11:42 Temp 36.5 Pulse 55 Resp 20 B/P (MAP) 134/75 (94) Pulse Ox 98 Blood Pressure Mean: 94 Progress Progress Note #1: Time: 12:19 Progress Note Metoprolol and phenylephrine combined with infection and possible orthostasis could be causing his near syncopal episodes. We'll get a set of orthostatics, EKG, labs including BNP and troponin. Progress Note #2: Time: 13:41 Progress Note Patient has had no acute coronary syndrome symptoms. He has not had any further symptoms of near syncope since he's been here. He's had no darian syncope at any point. He says is been drinking a lot more last night trying to rehydrate and this could possibly explain why he is not orthostatic today and his labs look okay. Initial ECG Impression Date: Dec 07, 2018 Initial ECG Impression Time: 11:38 Initial ECG Rate: 56 Initial ECG Rhythm: Normal Sinus Initial ECG Intervals: Normal Initial ECG Impression: Normal Initial ECG Comparisson: Unchanged Comment Normal sinus rhythm with no significant ST elevation or depression. Diagnostic Imaging Diagonstic Imaging: Xray Plain Films/CT/US/NM/MRI: chest (1v) Comments NAME: BERNABEYEIMIISADORA J MED REC#: [id number] PHYSICIAN: COURTNEY MAURO MD CC: GAVIOTA JOHN MD; COURTNEY MAURO Page 1 of 1 RADIOLOGY REPORT [facility]. [place], [place] CC: GAVIOTA JOHN MD; COURTNEY MAURO Page 1 of 1 RADIOLOGY REPORT NAME: ISADORA [facility] REC#: [id number] PT STATUS: REG ER : 1960 PHYSICIAN: COURTNEY MAURO MD ADMIT DATE: 12/07/18/ER Signed Date of Exam: 12/07/18 CHEST 1 VIEW, AP/PA ONLY INDICATION: Dizziness and lightheadedness. TIME OF EXAM: 12:24 PM COMPARISON: Correlation is made with prior chest from 08/05/2018. FINDINGS: The heart size is normal. The pulmonary vascularity is unremarkable. The lungs are clear. No infiltrate, effusion or pneumothorax is detected. IMPRESSION: No acute cardiopulmonary process is detected. Dictated by: Dictated on workstation # [id number] Dict: 12/07/18 1243 Trans: 12/07/18 1253 Interpreted by: GAVIOTA JOHN MD Electronically signed by: GAVIOTA JOHN MD 12/07/18 1253 Reviewed: Reviewed by Me Departure Impression Primary Impression: Postural dizziness with near syncope Disposition: 01 HOME, SELF-CARE Condition: Stable Departure-Patient Inst. Decision time for Depature: 13:43 Referrals: Latanya GIRON MD, WILLIAM J DO (PCP/Family) Primary Care Physician Patient Instructions: Near Fainting (DC) Add. Discharge Instructions: Tomorrow morning call Dr. Giron's clinic and request follow-up in the same day. Return to the ER if you begin to have chest pain, shortness of breath or worsening symptoms. All discharge instructions reviewed with patient and/or family. Voiced understanding. Copy Copies To 1: Latanya GIRON MD, TITUS J Dec 07, 2018 12:21
[2018-12-07 12:33] LABS: ALANINE AMINOTRANSFERASE 25 U/L (0-55); ALBUMIN 4.3 GM/DL (3.2-4.5); ALKALINE PHOSPHATASE 120 U/L (40-136); BILIRUBIN,TOTAL 0.8 MG/DL (0.1-1.0); BUN/CREATININE RATIO 11; CALCIUM 9.1 MG/DL (8.5-10.1); CARBON DIOXIDE 25 MMOL/L (21-32); CHLORIDE 104 MMOL/L (98-107); CREATININE SERUM 0.94 MG/DL (0.60-1.30); GFR ESTIMATED > 60; GLUCOSE 128 MG/DL (70-105); SODIUM 139 MMOL/L (135-145); TOTAL PROTEIN 7.1 GM/DL (6.4-8.2)
--- NOTE | 2018-12-07 12:48 | Diagnostic Imaging Report ---
INDICATION: Dizziness and lightheadedness. TIME OF EXAM: 12:24 PM COMPARISON: Correlation is made with prior chest from 08/05/2018. FINDINGS: The heart size is normal. The pulmonary vascularity is unremarkable. The lungs are clear. No infiltrate, effusion or pneumothorax is detected. IMPRESSION: No acute cardiopulmonary process is detected. Dictated by: Dictated on workstation # [id number]
[2018-12-07 13:30] VITALS: BP_SYST 123; BP_DIAS 81; BP_DIAS 82
[2018-12-07 13:55] VITALS: BP 135/80
== END 2018-12-07 13:55 | disposition home or self-care (01) ==
LOC: EDUNIT# 11:31 → ER 11:32
DX: R42 Dizziness and giddiness (principal); R55 Syncope and collapse; I10 Essential (primary) hypertension; I25.2 Old myocardial infarction; J45.909 Unspecified asthma, uncomplicated; I25.10 Atherosclerotic heart disease of native coronary artery without angina pectoris; Z79.82 Long term (current) use of aspirin; Z79.51 Long term (current) use of inhaled steroids; Z95.5 Presence of coronary angioplasty implant and graft; Z80.0 Family history of malignant neoplasm of digestive organs
CPT/HCPCS: 36415; 71045; 80053; 83880; 84484; 85025; 93005

== ENCOUNTER → 2018-12-12 | Outpatient (CLI) | payer BC, OTHER ==
[~2018-12-12] MED LIST changes: +LOSA100T57 PO
--- NOTE | 2018-12-12 13:27 | Diagnostic Imaging Report ---
PROCEDURE: US carotid duplex, bilateral. TECHNIQUE: Multiple real-time grayscale images were obtained over the carotid arteries in various projections, bilaterally. Additional spectral analysis and color Doppler duplex images were also obtained. INDICATION: Dizziness. FINDINGS: There is mild plaquing at the carotid bifurcations and proximal internal carotid arteries bilaterally. The velocities are normal bilaterally. No velocity elevation or stenosis is seen. Both vertebral arteries show antegrade flow. IMPRESSION: Mild bilateral carotid plaque. There is no evidence of a hemodynamically significant stenosis. Parameters based on the consensus panel Jauregui-Scale and Doppler ultrasound criteria published December 2002, Radiology, Volume 229. DOPPLER (peak systolic velocity M/S Right Left CCA .76 .80 ICA Proximal .60 .66 ICA Mid .61 .85 ICA Distal .62 .82 RATIO .8 1.1 ECA 1.09 .77 VERT .45 .30 Dictated by: Dictated on workstation # [id number]
== END ==
LOC: RAD 11:38
PROVIDERS: ATTEND Internal Medicine
DX: I65.23 Occlusion and stenosis of bilateral carotid arteries (principal); I25.10 Atherosclerotic heart disease of native coronary artery without angina pectoris; J01.01 Acute recurrent maxillary sinusitis
CPT/HCPCS: 93880

== ENCOUNTER 2019-05-19 16:34 | Emergency (ER) | payer BC ==
[~2019-05-19] VITALS: Ht 170 cm; Wt 90.0 kg
[2019-05-19] MEDS ORDERED: NS IV 500 ML 500 ML IV SCH (17:30)
[2019-05-19] MEDS ORDERED: ASPIRIN 81 MG CHEW (CHILDREN'S ASA) PO ONE (17:30)
[2019-05-19 17:39] LABS: BASOPHILS # (AUTO) 0.1 10^3/uL (0.0-0.1); BASOPHILS % (AUTO) 0 % (0-10); EOSINOPHILS # (AUTO) 0.1 10^3/uL (0.0-0.3); EOSINOPHILS % (AUTO) 1 % (0-10); HEMATOCRIT 45 % (40-54); HEMOGLOBIN 15.3 G/DL (13.3-17.7); LYMPHOCYTES # (AUTO) 2.3 X 10^3 (1.0-4.0); LYMPHOCYTES % (AUTO) 16 % (12-44); MEAN CORPUSCULAR HEMOGLOBIN 30 PG (25-34); MEAN CORPUSCULAR HGB CONC 34 G/DL (32-36); MEAN CORPUSCULAR VOLUME 90 FL (80-99); MEAN PLATELET VOLUME 9.5 FL (7.4-10.4); MONOCYTES # (AUTO) 1.2 X 10^3 (0.0-1.0); MONOCYTES % (AUTO) 8 % (0-12); NEUTROPHILS # (AUTO) 10.9 X 10^3 (1.8-7.8); NEUTROPHILS % (AUTO) 75 % (42-75); PLATELET COUNT 288 10^3/uL (130-400); RED CELL DISTRIBUTION WIDTH 13.3 % (10.0-14.5); WHITE BLOOD COUNT 14.5 10^3/uL (4.3-11.0)
--- NOTE | 2019-05-19 17:41 | ED General ---
General Chief Complaint: General Problems/Pain Stated Complaint: WEAKNESS,LIGHTHEADED Nursing Triage Note: PT STATES HX OF AMI IN Sep, STATES HE HAS BEEN WORKING MORE LATELY AND IS FEELING MORE FATIGUE, DENIES CHEST DISCOMFORT, NO N/V, DOES FEEL SOB AND DIZZY WHEN WORKING AND FOR A SHORT TIME AFTER, LIGHTHEADED AT TRIAGE. DENIES ANY SYNCOPAL EPISODES. Nursing Sepsis Screen: No Definite Risk Source of Information: Patient Exam Limitations: No Limitations History of Present Illness Date Seen by Provider: May 19, 2019 Time Seen by Provider: 17:39 Initial Comments To ER with reports of dyspnea on exertion general fatigue today, dyspnea on exertion for a few days. History of myocardial infarction in 2018, concerned his symptoms may represent cardiac trouble. He denies chest pain. Denies fevers chills or cough. Timing/Duration: 2-3 Days Associated Systoms: No Chest Pain Allergies and Home Medications Allergies Coded Allergies: No Known Drug Allergies (Unverified , 05/05/16) Home Medications Albuterol Sulfate 1 Puff Puff, 2 PUFF IH Q4H PRN for SHORTNESS OF BREATH, (Reported) Albuterol Sulfate 1 Puff Puff, 2 PUFF IH Q4H PRN for WHEEZING 1 PUFF = 90 MCG Prescribed by: COURTNEY MAURO on 03/01/18 1020 Aspirin 81 Mg Tablet.dr, 81 MG PO DAILY, (Reported) Atorvastatin Calcium 80 Mg Tablet, 40 MG PO HS, (Reported) TAKES 1/2 (80MG) TABLET Fluticasone Propionate 9.9 Ml [place].susp, 1 SPRAY NS DAILY, (Reported) Loratadine 10 Mg Tablet, 10 MG PO DAILY, (Reported) Losartan Potassium 100 Mg Tablet, 100 MG PO DAILY, (Reported) Metoprolol Tartrate 25 Mg Tablet, 12.5 MG PO BID Prescribed by: BLANCA RICO on 11/01/17 1257 Ticagrelor 90 Mg Tablet, 90 MG PO BID, (Reported) Patient Home Medication List Home Medication List Reviewed: Yes Review of Systems Review of Systems Constitutional: see HPI, malaise EENTM: see HPI Respiratory: see HPI, dyspnea on exertion Genitourinary: no symptoms reported Musculoskeletal: no symptoms reported Skin: no symptoms reported Psychiatric/Neurological: No Symptoms Reported Hematologic/Lymphatic: No Symptoms Reported Past Swxroig-Rvgodl-Zaozmi Hx Patient Social History Alcohol Use: Denies Use Recreational Drug Use: No Smoking Status: Never a Smoker Type Used: Smokeless Tobacco 2nd Hand Smoke Exposure: No Recent Foreign Travel: No Contact w/Someone Who Travel: No Recent Infectious Disease Expo: No Recent Hopitalizations: No Immunizations Up To Date Tetanus Booster (TDap): Unknown Seasonal Allergies Seasonal Allergies: Yes Past Medical History Surgeries: Yes (SINUS SURGEY, SUBMANDIBULAR GLAND RESECTION, ) Coronary Stent Respiratory: Yes Asthma Currently Using CPAP: No Currently Using BIPAP: No Cardiac: Yes Coronary Artery Disease, Heart Attack, Hypertension Neurological: No Reproductive Disorders: No Sexually Transmitted Disease: No HIV/AIDS: No Genitourinary: No Gastrointestinal: No Musculoskeletal: No Endocrine: No HEENT: Yes (wears glasses) Loss of Vision: Bilateral Cancer: No Psychosocial: No Integumentary: No Blood Disorders: No Adverse Reaction/Blood Tranf: No Family Medical History Colon cancer 19 FATHER Diabetes mellitus 19 MOTHER Headache disorder G8 SISTER Thyroid disease G8 SISTER Cancer, Diabetes Physical Exam Vital Signs Vital Signs - First Documented 05/19/19 17:13 Temp 36.4 Pulse 68 Resp 18 B/P (MAP) 158/82 (107) Pulse Ox 97 O2 Delivery Room Air Capillary Refill : Less Than 3 Seconds Height, Weight, BMI Height: 5'9.00" Weight: 200lbs. 0.0oz. [id number]; 31.00 BMI Method:Stated General Appearance: No Apparent Distress, WD/WN Eyes: Bilateral Eye Normal Inspection, Bilateral Eye PERRL, Bilateral Eye EOMI HEENT: PERRL/EOMI, TMs Normal Respiratory: Normal Breath Sounds, No Accessory Muscle Use, No Respiratory Distress Gastrointestinal: Normal Bowel Sounds, Non Tender, Soft Extremity: Normal Capillary Refill, Normal Inspection Neurologic/Psychiatric: Alert, Oriented x3 Skin: Normal Color, Warm/Dry Progress/Results/Core Measures Suspected Sepsis Recent Fever Within 48 Hours: No Infection Criteria Present: None New/Unexplained Altered Menta: No Sepsis Screen: No Definite Risk SIRS Temperature: Pulse: 68 Respiratory Rate: 18 Laboratory Tests 05/19/19 17:30: White Blood Count 14.5H Blood Pressure 158 /82 Mean: 107 Laboratory Tests 05/19/19 17:30: Creatinine 0.97, INR Comment 1.0, Platelet Count 288, Total Bilirubin 0.5 Results/Orders Lab Results Laboratory Tests Test 05/19/19 17:30 Range/Units White Blood Count 14.5 H 4.3-11.0 10^3/uL Red Blood Count 5.03 4.35-5.85 10^6/uL Hemoglobin 15.3 13.3-17.7 G/DL Hematocrit 45 40-54 % Mean Corpuscular Volume 90 80-99 FL Mean Corpuscular Hemoglobin 30 25-34 PG Mean Corpuscular Hemoglobin Concent 34 32-36 G/DL Red Cell Distribution Width 13.3 10.0-14.5 % Platelet Count 288 130-400 10^3/uL Mean Platelet Volume 9.5 7.4-10.4 FL Neutrophils (%) (Auto) 75 42-75 % Lymphocytes (%) (Auto) 16 12-44 % Monocytes (%) (Auto) 8 0-12 % Eosinophils (%) (Auto) 1 0-10 % Basophils (%) (Auto) 0 0-10 % Neutrophils # (Auto) 10.9 H 1.8-7.8 X 10^3 Lymphocytes # (Auto) 2.3 1.0-4.0 X 10^3 Monocytes # (Auto) 1.2 H 0.0-1.0 X 10^3 Eosinophils # (Auto) 0.1 0.0-0.3 10^3/uL Basophils # (Auto) 0.1 0.0-0.1 10^3/uL Prothrombin Time 13.9 12.2-14.7 SEC INR Comment 1.0 0.8-1.4 Activated Partial Thromboplast Time 30 24-35 SEC Sodium Level 140 135-145 MMOL/L Potassium Level 3.7 3.6-5.0 MMOL/L Chloride Level 104 98-107 MMOL/L Carbon Dioxide Level 25 21-32 MMOL/L Anion Gap 11 5-14 MMOL/L Blood Urea Nitrogen 10 7-18 MG/DL Creatinine 0.97 0.60-1.30 MG/DL Estimat Glomerular Filtration Rate > 60 BUN/Creatinine Ratio 10 Glucose Level 109 H 70-105 MG/DL Calcium Level 9.7 8.5-10.1 MG/DL Corrected Calcium 9.3 8.5-10.1 MG/DL Magnesium Level 2.0 1.6-2.4 MG/DL Total Bilirubin 0.5 0.1-1.0 MG/DL Aspartate Amino Transf (AST/SGOT) 21 5-34 U/L Alanine Aminotransferase (ALT/SGPT) 29 0-55 U/L Alkaline Phosphatase 105 40-136 U/L Myoglobin 54.8 10.0-92.0 NG/ML Troponin I < 0.028 <0.028 NG/ML B-Type Natriuretic Peptide 58.5 <100.0 PG/ML Total Protein 7.6 6.4-8.2 GM/DL Albumin 4.5 3.2-4.5 GM/DL My Orders Orders - NEGRITA GARCIA [employer] Cbc With Automated Diff (05/19/19 17:21) Magnesium (05/19/19 17:21) Chest 1 View, Ap/Pa Only (05/19/19 17:21) Ekg Tracing (05/19/19 17:21) Comprehensive Metabolic Panel (05/19/19 17:21) Myoglobin Serum (05/19/19 17:21) Protime With Inr (05/19/19 17:21) Partial Thromboplastin Time (05/19/19 17:21) O2 (05/19/19 17:21) Monitor-Rhythm Ecg Trace Only (05/19/19 17:21) Lipid Panel (05/20/19 06:00) Ed Iv/Invasive Line Start (05/19/19 17:21) BNP (05/19/19 17:21) Troponin I (05/19/19 17:21) Aspirin Chewable Tablet (Baby Aspirin Ch (05/19/19 17:30) Ns Iv 500 Ml (Sodium Chloride 0.9%) (05/19/19 17:30) Manual Differential (05/19/19 17:30) Medications Given in ED Current Medications Medications Dose Ordered Sig/Darek Route Start Time Stop Time Status Last Admin Dose Admin Aspirin 324 mg ONCE ONCE PO 05/19/19 17:30 05/19/19 17:31 DC 05/19/19 17:37 324 MG Vital Signs/I&O 05/19/19 17:13 Temp 36.4 Pulse 68 Resp 18 B/P (MAP) 158/82 (107) Pulse Ox 97 O2 Delivery Room Air Capillary Refill : Less Than 3 Seconds Blood Pressure Mean: 107 Departure Communication (Admissions) Chest x-ray is clear, he has a chronic leukocytosis looking back at his previous labs. I'll have him follow-up with Dr. Pena. He has no cough or infectious symptoms so I don't feel an antibiotic is warranted at this time. Impression Primary Impression: Fatigue Additional Impression: Dyspnea on exertion Disposition: 01 HOME, SELF-CARE Condition: Stable Departure-Patient Inst. Decision time for Depature: 18:40 Referrals: JAMESON PENA DO (PCP/Family) Primary Care Physician Patient Instructions: Shortness of Breath (Dyspnea) (DC) Add. Discharge Instructions: 1. Return to ER for any worsening 2. Call Dr. Pena and your card feeder tomorrow to make an appointment to be seen for follow-up. All discharge instructions reviewed with patient and/or family. Voiced understanding. Copy Copies To 1: JAMESON PENA PETER J APRN May 19, 2019 17:41
[2019-05-19 18:05] LABS: ALANINE AMINOTRANSFERASE 29 U/L (0-55); ALBUMIN 4.5 GM/DL (3.2-4.5); ALKALINE PHOSPHATASE 105 U/L (40-136); BILIRUBIN,TOTAL 0.5 MG/DL (0.1-1.0); BUN/CREATININE RATIO 10; CALCIUM 9.7 MG/DL (8.5-10.1); CARBON DIOXIDE 25 MMOL/L (21-32); CHLORIDE 104 MMOL/L (98-107); CREATININE SERUM 0.97 MG/DL (0.60-1.30); GFR ESTIMATED > 60; GLUCOSE 109 MG/DL (70-105); POTASSIUM 3.7 MMOL/L (3.6-5.0); SODIUM 140 MMOL/L (135-145); TOTAL PROTEIN 7.6 GM/DL (6.4-8.2)
--- NOTE | 2019-05-19 18:17 | Diagnostic Imaging Report ---
INDICATION: Shortness of breath and dizziness. COMPARISON made with a prior study from December 07, 2018. FINDINGS: The lungs demonstrate no focal infiltrate or consolidation. There is no effusion. There is no pneumothorax. Heart size and mediastinal contours appear appropriate. Pulmonary vascularity appears normal. IMPRESSION: 1. No radiographic evidence of an acute cardiopulmonary process. Dictated by: Dictated on workstation # [id number]
--- OUTSIDE RECORDS SUMMARY | 2019-05-19 18:24 | XMS REPORT | Continuity of Care Document ---
Author Organization Unknown Address Unknown Phone Unavailable Allergies Active Description Code Type Severity Reaction Onset Reported/Identified Relationship to Patient Clinical Status Yes No Known Drug Allergies [id number] Drug Allergy Unknown N/A 05/05/2016 Medications There is no data. Problems Date Dx Coded Attending Type Code Diagnosis Diagnosed By 12/20/2014 LUCY SINGH MD Ot J32 .9 05/05/2016 LUCY SINGH MD, Ot J32 .9 CHRONIC SINUSITIS, UNSPECIFIED 05/06/2016 LUCY SINGH MD Ot I10 ESSENTIAL (PRIMARY) HYPERTENSION 05/06/2016 LUCY SINGH MD Ot K11.20 SIALOADENITIS, UNSPECIFIED 05/06/2016 LUCY SINGH MD Ot K11 .5 SIALOLITHIASIS 05/06/2016 LUCY SINGH MD Ot I10 ESSENTIAL (PRIMARY) HYPERTENSION 05/06/2016 LUCY SINGH MD Ot K11.20 SIALOADENITIS, UNSPECIFIED 05/06/2016 LUCY SINGH MD Ot K11 .5 SIALOLITHIASIS 05/17/2016 CLAUDINE NAVARRO JOCELYNE K Ot B37.0 CANDIDAL STOMATITIS 05/17/2016 JOEL CHOW DOA K Ot J32.9 CHRONIC SINUSITIS, UNSPECIFIED 05/17/2016 JOEL CHOW DOA K Ot K11.5 SIALOLITHIASIS 05/17/2016 CLAUDINE NAVARRO JOCELYNE K Ot R22.0 LOCALIZED SWELLING, MASS AND LUMP, HEAD 05/18/2016 CLAUDINE NAVARRO JOCELYNE K Ot B37.0 CANDIDAL STOMATITIS 05/18/2016 JOEL CHOW DOA K Ot J32.9 CHRONIC SINUSITIS, UNSPECIFIED 05/18/2016 JOEL CHOW DOA K Ot K11.5 SIALOLITHIASIS 05/18/2016 CLAUDINE NAVARRO JOCELYNE K Ot R22.0 LOCALIZED SWELLING, MASS AND LUMP, HEAD 06/04/2016 LUCY SINGH MD Ot K11 .5 SIALOLITHIASIS 06/04/2016 LUCY SINGH MD Ot Z01.812 ENCOUNTER FOR PREPROCEDURAL LABORATORY E 06/04/2016 FRANCISCO VALADEZ, LUCY Lange Ot Z01.818 ENCOUNTER FOR OTHER PREPROCEDURAL EXAMIN 06/04/2016 LUCY SINGH MD Ot Z11 .2 ENCOUNTER FOR SCREENING FOR OTHER BACTER 06/05/2016 LUCY SINGH MD Ot K11 .5 SIALOLITHIASIS 06/05/2016 FRANCISCO VALADEZ, LUCY Lange Ot Z01.812 ENCOUNTER FOR PREPROCEDURAL LABORATORY E 06/05/2016 LUCY SINGH MD Ot Z01.818 ENCOUNTER FOR OTHER PREPROCEDURAL EXAMIN 06/05/2016 LUCY SINGH MD Ot Z11 .2 ENCOUNTER FOR SCREENING FOR OTHER BACTER 06/08/2016 LUCY SINGH MD Ot J32 .9 CHRONIC SINUSITIS, UNSPECIFIED 06/09/2016 LUCY SINGH MD P Ot K11.20 SIALOADENITIS, UNSPECIFIED 06/09/2016 LUCY SINGH MD P Ot K11 .5 SIALOLITHIASIS 06/12/2016 LUCY SINGH MD P Ot K11.20 SIALOADENITIS, UNSPECIFIED 06/12/2016 LUCY SINGH MD P Ot K11 .5 SIALOLITHIASIS 06/14/2016 LUCY SINGH MD P Ot K11.20 SIALOADENITIS, UNSPECIFIED 06/14/2016 LUCY SINGH MD P Ot K11 .5 SIALOLITHIASIS 06/18/2016 FRANCISCO VALADEZ, LUCY P Ot I10 ESSENTIAL (PRIMARY) HYPERTENSION 06/18/2016 FRANCISCO VALADEZ, LUCY Lange Ot J45.909 UNSPECIFIED ASTHMA, UNCOMPLICATED 06/18/2016 FRANCISCO VALADEZ, LUCY Lange Ot T81.4XXA INFECTION FOLLOWING A PROCEDURE, INITIAL 02/03/2017 DK VALADEZ, MELVINA T Ot I10 ESSENTIAL (PRIMARY) HYPERTENSION 02/03/2017 DK VALADEZ, MELVINA T Ot J01.90 ACUTE SINUSITIS, UNSPECIFIED 02/03/2017 MELVINA ROOT MD Ot J45.901 UNSPECIFIED ASTHMA WITH (ACUTE) EXACERBA 02/03/2017 MELVINA ROOT MD Ot R25.2 CRAMP AND SPASM 02/03/2017 DK VALADEZ, MELVINA Britton Ot R51 HEADACHE 10/08/2017 Latanya NGUYEN MD Ot E78 .5 HYPERLIPIDEMIA, UNSPECIFIED 10/08/2017 Latanya NGUYEN MD Ot F17.220 NICOTINE DEPENDENCE, CHEWING TOBACCO, UN 10/08/2017 Latanya NGUYEN MD Ot I10 ESSENTIAL (PRIMARY) HYPERTENSION 10/08/2017 Latanya NGUYEN MD Ot 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 I 10/08/2017 Latanya NGUYEN MD Ot I25.10 ATHSCL HEART DISEASE OF [place] CORONARY 10/31/2017 Latanya NGUYEN MD Ot E78 .5 HYPERLIPIDEMIA, UNSPECIFIED 10/31/2017 Latanya NGUYEN MD Ot I10 ESSENTIAL (PRIMARY) HYPERTENSION 10/31/2017 Latanya NGUYEN MD Ot I25.10 ATHSCL HEART DISEASE OF [place] CORONARY 10/31/2017 Latanya NGUYEN MD Ot R06.02 SHORTNESS OF BREATH 10/31/2017 Latanya NGUYEN MD Ot R42 DIZZINESS AND GIDDINESS 10/31/2017 Latanya NGUYEN MD Ot Z72 .0 TOBACCO USE 11/01/2017 Latanya NGUYEN MD Ot E78 .5 HYPERLIPIDEMIA, UNSPECIFIED 11/01/2017 Latanya NGUYEN MD Ot I10 ESSENTIAL (PRIMARY) HYPERTENSION 11/01/2017 Latanya NGUYEN MD Ot I25.10 ATHSCL HEART DISEASE OF [place] CORONARY 11/01/2017 Latanya NGUYEN MD Ot R06.02 SHORTNESS OF BREATH 11/01/2017 Latanya NGUYEN MD Ot R42 DIZZINESS AND GIDDINESS 11/01/2017 Latanya NGUYEN MD Ot Z72 .0 TOBACCO USE 11/01/2017 EVAN LANG DOI Ot F17.29 0 NICOTINE DEPENDENCE, OTHER TOBACCO PRODU 11/01/2017 PRECIOUS NAVARRO GERARDO Ot I10 ESSENTIAL (PRIMARY) HYPERTENSION 11/01/2017 EVAN LANG DOI Ot I21.3 ST ELEVATION (STEMI) MYOCARDIAL INFARCTI 11/01/2017 PRECIOUS NAVARRO GERARDO Ot I25.10 ATHSCL HEART DISEASE OF [place] CORONARY 11/01/2017 EVAN LANG DOI Ot N17.9 ACUTE KIDNEY FAILURE, UNSPECIFIED 11/01/2017 LANG DO, GERARDO Ot N39.0 URINARY TRACT INFECTION, SITE NOT SPECIF 11/01/2017 LANG DO, GERARDO Ot R42 DIZZINESS AND GIDDINESS 11/01/2017 LANG DO, GERARDO Ot 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.82 FISHING ACCESSORIES 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 (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) USE OF ASPIRIN 11/01/2017 LANG DO, GERARDO Ot Z79.89 9 OTHER FISHING ACCESSORIES MAKER (CURRENT) DRUG THERAPY 11/01/2017 LANG DO, GERARDO Ot Z95.5 PRESENCE OF CORONARY ANGIOPLASTY IMPLANT 11/01/2017 LANG DO, GERARDO Ot F17.29 0 NICOTINE DEPENDENCE, OTHER TOBACCO PRODU 11/01/2017 LANG DO, GERARDO Ot I10 ESSENTIAL (PRIMARY) HYPERTENSION 11/01/2017 LANG DO, GERARDO Ot I21.3 ST ELEVATION (STEMI) MYOCARDIAL INFARCTI 11/01/2017 LANG DO, GERARDO Ot I25.10 ATHSCL HEART DISEASE OF [place] CORONARY 11/01/2017 LANG DO, GERARDO Ot N17.9 ACUTE KIDNEY FAILURE, UNSPECIFIED 11/01/2017 LANG DO, GERARDO Ot N39.0 URINARY TRACT INFECTION, SITE NOT SPECIF 11/01/2017 LANG DO, GERARDO Ot R42 DIZZINESS AND GIDDINESS 11/01/2017 LANG DO, GERARDO Ot Z79.82 CORRECTION (CURRENT) USE OF ASPIRIN 11/01/2017 LANG DO, GERARDO Ot Z79.89 9 OTHER FISHING ACCESSORIES MAKER (CURRENT) DRUG THERAPY 11/01/2017 LANG DO, GERARDO Ot Z95.5 PRESENCE OF CORONARY ANGIOPLASTY IMPLANT 11/03/2017 PATRICK VALADEZ, Latanya CHAMPION Ot E78 .5 HYPERLIPIDEMIA, UNSPECIFIED 11/03/2017 PATRICK VALADEZ, Latanya CHAMPION Ot I10 ESSENTIAL (PRIMARY) HYPERTENSION 11/03/2017 Latanya NGUYEN MD Ot I25.10 ATHSCL HEART DISEASE OF [place] CORONARY 11/03/2017 PATRICK VALADEZ, Latanya CHAMPION Ot R06.02 SHORTNESS OF BREATH 11/03/2017 Latanya NGUYEN MD Ot R42 DIZZINESS AND GIDDINESS 11/03/2017 PATRICK VALADEZ, Latanya CHAMPION Ot Z72 .0 TOBACCO USE 11/03/2017 MACIE MACE MD Ot I10 ESSENTIAL (PRIMARY) HYPERTENSION 11/03/2017 MACIE MACE MD Ot I21 .9 ACUTE MYOCARDIAL INFARCTION, UNSPECIFIED 11/03/2017 MACIE MACE MD Ot I25.10 ATHSCL HEART DISEASE OF [place] CORONARY 11/03/2017 MACIE MACE MD Ot J45.909 UNSPECIFIED ASTHMA, UNCOMPLICATED 11/03/2017 MACIE MACE MD Ot R42 DIZZINESS AND GIDDINESS 11/03/2017 MACIE MACE MD Ot T44.7X5A ADVERSE EFFECT OF BETA-ADRENORECEPTOR AN 11/03/2017 MACIE MACE MD, Ot T46.4X5A ADVERSE EFFECT OF [id number] 11/03/2017 MACIE MACE MD Ot Z79.51 CORRECTION (CURRENT) USE OF INHALED STERO 11/03/2017 MACIE MACE MD Ot 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.82 FISHING ACCESSORIES 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 (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) USE OF ASPIRIN 11/03/2017 MACIE MACE MD Ot Z80 .0 FAMILY HISTORY OF MALIGNANT NEOPLASM OF 11/03/2017 MACIE MACE MD Ot Z82.49 FAMILY HX OF ISCHEM HEART DIS AND OTH DI 11/03/2017 MACIE MACE MD Ot Z95 .5 PRESENCE OF CORONARY ANGIOPLASTY IMPLANT 11/04/2017 Latanya NGUYEN MD Ot E78 .5 HYPERLIPIDEMIA, UNSPECIFIED 11/04/2017 Latanya NGUYEN MD Ot I10 ESSENTIAL (PRIMARY) HYPERTENSION 11/04/2017 Latanya NGUYEN MD Ot I25.10 ATHSCL HEART DISEASE OF [place] CORONARY 11/04/2017 Latanya NGUYEN MD Ot R06.02 SHORTNESS OF BREATH 11/04/2017 Latanya NGUYEN MD Ot R42 DIZZINESS AND GIDDINESS 11/04/2017 Latanya NGUYEN MD Ot Z72 .0 TOBACCO USE 11/04/2017 Latanya NGUYEN MD Ot E78 .5 HYPERLIPIDEMIA, UNSPECIFIED 11/04/2017 Latanya NGUYEN MD Ot I10 ESSENTIAL (PRIMARY) HYPERTENSION 11/04/2017 Latanya NGUYEN MD Ot I25.10 ATHSCL HEART DISEASE OF [place] CORONARY 11/04/2017 Latanya NGUYEN MD Ot R06.02 SHORTNESS OF BREATH 11/04/2017 Latanya NGUYEN MD Ot R42 DIZZINESS AND GIDDINESS 11/04/2017 Latanya NGUYEN MD Ot Z72 .0 TOBACCO USE 11/05/2017 MACIE MACE MD, Ot I10 ESSENTIAL (PRIMARY) HYPERTENSION 11/05/2017 MACIE MACE MD Ot I21 .9 ACUTE MYOCARDIAL INFARCTION, UNSPECIFIED 11/05/2017 MACIE MACE MD Ot I25.10 ATHSCL HEART DISEASE OF [place] CORONARY 11/05/2017 MACIE MACE MD Ot J45.909 UNSPECIFIED ASTHMA, UNCOMPLICATED 11/05/2017 MACIE MACE MD, Ot R42 DIZZINESS AND GIDDINESS 11/05/2017 MACIE MACE MD, Ot T44.7X5A ADVERSE EFFECT OF BETA-ADRENORECEPTOR AN 11/05/2017 MACIE MACE MD, Ot T46.4X5A ADVERSE EFFECT OF [id number]-[id number] 11/05/2017 MACIE MACE MD Ot Z79.51 CORRECTION (CURRENT) USE OF INHALED STERO 11/05/2017 MACIE MACE MD, Ot Z79.82 CORRECTION (CURRENT) USE OF ASPIRIN 11/05/2017 MACIE MACE MD, Ot Z80 .0 FAMILY HISTORY OF MALIGNANT NEOPLASM OF 11/05/2017 MACIE MACE MD, Ot Z82.49 FAMILY HX OF ISCHEM HEART DIS AND OTH DI 11/05/2017 MACIE MACE MD Ot Z95 .5 PRESENCE OF CORONARY ANGIOPLASTY IMPLANT 11/14/2017 Latanya NGUYEN MD Ot E78 .5 HYPERLIPIDEMIA, UNSPECIFIED 11/14/2017 Latanya NGUYEN MD Ot I10 ESSENTIAL (PRIMARY) HYPERTENSION 11/14/2017 Latanya NGUYEN MD Ot I25.10 ATHSCL HEART DISEASE OF [place] CORONARY 11/14/2017 Latanya NGUYEN MD Ot R06.02 SHORTNESS OF BREATH 11/14/2017 Latanya NGUYEN MD Ot R42 DIZZINESS AND GIDDINESS 11/14/2017 Latanya NGUYEN MD Ot Z72 .0 TOBACCO USE 11/24/2017 Latanya NGUYEN MD Ot I25 .2 OLD MYOCARDIAL INFARCTION 11/24/2017 Latanya NGUYEN MD Ot Z48.812 ENCNTR FOR SURGICAL AFTCR FOLLOWING SURG 11/24/2017 Latanya NGUYEN MD Ot Z95 .5 PRESENCE OF CORONARY ANGIOPLASTY IMPLANT 11/25/2017 JAMESON MCCLELLAN DO Ot I25.10 ATHSCL HEART DISEASE OF [place] CORONARY 11/25/2017 JAMESON MCCLELLAN DO Ot R07.9 CHEST PAIN, UNSPECIFIED 11/27/2017 Latanya NGUYEN MD Ot I25 .2 OLD MYOCARDIAL INFARCTION 11/27/2017 Latanya NGUYEN MD Ot Z48.812 ENCNTR FOR SURGICAL AFTCR FOLLOWING SURG 11/27/2017 Latanya NGUYEN MD Ot Z95 .5 PRESENCE OF CORONARY ANGIOPLASTY IMPLANT 12/04/2017 JAMESON MCCLELLAN DO Ot I25.10 ATHSCL HEART DISEASE OF [place] CORONARY 12/04/2017 JAMESON MCCLELLAN DO Ot R07.9 CHEST PAIN, UNSPECIFIED 12/24/2017 JAMESON MCCLELLAN DO Ot I25.10 ATHSCL HEART DISEASE OF [place] CORONARY 12/24/2017 JAMESON MCCLELLAN DO Ot R07.9 CHEST PAIN, UNSPECIFIED 12/24/2017 Latanya NGUYEN MD Ot E78 .5 HYPERLIPIDEMIA, UNSPECIFIED 12/24/2017 Latanya NGUYEN MD Ot I10 ESSENTIAL (PRIMARY) HYPERTENSION 12/24/2017 Latanya NGUYEN MD Ot I25.10 ATHSCL HEART DISEASE OF [place] CORONARY 12/24/2017 Latanya NGUYEN MD Ot R06.02 SHORTNESS OF BREATH 12/24/2017 Latanya NGUYEN MD Ot R42 DIZZINESS AND GIDDINESS 12/24/2017 Latanya NGUYEN MD Ot Z72 .0 TOBACCO USE 01/01/2018 Latanya NGUYEN MD Ot I25 .2 OLD MYOCARDIAL INFARCTION 01/01/2018 Latanya NGUYEN MD Ot Z48.812 ENCNTR FOR SURGICAL AFTCR FOLLOWING SURG 01/01/2018 KHALID MD, M JAYCEE Ot Z95 .5 PRESENCE OF CORONARY ANGIOPLASTY IMPLANT 02/23/2018 PATRICK VALADEZ, Latanya CHAMPION Ot I25 .2 OLD MYOCARDIAL INFARCTION 02/23/2018 PATRICK VALADEZ, Latanya CHAMPION Ot Z48.812 ENCNTR FOR SURGICAL AFTCR FOLLOWING SURG 02/23/2018 PATRICK VALADEZ, Latanya CHAMPION Ot Z95 .5 PRESENCE OF CORONARY ANGIOPLASTY IMPLANT 02/24/2018 PATRICK VALADEZ, Latanya CHAMPION Ot I25 .2 OLD MYOCARDIAL INFARCTION 02/24/2018 PATRICK VALADEZ, Latanya CHAMPION Ot Z48.812 ENCNTR FOR SURGICAL AFTCR FOLLOWING SURG 02/24/2018 PATRICK VALADEZ, Latanya CHAMPION Ot Z95 .5 PRESENCE OF CORONARY ANGIOPLASTY IMPLANT 03/01/2018 COURTNEY MAURO MD Ot F17.200 NICOTINE DEPENDENCE, UNSPECIFIED, UNCOMP 03/01/2018 COURTNEY MAURO MD Ot I10 ESSENTIAL (PRIMARY) HYPERTENSION 03/01/2018 COURTNEY MAURO MD Ot I25. 10 ATHSCL HEART DISEASE OF [place] CORONARY 03/01/2018 COURTNEY MAURO MD Ot I25. 2 OLD MYOCARDIAL INFARCTION 03/01/2018 COURTNEY MAURO MD Ot J45.901 UNSPECIFIED ASTHMA WITH (ACUTE) EXACERBA 03/01/2018 COURTNEY MAURO MD Ot R09. 81 NASAL CONGESTION 03/01/2018 COURTNEY MAURO MD Ot Z79. 51 CORRECTION (CURRENT) USE OF INHALED STERO 03/01/2018 COURTNEY MAURO MD Ot Z79. 82 CORRECTION (CURRENT) USE OF ASPIRIN 03/01/2018 COURTNEY MAURO MD Ot Z80. 0 FAMILY HISTORY OF MALIGNANT NEOPLASM OF 03/01/2018 COURTNEY MAURO MD Ot Z90. 89 ACQUIRED ABSENCE OF OTHER ORGANS 03/01/2018 COURTNEY MAURO MD Ot Z95. 5 PRESENCE OF CORONARY ANGIOPLASTY IMPLANT 03/04/2018 COURTNEY MAURO MD Ot F17.200 NICOTINE DEPENDENCE, UNSPECIFIED, UNCOMP 03/04/2018 COURTNEY MAURO MD Ot I10 ESSENTIAL (PRIMARY) HYPERTENSION 03/04/2018 COURTNEY MAURO MD Ot I25. 10 ATHSCL HEART DISEASE OF [place] CORONARY 03/04/2018 COURTNEY MAURO MD Ot I25. 2 OLD MYOCARDIAL INFARCTION 03/04/2018 COURTNEY MAURO MD Ot J45.901 UNSPECIFIED ASTHMA WITH (ACUTE) EXACERBA 03/04/2018 COURTNEY MAURO MD Ot R09. 81 NASAL CONGESTION 03/04/2018 COURTNEY MAURO MD Ot Z79. 51 CORRECTION (CURRENT) USE OF INHALED STERO 03/04/2018 COURTNEY MAURO MD Ot Z79. 82 CORRECTION (CURRENT) USE OF ASPIRIN 03/04/2018 COURTNEY MAURO MD Ot Z80. 0 FAMILY HISTORY OF MALIGNANT NEOPLASM OF 03/04/2018 COURTNEY MAURO MD Ot Z90. 89 ACQUIRED ABSENCE OF OTHER ORGANS 03/04/2018 COURTNEY MAURO MD Ot Z95. 5 PRESENCE OF CORONARY ANGIOPLASTY IMPLANT 03/18/2018 MADAY SAGASTUME MD Ot I10 ESSENTIAL (PRIMARY) HYPERTENSION 03/18/2018 MADAY SAGASTUME MD, Ot I25.10 ATHSCL HEART DISEASE OF [place] CORONARY 03/18/2018 MADAY SAGASTUME MD Ot I25.2 OLD MYOCARDIAL INFARCTION 03/18/2018 MADAY SAGASTUME MD, Ot J45.909 UNSPECIFIED ASTHMA, UNCOMPLICATED 03/18/2018 MADAY SAGASTUME MD Ot R07.89 OTHER CHEST PAIN 03/18/2018 MADAY SAGASTUME MD Ot S29.012A STRAIN OF MUSCLE AND TENDON OF BACK WALL 03/18/2018 MADAY SAGASTUME MD Ot X58.XXXA EXPOSURE TO OTHER SPECIFIED FACTORS, INI 03/18/2018 MADAY SAGASTUME MD, Ot Z79.51 FISHING ACCESSORIES MAKER (CURRENT) USE OF INHALED STERO 03/18/2018 MADAY SAGASTUME MD Ot Z79.82 CORRECTION (CURRENT) USE OF ASPIRIN 03/18/2018 MADAY SAGASTUME MD Ot Z80.0 FAMILY HISTORY OF MALIGNANT NEOPLASM OF 03/18/2018 MADAY SAGASTUME MD Ot Z95.5 PRESENCE OF CORONARY ANGIOPLASTY IMPLANT 03/18/2018 MADAY SAGASTUME MD Ot Z98.890 OTHER SPECIFIED POSTPROCEDURAL STATES 03/20/2018 MADAY SAGASTUME MD Ot I10 ESSENTIAL (PRIMARY) HYPERTENSION 03/20/2018 MADAY SAGASTUME MD Ot I25.10 ATHSCL HEART DISEASE OF [place] CORONARY 03/20/2018 MADAY SAGASTUME MD Ot I25.2 OLD MYOCARDIAL INFARCTION 03/20/2018 MADAY SAGASTUME MD Ot J45.909 UNSPECIFIED ASTHMA, UNCOMPLICATED 03/20/2018 MADAY SAGASTUME MD Ot R07.89 OTHER CHEST PAIN 03/20/2018 MADAY SAGASTUME MD Ot S29.012A STRAIN OF MUSCLE AND TENDON OF BACK WALL 03/20/2018 MADAY SAGASTUME MD Ot X58.XXXA EXPOSURE TO OTHER SPECIFIED FACTORS, INI 03/20/2018 MADAY SAGASTUME MD Ot Z79.51 FISHING ACCESSORIES MAKER (CURRENT) USE OF INHALED STERO 03/20/2018 MADAY SAGASTUME MD Ot Z79.82 CORRECTION (CURRENT) USE OF ASPIRIN 03/20/2018 MADAY SAGASTUME MD Ot Z80.0 FAMILY HISTORY OF MALIGNANT NEOPLASM OF 03/20/2018 MADAY SAGASTUME MD Ot Z95.5 PRESENCE OF CORONARY ANGIOPLASTY IMPLANT 03/20/2018 MADAY SAGASTUME MD Ot Z98.890 OTHER SPECIFIED POSTPROCEDURAL STATES 04/10/2018 Latanya NGUYEN MD Ot E78 .5 HYPERLIPIDEMIA, UNSPECIFIED 04/10/2018 Latanya NGUYEN MD Ot I10 ESSENTIAL (PRIMARY) HYPERTENSION 04/10/2018 Latanya NGUYEN MD Ot I25.10 ATHSCL HEART DISEASE OF [place] CORONARY 04/10/2018 Latanya NGUYEN MD Ot R06.02 SHORTNESS OF BREATH 04/10/2018 Latanya NGUYEN MD Ot R42 DIZZINESS AND GIDDINESS 04/10/2018 Latanya NGUYEN MD Ot Z72 .0 TOBACCO USE 04/10/2018 JAMESON MCCLELLAN DO Ot I25.10 ATHSCL HEART DISEASE OF [place] CORONARY 04/10/2018 JAMESON MCCLELLAN DO Ot R07.9 CHEST PAIN, UNSPECIFIED 04/10/2018 Latanya NGUYEN MD Ot I25 .2 OLD MYOCARDIAL INFARCTION 04/10/2018 Latanya NGUYEN MD Ot Z48.812 ENCNTR FOR SURGICAL AFTCR FOLLOWING SURG 04/10/2018 Latanya NGUYEN MD Ot Z95 .5 PRESENCE OF CORONARY ANGIOPLASTY IMPLANT 04/11/2018 Latanya NGUYEN MD Ot I25.10 ATHSCL HEART DISEASE OF [place] CORONARY 04/11/2018 PATRICK VALADEZ, Latanya CHAMPION Ot R07 .9 CHEST PAIN, UNSPECIFIED 04/16/2018 PATRICK VALADEZ, Latanya CHAMPION Ot I25.10 ATHSCL HEART DISEASE OF [place] CORONARY 04/16/2018 Latanya NGUYEN MD Ot R07 .9 CHEST PAIN, UNSPECIFIED 05/21/2018 Latanya NGUYEN MD Ot I25.10 ATHSCL HEART DISEASE OF [place] CORONARY 05/21/2018 Latanya NGUYEN MD Ot R07 .9 CHEST PAIN, UNSPECIFIED 08/05/2018 MADAY SAGASTUME MD Ot I10 ESSENTIAL (PRIMARY) HYPERTENSION 08/05/2018 MADAY SAGASTUME MD Ot I25.10 ATHSCL HEART DISEASE OF [place] CORONARY 08/05/2018 MADAY SAGASTUME MD Ot I25.2 OLD MYOCARDIAL INFARCTION 08/05/2018 MADAY SAGASTUME MD Ot J45.909 UNSPECIFIED ASTHMA, UNCOMPLICATED 08/05/2018 MADAY SAGASTUME MD Ot R42 DIZZINESS AND GIDDINESS 08/05/2018 MADAY SAGASTUME MD Ot Z79.51 CORRECTION (CURRENT) USE OF INHALED STERO 08/05/2018 MADAY SAGASTUME MD Ot Z79.82 FISHING ACCESSORIES MAKER (CURRENT) USE OF ASPIRIN 08/05/2018 MADAY SAGASTUME MD Ot Z80.0 FAMILY HISTORY OF MALIGNANT NEOPLASM OF 08/05/2018 MADAY SAGASTUME MD Ot Z95.5 PRESENCE OF CORONARY ANGIOPLASTY IMPLANT 08/05/2018 MADAY SAGASTUME MD Ot Z98.890 OTHER SPECIFIED POSTPROCEDURAL STATES 08/08/2018 MADAY SAGASTUME MD Ot I10 ESSENTIAL (PRIMARY) HYPERTENSION 08/08/2018 MADAY SAGASTUME MD Ot I25.10 ATHSCL HEART DISEASE OF [place] CORONARY 08/08/2018 MADAY SAGASTUME MD Ot I25.2 OLD MYOCARDIAL INFARCTION 08/08/2018 MADAY SAGASTUME MD Ot J45.909 UNSPECIFIED ASTHMA, UNCOMPLICATED 08/08/2018 MADAY SAGASTUME MD Ot R42 DIZZINESS AND GIDDINESS 08/08/2018 MADAY SAGASTUME MD Ot Z79.51 CORRECTION (CURRENT) USE OF INHALED STERO 08/08/2018 MADAY SAGASTUME MD Ot Z79.82 FISHING ACCESSORIES MAKER (CURRENT) USE OF ASPIRIN 08/08/2018 MADAY SAGASTUME MD Ot Z80.0 FAMILY HISTORY OF MALIGNANT NEOPLASM OF 08/08/2018 MADAY SAGASTUME MD Ot Z95.5 PRESENCE OF CORONARY ANGIOPLASTY IMPLANT 08/08/2018 MADAY SAGASTUME MD Ot Z98.890 OTHER SPECIFIED POSTPROCEDURAL STATES 12/07/2018 COURTNEY MAURO MD Ot I10 ESSENTIAL (PRIMARY) HYPERTENSION 12/07/2018 COURTNEY MAURO MD Ot I25. 10 ATHSCL HEART DISEASE OF [place] CORONARY 12/07/2018 COURTNEY MAURO MD Ot I25. 2 OLD MYOCARDIAL INFARCTION 12/07/2018 COURTNEY MAURO MD Ot J45.909 UNSPECIFIED ASTHMA, UNCOMPLICATED 12/07/2018 COURTNEY MAURO MD Ot R42 DIZZINESS AND GIDDINESS 12/07/2018 COURTNEY MAURO MD Ot R55 SYNCOPE AND COLLAPSE 12/07/2018 COURTNEY MAURO MD Ot Z79. 51 CORRECTION (CURRENT) USE OF INHALED STERO 12/07/2018 COURTNEY MAURO MD Ot Z79. 82 FISHING ACCESSORIES MAKER (CURRENT) USE OF ASPIRIN 12/07/2018 COURTNEY MAURO MD Ot Z80. 0 FAMILY HISTORY OF MALIGNANT NEOPLASM OF 12/07/2018 COURTNEY MAURO MD Ot Z95. 5 PRESENCE OF CORONARY ANGIOPLASTY IMPLANT 12/11/2018 COURTNEY MAURO MD Ot I10 ESSENTIAL (PRIMARY) HYPERTENSION 12/11/2018 COURTNEY MAURO MD Ot I25. 10 ATHSCL HEART DISEASE OF [place] CORONARY 12/11/2018 COURTNEY MAURO MD Ot I25. 2 OLD MYOCARDIAL INFARCTION 12/11/2018 COURTNEY MAURO MD Ot J45.909 UNSPECIFIED ASTHMA, UNCOMPLICATED 12/11/2018 COURTNEY MAURO MD, Ot R42 DIZZINESS AND GIDDINESS 12/11/2018 COURTNEY MAURO MD, Ot R55 SYNCOPE AND COLLAPSE 12/11/2018 COURTNEY MAURO MD, Ot Z79. 51 FISHING ACCESSORIES MAKER (CURRENT) USE OF INHALED STERO 12/11/2018 CUORTNEY MAURO MD, Ot Z79. 82 CORRECTION (CURRENT) USE OF ASPIRIN 12/11/2018 COURTNEY MAURO MD, Ot Z80. 0 FAMILY HISTORY OF MALIGNANT NEOPLASM OF 12/11/2018 COURTNEY MAURO MD, Ot Z95. 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 01/12/2019 JAMESON MCCLELLAN DO, Ot J01.01 ACUTE RECURRENT MAXILLARY SINUSITIS Procedures Code Description Performed By Per formed On 186791F DI LATION OF 1 COR ART WITH DRUG-ELUT INT 10/06/2017 [id number] ME ASURE OF CARDIAC SAMPL PRESSURE, L H 10/06/2017 [id number] FL UOROSCOPY OF MULT COR ART USING L OSM 10/06/2017 [id number] FL UOROSCOPY OF LEFT HEART USING LOW OSMO 10/06/2017 [id number] FL UOROSCOPY OF THORACIC AORTA USING LOW 10/06/2017 Results Test Result Range Complete blood count (CBC) with automate d white blood cell (WBC) differential - 05/05/16 08:30 Blood leukocytes automated count (number/volume) 12.9 10*3/uL 4.3-11.0 Blood erythrocytes automated count (number/volume) 5.28 10*6/uL 4.35-5.85 Venous blood hemoglobin measurement (mass/volume) 16.0 g/dL 13.3-17.7 Blood hematocrit (volume fraction) 46 % 40-54 Automated erythrocyte mean corpuscular volume 87 [ foz_us] 80-99 Automated erythrocyte mean corpuscular h emoglobin (mass per erythrocyte) 30 pg 25-34 Automated erythrocyte mean corpuscular h emoglobin concentration measurement (mass/volume) 35 g/dL 32-36 Automated erythrocyte distribution width ratio 12. 8 % 10.0- 14.5 Automated blood platelet count (count/volume) 293 10*3/uL [...] 10*3 1.0-4.0 Blood monocytes automated count (number/volume) 1. 8 10*3 0.0-1.0 Automated eosinophil count 0.1 10*3/uL 0 .0-0.3 Automated blood basophil count (count/volume) 0.0 10*3/uL 0.0-0.1 Comprehensive metabolic panel - 05/05/16 08:30 Serum or plasma sodium measurement (moles/volume) 139 mmol/L 135-145 Serum or plasma potassium measurement (moles/volume) 3.9 mmol/L 3.6-5.0 Serum or plasma chloride measurement (moles/volume) 103 mmol/L 98-107 Carbon dioxide 21 mmol/L 21-32 Serum or plasma anion gap determination (moles/volume) 15 mmol/L 5-14 Serum or plasma urea nitrogen measurement (mass/volume ) 10 mg/dL 7-18 Serum or plasma creatinine measurement (mass/volume) 0.99 mg/dL 0.60-1.30 Serum or plasma urea nitrogen/creatinine mass ratio 10 NRG Serum or plasma creatinine measurement w ith calculation of estimated glomerular filtration rate > NRG Serum or plasma glucose measurement (mass/volume) 110 mg/dL 70-105 Serum or plasma calcium measurement (mass/volume) 10.0 mg/dL 8.5-10.1 Serum or plasma total bilirubin measurement (mass/volu me) 0.9 mg/dL 0.1-1.0 Serum or plasma alkaline phosphatase lili surement (enzymatic activity/volume) 98 U/L 40-136 Serum or plasma aspartate aminotransfera se measurement (enzymatic activity/volume) 19 U/L 5-34 Serum or plasma alanine aminotransferase measurement (enzymatic activity/volume) 21 U/L 0-55 Serum or plasma protein measurement (mass/volume) 7.8 g/dL 6.4-8.2 Serum or plasma albumin measurement (mass/volume) 4.3 g/dL 3.2-4.5 Serum or plasma C reactive protein measu rement (mass/volume) - 05/05/16 08:30 Serum or plasma C reactive protein measurement (mass/v olume) 4.84 mg/dL 0.00-0.50 Complete blood count (CBC) with automate d white blood cell (WBC) differential - 05/17/16 20:50 Blood leukocytes automated count (number/volume) 20.9 10*3/uL 4.3-11.0 Blood erythrocytes automated count (number/volume) 5.28 10*6/uL 4.35-5.85 Venous blood hemoglobin measurement (mass/volume) 15.8 g/dL 13.3-17.7 Blood hematocrit (volume fraction) 46 % 40-54 Automated erythrocyte mean corpuscular volume 88 [ foz_us] 80-99 Automated erythrocyte mean corpuscular h emoglobin (mass per erythrocyte) 30 pg 25-34 Automated erythrocyte mean corpuscular h emoglobin concentration measurement (mass/volume) 34 g/dL 32-36 Automated erythrocyte distribution width ratio 13. 4 % 10.0- 14.5 Automated blood platelet count (count/volume) 388 10*3/uL [...] 10*3 1.0-4.0 Blood monocytes automated count (number/volume) 1. 4 10*3 0.0-1.0 Automated eosinophil count 0.1 10*3/uL 0 .0-0.3 Automated blood basophil count (count/volume) 0.0 10*3/uL 0.0-0.1 Blood manual differential performed dete ction - 05/17/16 20:50 Blood monocytes/100 leukocytes 6 [...] 5-14 Serum or plasma urea nitrogen measurement (mass/volume ) 12 mg/dL 7-18 Serum or plasma creatinine measurement (mass/volume) 0.81 mg/dL 0.60-1.30 Serum or plasma urea nitrogen/creatinine mass ratio 15 NRG Serum or plasma creatinine measurement w ith calculation of estimated glomerular filtration rate > NRG Serum or plasma glucose measurement (mass/volume) 104 mg/dL 70-105 Serum or plasma calcium measurement (mass/volume) 9.4 mg/dL 8.5-10.1 Serum or plasma total bilirubin measurement (mass/volu me) 1.0 mg/dL 0.1-1.0 Serum or plasma alkaline phosphatase lili surement (enzymatic activity/volume) 91 U/L 40-136 Serum or plasma aspartate aminotransfera se measurement (enzymatic activity/volume) 25 U/L 5-34 Serum or plasma alanine aminotransferase measurement (enzymatic activity/volume) 76 U/L 0-55 Serum or plasma protein measurement (mass/volume) 7.2 g/dL 6.4-8.2 Serum or plasma albumin measurement (mass/volume) 4.1 g/dL 3.2-4.5 Serum or plasma amylase measurement (enz ymatic activity/volume) - 05/17/16 20:50 Serum or plasma amylase measurement (enzymatic activit y/volume) 59 U/L 25-125 Lipase - 05/17/16 20:50 Lipase 27 U/L 8-78 Complete blood count (CBC) with automate d white blood cell (WBC) differential - 06/04/16 15:00 Blood leukocytes automated count (number/volume) 13.0 10*3/uL 4.3-11.0 Blood erythrocytes automated count (number/volume) 4.50 10*6/uL 4.35-5.85 Venous blood hemoglobin measurement (mass/volume) 13.4 g/dL 13.3-17.7 Blood hematocrit (volume fraction) 40 % 40-54 Automated erythrocyte mean corpuscular volume 90 [ foz_us] 80-99 Automated erythrocyte mean corpuscular h emoglobin (mass per erythrocyte) 30 pg 25-34 Automated erythrocyte mean corpuscular h emoglobin concentration measurement (mass/volume) 33 g/dL 32-36 Automated erythrocyte distribution width ratio 13. 0 % 10.0- 14.5 Automated blood platelet count (count/volume) 338 10*3/uL [...] 10*3 1.0-4.0 Blood monocytes automated count (number/volume) 1. 0 10*3 0.0-1.0 Automated eosinophil count 0.2 10*3/uL 0 .0-0.3 Automated blood basophil count (count/volume) 0.0 10*3/uL 0.0-0.1 Whole blood basic metabolic panel - 05/26 15:00 Serum or plasma sodium measurement (moles/volume) 140 mmol/L 135-145 Serum or plasma potassium measurement (moles/volume) 3.7 mmol/L 3.6-5.0 Serum or plasma chloride measurement (moles/volume) 105 mmol/L 98-107 Carbon dioxide 25 mmol/L 21-32 Serum or plasma anion gap determination (moles/volume) 10 mmol/L 5-14 Serum or plasma urea nitrogen measurement (mass/volume ) 12 mg/dL 7-18 Serum or plasma creatinine measurement (mass/volume) 0.87 mg/dL 0.60-1.30 Serum or plasma urea nitrogen/creatinine mass ratio 14 NRG Serum or plasma creatinine measurement w ith calculation of estimated glomerular filtration rate > NRG Serum or plasma glucose measurement (mass/volume) 96 mg/dL 70-105 Serum or plasma calcium measurement (mass/volume) 9.2 mg/dL 8.5-10.1 Methicillin resistant Staphylococcus aur eus (MRSA) screening culture - 06/04/16 15:00 Methicillin resistant Staphylococcus aureus (MRSA) scr eening culture NEG NRG Gram stain microscopy - 06/16/16 13:35 GRAM STAIN RESULT MODERATE # WBC'S, NO BACTERIA OB SERVED NRG Bacteria identification in wound by cult ure - 06/16/16 13:35 Bacteria identification in wound by culture [id number] NRG QUANTITY OF GROWTH Moderate Growth NRG Complete blood count (CBC) with automate d white blood cell (WBC) differential - 06/16/16 14:26 Blood leukocytes automated count (number/volume) 19.5 10*3/uL 4.3-11.0 Blood erythrocytes automated count (number/volume) 4.82 10*6/uL 4.35-5.85 Venous blood hemoglobin measurement (mass/volume) 14.2 g/dL 13.3-17.7 Blood hematocrit (volume fraction) 43 % 40-54 Automated erythrocyte mean corpuscular volume 90 [ foz_us] 80-99 Automated erythrocyte mean corpuscular h emoglobin (mass per erythrocyte) 30 pg 25-34 Automated erythrocyte mean corpuscular h emoglobin concentration measurement (mass/volume) 33 g/dL 32-36 Automated erythrocyte distribution width ratio 13. 3 % 10.0- 14.5 Automated blood platelet count (count/volume) 346 10*3/uL [...] 10*3 1.0-4.0 Blood monocytes automated count (number/volume) 1. 7 10*3 0.0-1.0 Automated eosinophil count 0.1 10*3/uL 0 .0-0.3 Automated blood basophil count (count/volume) 0.1 10*3/uL 0.0-0.1 Whole blood basic metabolic panel - 05/27 04/13 14:26 Serum or plasma sodium measurement (moles/volume) 136 mmol/L 135-145 Serum or plasma potassium measurement (moles/volume) 4.1 mmol/L 3.6-5.0 Serum or plasma chloride measurement (moles/volume) 99 mmol/L 98-107 Carbon dioxide 25 mmol/L 21-32 Serum or plasma anion gap determination (moles/volume) 12 mmol/L 5-14 Serum or plasma urea nitrogen measurement (mass/volume ) 10 mg/dL 7-18 Serum or plasma creatinine measurement (mass/volume) 0.90 mg/dL 0.60-1.30 Serum or plasma urea nitrogen/creatinine mass ratio 11 NRG Serum or plasma creatinine measurement w ith calculation of estimated glomerular filtration rate > NRG Serum or plasma glucose measurement (mass/volume) 96 mg/dL 70-105 Serum or plasma calcium measurement (mass/volume) 9.6 mg/dL 8.5-10.1 Blood manual differential performed dete ction - 06/16/16 14:26 Blood monocytes/100 leukocytes 8 [...] NORMAL NRG Complete blood count (CBC) with automate d white blood cell (WBC) differential - 06/17/16 04:28 Blood leukocytes automated count (number/volume) 14.8 10*3/uL 4.3-11.0 Blood erythrocytes automated count (number/volume) 4.72 10*6/uL 4.35-5.85 Venous blood hemoglobin measurement (mass/volume) 13.9 g/dL 13.3-17.7 Blood hematocrit (volume fraction) 43 % 40-54 Automated erythrocyte mean corpuscular volume 91 [ foz_us] 80-99 Automated erythrocyte mean corpuscular h emoglobin (mass per erythrocyte) 29 pg 25-34 Automated erythrocyte mean corpuscular h emoglobin concentration measurement (mass/volume) 33 g/dL 32-36 Automated erythrocyte distribution width ratio 13. 4 % 10.0- 14.5 Automated blood platelet count (count/volume) 356 10*3/uL [...] 10*3 1.0-4.0 Blood monocytes automated count (number/volume) 1. 4 10*3 0.0-1.0 Automated eosinophil count 0.2 10*3/uL 0 .0-0.3 Automated blood basophil count (count/volume) 0.0 10*3/uL 0.0-0.1 Complete blood count (CBC) with automate d white blood cell (WBC) differential - 06/18/16 04:35 Blood leukocytes automated count (number/volume) 10.3 10*3/uL 4.3-11.0 Blood erythrocytes automated count (number/volume) 4.72 10*6/uL 4.35-5.85 Venous blood hemoglobin measurement (mass/volume) 13.9 g/dL 13.3-17.7 Blood hematocrit (volume fraction) 43 % 40-54 Automated erythrocyte mean corpuscular volume 91 [ foz_us] 80-99 Automated erythrocyte mean corpuscular h emoglobin (mass per erythrocyte) 29 pg 25-34 Automated erythrocyte mean corpuscular h emoglobin concentration measurement (mass/volume) 33 g/dL 32-36 Automated erythrocyte distribution width ratio 13. 3 % 10.0- 14.5 Automated blood platelet count (count/volume) 346 10*3/uL [...] 10*3 1.0-4.0 Blood monocytes automated count (number/volume) 0. 9 10*3 0.0-1.0 Automated eosinophil count 0.1 10*3/uL 0 .0-0.3 Automated blood basophil count (count/volume) 0.0 10*3/uL 0.0-0.1 Complete blood count (CBC) with automate d white blood cell (WBC) differential - 02/03/17 15:21 Blood leukocytes automated count (number/volume) 15.8 10*3/uL 4.3-11.0 Blood erythrocytes automated count (number/volume) 5.27 10*6/uL 4.35-5.85 Venous blood hemoglobin measurement (mass/volume) 16.2 g/dL 13.3-17.7 Blood hematocrit (volume fraction) 48 % 40-54 Automated erythrocyte mean corpuscular volume 91 [ foz_us] 80-99 Automated erythrocyte mean corpuscular h emoglobin (mass per erythrocyte) 31 pg 25-34 Automated erythrocyte mean corpuscular h emoglobin concentration measurement (mass/volume) 34 g/dL 32-36 Automated erythrocyte distribution width ratio 13. 6 % 10.0- 14.5 Automated blood platelet count (count/volume) 351 10*3/uL [...] 10*3 1.0-4.0 Blood monocytes automated count (number/volume) 2. 3 10*3 0.0-1.0 Automated eosinophil count 0.2 10*3/uL 0 .0-0.3 Automated blood basophil count (count/volume) 0.1 10*3/uL 0.0-0.1 Blood manual differential performed dete ction - 02/03/17 15:21 Blood monocytes/100 leukocytes 18 % NRG Manual blood segmented neutrophils/100 leukocytes 67 % NRG Blood band neutrophils/100 leukocytes 3 % NRG Manual blood lymphocytes/100 leukocytes 9 % NRG Manual eosinophils/100 leukocytes in nose 3 % NRG Blood erythrocyte morphology finding identification NORMAL NRG Blood toxic granules detection by light microscopy 1+ NRG Whole blood basic metabolic panel - 01/25 15:21 Serum or plasma sodium measurement (moles/volume) 140 mmol/L 135-145 Serum or plasma potassium measurement (moles/volume) 3.6 mmol/L 3.6-5.0 Serum or plasma chloride measurement (moles/volume) 104 mmol/L 98-107 Carbon dioxide 22 mmol/L 21-32 Serum or plasma anion gap determination (moles/volume) 14 mmol/L 5-14 Serum or plasma urea nitrogen measurement (mass/volume ) 10 mg/dL 7-18 Serum or plasma creatinine measurement (mass/volume) 0.82 mg/dL 0.60-1.30 Serum or plasma urea nitrogen/creatinine mass ratio 12 NRG Serum or plasma creatinine measurement w ith calculation of estimated glomerular filtration rate > NRG Serum or plasma glucose measurement (mass/volume) 100 mg/dL 70-105 Serum or plasma calcium measurement (mass/volume) 9.9 mg/dL 8.5-10.1 Magnesium - 02/03/17 15:21 Magnesium 2.2 mg/dL 1.8-2.4 Complete blood count (CBC) with automate d white blood cell (WBC) differential - 10/31/17 22:08 Blood leukocytes automated count (number/volume) 17.2 10*3/uL 4.3-11.0 Blood erythrocytes automated count (number/volume) 3.95 10*6/uL 4.35-5.85 Venous blood hemoglobin measurement (mass/volume) 12.0 g/dL 13.3-17.7 Blood hematocrit (volume fraction) 35 % 40-54 Automated erythrocyte mean corpuscular volume 89 [ foz_us] 80-99 Automated erythrocyte mean corpuscular h emoglobin (mass per erythrocyte) 30 pg 25-34 Automated erythrocyte mean corpuscular h emoglobin concentration measurement (mass/volume) 34 g/dL 32-36 Automated erythrocyte distribution width ratio 13. 3 % 10.0- 14.5 Automated blood platelet count (count/volume) 399 10*3/uL [...] 10*3 1.0-4.0 Blood monocytes automated count (number/volume) 1. 4 10*3 0.0-1.0 Automated eosinophil count 0.1 10*3/uL 0 .0-0.3 Automated blood basophil count (count/volume) 0.0 10*3/uL 0.0-0.1 Comprehensive metabolic panel - 10/31/17 22:08 Serum or plasma sodium measurement (moles/volume) 134 mmol/L 135-145 Serum or plasma potassium measurement (moles/volume) 3.8 mmol/L 3.6-5.0 Serum or plasma chloride measurement (moles/volume) 101 mmol/L 98-107 Carbon dioxide 19 mmol/L 21-32 Serum or plasma anion gap determination (moles/volume) 14 mmol/L 5-14 Serum or plasma urea nitrogen measurement (mass/volume ) 15 mg/dL 7-18 Serum or plasma creatinine measurement (mass/volume) 1.67 mg/dL 0.60-1.30 Serum or plasma urea nitrogen/creatinine mass ratio 9 NRG Serum or plasma creatinine measurement w ith calculation of estimated glomerular filtration rate 43 NRG Serum or plasma glucose measurement (mass/volume) 105 mg/dL 70-105 Serum or plasma calcium measurement (mass/volume) 9.6 mg/dL 8.5-10.1 Serum or plasma total bilirubin measurement (mass/volu me) 0.4 mg/dL 0.1-1.0 Serum or plasma alkaline phosphatase lili surement (enzymatic activity/volume) 89 U/L 40-136 Serum or plasma aspartate aminotransfera se measurement (enzymatic activity/volume) 19 U/L 5-34 Serum or plasma alanine aminotransferase measurement (enzymatic activity/volume) 31 U/L 0-55 Serum or plasma protein measurement (mass/volume) 7.0 g/dL 6.4-8.2 Serum or plasma albumin measurement (mass/volume) 4.1 g/dL 3.2-4.5 CALCIUM CORRECTED 9.5 mg/dL 8.5-10.1 Magnesium - 10/31/17 22:08 Magnesium 2.2 mg/dL 1.8-2.4 PT panel in platelet poor plasma by coag ulation assay - 10/31/17 22:08 Prothrombin time (PT) in platelet poor plasma by coagu lation assay 14.6 s 12.2-14.7 INR in platelet poor plasma or blood by coagulation as say 1.1 0.8-1.4 Activated partial thromboplastin time (a PTT) in platelet poor plasma bycoagulation assay - 10/31/17 22:08 Activated partial thromboplastin time (a PTT) in platelet poor plasma bycoagulation assay 24 s 24-35 Serum or plasma troponin i.cardiac measu rement (mass/volume) - 10/31/17 22:08 Serum or plasma troponin i.cardiac measurement (mass/v olume) < ng/mL <0.30 Myoglobin, serum - 10/31/17 22:08 Myoglobin, serum 142.3 ng/mL 10.0-92.0 Blood manual differential performed dete ction - 10/31/17 22:08 Blood monocytes/100 leukocytes 5 % NRG Manual blood segmented neutrophils/100 leukocytes 75 % NRG Blood band neutrophils/100 leukocytes 1 % NRG Manual blood lymphocytes/100 leukocytes 16 % NRG Manual eosinophils/100 leukocytes in nose 2 % NRG Manual blood basophils/100 leukocytes 1 % NRG Blood erythrocyte morphology finding identification NORMAL NRG Serum or plasma C reactive protein measu rement (mass/volume) - 10/31/17 22:08 Serum or plasma C reactive protein measurement (mass/v olume) 0.20 mg/dL 0.00-0.50 Complete urinalysis with reflex to cultu re - 10/31/17 23:18 Urine color determination YELLOW NRG Urine clarity determination SLIGHTLY CLOUDY NRG Urine pH measurement by test strip 5 5-9 Specific gravity of urine by test strip 1.020 1.016-1.022 Urine protein assay by test strip, semi-quantitative 3+ NEGATIVE Urine glucose detection by automated test strip NE GATIVE NEGATIVE Erythrocytes detection in urine sediment by light micr oscopy 2+ NEGATIVE Urine ketones detection by automated test strip 1+ NEGATIVE Urine nitrite detection by test strip NEGATIVE NEGATIVE Urine total bilirubin detection by test strip NEGA TIVE NEGATIVE Urine urobilinogen measurement by automated test strip (mass/volume) NORMAL NORMAL Urine leukocyte esterase detection by dipstick 1+ NEGATIVE Automated urine sediment erythrocyte cou nt by microscopy (number/high power field) [HPF] NRG Automated urine sediment leukocyte count by microscopy (number/high power field) [HPF] NRG Bacteria detection in urine sediment by light microsco py NONE NRG Crystals detection in urine sediment by light microsco py NONE NRG Casts detection in urine sediment by light microscopy NONE NRG Mucus detection in urine sediment by light microscopy MODERATE NRG Complete urinalysis with reflex to culture YES NRG Bacterial urine culture - 10/31/17 23:18 Bacterial urine culture NG NRG Complete blood count (CBC) with automate d white blood cell (WBC) differential - 11/01/17 05:35 Blood leukocytes automated count (number/volume) 11.5 10*3/uL 4.3-11.0 Blood erythrocytes automated count (number/volume) 3.42 10*6/uL 4.35-5.85 Venous blood hemoglobin measurement (mass/volume) 10.5 g/dL 13.3-17.7 Blood hematocrit (volume fraction) 31 % 40-54 Automated erythrocyte mean corpuscular volume 90 [ foz_us] 80-99 Automated erythrocyte mean corpuscular h emoglobin (mass per erythrocyte) 31 pg 25-34 Automated erythrocyte mean corpuscular h emoglobin concentration measurement (mass/volume) 34 g/dL 32-36 Automated erythrocyte distribution width ratio 13. 3 % 10.0- 14.5 Automated blood platelet count (count/volume) 355 10*3/uL [...] 10*3 1.0-4.0 Blood monocytes automated count (number/volume) 1. 0 10*3 0.0-1.0 Automated eosinophil count 0.1 10*3/uL 0 .0-0.3 Automated blood basophil count (count/volume) 0.0 10*3/uL 0.0-0.1 Whole blood basic metabolic panel - 09/11 05:35 Serum or plasma sodium measurement (moles/volume) 139 mmol/L 135-145 Serum or plasma potassium measurement (moles/volume) 3.8 mmol/L 3.6-5.0 Serum or plasma chloride measurement (moles/volume) 110 mmol/L 98-107 Carbon dioxide 20 mmol/L 21-32 Serum or plasma anion gap determination (moles/volume) 9 mmol/L 5-14 Serum or plasma urea nitrogen measurement (mass/volume ) 12 mg/dL 7-18 Serum or plasma creatinine measurement (mass/volume) 0.97 mg/dL 0.60-1.30 Serum or plasma urea nitrogen/creatinine mass ratio 12 NRG Serum or plasma creatinine measurement w ith calculation of estimated glomerular filtration rate > NRG Serum or plasma glucose measurement (mass/volume) 102 mg/dL 70-105 Serum or plasma calcium measurement (mass/volume) 8.3 mg/dL 8.5-10.1 Lipid 1996 panel - 11/01/17 05:35 Serum or plasma triglyceride measurement (mass/volume) 70 mg/dL <150 Serum or plasma cholesterol measurement (mass/volume) 105 mg/dL < 200 Serum or plasma cholesterol in HDL measurement (mass/v olume) 25 mg/dL 40-60 Cholesterol in LDL [mass/volume] in serum or plasma by direct assay 63 mg/dL 1-129 Serum or plasma cholesterol in VLDL measurement (mass/ volume) 14 mg/dL 5-40 Serum or plasma troponin i.cardiac measu rement (mass/volume) - 11/01/17 05:35 Serum or plasma troponin i.cardiac measurement (mass/v olume) < ng/mL <0.30 Complete urinalysis with reflex to cultu re - 11/03/17 19:34 Urine color determination YELLOW NRG Urine clarity determination CLEAR NR G Urine pH measurement by test strip 7 5-9 Specific gravity of urine by test strip 1.005 1.016-1.022 Urine protein assay by test strip, semi-quantitative NEGATIVE NEGATIVE Urine glucose detection by automated test strip NE GATIVE NEGATIVE Erythrocytes detection in urine sediment by light micr oscopy 1+ NEGATIVE Urine ketones detection by automated test strip NE GATIVE NEGATIVE Urine nitrite detection by test strip NEGATIVE NEGATIVE Urine total bilirubin detection by test strip NEGA TIVE NEGATIVE Urine urobilinogen measurement by automated test strip (mass/volume) NORMAL NORMAL Urine leukocyte esterase detection by dipstick NEG ATIVE NEGATIVE Automated urine sediment erythrocyte cou nt by microscopy (number/high power field) [HPF] NRG Automated urine sediment leukocyte count by microscopy (number/high power field) RARE NRG Bacteria detection in urine sediment by light microsco py NEGATIVE NRG Crystals detection in urine sediment by light microsco py NONE NRG Casts detection in urine sediment by light microscopy NONE NRG Mucus detection in urine sediment by light microscopy NEGATIVE NRG Complete urinalysis with reflex to culture NO NRG Complete blood count (CBC) with automate d white blood cell (WBC) differential - 11/03/17 19:55 Blood leukocytes automated count (number/volume) 12.3 10*3/uL 4.3-11.0 Blood erythrocytes automated count (number/volume) 3.91 10*6/uL 4.35-5.85 Venous blood hemoglobin measurement (mass/volume) 12.1 g/dL 13.3-17.7 Blood hematocrit (volume fraction) 35 % 40-54 Automated erythrocyte mean corpuscular volume 89 [ foz_us] 80-99 Automated erythrocyte mean corpuscular h emoglobin (mass per erythrocyte) 31 pg 25-34 Automated erythrocyte mean corpuscular h emoglobin concentration measurement (mass/volume) 35 g/dL 32-36 Automated erythrocyte distribution width ratio 13. 2 % 10.0- 14.5 Automated blood platelet count (count/volume) 364 10*3/uL [...] 10*3 1.0-4.0 Blood monocytes automated count (number/volume) 1. 1 10*3 0.0-1.0 Automated eosinophil count 0.1 10*3/uL 0 .0-0.3 Automated blood basophil count (count/volume) 0.0 10*3/uL 0.0-0.1 Comprehensive metabolic panel - 11/03/17 19:55 Serum or plasma sodium measurement (moles/volume) 142 mmol/L 135-145 Serum or plasma potassium measurement (moles/volume) 3.3 mmol/L 3.6-5.0 Serum or plasma chloride measurement (moles/volume) 109 mmol/L 98-107 Carbon dioxide 22 mmol/L 21-32 Serum or plasma anion gap determination (moles/volume) 11 mmol/L 5-14 Serum or plasma urea nitrogen measurement (mass/volume ) 6 mg/dL 7-18 Serum or plasma creatinine measurement (mass/volume) 0.92 mg/dL 0.60-1.30 Serum or plasma urea nitrogen/creatinine mass ratio 7 NRG Serum or plasma creatinine measurement w ith calculation of estimated glomerular filtration rate > NRG Serum or plasma glucose measurement (mass/volume) 105 mg/dL 70-105 Serum or plasma calcium measurement (mass/volume) 9.6 mg/dL 8.5-10.1 Serum or plasma total bilirubin measurement (mass/volu me) 0.4 mg/dL 0.1-1.0 Serum or plasma alkaline phosphatase lili surement (enzymatic activity/volume) 93 U/L 40-136 Serum or plasma aspartate aminotransfera se measurement (enzymatic activity/volume) 19 U/L 5-34 Serum or plasma alanine aminotransferase measurement (enzymatic activity/volume) 24 U/L 0-55 Serum or plasma protein measurement (mass/volume) 6.8 g/dL 6.4-8.2 Serum or plasma albumin measurement (mass/volume) 3.9 g/dL 3.2-4.5 CALCIUM CORRECTED 9.7 mg/dL 8.5-10.1 Serum or plasma creatine kinase measurem ent (enzymatic activity/volume) - 11/21/17 15:19 Serum or plasma creatine kinase measurem ent (enzymatic activity/volume) 142 U/L 30-200 Serum or plasma troponin i.cardiac measu rement (mass/volume) - 11/21/17 15:19 Serum or plasma troponin i.cardiac measurement (mass/v olume) < ng/mL <0.30 Myoglobin, serum - 11/21/17 15:19 Myoglobin, serum 78.0 ng/mL 10.0-92.0 Complete blood count (CBC) with automate d white blood cell (WBC) differential - 03/01/18 09:32 Blood leukocytes automated count (number/volume) 10.1 10*3/uL 4.3-11.0 Blood erythrocytes automated count (number/volume) 5.22 10*6/uL 4.35-5.85 Venous blood hemoglobin measurement (mass/volume) 15.4 g/dL 13.3-17.7 Blood hematocrit (volume fraction) 45 % 40-54 Automated erythrocyte mean corpuscular volume 86 [ foz_us] 80-99 Automated erythrocyte mean corpuscular h emoglobin (mass per erythrocyte) 30 pg 25-34 Automated erythrocyte mean corpuscular h emoglobin concentration measurement (mass/volume) 34 g/dL 32-36 Automated erythrocyte distribution width ratio 12. 9 % 10.0- 14.5 Automated blood platelet count (count/volume) 324 10*3/uL [...] 10*3 1.0-4.0 Blood monocytes automated count (number/volume) 0. 9 10*3 0.0-1.0 Automated eosinophil count 0.6 10*3/uL 0 .0-0.3 Automated blood basophil count (count/volume) 0.0 10*3/uL 0.0-0.1 Comprehensive metabolic panel - 03/01/18 09:32 Serum or plasma sodium measurement (moles/volume) 138 mmol/L 135-145 Serum or plasma potassium measurement (moles/volume) 3.8 mmol/L 3.6-5.0 Serum or plasma chloride measurement (moles/volume) 105 mmol/L 98-107 Carbon dioxide 22 mmol/L 21-32 Serum or plasma anion gap determination (moles/volume) 11 mmol/L 5-14 Serum or plasma urea nitrogen measurement (mass/volume ) 12 mg/dL 7-18 Serum or plasma creatinine measurement (mass/volume) 0.86 mg/dL 0.60-1.30 Serum or plasma urea nitrogen/creatinine mass ratio 14 NRG Serum or plasma creatinine measurement w ith calculation of estimated glomerular filtration rate > NRG Serum or plasma glucose measurement (mass/volume) 109 mg/dL 70-105 Serum or plasma calcium measurement (mass/volume) 9.5 mg/dL 8.5-10.1 Serum or plasma total bilirubin measurement (mass/volu me) 0.6 mg/dL 0.1-1.0 Serum or plasma alkaline phosphatase lili surement (enzymatic activity/volume) 110 U/L 40-136 Serum or plasma aspartate aminotransfera se measurement (enzymatic activity/volume) 21 U/L 5-34 Serum or plasma alanine aminotransferase measurement (enzymatic activity/volume) 32 U/L 0-55 Serum or plasma protein measurement (mass/volume) 7.4 g/dL 6.4-8.2 Serum or plasma albumin measurement (mass/volume) 4.4 g/dL 3.2-4.5 CALCIUM CORRECTED 9.2 mg/dL 8.5-10.1 Serum or plasma C reactive protein measu rement (mass/volume) - 03/01/18 09:32 Serum or plasma C reactive protein measurement (mass/v olume) 0.14 mg/dL 0.00-0.50 Serum or plasma lithium measurement (mol es/volume) - 03/01/18 09:32 BNP level 21.7 pg/mL <100.0 Complete blood count (CBC) with automate d white blood cell (WBC) differential - 03/18/18 08:30 Blood leukocytes automated count (number/volume) 10.9 10*3/uL 4.3-11.0 Blood erythrocytes automated count (number/volume) 4.85 10*6/uL 4.35-5.85 Venous blood hemoglobin measurement (mass/volume) 14.3 g/dL 13.3-17.7 Blood hematocrit (volume fraction) 43 % 40-54 Automated erythrocyte mean corpuscular volume 88 [ foz_us] 80-99 Automated erythrocyte mean corpuscular h emoglobin (mass per erythrocyte) 30 pg 25-34 Automated erythrocyte mean corpuscular h emoglobin concentration measurement (mass/volume) 34 g/dL 32-36 Automated erythrocyte distribution width ratio 13. 9 % 10.0- 14.5 Automated blood platelet count (count/volume) 336 10*3/uL 130-400 Automated blood platelet mean volume measurement 9.9 [foz_us] 7.4-10.4 Automated blood neutrophils/100 leukocytes 68 % 42-75 Automated blood lymphocytes/100 leukocytes 20 % 12-44 Blood monocytes/100 leukocytes 8 % 0-12 Automated blood eosinophils/100 leukocytes 3 % 0-10 Automated blood basophils/100 leukocytes 1 % 0-10 Blood neutrophils automated count (number/volume) 7.4 10*3 1.8-7.8 Blood lymphocytes automated count (number/volume) 2.2 10*3 1.0-4.0 Blood monocytes automated count (number/volume) 0. 9 10*3 0.0-1.0 Automated eosinophil count 0.3 10*3/uL 0 .0-0.3 Automated blood basophil count (count/volume) 0.1 10*3/uL 0.0-0.1 Comprehensive metabolic panel - 03/18/18 08:30 Serum or plasma sodium measurement (moles/volume) 141 mmol/L 135-145 Serum or plasma potassium measurement (moles/volume) 4.0 mmol/L 3.6-5.0 Serum or plasma chloride measurement (moles/volume) 107 mmol/L 98-107 Carbon dioxide 24 mmol/L 21-32 Serum or plasma anion gap determination (moles/volume) 10 mmol/L 5-14 Serum or plasma urea nitrogen measurement (mass/volume ) 13 mg/dL 7-18 Serum or plasma creatinine measurement (mass/volume) 0.97 mg/dL 0.60-1.30 Serum or plasma urea nitrogen/creatinine mass ratio 13 NRG Serum or plasma creatinine measurement w ith calculation of estimated glomerular filtration rate > NRG Serum or plasma glucose measurement (mass/volume) 120 mg/dL 70-105 Serum or plasma calcium measurement (mass/volume) 9.2 mg/dL 8.5-10.1 Serum or plasma total bilirubin measurement (mass/volu me) 0.3 mg/dL 0.1-1.0 Serum or plasma alkaline phosphatase lili surement (enzymatic activity/volume) 92 U/L 40-136 Serum or plasma aspartate aminotransfera se measurement (enzymatic activity/volume) 20 U/L 5-34 Serum or plasma alanine aminotransferase measurement (enzymatic activity/volume) 30 U/L 0-55 Serum or plasma protein measurement (mass/volume) 6.4 g/dL 6.4-8.2 Serum or plasma albumin measurement (mass/volume) 3.9 g/dL 3.2-4.5 CALCIUM CORRECTED 9.3 mg/dL 8.5-10.1 Magnesium - 03/18/18 08:30 Magnesium 2.0 mg/dL 1.8-2.4 Serum or plasma troponin i.cardiac measu rement (mass/volume) - 03/18/18 08:30 Serum or plasma troponin i.cardiac measurement (mass/v olume) < ng/mL <0.028 Myoglobin, serum - 03/18/18 08:30 Myoglobin, serum 39.3 ng/mL 10.0-92.0 PT panel in platelet poor plasma by coag ulation assay - 03/18/18 08:30 Prothrombin time (PT) in platelet poor plasma by coagu lation assay 13.0 s 12.2-14.7 INR in platelet poor plasma or blood by coagulation as say 1.0 0.8-1.4 Activated partial thromboplastin time (a PTT) in platelet poor plasma bycoagulation assay - 03/18/18 08:30 Activated partial thromboplastin time (a PTT) in platelet poor plasma bycoagulation assay 31 s 24-35 Fibrin D-dimer FEU measurement in platel et poor plasma (mass/volume) - 03/18/18 08:30 Fibrin D-dimer FEU measurement in platelet poor plasma (mass/volume) 0.31 ug/mL 0.00-0.49 Complete blood count (CBC) with automate d white blood cell (WBC) differential - 08/05/18 07:25 Blood leukocytes automated count (number/volume) 10.8 10*3/uL 4.3-11.0 Blood erythrocytes automated count (number/volume) 4.99 10*6/uL 4.35-5.85 Venous blood hemoglobin measurement (mass/volume) 14.8 g/dL 13.3-17.7 Blood hematocrit (volume fraction) 44 % 40-54 Automated erythrocyte mean corpuscular volume 89 [ foz_us] 80-99 Automated erythrocyte mean corpuscular h emoglobin (mass per erythrocyte) 30 pg 25-34 Automated erythrocyte mean corpuscular h emoglobin concentration measurement (mass/volume) 33 g/dL 32-36 Automated erythrocyte distribution width ratio 14. 0 % 10.0- 14.5 Automated blood platelet count (count/volume) 283 10*3/uL 130-400 Automated blood platelet mean volume measurement 9.7 [foz_us] 7.4-10.4 Automated blood neutrophils/100 leukocytes 68 % 42-75 Automated blood lymphocytes/100 leukocytes 22 % 12-44 Blood monocytes/100 leukocytes 8 % 0-12 Automated blood eosinophils/100 leukocytes 1 % 0-10 Automated blood basophils/100 leukocytes 0 % 0-10 Blood neutrophils automated count (number/volume) 7.4 10*3 1.8-7.8 Blood lymphocytes automated count (number/volume) 2.4 10*3 1.0-4.0 Blood monocytes automated count (number/volume) 0. 9 10*3 0.0-1.0 Automated eosinophil count 0.2 10*3/uL 0 .0-0.3 Automated blood basophil count (count/volume) 0.0 10*3/uL 0.0-0.1 Comprehensive metabolic panel - 08/05/18 07:25 Serum or plasma sodium measurement (moles/volume) 143 mmol/L 135-145 Serum or plasma potassium measurement (moles/volume) 4.0 mmol/L 3.6-5.0 Serum or plasma chloride measurement (moles/volume) 107 mmol/L 98-107 Carbon dioxide 25 mmol/L 21-32 Serum or plasma anion gap determination (moles/volume) 11 mmol/L 5-14 Serum or plasma urea nitrogen measurement (mass/volume ) 8 mg/dL 7-18 Serum or plasma creatinine measurement (mass/volume) 0.91 mg/dL 0.60-1.30 Serum or plasma urea nitrogen/creatinine mass ratio 9 NRG Serum or plasma creatinine measurement w ith calculation of estimated glomerular filtration rate > NRG Serum or plasma glucose measurement (mass/volume) 126 mg/dL 70-105 Serum or plasma calcium measurement (mass/volume) 9.7 mg/dL 8.5-10.1 Serum or plasma total bilirubin measurement (mass/volu me) 0.9 mg/dL 0.1-1.0 Serum or plasma alkaline phosphatase lili surement (enzymatic activity/volume) 114 U/L 40-136 Serum or plasma aspartate aminotransfera se measurement (enzymatic activity/volume) 18 U/L 5-34 Serum or plasma alanine aminotransferase measurement (enzymatic activity/volume) 25 U/L 0-55 Serum or plasma protein measurement (mass/volume) 7.2 g/dL 6.4-8.2 Serum or plasma albumin measurement (mass/volume) 4.3 g/dL 3.2-4.5 CALCIUM CORRECTED 9.5 mg/dL 8.5-10.1 Magnesium - 08/05/18 07:25 Magnesium 2.2 mg/dL 1.8-2.4 Serum or plasma troponin i.cardiac measu rement (mass/volume) - 08/05/18 07:25 Serum or plasma troponin i.cardiac measurement (mass/v olume) < ng/mL <0.028 Myoglobin, serum - 08/05/18 07:25 Myoglobin, serum 64.9 ng/mL 10.0-92.0 PT panel in platelet poor plasma by coag ulation assay - 08/05/18 07:25 Prothrombin time (PT) in platelet poor plasma by coagu lation assay 14.1 s 12.2-14.7 INR in platelet poor plasma or blood by coagulation as say 1.0 0.8-1.4 Activated partial thromboplastin time (a PTT) in platelet poor plasma bycoagulation assay - 08/05/18 07:25 Activated partial thromboplastin time (a PTT) in platelet poor plasma bycoagulation assay 30 s 24-35 Serum or plasma troponin i.cardiac measu rement (mass/volume) - 08/05/18 09:28 Serum or plasma troponin i.cardiac measurement (mass/v olume) < ng/mL <0.028 Complete blood count (CBC) with automate d white blood cell (WBC) differential - 12/07/18 11:40 Blood leukocytes automated count (number/volume) 11.4 10*3/uL 4.3-11.0 Blood erythrocytes automated count (number/volume) 4.58 10*6/uL 4.35-5.85 Venous blood hemoglobin measurement (mass/volume) 14.1 g/dL 13.3-17.7 Blood hematocrit (volume fraction) 42 % 40-54 Automated erythrocyte mean corpuscular volume 91 [ foz_us] 80-99 Automated erythrocyte mean corpuscular h emoglobin (mass per erythrocyte) 31 pg 25-34 Automated erythrocyte mean corpuscular h emoglobin concentration measurement (mass/volume) 34 g/dL 32-36 Automated erythrocyte distribution width ratio 13. 0 % 10.0- 14.5 Automated blood platelet count (count/volume) 255 10*3/uL 130-400 Automated blood platelet mean volume measurement 10.0 [foz_us] 7.4-10.4 Automated blood neutrophils/100 leukocytes 72 % 42-75 Automated blood lymphocytes/100 leukocytes 19 % 12-44 Blood monocytes/100 leukocytes 8 % 0-12 Automated blood eosinophils/100 leukocytes 1 % 0-10 Automated blood basophils/100 leukocytes 0 % 0-10 Blood neutrophils automated count (number/volume) 8.2 10*3 1.8-7.8 Blood lymphocytes automated count (number/volume) 2.1 10*3 1.0-4.0 Blood monocytes automated count (number/volume) 0. 9 10*3 0.0-1.0 Automated eosinophil count 0.1 10*3/uL 0 .0-0.3 Automated blood basophil count (count/volume) 0.0 10*3/uL 0.0-0.1 Comprehensive metabolic panel - 12/07/18 11:40 Serum or plasma sodium measurement (moles/volume) 139 mmol/L 135-145 Serum or plasma potassium measurement (moles/volume) 4.0 mmol/L 3.6-5.0 Serum or plasma chloride measurement (moles/volume) 104 mmol/L 98-107 Carbon dioxide 25 mmol/L 21-32 Serum or plasma anion gap determination (moles/volume) 10 mmol/L 5-14 Serum or plasma urea nitrogen measurement (mass/volume ) 10 mg/dL 7-18 Serum or plasma creatinine measurement (mass/volume) 0.94 mg/dL 0.60-1.30 Serum or plasma urea nitrogen/creatinine mass ratio 11 NRG Serum or plasma creatinine measurement w ith calculation of estimated glomerular filtration rate > NRG Serum or plasma glucose measurement (mass/volume) 128 mg/dL 70-105 Serum or plasma calcium measurement (mass/volume) 9.1 mg/dL 8.5-10.1 Serum or plasma total bilirubin measurement (mass/volu me) 0.8 mg/dL 0.1-1.0 Serum or plasma alkaline phosphatase lili surement (enzymatic activity/volume) 120 U/L 40-136 Serum or plasma aspartate aminotransfera se measurement (enzymatic activity/volume) 17 U/L 5-34 Serum or plasma alanine aminotransferase measurement (enzymatic activity/volume) 25 U/L 0-55 Serum or plasma protein measurement (mass/volume) 7.1 g/dL 6.4-8.2 Serum or plasma albumin measurement (mass/volume) 4.3 g/dL 3.2-4.5 CALCIUM CORRECTED 8.9 mg/dL 8.5-10.1 Serum or plasma troponin i.cardiac measu rement (mass/volume) - 12/07/18 11:40 Serum or plasma troponin i.cardiac measurement (mass/v olume) < ng/mL <0.028 Serum or plasma lithium measurement (mol es/volume) - 12/07/18 11:40 BNP PT 46.6 pg/mL <100.0 Complete blood count (CBC) with automate d white blood cell (WBC) differential - 05/19/19 17:30 Blood leukocytes automated count (number/volume) 14.5 10*3/uL 4.3-11.0 Blood erythrocytes automated count (number/volume) 5.03 10*6/uL 4.35-5.85 Venous blood hemoglobin measurement (mass/volume) 15.3 g/dL 13.3-17.7 Blood hematocrit (volume fraction) 45 % 40-54 Automated erythrocyte mean corpuscular volume 90 [ foz_us] 80-99 Automated erythrocyte mean corpuscular h emoglobin (mass per erythrocyte) 30 pg 25-34 Automated erythrocyte mean corpuscular h emoglobin concentration measurement (mass/volume) 34 g/dL 32-36 Automated erythrocyte distribution width ratio 13. 3 % 10.0- 14.5 Automated blood platelet count (count/volume) 288 10*3/uL 130-400 Automated blood platelet mean volume measurement 9.5 [foz_us] 7.4-10.4 Automated blood neutrophils/100 leukocytes 75 % 42-75 Automated blood lymphocytes/100 leukocytes 16 % 12-44 Blood monocytes/100 leukocytes 8 % 0-12 Automated blood eosinophils/100 leukocytes 1 % 0-10 Automated blood basophils/100 leukocytes 0 % 0-10 Blood neutrophils automated count (number/volume) 10.9 10*3 1.8-7.8 Blood lymphocytes automated count (number/volume) 2.3 10*3 1.0-4.0 Blood monocytes automated count (number/volume) 1. 2 10*3 0.0-1.0 Automated eosinophil count 0.1 10*3/uL 0 .0-0.3 Automated blood basophil count (count/volume) 0.1 10*3/uL 0.0-0.1 Comprehensive metabolic panel - 05/19/19 17:30 Serum or plasma sodium measurement (moles/volume) 140 mmol/L 135-145 Serum or plasma potassium measurement (moles/volume) 3.7 mmol/L 3.6-5.0 Serum or plasma chloride measurement (moles/volume) 104 mmol/L 98-107 Carbon dioxide 25 mmol/L 21-32 Serum or plasma anion gap determination (moles/volume) 11 mmol/L 5-14 Serum or plasma urea nitrogen measurement (mass/volume ) 10 mg/dL 7-18 Serum or plasma creatinine measurement (mass/volume) 0.97 mg/dL 0.60-1.30 Serum or plasma urea nitrogen/creatinine mass ratio 10 NRG Serum or plasma creatinine measurement w ith calculation of estimated glomerular filtration rate > NRG Serum or plasma glucose measurement (mass/volume) 109 mg/dL 70-105 Serum or plasma calcium measurement (mass/volume) 9.7 mg/dL 8.5-10.1 Serum or plasma total bilirubin measurement (mass/volu me) 0.5 mg/dL 0.1-1.0 Serum or plasma alkaline phosphatase lili surement (enzymatic activity/volume) 105 U/L 40-136 Serum or plasma aspartate aminotransfera se measurement (enzymatic activity/volume) 21 U/L 5-34 Serum or plasma alanine aminotransferase measurement (enzymatic activity/volume) 29 U/L 0-55 Serum or plasma protein measurement (mass/volume) 7.6 g/dL 6.4-8.2 Serum or plasma albumin measurement (mass/volume) 4.5 g/dL 3.2-4.5 CALCIUM CORRECTED 9.3 mg/dL 8.5-10.1 Magnesium - 05/19/19 17:30 Magnesium 2.0 mg/dL 1.6-2.4 Myoglobin, serum - 05/19/19 17:30 Myoglobin, serum 54.8 ng/mL 10.0-92.0 Serum or plasma troponin i.cardiac measu rement (mass/volume) - 05/19/19 17:30 Serum or plasma troponin i.cardiac measurement (mass/v olume) < ng/mL <0.028 Serum or plasma lithium measurement (mol es/volume) - 05/19/19 17:30 BNP PT 58.5 pg/mL <100.0 Encounters ACCT No. Visit Date/Time Discharge Status Pt. Type Provider Facility Loc./Unit Complaint [id number] 12/12/2018 11:38:00 23:59:59 CLS Outpatient JAMESON MCCLELLAN DO [facility] RAD DIZZINESS [id number] 12/07/2018 11:32:00 13:55:00 DIS Emergency COURTNEY MAURO MD [facility] ER LIGHTHEADED/DIZZY/SOB [id number] 08/05/2018 07:11:00 10:28:00 DIS Emergency MADAY SAGASTUME MD [facility] ER FATIGUE,DIZZINE SS,HOT FLASHES,HX OF HEART ATTACK [id number] 04/10/2018 08:08:00 02/14/2 019 23:59:59 CLS Outpatient Latanya NGUYEN MD [facility] CARD CAD [id number] 03/18/2018 08:26:00 019 10:22:00 DIS Emergency MADAY SAGASTUME MD [facility] ER CHEST PAIN;SOB [id number] 03/01/2018 09:04:00 019 10:32:00 DIS Emergency COURTNEY MAURO MD [facility] ER CONGESTION/COUGH/SOB [id number] 02/24/2018 09:00:00 018 23:59:59 CLS Preadmit Latanya NGUYEN MD [facility] CR AMI,STENT [id number] 12/06/2017 08:44:00 018 00:01:00 DIS Outpatient Latanya NGUYEN MD [facility] CR AMI,STENT [id number] 11/22/2017 10:11:00 018 00:01:00 DIS Outpatient Latanya NGUYEN MD [facility] CR AMI,STENT [id number] 11/21/2017 15:03:00 018 23:59:59 CLS Outpatient JAMESON MCCLELLAN DO [facility] LAB R07.9,I25.10 [id number] 11/03/2017 19:25:00 018 21:18:00 DIS Emergency MACIE MACE MD [facility] ER DIZZY,LIGHTHEADED [id number] 11/01/2017 00:12:00 018 17:00:00 DIS Inpatient GERARDO LANG DO, [facility] 4TH ARF,UTI,LIGHTHEADEDNESS [id number] 10/29/2017 08:31:00 018 23:59:59 CLS Outpatient Latanya NGUYEN MD [facility] CARD CAD,HTN,SOB,DIZZINESS [id number] 10/06/2017 16:29:00 018 08:34:00 DIS Inpatient Latanya NGUYEN MD [facility] ICU STEMI [id number] 02/03/2017 14:12:00 017 16:59:00 DIS Emergency MELVINA ROOT MD [facility] ER SINUS INFECTION [id number] 06/16/2016 15:56:00 017 07:05:00 DIS Inpatient LUCY SINGH MD [facility] 4TH POST OPERATIVE WOUND IN FECTION [id number] 06/08/2016 06:40:00 017 08:45:00 DIS Outpatient LUCY SINGH MD [facility] SDC LEFT SUBMANDIBULAR CYST [id number] 06/04/2016 14:41:00 017 15:15:00 DIS Outpatient LUCY SINGH MD [facility] PREOP LEFT SUBMANDIBULAR CYST [id number] 05/17/2016 20:26:00 017 22:22:00 DIS Emergency JOCELYNE CHOW DO a [facility] ER RT SIDE FACIAL SWELLING ,FEVER [id number] 05/05/2016 12:15:00 017 09:00:00 DIS Inpatient LUCY SINGH MD [facility] 4TH SIALOADENITIS [id number] 11/26/2014 16:13:00 015 23:59:59 CLS Outpatient LUCY SINGH MD [facility] RAD CHRONIC SINUSITIS [id number] 05/19/2019 17:44:00 Document Registration
[2019-05-19 18:25] LABS: PROTHROMBIN TIME PATIENT 13.9 SEC (12.2-14.7)
[2019-05-19 18:50] VITALS: BP 152/88
[2019-05-19 18:53] LABS: BAND NEUTROPHILS 1 %; LYMPHOCYTES % (MANUAL) 16 %; MONOCYTES % (MANUAL) 9 %; NEUTROPHILS % (MANUAL) 72 %
[2019-05-19 18:54] LABS: EOSINOPHILS % (MANUAL) 2 %; RBC MORPH NORMAL
== END 2019-05-19 18:50 | disposition home or self-care (01) ==
LOC: EDUNIT# 16:34 → ER 16:36
DX: R53.83 Other fatigue (principal); R06.00 Dyspnea, unspecified; I25.10 Atherosclerotic heart disease of native coronary artery without angina pectoris; I10 Essential (primary) hypertension; F17.290 Nicotine dependence, other tobacco product, uncomplicated; I25.2 Old myocardial infarction; Z95.5 Presence of coronary angioplasty implant and graft
CPT/HCPCS: 36415; 71045; 80053; 83735; 83874; 83880; 84484; 85007; 85027; 85610; 85730; 93005

== ENCOUNTER 2019-05-23 17:37 | Emergency (ER) | payer BC ==
[~2019-05-23] VITALS: Ht 69 cm; Wt 91.0 kg
--- OUTSIDE RECORDS SUMMARY | 2019-05-23 17:46 | XMS REPORT | Continuity of Care Document ---
Author Organization Unknown Address Unknown Phone Unavailable Allergies Active Description Code Type Severity Reaction Onset Reported/Identified Relationship to Patient Clinical Status Yes No Known Drug Allergies [id number] Drug Allergy Unknown N/A 05/05/2016 Medications There [...] MD Ot I25.10 ATHSCL HEART DISEASE OF [place] CORONARY 10/31/2017 Latanya NGUYEN MD Ot E78 .5 HYPERLIPIDEMIA, UNSPECIFIED 10/31/2017 Latanya NGUYEN MD Ot I10 ESSENTIAL (PRIMARY) HYPERTENSION 10/31/2017 Latanya NGUYEN MD Ot I25.10 ATHSCL HEART DISEASE OF [place] CORONARY 10/31/2017 Latanya NGUYEN MD Ot R06.02 SHORTNESS OF BREATH 10/31/2017 Latanya NGUYEN MD Ot R42 DIZZINESS AND GIDDINESS 10/31/2017 Latanya NGUYEN MD Ot Z72 .0 TOBACCO USE 11/01/2017 Latanya NGUYEN MD Ot E78 .5 HYPERLIPIDEMIA, UNSPECIFIED 11/01/2017 Latanya NGUYEN MD Ot I10 ESSENTIAL (PRIMARY) HYPERTENSION 11/01/2017 Latanya NGUYEN MD Ot I25.10 ATHSCL HEART DISEASE OF [place] CORONARY 11/01/2017 Latanya NGUYEN MD Ot R06.02 [...] GERARDO Ot I25.10 ATHSCL HEART DISEASE OF [place] CORONARY 11/01/2017 EVAN LANG DOI Ot N17.9 ACUTE KIDNEY FAILURE, UNSPECIFIED 11/01/2017 LANG DO, GERARDO Ot N39.0 URINARY TRACT INFECTION, SITE NOT SPECIF 11/01/2017 LANG DO, GERARDO Ot R42 DIZZINESS AND GIDDINESS 11/01/2017 LANG DO, GERARDO Ot Z79.82 REGIONAL MANAGER (CURRENT) USE OF ASPIRIN 11/01/2017 LANG DO, GERARDO Ot Z79.89 9 OTHER REGIONAL MANAGER (CURRENT) DRUG THERAPY 11/01/2017 LANG DO, GERARDO Ot Z95.5 PRESENCE OF CORONARY ANGIOPLASTY IMPLANT 11/01/2017 LANG DO, GERARDO Ot F17.29 0 NICOTINE DEPENDENCE, OTHER TOBACCO PRODU 11/01/2017 LANG DO, GERARDO Ot I10 ESSENTIAL (PRIMARY) HYPERTENSION 11/01/2017 LANG DO, GERARDO Ot I21.3 ST ELEVATION (STEMI) MYOCARDIAL INFARCTI 11/01/2017 LANG DO, GERARDO Ot I25.10 ATHSCL HEART DISEASE OF [place] CORONARY 11/01/2017 LANG DO, GERARDO Ot N17.9 ACUTE KIDNEY FAILURE, UNSPECIFIED 11/01/2017 LANG DO, GERARDO Ot N39.0 URINARY TRACT INFECTION, SITE NOT SPECIF 11/01/2017 LANG DO, GERARDO Ot R42 DIZZINESS AND GIDDINESS 11/01/2017 LANG DO, GERARDO Ot Z79.82 MCC (CURRENT) USE OF ASPIRIN 11/01/2017 LANG DO, GERARDO Ot Z79.89 9 OTHER REGIONAL MANAGER (CURRENT) DRUG THERAPY 11/01/2017 LANG DO, GERARDO Ot Z95.5 PRESENCE OF CORONARY ANGIOPLASTY IMPLANT 11/03/2017 PATRICK VALADEZ, Latanya CHAMPION Ot E78 .5 HYPERLIPIDEMIA, UNSPECIFIED 11/03/2017 PATRICK VALADEZ, Latanya CHAMPION Ot I10 ESSENTIAL (PRIMARY) HYPERTENSION 11/03/2017 Latanya NGUYEN MD Ot I25.10 ATHSCL HEART DISEASE OF [place] CORONARY 11/03/2017 PATRICK VALADEZ, Latanya CHAMPION Ot R06.02 SHORTNESS OF BREATH 11/03/2017 Latanya NGUYEN MD Ot R42 DIZZINESS AND GIDDINESS 11/03/2017 PATRICK VALADEZ, Latanya CHAMPION Ot Z72 .0 TOBACCO USE 11/03/2017 MACIE MACE MD Ot I10 ESSENTIAL (PRIMARY) HYPERTENSION 11/03/2017 MACIE MACE MD Ot I21 .9 ACUTE MYOCARDIAL INFARCTION, UNSPECIFIED 11/03/2017 MACIE MACE MD Ot I25.10 ATHSCL HEART DISEASE OF [place] CORONARY 11/03/2017 MACIE MACE MD Ot J45.909 UNSPECIFIED ASTHMA, UNCOMPLICATED 11/03/2017 MACIE MACE MD Ot R42 DIZZINESS AND GIDDINESS 11/03/2017 MACIE MACE MD Ot T44.7X5A ADVERSE EFFECT OF BETA-ADRENORECEPTOR AN 11/03/2017 MACIE MACE MD, Ot T46.4X5A ADVERSE EFFECT OF [id number] 11/03/2017 MACIE MACE MD Ot Z79.51 MCC (CURRENT) USE OF INHALED STERO 11/03/2017 MACIE MACE MD Ot Z79.82 REGIONAL MANAGER (CURRENT) USE OF ASPIRIN 11/03/2017 MACIE MACE [...] MD Ot I25.10 ATHSCL HEART DISEASE OF [place] CORONARY 11/04/2017 Latanya NGUYEN MD Ot R06.02 SHORTNESS OF BREATH 11/04/2017 Latanya NGUYEN MD Ot R42 DIZZINESS AND GIDDINESS 11/04/2017 Latanya NGUYEN MD Ot Z72 .0 TOBACCO USE 11/04/2017 Latanya NGUYEN MD Ot E78 .5 HYPERLIPIDEMIA, UNSPECIFIED 11/04/2017 Latanya NGUYEN MD Ot I10 ESSENTIAL (PRIMARY) HYPERTENSION 11/04/2017 Latanya NGUYEN MD Ot I25.10 ATHSCL HEART DISEASE OF [place] CORONARY 11/04/2017 Latanya NGUYEN MD Ot R06.02 SHORTNESS OF BREATH 11/04/2017 Latanya NGUYEN MD Ot R42 DIZZINESS AND GIDDINESS 11/04/2017 Latanya NGUYEN MD Ot Z72 .0 TOBACCO USE 11/05/2017 MACIE MACE MD, Ot I10 ESSENTIAL (PRIMARY) HYPERTENSION 11/05/2017 MACIE MACE MD Ot I21 .9 ACUTE MYOCARDIAL INFARCTION, UNSPECIFIED 11/05/2017 MACIE MACE MD Ot I25.10 ATHSCL HEART DISEASE OF [place] CORONARY 11/05/2017 MACIE MACE MD Ot J45.909 UNSPECIFIED ASTHMA, UNCOMPLICATED 11/05/2017 MACIE MACE MD, Ot R42 DIZZINESS AND GIDDINESS 11/05/2017 MACIE MACE MD, Ot T44.7X5A ADVERSE EFFECT OF BETA-ADRENORECEPTOR AN 11/05/2017 MACIE MACE MD, Ot T46.4X5A ADVERSE EFFECT OF [id number] 11/05/2017 MACIE MACE MD Ot Z79.51 MCC (CURRENT) USE OF INHALED STERO 11/05/2017 MACIE MACE MD, Ot Z79.82 MCC (CURRENT) USE OF ASPIRIN 11/05/2017 MACIE MACE [...] MD Ot I25.10 ATHSCL HEART DISEASE OF [place] CORONARY 11/14/2017 Latanya NGUYEN MD Ot R06.02 [...] DO Ot I25.10 ATHSCL HEART DISEASE OF [place] CORONARY 11/25/2017 JAMESON MCCLELLAN DO Ot R07.9 CHEST PAIN, UNSPECIFIED 11/27/2017 Latanya NGUYEN MD Ot I25 .2 OLD MYOCARDIAL INFARCTION 11/27/2017 Latanya NGUYEN MD Ot Z48.812 ENCNTR FOR SURGICAL AFTCR FOLLOWING SURG 11/27/2017 Latanya NGUYEN MD Ot Z95 .5 PRESENCE OF CORONARY ANGIOPLASTY IMPLANT 12/04/2017 JAMESON MCCLELLAN DO Ot I25.10 ATHSCL HEART DISEASE OF [place] CORONARY 12/04/2017 JAMESON MCCLELLAN DO Ot R07.9 CHEST PAIN, UNSPECIFIED 12/24/2017 JAMESON MCCLELLAN DO Ot I25.10 ATHSCL HEART DISEASE OF [place] CORONARY 12/24/2017 JAMESON MCCLELLAN DO Ot R07.9 CHEST PAIN, UNSPECIFIED 12/24/2017 Latanya NGUYEN MD Ot E78 .5 HYPERLIPIDEMIA, UNSPECIFIED 12/24/2017 Latanya NGUYEN MD Ot I10 ESSENTIAL (PRIMARY) HYPERTENSION 12/24/2017 Latanya NGUYEN MD Ot I25.10 ATHSCL HEART DISEASE OF [place] CORONARY 12/24/2017 Latanya NGUYEN MD Ot R06.02 [...] Ot I25. 10 ATHSCL HEART DISEASE OF [place] CORONARY 03/01/2018 COURTNEY MAURO MD Ot I25. 2 OLD MYOCARDIAL INFARCTION 03/01/2018 COURTNEY MUARO MD Ot J45.901 UNSPECIFIED ASTHMA WITH (ACUTE) EXACERBA 03/01/2018 COURTNEY MAURO MD Ot R09. 81 NASAL CONGESTION 03/01/2018 COURTNEY MAURO MD Ot Z79. 51 MCC (CURRENT) USE OF INHALED STERO 03/01/2018 COURTNEY MAURO MD Ot Z79. 82 MCC (CURRENT) USE OF ASPIRIN 03/01/2018 COURTNEY MAURO [...] Ot I25. 10 ATHSCL HEART DISEASE OF [place] CORONARY 03/04/2018 COURTNEY MAURO MD Ot I25. 2 OLD MYOCARDIAL INFARCTION 03/04/2018 COURTNEY MAURO MD Ot J45.901 UNSPECIFIED ASTHMA WITH (ACUTE) EXACERBA 03/04/2018 COURTNEY MAURO MD Ot R09. 81 NASAL CONGESTION 03/04/2018 COURTNEY MAURO MD Ot Z79. 51 MCC (CURRENT) USE OF INHALED STERO 03/04/2018 COURTNEY MAURO MD Ot Z79. 82 MCC (CURRENT) USE OF ASPIRIN 03/04/2018 COURTNEY MAURO MD Ot Z80. 0 FAMILY HISTORY OF MALIGNANT NEOPLASM OF 03/04/2018 COURTNEY MAURO MD Ot Z90. 89 ACQUIRED ABSENCE OF OTHER ORGANS 03/04/2018 COURTNEY MAURO MD Ot Z95. 5 PRESENCE OF CORONARY ANGIOPLASTY IMPLANT 03/18/2018 MADAY SAGASTUME MD Ot I10 ESSENTIAL (PRIMARY) HYPERTENSION 03/18/2018 MADAY SAGASTUME MD, Ot I25.10 ATHSCL HEART DISEASE OF [place] CORONARY 03/18/2018 MADAY SAGASTUME MD Ot I25.2 OLD MYOCARDIAL INFARCTION 03/18/2018 MADAY SAGASTUME MD, Ot J45.909 UNSPECIFIED ASTHMA, UNCOMPLICATED 03/18/2018 MADAY SAGASTUME MD Ot R07.89 OTHER CHEST PAIN 03/18/2018 MADAY SAGASTUME MD Ot S29.012A STRAIN OF MUSCLE AND TENDON OF BACK WALL 03/18/2018 MADAY SAGASTUME MD Ot X58.XXXA EXPOSURE TO OTHER SPECIFIED FACTORS, INI 03/18/2018 MADAY SAGASTUME MD, Ot Z79.51 REGIONAL MANAGER (CURRENT) USE OF INHALED STERO 03/18/2018 MADAY SAGASTUME MD Ot Z79.82 MCC (CURRENT) USE OF ASPIRIN 03/18/2018 MADAY SAGASTUME MD Ot Z80.0 FAMILY HISTORY OF MALIGNANT NEOPLASM OF 03/18/2018 MADAY SAGASTUME MD Ot Z95.5 PRESENCE OF CORONARY ANGIOPLASTY IMPLANT 03/18/2018 MADAY SAGASTUME MD Ot Z98.890 OTHER SPECIFIED POSTPROCEDURAL STATES 03/20/2018 MADAY SAGASTUME MD Ot I10 ESSENTIAL (PRIMARY) HYPERTENSION 03/20/2018 MADAY SAGASTUME MD Ot I25.10 ATHSCL HEART DISEASE OF [place] CORONARY 03/20/2018 MADAY SAGASTUME MD Ot I25.2 OLD MYOCARDIAL INFARCTION 03/20/2018 MADAY SAGASTUME MD Ot J45.909 UNSPECIFIED ASTHMA, UNCOMPLICATED 03/20/2018 MADAY SAGASTUME MD Ot R07.89 OTHER CHEST PAIN 03/20/2018 MADAY SAGASTUME MD Ot S29.012A STRAIN OF MUSCLE AND TENDON OF BACK WALL 03/20/2018 MADAY SAGASTUME MD Ot X58.XXXA EXPOSURE TO OTHER SPECIFIED FACTORS, INI 03/20/2018 MADAY SAGASTUME MD Ot Z79.51 REGIONAL MANAGER (CURRENT) USE OF INHALED STERO 03/20/2018 MADAY SAGASTUME MD Ot Z79.82 MCC (CURRENT) USE OF ASPIRIN 03/20/2018 MADAY SAGASTUME [...] MD Ot I25.10 ATHSCL HEART DISEASE OF [place] CORONARY 04/10/2018 Latanya NGUYEN MD Ot R06.02 SHORTNESS OF BREATH 04/10/2018 Latanya NGUYEN MD Ot R42 DIZZINESS AND GIDDINESS 04/10/2018 Latanya NGUYEN MD Ot Z72 .0 TOBACCO USE 04/10/2018 JAMESON MCCLELLAN DO Ot I25.10 ATHSCL HEART DISEASE OF [place] CORONARY 04/10/2018 JAMESON MCCLELLAN DO Ot R07.9 CHEST PAIN, UNSPECIFIED 04/10/2018 Latanya NGUYEN MD Ot I25 .2 OLD MYOCARDIAL INFARCTION 04/10/2018 Latanya NGUYEN MD Ot Z48.812 ENCNTR FOR SURGICAL AFTCR FOLLOWING SURG 04/10/2018 Latanya NGUYEN MD Ot Z95 .5 PRESENCE OF CORONARY ANGIOPLASTY IMPLANT 04/11/2018 Latanya NGUYEN MD Ot I25.10 ATHSCL HEART DISEASE OF [place] CORONARY 04/11/2018 PATRICK VALADEZ, Latanya CHAMPION Ot R07 .9 CHEST PAIN, UNSPECIFIED 04/16/2018 PATRICK VALADEZ, Latanya CHAMPION Ot I25.10 ATHSCL HEART DISEASE OF [place] CORONARY 04/16/2018 Latanya NGUYEN MD Ot R07 .9 CHEST PAIN, UNSPECIFIED 05/21/2018 Latanya NGUYEN MD Ot I25.10 ATHSCL HEART DISEASE OF [place] CORONARY 05/21/2018 Latanya NGUYEN MD Ot R07 .9 CHEST PAIN, UNSPECIFIED 08/05/2018 MADAY SAGASTUME MD Ot I10 ESSENTIAL (PRIMARY) HYPERTENSION 08/05/2018 MADAY SAGASTUME MD Ot I25.10 ATHSCL HEART DISEASE OF [place] CORONARY 08/05/2018 MADAY SAGASTUME MD Ot I25.2 OLD MYOCARDIAL INFARCTION 08/05/2018 MADAY SAGASTUME MD Ot J45.909 UNSPECIFIED ASTHMA, UNCOMPLICATED 08/05/2018 MADAY SAGASTUME MD Ot R42 DIZZINESS AND GIDDINESS 08/05/2018 MADAY SAGASTUME MD Ot Z79.51 MCC (CURRENT) USE OF INHALED STERO 08/05/2018 MADAY SAGASTUME MD Ot Z79.82 REGIONAL MANAGER (CURRENT) USE OF ASPIRIN 08/05/2018 MADAY SAGASTUME MD Ot Z80.0 FAMILY HISTORY OF MALIGNANT NEOPLASM OF 08/05/2018 MADAY SAGASTUME MD Ot Z95.5 PRESENCE OF CORONARY ANGIOPLASTY IMPLANT 08/05/2018 MADAY SAGASTUME MD Ot Z98.890 OTHER SPECIFIED POSTPROCEDURAL STATES 08/08/2018 MADAY SAGASTUME MD Ot I10 ESSENTIAL (PRIMARY) HYPERTENSION 08/08/2018 MADAY SAGASTUME MD Ot I25.10 ATHSCL HEART DISEASE OF [place] CORONARY 08/08/2018 MADAY SAGASTUME MD Ot I25.2 OLD MYOCARDIAL INFARCTION 08/08/2018 MADAY SAGASTUME MD Ot J45.909 UNSPECIFIED ASTHMA, UNCOMPLICATED 08/08/2018 MADAY SAGASTUME MD Ot R42 DIZZINESS AND GIDDINESS 08/08/2018 MADAY SAGASTUME MD Ot Z79.51 MCC (CURRENT) USE OF INHALED STERO 08/08/2018 MADAY SAGASTUME MD Ot Z79.82 REGIONAL MANAGER (CURRENT) USE OF ASPIRIN 08/08/2018 MADAY SAGASTUME MD Ot Z80.0 FAMILY HISTORY OF MALIGNANT NEOPLASM OF 08/08/2018 MADAY SAGASTUME MD Ot Z95.5 PRESENCE OF CORONARY ANGIOPLASTY IMPLANT 08/08/2018 MADYA SAGASTUME MD Ot Z98.890 OTHER SPECIFIED POSTPROCEDURAL STATES 12/07/2018 COURTNEY MAURO MD Ot I10 ESSENTIAL (PRIMARY) HYPERTENSION 12/07/2018 COURTNEY MAURO MD Ot I25. 10 ATHSCL HEART DISEASE OF [place] CORONARY 12/07/2018 COURTNEY MAURO MD Ot I25. 2 OLD MYOCARDIAL INFARCTION 12/07/2018 COURTNEY MAURO MD Ot J45.909 UNSPECIFIED ASTHMA, UNCOMPLICATED 12/07/2018 COURTNEY MAURO MD Ot R42 DIZZINESS AND GIDDINESS 12/07/2018 COURTNEY MAURO MD Ot R55 SYNCOPE AND COLLAPSE 12/07/2018 COURTNEY MAURO MD Ot Z79. 51 MCC (CURRENT) USE OF INHALED STERO 12/07/2018 COURTNEY MAURO MD Ot Z79. 82 REGIONAL MANAGER (CURRENT) USE OF ASPIRIN 12/07/2018 COURTNEY MAURO MD Ot Z80. 0 FAMILY HISTORY OF MALIGNANT NEOPLASM OF 12/07/2018 COURTNEY MAURO MD Ot Z95. 5 PRESENCE OF CORONARY ANGIOPLASTY IMPLANT 12/11/2018 COURTNEY MAURO MD Ot I10 ESSENTIAL (PRIMARY) HYPERTENSION 12/11/2018 COURTNEY MAURO MD Ot I25. 10 ATHSCL HEART DISEASE OF [place] CORONARY 12/11/2018 COURTNEY MAURO MD Ot I25. 2 OLD MYOCARDIAL INFARCTION 12/11/2018 COURTNEY MAURO MD Ot J45.909 UNSPECIFIED ASTHMA, UNCOMPLICATED 12/11/2018 COURTNEY MAURO MD, Ot R42 DIZZINESS AND GIDDINESS 12/11/2018 COURTNEY MAURO MD, Ot R55 SYNCOPE AND COLLAPSE 12/11/2018 COURTNEY MAURO MD, Ot Z79. 51 REGIONAL MANAGER (CURRENT) USE OF INHALED STERO 12/11/2018 COURTNEY MAURO MD, Ot Z79. 82 MCC (CURRENT) USE OF ASPIRIN 12/11/2018 COURTNEY MAURO MD, Ot Z80. 0 FAMILY HISTORY OF MALIGNANT NEOPLASM OF 12/11/2018 COURTNEY MAURO MD, Ot Z95. 5 PRESENCE OF CORONARY ANGIOPLASTY IMPLANT 12/16/2018 JAMESON MCCLELLAN DO, Ot I25.10 ATHSCL HEART DISEASE OF [place] CORONARY 12/16/2018 JAMESON MCCLELLAN DO, Ot I65.23 OCCLUSION AND STENOSIS OF BILATERAL [place] 12/16/2018 JAMESON MCCLELLAN DO, Ot J01.01 ACUTE RECURRENT MAXILLARY SINUSITIS 01/12/2019 JAMESON MCCLELLAN DO, Ot I25.10 ATHSCL HEART DISEASE OF [place] CORONARY 01/12/2019 JAMESON MCCLELLAN DO, Ot I65.23 OCCLUSION AND STENOSIS OF BILATERAL [place] 01/12/2019 JAMESON MCCLELLAN DO, Ot J01.01 ACUTE RECURRENT MAXILLARY SINUSITIS Procedures Code Description Performed By Per formed On [id number] DI LATION OF 1 COR ART WITH DRUG-ELUT INT 10/06/2017 [id number] ME ASURE OF CARDIAC SAMPL PRESSURE, L H 10/06/2017 [id number] FL UOROSCOPY OF MULT COR ART USING L OSM 10/06/2017 [id number] FL UOROSCOPY OF LEFT HEART USING LOW OSMO 10/06/2017 [id number] FL UOROSCOPY OF THORACIC AORTA USING LOW [...] 13:35 Bacteria identification in wound by culture [id number] NRG QUANTITY OF GROWTH Moderate Growth [...] mg/dL 0.1-1.0 Serum or plasma alkaline phosphatase llii surement (enzymatic activity/volume) 120 U/L 40-136 Serum [...] 05/19/19 17:30 BNP PT 58.5 pg/mL <100.0 PT panel in platelet poor plasma by coag ulation assay - 05/19/19 17:30 Prothrombin time (PT) in platelet poor plasma by coagu lation assay 13.9 s 12.2-14.7 INR in platelet poor plasma or blood by coagulation as say 1.0 0.8-1.4 Activated partial thromboplastin time (a PTT) in platelet poor plasma bycoagulation assay - 05/19/19 17:30 Activated partial thromboplastin time (a PTT) in platelet poor plasma bycoagulation assay 30 s 24-35 Manual absolute plasma cell count - 04/26 06/14 17:30 Blood monocytes/100 leukocytes 9 % NRG Manual blood segmented neutrophils/100 leukocytes 72 % NRG Blood band neutrophils/100 leukocytes 1 % NRG Manual blood lymphocytes/100 leukocytes 16 % NRG Manual eosinophils/100 leukocytes in nose 2 % NRG Blood erythrocyte morphology finding identification NORMAL NRG Encounters ACCT No. Visit Date/Time Discharge Status Pt. Type Provider Facility Loc./Unit Complaint [id number] 05/19/2019 16:36:00 18:50:00 DIS Emergency NEGRITA GARCIA APRN [facility] ER WEAKNESS,LIGHTHEADED [id number] 12/12/2018 11:38:00 23:59:59 CLS Outpatient JAMESON MCCLELLAN DO [facility] RAD DIZZINESS [id number] 12/07/2018 11:32:00 13:55:00 DIS Emergency COURTNEY MAURO MD [facility] ER LIGHTHEADED/DIZZY/SOB [id number] 08/05/2018 07:11:00 10:28:00 DIS Emergency MADAY SAGASTUME MD [facility] ER FATIGUE,DIZZINE SS,HOT FLASHES,HX OF HEART ATTACK [id number] 04/10/2018 08:08:00 23:59:59 CLS Outpatient Latanya NGUYEN MD [facility] CARD CAD [id number] 03/18/2018 08:26:00 10:22:00 DIS Emergency MADAY SAGASTUME MD [facility] ER CHEST PAIN;SOB [id number] 03/01/2018 09:04:00 10:32:00 DIS Emergency COURTNEY MAURO MD [facility] ER CONGESTION/COUGH/SOB [id number] 02/24/2018 09:00:00 23:59:59 CLS Preadmit Latanya NGUYEN MD [facility] CR AMI,STENT [id number] 12/06/2017 08:44:00 00:01:00 DIS Outpatient Latanya NGUYEN MD [facility] CR AMI,STENT [id number] 11/22/2017 10:11:00 00:01:00 DIS Outpatient Latanya NGUYEN MD [facility] CR AMI,STENT [id number] 11/21/2017 15:03:00 018 23:59:59 CLS Outpatient JAMESON MCCLELLAN DO [facility] LAB R07.9,I25.10 [id number] 11/03/2017 19:25:00 018 21:18:00 DIS Emergency MACIE MACE MD [facility] ER DIZZY,LIGHTHEADED [id number] 11/01/2017 00:12:00 018 17:00:00 DIS Inpatient GERARDO LANG DO, [facility] 4TH ARF,UTI,LIGHTHEADEDNESS [id number] 10/29/2017 08:31:00 018 23:59:59 CLS Outpatient Latanya NGUYEN MD [facility] CARD CAD,HTN,SOB,DIZZINESS [id number] 10/06/2017 16:29:00 018 08:34:00 DIS Inpatient Latanya NGUYEN MD [facility] ICU STEMI [id number] 02/03/2017 14:12:00 017 16:59:00 DIS Emergency MELVINA ROOT MD [facility] ER SINUS INFECTION [id number] 06/16/2016 15:56:00 017 07:05:00 DIS Inpatient LUCY SINGH MD [facility] 4TH POST OPERATIVE WOUND IN FECTION [id number] 06/08/2016 06:40:00 017 08:45:00 DIS Outpatient LUCY SINGH MD [facility] SDC LEFT SUBMANDIBULAR CYST [id number] 06/04/2016 14:41:00 017 15:15:00 DIS Outpatient LUCY SINGH MD [facility] PREOP LEFT SUBMANDIBULAR CYST [id number] 05/17/2016 20:26:00 017 22:22:00 DIS Emergency JOCELYNE CHOW DO [facility] ER RT SIDE FACIAL SWELLING ,FEVER [id number] 05/05/2016 12:15:00 017 09:00:00 DIS Inpatient FRANCISCO VALADEZ, LUCY Lange [facility] 4TH SIALOADENITIS [id number] 11/26/2014 16:13:00 015 23:59:59 CLS Outpatient LUCY SINGH MD [facility] RAD CHRONIC SINUSITIS
--- NOTE | 2019-05-23 18:24 | ED Integumentary General ---
General Chief Complaint: Skin/Wound Problems Stated Complaint: CYST ON BACK PT IN PAIN Nursing Triage Note: pt c/o cyst on back. His PCP lanced it and put him on abx and has been taking it for 4 days now. Pt was feeling better but now he is feeling dizzy, nauseated, and the cyst is painful. wants to make sure it isnt infected, pt has no energy Source: patient Exam Limitations: no limitations History of Present Illness Date Seen by Provider: May 23, 2019 Time Seen by Provider: 18:22 Initial Comments To ER with reports of a cyst on his back. He was seen here a few days ago for general malaise and fatigue, had labs done showing a mildly elevated white count of 14,000. He was discharged home and followed up with Dr. Pena who found an inflamed sebaceous cyst on the upper back, this was incised and drained and he was placed on Bactrim. Comes in today with minimal pain at the site but persistent dizziness and "flushed" Timing/Duration: constant Severity: moderate Associated Symptoms: denies symptoms Allergies and Home Medications Allergies Coded Allergies: No Known Drug Allergies (Unverified , 05/05/16) Home Medications Albuterol Sulfate 1 Puff Puff, 2 PUFF IH Q4H PRN for SHORTNESS OF BREATH, (Reported) Albuterol Sulfate 1 Puff Puff, 2 PUFF IH Q4H PRN for WHEEZING 1 PUFF = 90 MCG Prescribed by: COURTNEY MAURO on 03/01/18 1020 Aspirin 81 Mg Tablet.dr, 81 MG PO DAILY, (Reported) Atorvastatin Calcium 80 Mg Tablet, 40 MG PO HS, (Reported) TAKES 1/2 (80MG) TABLET Fluticasone Propionate 9.9 Ml [place].susp, 1 SPRAY NS DAILY, (Reported) Loratadine 10 Mg Tablet, 10 MG PO DAILY, (Reported) Losartan Potassium 100 Mg Tablet, 100 MG PO DAILY, (Reported) Metoprolol Tartrate 25 Mg Tablet, 12.5 MG PO BID Prescribed by: BLANCA RICO on 11/01/17 1257 Ticagrelor 90 Mg Tablet, 90 MG PO BID, (Reported) Patient Home Medication List Home Medication List Reviewed: Yes Review of Systems Review of Systems Constitutional: see HPI; No fever EENTM: see HPI Respiratory: no symptoms reported; No cough, No short of breath Cardiovascular: see HPI; No chest pain Genitourinary: no symptoms reported Skin: see HPI Psychiatric/Neurological: No Symptoms Reported Endocrine: No Symptoms Reported Past Cagzlxu-Yyvimt-Yrhyfl Hx Patient Social History Alcohol Use: Occasionally Uses Recreational Drug Use: No Type Used: Smokeless Tobacco 2nd Hand Smoke Exposure: No Recent Foreign Travel: No Contact w/Someone Who Travel: No Recent Infectious Disease Expo: No Recent Hopitalizations: No Immunizations Up To Date Tetanus Booster (TDap): Unknown Seasonal Allergies Seasonal Allergies: Yes Past Medical History Surgeries: Yes (SINUS SURGEY, SUBMANDIBULAR GLAND RESECTION, ) Coronary Stent Respiratory: Yes Asthma Currently Using CPAP: No Currently Using BIPAP: No Cardiac: Yes Coronary Artery Disease, Heart Attack, Hypertension Neurological: No Reproductive Disorders: No Sexually Transmitted Disease: No HIV/AIDS: No Genitourinary: No Gastrointestinal: No Musculoskeletal: No Endocrine: No HEENT: Yes (wears glasses) Loss of Vision: Bilateral Cancer: No Psychosocial: No Integumentary: No Blood Disorders: No Adverse Reaction/Blood Tranf: No Family Medical History Colon cancer 19 FATHER Diabetes mellitus 19 MOTHER Headache disorder G8 SISTER Thyroid disease G8 SISTER Cancer, Diabetes Physical Exam Vital Signs Vital Signs - First Documented 05/23/19 17:40 Temp 36.6 Pulse 70 Resp 18 Pulse Ox 97 O2 Delivery Room Air Capillary Refill : Less Than 3 Seconds General Appearance: WD/WN, no apparent distress HEENT: PERRL/EOMI, normal ENT inspection Neck: non-tender, full range of motion Respiratory: no respiratory distress, no accessory muscle use Neurologic/Psychiatric: alert, normal mood/affect, oriented x 3 Skin: normal color, warm/dry Skin Problem Character: abscess, other (there is a quarter-sized area of very mild erythema to the upper back near the midline with incision that is still draining some serous fluid.) Progress/Results/Core Measures Results/Orders My Orders Orders - NEGRITA GARCIA APRN Cbc With Automated Diff (05/23/19 18:18) Basic Metabolic Panel (05/23/19 18:18) Vital Signs/I&O 05/23/19 17:40 Temp 36.6 Pulse 70 Resp 18 B/P (MAP) Pulse Ox 97 O2 Delivery Room Air Departure Impression Primary Impression: Sebaceous cyst of back Disposition: 01 HOME, SELF-CARE Condition: Stable Departure-Patient Inst. Decision time for Depature: 18:38 Referrals: JAMESON PENA DO (PCP/Family) Primary Care Physician Patient Instructions: NO INSTRUCTIONS GIVEN Add. Discharge Instructions: All discharge instructions reviewed with patient and/or family. Voiced understanding. NEGRITA GARCIA APRN May 23, 2019 18:24
[2019-05-23 18:38] LABS: BASOPHILS % (AUTO) 0 % (0-10); EOSINOPHILS # (AUTO) 0.1 10^3/uL (0.0-0.3); EOSINOPHILS % (AUTO) 1 % (0-10); HEMATOCRIT 44 % (40-54); HEMOGLOBIN 14.7 G/DL (13.3-17.7); LYMPHOCYTES # (AUTO) 1.9 X 10^3 (1.0-4.0); LYMPHOCYTES % (AUTO) 16 % (12-44); MEAN CORPUSCULAR HEMOGLOBIN 30 PG (25-34); MEAN CORPUSCULAR HGB CONC 34 G/DL (32-36); MEAN CORPUSCULAR VOLUME 90 FL (80-99); MEAN PLATELET VOLUME 9.2 FL (7.4-10.4); MONOCYTES # (AUTO) 1.2 X 10^3 (0.0-1.0); MONOCYTES % (AUTO) 10 % (0-12); NEUTROPHILS # (AUTO) 8.6 X 10^3 (1.8-7.8); NEUTROPHILS % (AUTO) 73 % (42-75); PLATELET COUNT 297 10^3/uL (130-400); RED CELL DISTRIBUTION WIDTH 13.2 % (10.0-14.5); WHITE BLOOD COUNT 11.8 10^3/uL (4.3-11.0)
[2019-05-23 19:13] LABS: CALCIUM 9.2 MG/DL (8.5-10.1); CREATININE SERUM 1.3 MG/DL (0.60-1.30); POTASSIUM 3.8 MMOL/L (3.6-5.0)
[2019-05-23 19:15] VITALS: BP 126/76
== END 2019-05-23 19:15 | disposition home or self-care (01) ==
LOC: EDUNIT# 17:37 → ER 17:39
DX: L72.3 Sebaceous cyst (principal); I25.10 Atherosclerotic heart disease of native coronary artery without angina pectoris; I25.2 Old myocardial infarction; I10 Essential (primary) hypertension; Z79.82 Long term (current) use of aspirin; Z79.899 Other long term (current) drug therapy; Z95.5 Presence of coronary angioplasty implant and graft
CPT/HCPCS: 36415; 80048; 85025; 99282

== ENCOUNTER 2019-07-21 11:41 | Emergency (ER) | payer BC ==
[~2019-07-21] VITALS: Ht 175 cm; Wt 91.6 kg
--- NOTE | 2019-07-21 11:58 | ED Integumentary General ---
General Stated Complaint: DIZZY, FATIGUE Source: patient Exam Limitations: no limitations History of Present Illness Date Seen by Provider: July 21, 2019 Time Seen by Provider: 11:56 Initial Comments To ER with reports of dizziness, fatigue, dyspnea on exertion. Today he loaded his dog in the back of his truck and it took his breath away. History of [place], con cerned he is having another one. No chest pain. 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 Giron. Timing/Duration: just prior to arrival Severity: moderate Associated Symptoms: denies symptoms Allergies and Home Medications Allergies Coded Allergies: No Known Drug Allergies (Unverified , 05/05/16) Home Medications Albuterol Sulfate 1 Puff Puff, 2 PUFF IH Q4H PRN for SHORTNESS OF BREATH, (Reported) Albuterol Sulfate 1 Puff Puff, 2 PUFF IH Q4H PRN for WHEEZING 1 PUFF = 90 MCG Prescribed by: COURTNEY MAURO on 03/01/18 1020 Aspirin 81 Mg Tablet.dr, 81 MG PO DAILY, (Reported) Atorvastatin Calcium 80 Mg Tablet, 40 MG PO HS, (Reported) TAKES 1/2 (80MG) TABLET Fluticasone Propionate 9.9 Ml [place].susp, 1 SPRAY NS DAILY, (Reported) Loratadine 10 Mg Tablet, 10 MG PO DAILY, (Reported) Losartan Potassium 100 Mg Tablet, 100 MG PO DAILY, (Reported) Metoprolol Tartrate 25 Mg Tablet, 12.5 MG PO BID Prescribed by: BLANCA RICO on 11/01/17 1257 Ticagrelor 90 Mg Tablet, 90 MG PO BID, (Reported) Patient Home Medication List Home Medication List Reviewed: Yes Review of Systems Review of Systems Constitutional: see HPI EENTM: see HPI Respiratory: see HPI, dyspnea on exertion Cardiovascular: see HPI Genitourinary: no symptoms reported Musculoskeletal: no symptoms reported Skin: no symptoms reported Psychiatric/Neurological: No Symptoms Reported Endocrine: No Symptoms Reported Past Cietyud-Idqcgr-Emtdan Hx Patient Social History Type Used: Smokeless Tobacco 2nd Hand Smoke Exposure: No Recent Foreign Travel: No Contact w/Someone Who Travel: No Recent Hopitalizations: No Immunizations Up To Date Tetanus Booster (TDap): Unknown Seasonal Allergies Seasonal Allergies: Yes Past Medical History Surgeries: Yes (SINUS SURGEY, SUBMANDIBULAR GLAND RESECTION, ) Coronary Stent Respiratory: Yes Asthma Currently Using CPAP: No Currently Using BIPAP: No Cardiac: Yes Coronary Artery Disease, Heart Attack, Hypertension Neurological: No Reproductive Disorders: No Sexually Transmitted Disease: No HIV/AIDS: No Genitourinary: No Gastrointestinal: No Musculoskeletal: No Endocrine: No HEENT: Yes (wears glasses) Loss of Vision: Bilateral Cancer: No Psychosocial: No Integumentary: No Blood Disorders: No Adverse Reaction/Blood Tranf: No Family Medical History Colon cancer 19 FATHER Diabetes mellitus 19 MOTHER Headache disorder G8 SISTER Thyroid disease G8 SISTER Cancer, Diabetes Physical Exam Vital Signs Vital Signs - First Documented 07/21/19 11:58 Temp 36.3 Pulse 62 Resp 18 B/P (MAP) 122/68 (86) Pulse Ox 97 Capillary Refill : General Appearance: WD/WN, no apparent distress, other (anxious) HEENT: PERRL/EOMI, normal ENT inspection Neck: non-tender, full range of motion Respiratory: no respiratory distress, no accessory muscle use Gastrointestinal: normal bowel sounds, non tender, soft Extremities: normal range of motion, non-tender Neurologic/Psychiatric: alert, normal mood/affect, oriented x 3 Skin: normal color, warm/dry Progress/Results/Core Measures Results/Orders Lab Results Laboratory Tests Test 07/21/19 12:14 Range/Units White Blood Count 11.7 H 4.3-11.0 10^3/uL Red Blood Count 4.41 4.35-5.85 10^6/uL Hemoglobin 13.3 13.3-17.7 G/DL Hematocrit 40 40-54 % Mean Corpuscular Volume 91 80-99 FL Mean Corpuscular Hemoglobin 30 25-34 PG Mean Corpuscular Hemoglobin Concent 33 32-36 G/DL Red Cell Distribution Width 13.2 10.0-14.5 % Platelet Count 304 130-400 10^3/uL Mean Platelet Volume 9.2 7.4-10.4 FL Neutrophils (%) (Auto) 75 42-75 % Lymphocytes (%) (Auto) 16 12-44 % Monocytes (%) (Auto) 8 0-12 % Eosinophils (%) (Auto) 1 0-10 % Basophils (%) (Auto) 0 0-10 % Neutrophils # (Auto) 8.8 H 1.8-7.8 X 10^3 Lymphocytes # (Auto) 1.9 1.0-4.0 X 10^3 Monocytes # (Auto) 0.9 0.0-1.0 X 10^3 Eosinophils # (Auto) 0.1 0.0-0.3 10^3/uL Basophils # (Auto) 0.0 0.0-0.1 10^3/uL Sodium Level 139 135-145 MMOL/L Potassium Level 3.6 3.6-5.0 MMOL/L Chloride Level 106 98-107 MMOL/L Carbon Dioxide Level 24 21-32 MMOL/L Anion Gap 9 5-14 MMOL/L Blood Urea Nitrogen 13 7-18 MG/DL Creatinine 0.86 0.60-1.30 MG/DL Estimat Glomerular Filtration Rate > 60 BUN/Creatinine Ratio 15 Glucose Level 114 H 70-105 MG/DL Calcium Level 9.0 8.5-10.1 MG/DL Corrected Calcium 9.1 8.5-10.1 MG/DL Total Bilirubin 0.3 0.1-1.0 MG/DL Aspartate Amino Transf (AST/SGOT) 14 5-34 U/L Alanine Aminotransferase (ALT/SGPT) 19 0-55 U/L Alkaline Phosphatase 89 40-136 U/L Troponin I < 0.028 <0.028 NG/ML B-Type Natriuretic Peptide 44.2 <100.0 PG/ML Total Protein 7.0 6.4-8.2 GM/DL Albumin 3.9 3.2-4.5 GM/DL My Orders Orders - NEGRITA GARCIA APRN Cbc With Automated Diff (07/21/19 11:54) Troponin I (07/21/19 11:54) Ekg Tracing (07/21/19 11:54) BNP (07/21/19 11:54) Comprehensive Metabolic Panel (07/21/19 11:54) Vital Signs/I&O 07/21/19 11:58 Temp 36.3 Pulse 62 Resp 18 B/P (MAP) 122/68 (86) Pulse Ox 97 Departure Impression Primary Impression: Fatigue Additional Impressions: CAD (coronary artery disease) Qualified Codes: I25.10 - Atherosclerotic heart disease of [place] coronary artery without angina pectoris Dizziness Disposition: 01 HOME, SELF-CARE Condition: Stable Departure-Patient Inst. Decision time for Depature: 13:13 Referrals: MCCLELLAN,JAMESON J DO (PCP/Family) Primary Care Physician Patient Instructions: Fatigue Add. Discharge Instructions: 1. Make an appointment for you with Dr. Giron on July 28 11:15 AM. I made an appointment for you with Dr. Lee August 11 at 2:45 PM. NEGRITA GARCIA APRN July 21, 2019 11:58
[2019-07-21 12:31] LABS: BASOPHILS % (AUTO) 0 % (0-10); EOSINOPHILS # (AUTO) 0.1 10^3/uL (0.0-0.3); EOSINOPHILS % (AUTO) 1 % (0-10); HEMATOCRIT 40 % (40-54); HEMOGLOBIN 13.3 G/DL (13.3-17.7); LYMPHOCYTES # (AUTO) 1.9 X 10^3 (1.0-4.0); LYMPHOCYTES % (AUTO) 16 % (12-44); MEAN CORPUSCULAR HEMOGLOBIN 30 PG (25-34); MEAN CORPUSCULAR HGB CONC 33 G/DL (32-36); MEAN CORPUSCULAR VOLUME 91 FL (80-99); MEAN PLATELET VOLUME 9.2 FL (7.4-10.4); MONOCYTES # (AUTO) 0.9 X 10^3 (0.0-1.0); MONOCYTES % (AUTO) 8 % (0-12); NEUTROPHILS # (AUTO) 8.8 X 10^3 (1.8-7.8); NEUTROPHILS % (AUTO) 75 % (42-75); PLATELET COUNT 304 10^3/uL (130-400); RED CELL DISTRIBUTION WIDTH 13.2 % (10.0-14.5); WHITE BLOOD COUNT 11.7 10^3/uL (4.3-11.0)
[2019-07-21 12:46] LABS: ALBUMIN 3.9 GM/DL (3.2-4.5); CHLORIDE 106 MMOL/L (98-107); POTASSIUM 3.6 MMOL/L (3.6-5.0); SODIUM 139 MMOL/L (135-145)
[2019-07-21 12:48] LABS: GLUCOSE 114 MG/DL (70-105)
[2019-07-21 12:49] LABS: CARBON DIOXIDE 24 MMOL/L (21-32)
[2019-07-21 12:50] LABS: BILIRUBIN,TOTAL 0.3 MG/DL (0.1-1.0)
[2019-07-21 12:51] LABS: ALKALINE PHOSPHATASE 89 U/L (40-136)
[2019-07-21 12:52] LABS: CREATININE SERUM 0.86 MG/DL (0.60-1.30); GFR ESTIMATED > 60
[2019-07-21 12:53] LABS: BUN/CREATININE RATIO 15
[2019-07-21 12:55] LABS: ALANINE AMINOTRANSFERASE 19 U/L (0-55)
--- OUTSIDE RECORDS SUMMARY | 2019-07-21 14:44 | XMS REPORT | Continuity of Care Document ---
Author Organization Unknown Address Unknown Phone Unavailable Allergies Active Description Code Type Severity Reaction Onset Reported/Identified Relationship to Patient Clinical Status Yes No Known Drug Allergies [id number] Drug Allergy Unknown N/A 05/05/2016 Medications There [...] MD Ot I10 ESSENTIAL (PRIMARY) HYPERTENSION 10/08/2017 Laatnya NGUYEN MD Ot 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 I 10/08/2017 Latanya NGUYEN MD Ot I25.10 ATHSCL HEART DISEASE OF [place] CORONARY 10/31/2017 Latanya NGUYEN MD Ot E78 .5 HYPERLIPIDEMIA, UNSPECIFIED 10/31/2017 Latanya NGUYEN MD Ot I10 ESSENTIAL (PRIMARY) HYPERTENSION 10/31/2017 Latanya NGUYEN MD Ot I25.10 ATHSCL HEART DISEASE OF [place] CORONARY 10/31/2017 Latanya NGUYEN MD Ot R06.02 SHORTNESS OF BREATH 10/31/2017 Latanya NGUYEN MD Ot R42 DIZZINESS AND GIDDINESS 10/31/2017 Latanya NGUYEN MD Ot Z72 .0 TOBACCO USE 11/01/2017 Latnaya NGUYEN MD Ot E78 .5 HYPERLIPIDEMIA, UNSPECIFIED 11/01/2017 Latanya NGUYEN MD Ot I10 ESSENTIAL (PRIMARY) HYPERTENSION 11/01/2017 Latanya NGUYEN MD Ot I25.10 ATHSCL HEART DISEASE OF [place] CORONARY 11/01/2017 Latanya NGUYEN MD Ot R06.02 [...] GERARDO Ot I25.10 ATHSCL HEART DISEASE OF [place] CORONARY 11/01/2017 EVAN LANG DOI Ot N17.9 ACUTE KIDNEY FAILURE, UNSPECIFIED 11/01/2017 LANG DO, GERARDO Ot N39.0 URINARY TRACT INFECTION, SITE NOT SPECIF 11/01/2017 LANG DO, GERARDO Ot R42 DIZZINESS AND GIDDINESS 11/01/2017 LANG DO, GERARDO Ot Z79.82 BIOLOGY INSTRUCTOR (CURRENT) USE OF ASPIRIN 11/01/2017 LANG DO, GERARDO Ot Z79.89 9 OTHER BIOLOGY INSTRUCTOR (CURRENT) DRUG THERAPY 11/01/2017 LANG DO, GERARDO Ot Z95.5 PRESENCE OF CORONARY ANGIOPLASTY IMPLANT 11/01/2017 LANG DO, GERARDO Ot F17.29 0 NICOTINE DEPENDENCE, OTHER TOBACCO PRODU 11/01/2017 LANG DO, GERARDO Ot I10 ESSENTIAL (PRIMARY) HYPERTENSION 11/01/2017 LANG DO, GERARDO Ot I21.3 ST ELEVATION (STEMI) MYOCARDIAL INFARCTI 11/01/2017 LANG DO, GERARDO Ot I25.10 ATHSCL HEART DISEASE OF [place] CORONARY 11/01/2017 LANG DO, GERARDO Ot N17.9 ACUTE KIDNEY FAILURE, UNSPECIFIED 11/01/2017 LANG DO, GERARDO Ot N39.0 URINARY TRACT INFECTION, SITE NOT SPECIF 11/01/2017 LANG DO, GERARDO Ot R42 DIZZINESS AND GIDDINESS 11/01/2017 LANG DO, GERARDO Ot Z79.82 HALF-WAY (CURRENT) USE OF ASPIRIN 11/01/2017 LANG DO, GERARDO Ot Z79.89 9 OTHER BIOLOGY INSTRUCTOR (CURRENT) DRUG THERAPY 11/01/2017 LANG DO, GERARDO Ot Z95.5 PRESENCE OF CORONARY ANGIOPLASTY IMPLANT 11/03/2017 PATRICK VALADEZ, Latanya CHAMPION Ot E78 .5 HYPERLIPIDEMIA, UNSPECIFIED 11/03/2017 PATRICK VALADEZ, Latanya CHAMPION Ot I10 ESSENTIAL (PRIMARY) HYPERTENSION 11/03/2017 Latanya NGUYEN MD Ot I25.10 ATHSCL HEART DISEASE OF [place] CORONARY 11/03/2017 PATRICK VALADEZ, Latanya CHAMPION Ot R06.02 SHORTNESS OF BREATH 11/03/2017 Latanya NGUYEN MD Ot R42 DIZZINESS AND GIDDINESS 11/03/2017 PATRICK VALADEZ, Latanya CHAMPION Ot Z72 .0 TOBACCO USE 11/03/2017 MACIE MACE MD Ot I10 ESSENTIAL (PRIMARY) HYPERTENSION 11/03/2017 MACIE MACE MD Ot I21 .9 ACUTE MYOCARDIAL INFARCTION, UNSPECIFIED 11/03/2017 MACIE MACE MD Ot I25.10 ATHSCL HEART DISEASE OF [place] CORONARY 11/03/2017 MACIE MACE MD Ot J45.909 UNSPECIFIED ASTHMA, UNCOMPLICATED 11/03/2017 MACIE MACE MD Ot R42 DIZZINESS AND GIDDINESS 11/03/2017 MACIE MACE MD Ot T44.7X5A ADVERSE EFFECT OF BETA-ADRENORECEPTOR AN 11/03/2017 MACIE MACE MD, Ot T46.4X5A ADVERSE EFFECT OF [id number] 11/03/2017 MACIE MACE MD Ot Z79.51 HALF-WAY (CURRENT) USE OF INHALED STERO 11/03/2017 MACIE MACE MD Ot Z79.82 BIOLOGY INSTRUCTOR (CURRENT) USE OF ASPIRIN 11/03/2017 MACIE MACE [...] MD Ot I25.10 ATHSCL HEART DISEASE OF [place] CORONARY 11/04/2017 Latanya NGUYEN MD Ot R06.02 SHORTNESS OF BREATH 11/04/2017 Latanya NGUYEN MD Ot R42 DIZZINESS AND GIDDINESS 11/04/2017 Latanya NGUYEN MD Ot Z72 .0 TOBACCO USE 11/04/2017 Latanya NGUYEN MD Ot E78 .5 HYPERLIPIDEMIA, UNSPECIFIED 11/04/2017 Latanya NGUYEN MD Ot I10 ESSENTIAL (PRIMARY) HYPERTENSION 11/04/2017 Latanya NGUYEN MD Ot I25.10 ATHSCL HEART DISEASE OF [place] CORONARY 11/04/2017 Latanya NGUYEN MD Ot R06.02 SHORTNESS OF BREATH 11/04/2017 Latanya NGUYEN MD Ot R42 DIZZINESS AND GIDDINESS 11/04/2017 Latanya NGUYEN MD Ot Z72 .0 TOBACCO USE 11/05/2017 MACIE MACE MD, Ot I10 ESSENTIAL (PRIMARY) HYPERTENSION 11/05/2017 MACIE MACE MD Ot I21 .9 ACUTE MYOCARDIAL INFARCTION, UNSPECIFIED 11/05/2017 MACIE MACE MD Ot I25.10 ATHSCL HEART DISEASE OF [place] CORONARY 11/05/2017 MACIE MACE MD Ot J45.909 UNSPECIFIED ASTHMA, UNCOMPLICATED 11/05/2017 MACIE MACE MD, Ot R42 DIZZINESS AND GIDDINESS 11/05/2017 MACIE MACE MD, Ot T44.7X5A ADVERSE EFFECT OF BETA-ADRENORECEPTOR AN 11/05/2017 MACIE MACE MD, Ot T46.4X5A ADVERSE EFFECT OF UHRWSCAEO-[id number] 11/05/2017 MACIE MACE MD Ot Z79.51 HALF-WAY (CURRENT) USE OF INHALED STERO 11/05/2017 MACIE MACE MD, Ot Z79.82 HALF-WAY (CURRENT) USE OF ASPIRIN 11/05/2017 MACIE MACE [...] MD Ot I25.10 ATHSCL HEART DISEASE OF [place] CORONARY 11/14/2017 Latanya NGUYEN MD Ot R06.02 SHORTNESS OF BREATH 11/14/2017 Latanya NGUYEN MD Ot R42 DIZZINESS AND GIDDINESS 11/14/2017 Latanya NGUYEN MD Ot Z72 .0 TOBACCO USE 11/24/2017 Latanya NGUYEN MD Ot I25 .2 OLD MYOCARDIAL INFARCTION 11/24/2017 Latanya NGUYEN MD Ot Z48.812 ENCNTR FOR SURGICAL AFTCR FOLLOWING SURG 11/24/2017 Latanya NGUYEN MD Ot Z95 .5 PRESENCE OF CORONARY ANGIOPLASTY IMPLANT 11/25/2017 JAMEOSN MCCLELLAN DO Ot I25.10 ATHSCL HEART DISEASE OF [place] CORONARY 11/25/2017 JAMESON MCCLELLAN DO Ot R07.9 CHEST PAIN, UNSPECIFIED 11/27/2017 Latanya NGUYEN MD Ot I25 .2 OLD MYOCARDIAL INFARCTION 11/27/2017 Latanya NGUYEN MD Ot Z48.812 ENCNTR FOR SURGICAL AFTCR FOLLOWING SURG 11/27/2017 Latanya NGUYEN MD Ot Z95 .5 PRESENCE OF CORONARY ANGIOPLASTY IMPLANT 12/04/2017 JAMESON MCCLELLAN DO Ot I25.10 ATHSCL HEART DISEASE OF [place] CORONARY 12/04/2017 JAMESON MCCLELLAN DO Ot R07.9 CHEST PAIN, UNSPECIFIED 12/24/2017 JAMESON MCCLELLAN DO Ot I25.10 ATHSCL HEART DISEASE OF [place] CORONARY 12/24/2017 JAMESON MCCLELLAN DO Ot R07.9 CHEST PAIN, UNSPECIFIED 12/24/2017 Latanya NGUYEN MD Ot E78 .5 HYPERLIPIDEMIA, UNSPECIFIED 12/24/2017 Latanya NGUYEN MD Ot I10 ESSENTIAL (PRIMARY) HYPERTENSION 12/24/2017 Latanya NGUYEN MD Ot I25.10 ATHSCL HEART DISEASE OF [place] CORONARY 12/24/2017 Latanya NGUYEN MD Ot R06.02 [...] .2 OLD MYOCARDIAL INFARCTION 02/24/2018 PATRICK VALADEZ, Ltaanya CHAMPION Ot Z48.812 ENCNTR FOR SURGICAL AFTCR FOLLOWING SURG 02/24/2018 PATRICK VALADEZ, Latanya CHAMPION Ot Z95 .5 PRESENCE OF CORONARY ANGIOPLASTY IMPLANT 03/01/2018 COURTNEY MAURO MD Ot F17.200 NICOTINE DEPENDENCE, UNSPECIFIED, UNCOMP 03/01/2018 COURTNEY MAURO MD Ot I10 ESSENTIAL (PRIMARY) HYPERTENSION 03/01/2018 COURTNEY MARUO MD Ot I25. 10 ATHSCL HEART DISEASE OF [place] CORONARY 03/01/2018 COURTNEY MAURO MD Ot I25. 2 OLD MYOCARDIAL INFARCTION 03/01/2018 COURTNEY MAURO MD Ot J45.901 UNSPECIFIED ASTHMA WITH (ACUTE) EXACERBA 03/01/2018 COURTNEY MAURO MD Ot R09. 81 NASAL CONGESTION 03/01/2018 COURTNEY MAURO MD Ot Z79. 51 HALF-WAY (CURRENT) USE OF INHALED STERO 03/01/2018 COURTNEY MAURO MD Ot Z79. 82 HALF-WAY (CURRENT) USE OF ASPIRIN 03/01/2018 COURTNEY MAURO [...] Ot I25. 10 ATHSCL HEART DISEASE OF [place] CORONARY 03/04/2018 COURTNEY MAURO MD Ot I25. 2 OLD MYOCARDIAL INFARCTION 03/04/2018 COURTNEY MAURO MD Ot J45.901 UNSPECIFIED ASTHMA WITH (ACUTE) EXACERBA 03/04/2018 COURTNEY MAURO MD Ot R09. 81 NASAL CONGESTION 03/04/2018 COURTNEY MAURO MD Ot Z79. 51 HALF-WAY (CURRENT) USE OF INHALED STERO 03/04/2018 COURTNEY MAURO MD Ot Z79. 82 HALF-WAY (CURRENT) USE OF ASPIRIN 03/04/2018 COURTNEY MAURO MD Ot Z80. 0 FAMILY HISTORY OF MALIGNANT NEOPLASM OF 03/04/2018 COURTNEY MAURO MD Ot Z90. 89 ACQUIRED ABSENCE OF OTHER ORGANS 03/04/2018 COURTNEY MAURO MD Ot Z95. 5 PRESENCE OF CORONARY ANGIOPLASTY IMPLANT 03/18/2018 MADAY SAGASTUME MD Ot I10 ESSENTIAL (PRIMARY) HYPERTENSION 03/18/2018 MADAY SAGASTUME MD, Ot I25.10 ATHSCL HEART DISEASE OF [place] CORONARY 03/18/2018 MADAY SAGASTUME MD Ot I25.2 OLD MYOCARDIAL INFARCTION 03/18/2018 MADAY SAGASTUME MD, Ot J45.909 UNSPECIFIED ASTHMA, UNCOMPLICATED 03/18/2018 MADAY SAGASTUME MD Ot R07.89 OTHER CHEST PAIN 03/18/2018 MADAY SAGASTUME MD Ot S29.012A STRAIN OF MUSCLE AND TENDON OF BACK WALL 03/18/2018 MADAY SAGASTUME MD Ot X58.XXXA EXPOSURE TO OTHER SPECIFIED FACTORS, INI 03/18/2018 MADAY SAGASTUME MD, Ot Z79.51 BIOLOGY INSTRUCTOR (CURRENT) USE OF INHALED STERO 03/18/2018 MADAY SAGASTUME MD Ot Z79.82 HALF-WAY (CURRENT) USE OF ASPIRIN 03/18/2018 MADAY SAGASTUME MD Ot Z80.0 FAMILY HISTORY OF MALIGNANT NEOPLASM OF 03/18/2018 MADAY SAGASTUME MD Ot Z95.5 PRESENCE OF CORONARY ANGIOPLASTY IMPLANT 03/18/2018 MADAY SAGASTUME MD Ot Z98.890 OTHER SPECIFIED POSTPROCEDURAL STATES 03/20/2018 MADAY SAGASTUME MD Ot I10 ESSENTIAL (PRIMARY) HYPERTENSION 03/20/2018 MADAY SAGASTUME MD Ot I25.10 ATHSCL HEART DISEASE OF [place] CORONARY 03/20/2018 MADAY SAGASTUME MD Ot I25.2 OLD MYOCARDIAL INFARCTION 03/20/2018 MADAY SAGASTUME MD Ot J45.909 UNSPECIFIED ASTHMA, UNCOMPLICATED 03/20/2018 MADAY SAGASTUME MD Ot R07.89 OTHER CHEST PAIN 03/20/2018 MADAY SAGASTUME MD Ot S29.012A STRAIN OF MUSCLE AND TENDON OF BACK WALL 03/20/2018 MADAY SAGASTUME MD Ot X58.XXXA EXPOSURE TO OTHER SPECIFIED FACTORS, INI 03/20/2018 MADAY SAGASTUME MD Ot Z79.51 BIOLOGY INSTRUCTOR (CURRENT) USE OF INHALED STERO 03/20/2018 MADAY SAGASTUME MD Ot Z79.82 HALF-WAY (CURRENT) USE OF ASPIRIN 03/20/2018 MADAY SAGASTUME [...] MD Ot I25.10 ATHSCL HEART DISEASE OF [place] CORONARY 04/10/2018 Latanya NGUYEN MD Ot R06.02 SHORTNESS OF BREATH 04/10/2018 Latanya NGUYEN MD Ot R42 DIZZINESS AND GIDDINESS 04/10/2018 Latanya NGUYEN MD Ot Z72 .0 TOBACCO USE 04/10/2018 JAMESON MCCLELLAN DO Ot I25.10 ATHSCL HEART DISEASE OF [place] CORONARY 04/10/2018 JAMESON MCCLELLAN DO Ot R07.9 CHEST PAIN, UNSPECIFIED 04/10/2018 Latanya NGUYEN MD Ot I25 .2 OLD MYOCARDIAL INFARCTION 04/10/2018 Latanya NGUYEN MD Ot Z48.812 ENCNTR FOR SURGICAL AFTCR FOLLOWING SURG 04/10/2018 Latanya NGUYEN MD Ot Z95 .5 PRESENCE OF CORONARY ANGIOPLASTY IMPLANT 04/11/2018 Latanya NGUYEN MD Ot I25.10 ATHSCL HEART DISEASE OF [place] CORONARY 04/11/2018 PATRICK VALADEZ, Latanya CHAMPION Ot R07 .9 CHEST PAIN, UNSPECIFIED 04/16/2018 PATRICK VALADEZ, Latanya CHAMPION Ot I25.10 ATHSCL HEART DISEASE OF [place] CORONARY 04/16/2018 Latanya NGUYEN MD Ot R07 .9 CHEST PAIN, UNSPECIFIED 05/21/2018 Latanya NGUYEN MD Ot I25.10 ATHSCL HEART DISEASE OF [place] CORONARY 05/21/2018 Latanya NGUYEN MD Ot R07 .9 CHEST PAIN, UNSPECIFIED 08/05/2018 MADAY SAGASTUME MD Ot I10 ESSENTIAL (PRIMARY) HYPERTENSION 08/05/2018 MADAY SAGASTUME MD Ot I25.10 ATHSCL HEART DISEASE OF [place] CORONARY 08/05/2018 MADAY SAGASTUME MD Ot I25.2 OLD MYOCARDIAL INFARCTION 08/05/2018 MADAY SAGASTUME MD Ot J45.909 UNSPECIFIED ASTHMA, UNCOMPLICATED 08/05/2018 MADAY SAGASTUME MD Ot R42 DIZZINESS AND GIDDINESS 08/05/2018 MADAY SAGASTUME MD Ot Z79.51 HALF-WAY (CURRENT) USE OF INHALED STERO 08/05/2018 MADAY SAGASTUME MD Ot Z79.82 BIOLOGY INSTRUCTOR (CURRENT) USE OF ASPIRIN 08/05/2018 MADAY SAGASTUME MD Ot Z80.0 FAMILY HISTORY OF MALIGNANT NEOPLASM OF 08/05/2018 MADAY SAGASTUME MD Ot Z95.5 PRESENCE OF CORONARY ANGIOPLASTY IMPLANT 08/05/2018 MADAY SAGASTUME MD Ot Z98.890 OTHER SPECIFIED POSTPROCEDURAL STATES 08/08/2018 MADAY SAGASTUME MD Ot I10 ESSENTIAL (PRIMARY) HYPERTENSION 08/08/2018 MADAY SAGASTUME MD Ot I25.10 ATHSCL HEART DISEASE OF [place] CORONARY 08/08/2018 MADAY SAGASTUME MD Ot I25.2 OLD MYOCARDIAL INFARCTION 08/08/2018 MADAY SAGASTUME MD Ot J45.909 UNSPECIFIED ASTHMA, UNCOMPLICATED 08/08/2018 MADAY SAGASTUME MD Ot R42 DIZZINESS AND GIDDINESS 08/08/2018 MADAY SAGASTUME MD Ot Z79.51 HALF-WAY (CURRENT) USE OF INHALED STERO 08/08/2018 MADAY SAGASUTME MD Ot Z79.82 BIOLOGY INSTRUCTOR (CURRENT) USE OF ASPIRIN 08/08/2018 MADAY SAGASTUME MD Ot Z80.0 FAMILY HISTORY OF MALIGNANT NEOPLASM OF 08/08/2018 MADAY SAGASTUME MD Ot Z95.5 PRESENCE OF CORONARY ANGIOPLASTY IMPLANT 08/08/2018 MADAY SAGASTUME MD Ot Z98.890 OTHER SPECIFIED POSTPROCEDURAL STATES 12/07/2018 COURTNEY MAURO MD Ot I10 ESSENTIAL (PRIMARY) HYPERTENSION 12/07/2018 COURTNEY MAURO MD Ot I25. 10 ATHSCL HEART DISEASE OF [place] CORONARY 12/07/2018 COURTNEY MAURO MD Ot I25. 2 OLD MYOCARDIAL INFARCTION 12/07/2018 COURTNEY MAURO MD Ot J45.909 UNSPECIFIED ASTHMA, UNCOMPLICATED 12/07/2018 COURTNEY MAURO MD Ot R42 DIZZINESS AND GIDDINESS 12/07/2018 COURTNEY MAURO MD Ot R55 SYNCOPE AND COLLAPSE 12/07/2018 COURTNEY MAURO MD Ot Z79. 51 HALF-WAY (CURRENT) USE OF INHALED STERO 12/07/2018 COURTNEY MAURO MD Ot Z79. 82 BIOLOGY INSTRUCTOR (CURRENT) USE OF ASPIRIN 12/07/2018 COURTNEY MAURO MD Ot Z80. 0 FAMILY HISTORY OF MALIGNANT NEOPLASM OF 12/07/2018 COURTNEY MAURO MD Ot Z95. 5 PRESENCE OF CORONARY ANGIOPLASTY IMPLANT 12/11/2018 COURTNEY MAURO MD Ot I10 ESSENTIAL (PRIMARY) HYPERTENSION 12/11/2018 COURTNEY MAURO MD Ot I25. 10 ATHSCL HEART DISEASE OF [place] CORONARY 12/11/2018 COURTNEY MAURO MD Ot I25. 2 OLD MYOCARDIAL INFARCTION 12/11/2018 COURTNEY MAURO MD Ot J45.909 UNSPECIFIED ASTHMA, UNCOMPLICATED 12/11/2018 COURTNEY MAURO MD, Ot R42 DIZZINESS AND GIDDINESS 12/11/2018 COURTNEY MAURO MD Ot R55 SYNCOPE AND COLLAPSE 12/11/2018 COURTNEY MAURO MD, Ot Z79. 51 BIOLOGY INSTRUCTOR (CURRENT) USE OF INHALED STERO 12/11/2018 COURTNEY MAURO MD, Ot Z79. 82 HALF-WAY (CURRENT) USE OF ASPIRIN 12/11/2018 COURTNEY MAURO MD, Ot Z80. 0 FAMILY HISTORY OF MALIGNANT NEOPLASM OF 12/11/2018 COURTNEY MAURO MD, Ot Z95. 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 01/12/2019 JAMESON MCCLELLAN DO, Ot J01.01 ACUTE RECURRENT MAXILLARY SINUSITIS 05/19/2019 NEGRITA GARCIA APRN Ot F17.290 NICOTINE DEPENDENCE, OTHER TOBACCO PRODU 05/19/2019 NEGRITA GARCIA APRN Ot I10 ESSENTIAL (PRIMARY) HYPERTENSION 05/19/2019 NEGRITA GARCIA APRN Ot I25.10 ATHSCL HEART DISEASE OF [place] CORONARY 05/19/2019 NEGRITA GARCIA APRN Ot I25 .2 OLD MYOCARDIAL INFARCTION 05/19/2019 NEGRITA GARCIA APRN Ot R06.00 DYSPNEA, UNSPECIFIED 05/19/2019 NEGRITA GARCIA APRN Ot R53 .1 WEAKNESS 05/19/2019 NEGRITA GARCIA APRN Ot R53.83 OTHER FATIGUE 05/19/2019 NEGRITA GARCIA APRN Ot Z95 .5 PRESENCE OF CORONARY ANGIOPLASTY IMPLANT 05/23/2019 NEGRITA GARCIA APRN Ot I10 ESSENTIAL (PRIMARY) HYPERTENSION 05/23/2019 NEGRITA GARCIA APRN Ot I25.10 ATHSCL HEART DISEASE OF [place] CORONARY 05/23/2019 NEGRITA GARCIA APRN Ot I25 .2 OLD MYOCARDIAL INFARCTION 05/23/2019 NEGRITA GARCIA APRN Ot L72 .3 SEBACEOUS CYST 05/23/2019 NEGRITA GARCIA APRN Ot Z79.82 BIOLOGY INSTRUCTOR (CURRENT) USE OF ASPIRIN 05/23/2019 NEGRITA GARCIA APRN Ot Z79.899 OTHER BIOLOGY INSTRUCTOR (CURRENT) DRUG THERAPY 05/23/2019 NEGRITA GARCIA APRN Ot Z95 .5 PRESENCE OF CORONARY ANGIOPLASTY IMPLANT 05/25/2019 NEGRITA GARCIA APRN Ot F17.290 NICOTINE DEPENDENCE, OTHER TOBACCO PRODU 05/25/2019 NEGRITA GARCIA APRN Ot I10 ESSENTIAL (PRIMARY) HYPERTENSION 05/25/2019 NEGRITA GARCIA APRN Ot I25.10 ATHSCL HEART DISEASE OF [place] CORONARY 05/25/2019 NEGRITA GARCIA APRN Ot I25 .2 OLD MYOCARDIAL INFARCTION 05/25/2019 NEGRITA GARCIA APRN Ot R06.00 DYSPNEA, UNSPECIFIED 05/25/2019 NEGRITA GARCIA APRN Ot R53 .1 WEAKNESS 05/25/2019 NEGRITA GARCIA APRN Ot R53.83 OTHER FATIGUE 05/25/2019 NEGRITA GARCIA APRN Ot Z95 .5 PRESENCE OF CORONARY ANGIOPLASTY IMPLANT 05/26/2019 NEGRITA GARCIA APRN Ot I10 ESSENTIAL (PRIMARY) HYPERTENSION 05/26/2019 NEGRITA GARCIA APRN Ot I25.10 ATHSCL HEART DISEASE OF [place] CORONARY 05/26/2019 NEGRITA GARCIA APRN Ot I25 .2 OLD MYOCARDIAL INFARCTION 05/26/2019 NEGRITA GARCIA APRN Ot L72 .3 SEBACEOUS CYST 05/26/2019 NEGRITA GARCIA APRN Ot Z79.82 BIOLOGY INSTRUCTOR (CURRENT) USE OF ASPIRIN 05/26/2019 NEGRITA GARCIA APRN Ot Z79.899 OTHER HALF-WAY (CURRENT) DRUG THERAPY 05/26/2019 NEGRITA GARCIA APRN Ot Z95 .5 PRESENCE OF CORONARY ANGIOPLASTY IMPLANT Procedures Code Description Performed By Per [place]arshal [place] [id number] DI LATION OF 1 COR ART WITH DRUG-ELUT INT 10/06/2017 [id number] ME ASURE OF CARDIAC SAMPL PRESSURE, L H 10/06/2017 [id number] FL UOROSCOPY OF MULT COR ART USING L OSM 10/06/2017 [id number] FL UOROSCOPY OF LEFT HEART USING LOW OSMO 10/06/2017 [id number] FL UOROSCOPY OF THORACIC AORTA USING LOW [...] NRG Blood erythrocyte morphology finding identification [facility]ORMAL [facility] Comprehensive metabolic panel - 05/17/16 [...] 13:35 Bacteria identification in wound by culture [id number] NRG QUANTITY OF GROWTH Moderate Growth [...] d white blood cell (WBC) differential - 05/23/19 18:32 Blood leukocytes automated count (number/volume) 11.8 10*3/uL 4.3-11.0 Blood erythrocytes automated count (number/volume) 4.90 10*6/uL 4.35-5.85 Venous blood hemoglobin measurement (mass/volume) 14.7 g/dL 13.3-17.7 Blood hematocrit (volume fraction) 44 % 40-54 Automated erythrocyte mean corpuscular volume 90 [ foz_us] 80-99 Automated erythrocyte mean corpuscular h emoglobin (mass per erythrocyte) 30 pg 25-34 Automated erythrocyte mean corpuscular h emoglobin concentration measurement (mass/volume) 34 g/dL 32-36 Automated erythrocyte distribution width ratio 13. 2 % 10.0- 14.5 Automated blood platelet count (count/volume) 297 10*3/uL 130-400 Automated blood platelet mean volume measurement 9.2 [foz_us] 7.4-10.4 Automated blood neutrophils/100 leukocytes 73 % 42-75 Automated blood lymphocytes/100 leukocytes 16 % 12-44 Blood monocytes/100 leukocytes 10 % 0-12 Automated blood eosinophils/100 leukocytes 1 % 0-10 Automated blood basophils/100 leukocytes 0 % 0-10 Blood neutrophils automated count (number/volume) 8.6 10*3 1.8-7.8 Blood lymphocytes automated count (number/volume) 1.9 10*3 1.0-4.0 Blood monocytes automated count (number/volume) 1. 2 10*3 0.0-1.0 Automated eosinophil count 0.1 10*3/uL 0 .0-0.3 Automated blood basophil count (count/volume) 0.0 10*3/uL 0.0-0.1 Whole blood basic metabolic panel - 04/26 10/14 18:32 Serum or plasma sodium measurement (moles/volume) 137 mmol/L 135-145 Serum or plasma potassium measurement (moles/volume) 3.8 mmol/L 3.6-5.0 Serum or plasma chloride measurement (moles/volume) 104 mmol/L 98-107 Carbon dioxide 20 mmol/L 21-32 Serum or plasma anion gap determination (moles/volume) 13 mmol/L 5-14 Serum or plasma urea nitrogen measurement (mass/volume ) 13 mg/dL 7-18 Serum or plasma creatinine measurement (mass/volume) 1.30 mg/dL 0.60-1.30 Serum or plasma urea nitrogen/creatinine mass ratio 10 NRG Serum or plasma creatinine measurement w ith calculation of estimated glomerular filtration rate 57 NRG Serum or plasma glucose measurement (mass/volume) 107 mg/dL 70-105 Serum or plasma calcium measurement (mass/volume) 9.2 mg/dL 8.5-10.1 Encounters ACCT No. Visit Date/Time Discharge Status Pt. Type Provider Facility Loc./Unit Complaint [id number] 05/23/2019 17:39:00 19:15:00 DIS Emergency NEGRITA GARCIA APRN [facility] ER CYST ON BACK PT IN PAIN [id number] 05/19/2019 16:36:00 18:50:00 DIS Emergency NEGRITA GARCIA APRN [facility] ER WEAKNESS,LIGHTHEADED [id number] 12/12/2018 11:38:00 23:59:59 CLS Outpatient JAMESON MCCLELLAN DO [facility] RAD DIZZINESS [id number] 12/07/2018 11:32:00 13:55:00 DIS Emergency COURTNEY MAURO MD [facility] ER LIGHTHEADED/DIZZY/SOB [id number] 08/05/2018 07:11:00 10:28:00 DIS Emergency MADAY SAGASTUME MD [facility] ER FATIGUE,DIZZINE SS,HOT FLASHES,HX OF HEART ATTACK [id number] 04/10/2018 08:08:00 019 23:59:59 CLS Outpatient Latanya NGUYEN MD [facility] CARD CAD [id number] 03/18/2018 08:26:00 019 10:22:00 DIS Emergency MADAY SAGASTUME MD [facility] ER CHEST PAIN;SOB [id number] 03/01/2018 09:04:00 019 10:32:00 DIS Emergency COURTNEY MAURO MD [facility] ER CONGESTION/COUGH/SOB [id number] 02/24/2018 09:00:00 018 23:59:59 CLS Preadmit Latanya NGUYEN MD [facility] CR AMI,STENT [id number] 12/06/2017 08:44:00 018 00:01:00 DIS Outpatient Latanya NGUYEN MD [facility] CR AMI,STENT [id number] 11/22/2017 10:11:00 018 00:01:00 DIS Outpatient Latanya NGUYEN MD [facility] CR AMI,STENT [id number] 11/21/2017 15:03:00 018 23:59:59 CLS Outpatient JAMESON MCCLELLAN DO [facility] LAB R07.9,I25.10 [id number] 11/03/2017 19:25:00 018 21:18:00 DIS Emergency MACIE MACE MD [facility] ER DIZZY,LIGHTHEADED [id number] 11/01/2017 00:12:00 018 17:00:00 DIS Inpatient GERARDO LANG DO, [facility] 4TH ARF,UTI,LIGHTHEADEDNESS [id number] 10/29/2017 08:31:00 018 23:59:59 CLS Outpatient Latanya NGUYEN MD [facility] CARD CAD,HTN,SOB,DIZZINESS [id number] 10/06/2017 16:29:00 018 08:34:00 DIS Inpatient Latanya NGUYEN MD [facility] ICU STEMI [id number] 02/03/2017 14:12:00 017 16:59:00 DIS Emergency MELVINA ROOT MD [facility] ER SINUS INFECTION [id number] 06/16/2016 15:56:00 017 07:05:00 DIS Inpatient LUCY SINGH MD [facility] 4TH POST OPERATIVE WOUND IN FECTION [id number] 06/08/2016 06:40:00 017 08:45:00 DIS Outpatient LUCY SINGH MD [facility] SDC LEFT SUBMANDIBULAR CYST [id number] 06/04/2016 14:41:00 017 15:15:00 DIS Outpatient LUCY SINGH MD [facility] PREOP LEFT SUBMANDIBULAR CYST [id number] 05/17/2016 20:26:00 017 22:22:00 DIS Emergency JOCELYNE CHOW DO [facility] ER RT SIDE FACIAL SWELLING ,FEVER [id number] 05/05/2016 12:15:00 017 09:00:00 DIS Inpatient LUCY SINGH MD [facility] 4TH SIALOADENITIS [id number] 11/26/2014 16:13:00 015 23:59:59 CLS Outpatient LUCY SINGH MD [facility] RAD CHRONIC SINUSITIS [id number] 07/21/2019 11:43:[address] Emergency NEGRITA GARCIA APRN [facility] ER DIZZY, FATIGUE
[2019-07-21 14:57] VITALS: BP 113/79
== END 2019-07-21 14:57 | disposition home or self-care (01) ==
LOC: EDUNIT# 11:41 → ER 11:43
DX: I25.10 Atherosclerotic heart disease of native coronary artery without angina pectoris (principal); I25.2 Old myocardial infarction; I10 Essential (primary) hypertension; J45.909 Unspecified asthma, uncomplicated; Z79.82 Long term (current) use of aspirin; Z95.5 Presence of coronary angioplasty implant and graft; Z80.0 Family history of malignant neoplasm of digestive organs
CPT/HCPCS: 36415; 80053; 83880; 84484; 85025; 93005

== ENCOUNTER → 2020-01-20 | Outpatient (CLI) | payer BC ==
[~2020-01-20] MED LIST changes: +ASPI-1238 PO; -ASPI-983 PO
--- NOTE | 2020-01-20 11:22 | Diagnostic Imaging Report ---
PROCEDURE: MRI lumbar spine. TECHNIQUE: Multiplanar, multisequence MRI of the lumbar spine was performed without contrast. INDICATION: Low back pain. No relevant comparison. FINDINGS: Lumbar vertebral statures are normal. The alignment anatomic. The marrow signal intensity was normal. The primary abnormality is found at the L5-S1 level where there is disc desiccation, stature loss and endplate osteophytes as well as left paramedian posterior focal disc protrusion indenting the left ventral thecal sac with moderate central canal stenosis. Disc material compresses and displaces the takeoff of the descending left S1 nerve root at the upper lateral recess. There is no substantial narrowing of either neural foramen. The remaining discs are well-hydrated and nondisplaced. The spinal canal, neural foramina and lateral recesses otherwise widely patent. The lower thoracic cord and the conus appeared normal and there is a normal dispersal of the nerves of the cauda equina. IMPRESSION: 1. Spondylosis and focal left paramedian disc protrusion at L5-S1 impinges upon the left S1 nerve root and lateral recess as well as the central canal. 2. Remaining levels unremarkable. Normal alignment. No acute bony abnormality. Dictated by: Dictated on workstation # [id number]
== END ==
LOC: RAD 08:45
PROVIDERS: ATTEND Internal Medicine
DX: M47.817 Spondylosis without myelopathy or radiculopathy, lumbosacral region (principal); M51.17 Intervertebral disc disorders with radiculopathy, lumbosacral region
CPT/HCPCS: 72148

== ENCOUNTER 2020-03-20 14:22 | Emergency (ER) | payer BC ==
[~2020-03-20] VITALS: Ht 175 cm; Wt 91.0 kg
--- NOTE | 2020-03-20 15:01 | ED General ---
General Stated Complaint: SINUS INFECTION, PETERSON Source of Information: Patient Exam Limitations: No Limitations History of Present Illness Date Seen by Provider: Mar 20, 2020 Time Seen by Provider: 14:50 Initial Comments Patient is a 60-year-old male who presents to the emergency department today with a chief complaint of generalized headache and sinus infection. Patient states that he had a telehealth visit with his primary care provider last week on Saturday and went into the office and got a Depo-Medrol shot. He was started on some antibiotics on the , cefdinir. Patient states that he has been taking 1/2 tablet of Tylenol Sinus periodically for his symptoms without much relief. Patient states at times his headache is a "10". He states he has had similar headaches in the past but it has been at least a couple of years since he has had them. Patient states that he has "allergies" and occasionally has to have steroids for these. Patient denies any fevers chills, vision difficulty speech difficulties. Nothing really makes his headache any better or any worse. Patient denies any chest pain, shortness of breath, abdominal pain, nausea vomiting or diarrhea. Patient states at the time of my evaluation that his symptoms are improving mildly. Patient states that he has not been taking ibuprofen secondary to having a history of heart disease and already being on aspirin. He is not "a pill taker". All other review of systems reviewed and negative except as stated above. Timing/Duration: Other (Symptoms ongoing for 11 days) Severity: Severe Associated Systoms: Denies Symptoms Allergies and Home Medications Allergies Coded Allergies: No Known Drug Allergies (Unverified , 05/05/16) Home Medications Albuterol Sulfate 1 Puff Puff, 2 PUFF IH Q4H PRN for SHORTNESS OF BREATH, (Reported) Albuterol Sulfate 1 Puff Puff, 2 PUFF IH Q4H PRN for WHEEZING 1 PUFF = 90 MCG Prescribed by: COURTNEY MAURO on 03/01/18 1020 Aspirin 81 Mg Tablet.dr, 81 MG PO DAILY, (Reported) Atorvastatin Calcium 80 Mg Tablet, 40 MG PO HS, (Reported) TAKES 1/2 (80MG) TABLET Fluticasone Propionate 9.9 Ml [place].susp, 1 SPRAY NS DAILY, (Reported) Loratadine 10 Mg Tablet, 10 MG PO DAILY, (Reported) Losartan Potassium 100 Mg Tablet, 100 MG PO DAILY, (Reported) Metoprolol Tartrate 25 Mg Tablet, 12.5 MG PO BID Prescribed by: BLANCA RICO on 11/01/17 1257 Ticagrelor 90 Mg Tablet, 90 MG PO BID, (Reported) Patient Home Medication List Home Medication List Reviewed: Yes Review of Systems Review of Systems Constitutional: see HPI EENTM: tearing, nose congestion Respiratory: no symptoms reported Cardiovascular: no symptoms reported Gastrointestinal: no symptoms reported Genitourinary: no symptoms reported Musculoskeletal: no symptoms reported Skin: no symptoms reported Psychiatric/Neurological: Headache Hematologic/Lymphatic: No Symptoms Reported All Other Systems Reviewed Negative Unless Noted: Yes Past Ajkmfdy-Lmozih-Scsiph Hx Patient Social History Type Used: Smokeless Tobacco 2nd Hand Smoke Exposure: No Recent Hopitalizations: No Immunizations Up To Date Tetanus Booster (TDap): Unknown Seasonal Allergies Seasonal Allergies: Yes Past Medical History Surgeries: Yes (SINUS SURGEY, SUBMANDIBULAR GLAND RESECTION, ) Coronary Stent Respiratory: Yes Asthma Currently Using CPAP: No Currently Using BIPAP: No Cardiac: Yes Coronary Artery Disease, Heart Attack, Hypertension Neurological: No Reproductive Disorders: No Sexually Transmitted Disease: No HIV/AIDS: No Genitourinary: No Gastrointestinal: No Musculoskeletal: No Endocrine: No HEENT: Yes (wears glasses) Loss of Vision: Bilateral Cancer: No Psychosocial: No Integumentary: No Blood Disorders: No Adverse Reaction/Blood Tranf: No Family Medical History Colon cancer 19 FATHER Diabetes mellitus 19 MOTHER Headache disorder G8 SISTER Thyroid disease G8 SISTER Cancer, Diabetes Physical Exam Vital Signs Capillary Refill : Height, Weight, BMI Height: 5'9.00" Weight: 200lbs. 0.0oz. [id number]; 29.00 BMI Method:Stated General Appearance: No Apparent Distress, WD/WN Eyes: Bilateral Eye Normal Inspection, Bilateral Eye PERRL, Bilateral Eye EOMI HEENT: PERRL/EOMI, Pharyngeal Erythema (Mild with postnasal drip), TM Abnormal (L) (Small effusions bilateral TMs), TM Abnormal (R); No Tonsillar Exudate, No Tonsillar Enlargement Neck: Full Range of Motion, Normal Inspection, Non Tender, Supple (No lymphadenopathy is noted) Respiratory: Lungs Clear, Normal Breath Sounds, No Accessory Muscle Use, No Respiratory Distress Cardiovascular: Regular Rate, Rhythm, No Murmur Gastrointestinal: Normal Bowel Sounds, Non Tender, Soft Extremity: Normal Inspection Neurologic/Psychiatric: Alert, Oriented x3, No Motor/Sensory Deficits, Normal Mood/Affect Skin: Normal Color, Warm/Dry Progress/Results/Core Measures Suspected Sepsis SIRS Temperature: Pulse: Respiratory Rate: Blood Pressure / Mean: Results/Orders My Orders Orders - LILIAN WADE MD Acetaminophen Tablet (Tylenol Tablet) (03/20/20 15:15) Dexamethasone Injection (Decadron Injec (03/20/20 15:15) Medications Given in ED Current Medications Medications Dose Ordered Sig/Darek Route Start Time Stop Time Status Last Admin Dose Admin Acetaminophen 1,000 mg ONCE ONCE PO 03/20/20 15:15 03/20/20 15:16 DC 03/20/20 15:32 1,000 MG Dexamethasone Sodium Phosphate 8 mg ONCE ONCE IM 03/20/20 15:15 03/20/20 15:16 DC 03/20/20 15:34 8 MG Vital Signs/I&O Capillary Refill : Progress Note : Time: 15:00 Progress Note 60-year-old male presents to the emergency department today with a chief complaint of "sinus infection" and headache. Patient evaluation today includes a physical exam. Patient does have some mild pharyngeal erythema with some nodularity in the posterior pharynx consistent with some postnasal drip. He has mild effusions behind both TMs. He complains of sinus pressure in his face. He complains of headache. Patient's vital signs are stable he is slightly hypertensive with a systolic blood pressure of the 150. He is afebrile. Clinically the patient looks well. He states that his symptoms are improving at the time of my evaluation. Patient states that he has gotten a shot of Decadron in the past to help alleviate his symptoms. He did have Depo-Medrol 6 days ago. I am going to go ahead and give him a shot of 8 mg of Decadron IM and some Tylenol. I have counseled him on taking vdsg-zsd-uhuqycp Mucinex to help thin out his sinus secretions as well as Tylenol for his headache. Patient is very hesitant to take Tylenol because he states it "knocks me out". We will monitor the patient for about 30 minutes after his medications to see if he is improving. 1611 Reevaluated patient, feels much improved. Tylenol has alleviated his headache. Patient is counseled on follow-up with his primary care physician. He is advised to use Tylenol every 4-6 hours. He verbalizes understanding. All questions are sought and answered. Patient is stable for discharge. Departure Impression Primary Impression: Sinus headache Disposition: 01 HOME, SELF-CARE Condition: Stable Departure-Patient Inst. Decision time for Depature: 16:12 Referrals: JAMESON MCCLELLAN DO (PCP/Family) Primary Care Physician Patient Instructions: Sinus Headache (DC) Add. Discharge Instructions: Drink plenty of fluids to stay well-hydrated. Take hnii-hxt-udvlqps extra strength Tylenol 2 tablets every 4-6 hours as needed for headache. You can also take kosq-nvn-evmzziy Mucinex to help thin sinus secretions and help reduce sinus pressure. Continue your antibiotics as prescribed. Please call and follow-up with your primary care physician tomorrow. Return to the emergency department for any worsening headache especially associated with high fever or any other new emergent concerning symptoms. Copy Copies To 1: JAMESON MCCLELLAN KATHRYN M MD Mar 20, 2020 15:01
[2020-03-20] MEDS ORDERED: ACETAMINOPHEN 500 MG TAB (TYLENOL) PO ONE (15:15)
[2020-03-20 16:21] VITALS: BP 139/119
== END 2020-03-20 16:22 | disposition home or self-care (01) ==
LOC: EDUNIT# 14:22 → ER 14:24
DX: J32.9 Chronic sinusitis, unspecified (principal); I10 Essential (primary) hypertension; I25.10 Atherosclerotic heart disease of native coronary artery without angina pectoris; I25.2 Old myocardial infarction; J45.909 Unspecified asthma, uncomplicated; Z79.2 Long term (current) use of antibiotics; Z79.51 Long term (current) use of inhaled steroids; Z79.82 Long term (current) use of aspirin; Z79.02 Long term (current) use of antithrombotics/antiplatelets; Z95.5 Presence of coronary angioplasty implant and graft; Z83.3 Family history of diabetes mellitus; Z80.0 Family history of malignant neoplasm of digestive organs
CPT/HCPCS: 99284

== ENCOUNTER → 2020-03-31 | Outpatient (CLI) | payer BC ==
--- NOTE | 2020-03-31 17:32 | Diagnostic Imaging Report ---
PROCEDURE: CT sinus w/o contrast. TECHNIQUE: Multiple contiguous axial images were obtained through the sinuses without the use of intravenous contrast. Coronal reformations were performed. All CT scans use one or more of the following dose optimizing techniques: automated exposure control, MA and/or KvP adjustment based on patient size and exam type or iterative reconstruction. INDICATION: Chronic frontal sinusitis. COMPARISON: 05/17/2016. FINDINGS: A small amount retained secretions are seen in the bilateral sphenoid sinuses. No evidence of fluid levels. Postsurgical changes are noted in the medial ellison of the maxillary sinuses. The ostiomeatal complexes are patent. The sphenoethmoid and frontoethmoid recesses are patent and unremarkable. The mastoid air cells are well pneumatized. The bony nasal septum is midline. No acute facial fractures. The globes and orbits are symmetric and unremarkable. Included intracranial contents show no acute abnormalities. The included soft tissues of the head are normal in appearance. IMPRESSION: 1. Small amount retained secretions in bilateral sphenoid sinuses. No fluid level to suggest acute sinusitis. 2. Postsurgical changes in the medial ellison of the maxillary sinuses. Dictated by: Dictated on workstation # [id number]
== END ==
LOC: RAD 17:08
PROVIDERS: ATTEND Internal Medicine
DX: J32.1 Chronic frontal sinusitis (principal); Z98.890 Other specified postprocedural states
CPT/HCPCS: 70486

== ENCOUNTER 2020-11-03 11:20 | Inpatient (IN) | payer BC ==
[~2020-11-03] VITALS: Ht 175.3 cm; Wt 88.5 kg
[~2020-11-03 11:20] MED LIST changes: -LISI-556 PO; +LISI-729 PO
--- NOTE | 2020-11-03 11:56 | ED Abdominal Pain ---
General Chief Complaint: Abdominal/GI Problems Stated Complaint: ABD PAIN Source of Information: Patient Exam Limitations: No Limitations History of Present Illness Date Seen by Provider: Nov 03, 2020 Time Seen by Provider: 11:30 Initial Comments To ER with left lower quadrant abdominal pain. This is been ongoing for about a month. He has completed 2 rounds of ciprofloxacin which do temporarily help the pain but then it recurs. Most recently he finished a 7-day course of Cipro on October 31. Denies diarrhea. Denies fevers or chills. Over the course of the past month he has had some nausea though he has none currently. No fevers or chills. He was found to have diverticulosis. Timing/Duration: 1-2 Days Severity/Quality: Moderate Location: LLQ Radiation: No Radiation Activities at Onset: None Associated Symptoms: No Fever/Chills; Nausea/Vomiting Allergies and Home Medications Allergies Coded Allergies: No Known Drug Allergies (Unverified , 05/05/16) Patient Home Medication List Home Medication List Reviewed: Yes Albuterol Sulfate (Proair Hfa) 1 Puff Puff, 2 PUFF IH Q4H PRN for SHORTNESS OF BREATH, (Reported) Entered as Reported by: SAIDA HILLIARD on 06/04/16 1449 Albuterol Sulfate (Proair Hfa) 1 Puff Puff, 2 PUFF IH Q4H PRN for WHEEZING Prescribed by: COURTNEY MAURO on 03/01/18 1020 Aspirin (Aspirin EC) 81 Mg Tablet.dr, 81 MG PO DAILY, (Reported) Entered as Reported by: RALEIGH JUAREZ on 11/01/17 1217 Atorvastatin Calcium (Lipitor) 80 Mg Tablet, 40 MG PO HS, (Reported) Entered as Reported by: RALEIGH JUAREZ on 11/01/17 1217 Fluticasone Propionate (Flonase Allergy Relief) 9.9 Ml [place].susp, 1 SPRAY NS DAILY, (Reported) Entered as Reported by: SAIDA HILLIARD on 06/04/16 1449 Loratadine (Claritin) 10 Mg Tablet, 10 MG PO DAILY, (Reported) Entered as Reported by: SAIDA HILLIARD on 06/04/16 1449 Losartan Potassium (Losartan Potassium) 100 Mg Tablet, 100 MG PO DAILY, (Reported) Entered as Reported by: LC CARRERA on 12/07/18 1149 Metoprolol Tartrate (Metoprolol Tartrate) 25 Mg Tablet, 12.5 MG PO BID Prescribed by: BLANCA RICO on 11/01/17 1257 Ticagrelor (Brilinta) 90 Mg Tablet, 90 MG PO BID, (Reported) Entered as Reported by: RALEIGH JUAREZ on 11/01/17 1217 Review of Systems Review of Systems Constitutional: see HPI EENTM: No Symptoms Reported Respiratory: No Symptoms Reported Cardiovascular: No Symptoms Reported Gastrointestinal: See HPI, Abdominal Pain; Denies Constipated, Denies Diarrhea; Nausea Genitourinary: No Symptoms Reported; Denies Burning, Denies Discharge, Denies Drainage, Denies Frequency, Denies Flank Pain Musculoskeletal: no symptoms reported Past Ujhlzgy-Pfojaw-Owydjr Hx Immunizations Up To Date Tetanus Booster (TDap): Unknown Seasonal Allergies Seasonal Allergies: Yes Past Medical History Surgeries: Yes (SINUS SURGEY, SUBMANDIBULAR GLAND RESECTION, ) Coronary Stent Respiratory: Yes Asthma Currently Using CPAP: No Currently Using BIPAP: No Cardiac: Yes Coronary Artery Disease, Heart Attack, Hypertension Neurological: No Reproductive Disorders: No Sexually Transmitted Disease: No HIV/AIDS: No Genitourinary: No Gastrointestinal: No Musculoskeletal: No Endocrine: No HEENT: Yes (wears glasses) Loss of Vision: Bilateral Cancer: No Psychosocial: No Integumentary: No Blood Disorders: No Adverse Reaction/Blood Tranf: No Family Medical History Colon cancer 19 FATHER Diabetes mellitus 19 MOTHER Headache disorder G8 SISTER Thyroid disease G8 SISTER Cancer, Diabetes Physical Exam Vital Signs Vital Signs - First Documented 11/03/20 11:55 Temp 36.8 Pulse 56 Resp 19 B/P (MAP) 172/86 (114) Pulse Ox 98 O2 Delivery Room Air Capillary Refill : Height/Weight/BMI Height: 5'9.00" Weight: 200lbs. 0.0oz. 90.795131ol; 29.00 BMI Method:Stated General Appearance: WD/WN, no apparent distress HEENT: PERRL/EOMI, normal ENT inspection Respiratory: no respiratory distress, no accessory muscle use Gastrointestinal: normal bowel sounds, soft, tenderness (minimal llq tenderness) Extremities: normal range of motion, non-tender Neurologic/Psychiatric: alert, normal mood/affect, oriented x 3 Skin: normal color, warm/dry Progress/Results/Core Measures Results/Orders Lab Results Laboratory Tests Test 11/03/20 12:04 Range/Units White Blood Count 9.0 4.3-11.0 10^3/uL Red Blood Count 4.84 4.30-5.52 10^6/uL Hemoglobin 14.3 13.3-17.7 g/dL Hematocrit 44 40-54 % Mean Corpuscular Volume 91 80-99 fL Mean Corpuscular Hemoglobin 30 25-34 pg Mean Corpuscular Hemoglobin Concent 32 32-36 g/dL Red Cell Distribution Width 12.6 10.0-14.5 % Platelet Count 286 130-400 10^3/uL Mean Platelet Volume 9.5 9.0-12.2 fL Immature Granulocyte % (Auto) 0 % Neutrophils (%) (Auto) 70 42-75 % Lymphocytes (%) (Auto) 20 12-44 % Monocytes (%) (Auto) 8 0-12 % Eosinophils (%) (Auto) 1 0-10 % Basophils (%) (Auto) 1 0-10 % Neutrophils # (Auto) 6.3 1.8-7.8 10^3/uL Lymphocytes # (Auto) 1.8 1.0-4.0 10^3/uL Monocytes # (Auto) 0.8 0.0-1.0 10^3/uL Eosinophils # (Auto) 0.1 0.0-0.3 10^3/uL Basophils # (Auto) 0.1 0.0-0.1 10^3/uL Immature Granulocyte # (Auto) 0.0 0.0-0.1 10^3/uL Sodium Level 137 135-145 MMOL/L Potassium Level 3.9 3.6-5.0 MMOL/L Chloride Level 105 98-107 MMOL/L Carbon Dioxide Level 25 21-32 MMOL/L Anion Gap 7 5-14 MMOL/L Blood Urea Nitrogen 12 7-18 MG/DL Creatinine 0.85 0.60-1.30 MG/DL Estimat Glomerular Filtration Rate 92 BUN/Creatinine Ratio 14 Glucose Level 114 H 70-105 MG/DL Calcium Level 9.5 8.5-10.1 MG/DL Corrected Calcium 9.6 8.5-10.1 MG/DL Total Bilirubin 0.7 0.1-1.0 MG/DL Aspartate Amino Transf (AST/SGOT) 16 5-34 U/L Alanine Aminotransferase (ALT/SGPT) 19 0-55 U/L Alkaline Phosphatase 81 40-136 U/L Total Protein 7.1 6.4-8.2 GM/DL Albumin 3.9 3.2-4.5 GM/DL My Orders Orders - NEGRITA GARCIA APRN Cbc With Automated Diff (11/03/20 11:48) Comprehensive Metabolic Panel (11/03/20 11:48) Ua Culture If Indicated (11/03/20 11:48) Ed Iv/Invasive Line Start (11/03/20 11:48) Ct Abdomen/Pelvis W (11/03/20 11:48) Iohexol Injection (Omnipaque 350 Mg/Ml 1 (11/03/20 13:15) Received Contrast (Hold Metformin- Contr (11/03/20 13:15) Ns (Ivpb) (Sodium Chloride 0.9% Ivpb Bag (11/03/20 13:15) Medications Given in ED Current Medications Medications Dose Ordered Sig/Darek Route Start Time Stop Time Status Last Admin Dose Admin Iohexol 100 ml ONCE ONCE IV 11/03/20 13:15 11/03/20 13:16 DC 11/03/20 13:13 100 ML Sodium Chloride 100 ml ONCE ONCE IV 11/03/20 13:15 11/03/20 13:16 DC 11/03/20 13:13 80 ML Vital Signs/I&O 11/03/20 11:55 Temp 36.8 Pulse 56 Resp 19 B/P (MAP) 172/86 (114) Pulse Ox 98 O2 Delivery Room Air Departure Communication (Admissions) Spoke with Dr. Wasserman, will admit, IV antibiotics. May need elective colon resection outpatient. antibiotics Impression Primary Impression: Sigmoid diverticulitis Disposition: ADMITTED INPATIENT Condition: Stable Admissions Decision to Admit Reason: Admit from ER (General) Decision to Admit/Date: Nov 03, 2020 Time/Decision to Admit Time: 13:56 Departure-Patient Inst. Referrals: JAMESON MCCLELLAN DO (PCP/Family) Primary Care Physician NEGRITA GARCIA APRN Nov 03, 2020 11:56
[2020-11-03 12:10] LABS: BASOPHILS # (AUTO) 0.1 10^3/uL (0.0-0.1); BASOPHILS % (AUTO) 1 % (0-10); EOSINOPHILS # (AUTO) 0.1 10^3/uL (0.0-0.3); EOSINOPHILS % (AUTO) 1 % (0-10); HEMATOCRIT 44 % (40-54); HEMOGLOBIN 14.3 g/dL (13.3-17.7); LYMPHOCYTES # (AUTO) 1.8 10^3/uL (1.0-4.0); LYMPHOCYTES % (AUTO) 20 % (12-44); MEAN CORPUSCULAR HEMOGLOBIN 30 pg (25-34); MEAN CORPUSCULAR HGB CONC 32 g/dL (32-36); MEAN CORPUSCULAR VOLUME 91 fL (80-99); MEAN PLATELET VOLUME 9.5 fL (9.0-12.2); MONOCYTES # (AUTO) 0.8 10^3/uL (0.0-1.0); MONOCYTES % (AUTO) 8 % (0-12); NEUTROPHILS # (AUTO) 6.3 10^3/uL (1.8-7.8); NEUTROPHILS % (AUTO) 70 % (42-75); PLATELET COUNT 286 10^3/uL (130-400)
[2020-11-03 12:18] LABS: ALBUMIN 3.9 GM/DL (3.2-4.5)
[2020-11-03 12:19] LABS: POTASSIUM 3.9 MMOL/L (3.6-5.0)
[2020-11-03 12:20] LABS: CALCIUM 9.5 MG/DL (8.5-10.1)
[2020-11-03 12:21] LABS: TOTAL PROTEIN 7.1 GM/DL (6.4-8.2)
[2020-11-03 12:23] LABS: BILIRUBIN,TOTAL 0.7 MG/DL (0.1-1.0)
[2020-11-03 12:25] LABS: CREATININE SERUM 0.85 MG/DL (0.60-1.30)
[2020-11-03] MEDS ORDERED: NS 100 ML (IVPB) BAG IV ONE (13:15)
[2020-11-03] MEDS ORDERED: IOHEXOL 350 MG/ML 100 ML (OMNIPAQUE 350) VIAL IV ONE (13:15)
[2020-11-03] MEDS ORDERED: HOLD METFORMIN - RECEIVED CONTRAST 20 ML VIAL IV SCH (13:15)
--- NOTE | 2020-11-03 13:38 | Diagnostic Imaging Report ---
PROCEDURE: CT abdomen and pelvis with contrast. TECHNIQUE: Multiple contiguous axial images were obtained through the abdomen and pelvis after administration of intravenous contrast. Auto Exposure Controls were utilized during the CT exam to meet ALARA standards for radiation dose reduction. All CT scans use one or more of the following dose optimizing techniques: Automated exposure control, MA and/or KvP adjustment based on patient size and exam type or iterative reconstruction. INDICATION: Left lower quadrant abdominal pain. FINDINGS: Note is made of an approximately 3.4 x 3.1 cm hypodense rounded structure in the anterior aspect of the medial segment of the left hepatic lobe. There is also a faint region of hyperenhancement in the posterior right hepatic lobe. Otherwise, no gallbladder, pancreatic, adrenal gland, or splenic abnormality is identified. Note is made of an approximately 1.1 x 0.6 cm central calculus in the left kidney without hydronephrosis. There is moderate aortoiliac atherosclerotic calcification which does result in probable noka-mn-kasqbykt stenosis at the left common iliac artery. There is mural thickening of the sigmoid colon with mild surrounding edema and/or inflammation. No organized fluid collection is seen adjacent to the colon. There is an air-fluid level along the superior aspect of the horizontal portion of sigmoid colon, which could represent intramural abscess or fluid within obstructed diverticulum. Unopacified urinary bladder is unremarkable. IMPRESSION: Findings are most suggestive of acute sigmoid colitis likely on the basis of diverticulitis. No definite perforation or pericolonic abscess is identified. Incidental note is made of nonobstructing stone in the left kidney with rounded hypodense region in the anterior left hepatic lobe. This could represent complicated cyst or focal fatty sparing. Ultrasound may be of value for further characterization. Dictated by: Dictated on workstation # [id number]
--- NOTE | 2020-11-03 14:20 | Consultation - Surgery ---
LIZETTE CORONEL 11/03/20 1420: History of Present Illness History of Present Illness Patient Consulted On(jam/time) 11/03/20 14:15 Date Seen by Provider: Nov 03, 2020 Time Seen by Provider: 14:05 Reason for Visit: Abdominal pain History of Present Illness Patient reports that he has had dull, aching abdominal pain for the last month. He has had nausea off and on. He has been treated with two 1-week courses of Cipro which improved his pain for a short time, but the pain returned after finishing the abx both times. He finished his most recent 1-week course of Cipro on 10/31. Eating and walking both make the pain worse. He has been taking Naproxen sodium but it has not been helpful. He reports no fever or vomiting, but has had some constipation. He had a colonoscopy in march which revealed diverticulosis and multiple polyps. Allergies and Home Medications Allergies Coded Allergies: No Known Drug Allergies (Unverified , 05/05/16) Patient Home Medication List Home Medication List Reviewed: Yes Albuterol Sulfate (Proair Hfa) 1 Puff Puff, 2 PUFF IH Q4H PRN for SHORTNESS OF BREATH, (Reported) Entered as Reported by: SAIDA HILLIARD on 06/04/16 1449 Albuterol Sulfate (Proair Hfa) 1 Puff Puff, 2 PUFF IH Q4H PRN for WHEEZING Prescribed by: COURTNEY MAURO on 03/01/18 1020 Aspirin (Aspirin EC) 81 Mg Tablet.dr, 81 MG PO DAILY, (Reported) Entered as Reported by: RALEIGH JUAREZ on 11/01/17 1217 Atorvastatin Calcium (Lipitor) 80 Mg Tablet, 40 MG PO HS, (Reported) Entered as Reported by: RALEIGH JUAREZ on 11/01/17 1217 Fluticasone Propionate (Flonase Allergy Relief) 9.9 Ml Toyah.susp, 1 SPRAY NS DAILY, (Reported) Entered as Reported by: SAIDA HILLIARD on 06/04/16 1449 Loratadine (Claritin) 10 Mg Tablet, 10 MG PO DAILY, (Reported) Entered as Reported by: SAIDA HILLIARD on 06/04/16 1449 Losartan Potassium (Losartan Potassium) 100 Mg Tablet, 100 MG PO DAILY, (Reported) Entered as Reported by: LC CARRERA on 12/07/18 1149 Metoprolol Tartrate (Metoprolol Tartrate) 25 Mg Tablet, 12.5 MG PO BID Prescribed by: BLANCA RICO on 11/01/17 1257 Ticagrelor (Brilinta) 90 Mg Tablet, 90 MG PO BID, (Reported) Entered as Reported by: RALEIGH JUAREZ on 11/01/17 1217 Past Bckbrdm-Pqvvfv-Bdphjd Hx Patient Social History Type Used: Smokeless Tobacco 2nd Hand Smoke Exposure: No (PT CHEWS TOBACCO) Recent Hopitalizations: No Alcohol Use?: No Have you traveled recently?: No Immunizations Up To Date Tetanus Booster (TDap): Unknown Seasonal Allergies Seasonal Allergies: Yes Surgeries History of Surgeries: Yes (SINUS SURGEY, SUBMANDIBULAR GLAND RESECTION, ) Surgeries: Coronary Stent Respiratory History of Respiratory Disorde: Yes Respiratory Disorders: Asthma Cardiovascular History of Cardiac Disorders: Yes Cardiac Disorders: Coronary Artery Disease, Heart Attack, Hypertension Neurological History of Neurological Disord: No Reproductive System Hx Reproductive Disorders: No Sexually Transmitted Disease: No HIV/AIDS: No Genitourinary History of Genitourinary Disor: No Gastrointestinal History of Gastrointestinal Di: No Musculoskeletal History of Musculoskeletal Dis: No Endocrine History of Endocrine Disorders: No HEENT History of HEENT Disorders: Yes (wears glasses) Loss of Vision: Bilateral Cancer History of Cancer: No Psychosocial History of Psychiatric Problem: No Integumentary History of Skin or Integumenta: No Blood Transfusions History of Blood Disorders: No Adverse Reaction to a Blood Tr: No Family Medical History Significant Family History: Cancer, Diabetes Family Medial History: Colon cancer 19 FATHER Diabetes mellitus 19 MOTHER Headache disorder G8 SISTER Thyroid disease G8 SISTER Review of Systems-General Gastrointestinal: abdominal pain (LLQ, dull, achy pain), constipation, loss of appetite, nausea; No vomiting Genitourinary: no symptoms reported Physical Exam-General Problems Physical Exam Vital Signs Vital Signs - First Documented 11/03/20 11:55 Temp 36.8 Pulse 56 Resp 19 B/P (MAP) 172/86 (114) Pulse Ox 98 O2 Delivery Room Air Capillary Refill : Less Than 3 Seconds General Appearance: no apparent distress Neck: normal inspection Respiratory: no respiratory distress, no accessory muscle use Peripheral Pulses: 2+ Radial Pulses (L) Skin: normal color, warm/dry Data Review Labs Laboratory Tests 9/9/21 12:04: White Blood Count 9.0, Red Blood Count 4.84, Hemoglobin 14.3, Hematocrit 44, M chris Corpuscular Volume 91, Mean Corpuscular Hemoglobin 30, Mean Corpuscular Hemoglobin Concent 32, Red Cell Distribution Width 12.6, Platelet Count 286, Mean Platelet Volume 9.5, Immature Granulocyte % (Auto) 0, Neutrophils (%) (Auto) 70, Lymphocytes (%) (Auto) 20, Monocytes (%) (Auto) 8, Eosinophils (%) (Auto) 1, Basophils (%) (Auto) 1, Neutrophils # (Auto) 6.3, Lymphocytes # (Auto) 1.8, Monocytes # (Auto) 0.8, Eosinophils # (Auto) 0.1, Basophils # (Auto) 0.1, Immature Granulocyte # (Auto) 0.0, Sodium Level 137, Potassium Level 3.9, Chloride Level 105, Carbon Dioxide Level 25, Anion Gap 7, Blood Urea Nitrogen 12, Creatinine 0.85, Estimat Glomerular Filtration Rate 92, BUN/Creatinine Ratio 14, Glucose Level 114H, Calcium Level 9.5, Corrected Calcium 9.6, Total Bilirubin 0.7, Aspartate Amino Transf (AST/SGOT) 16, Alanine Aminotransferase (ALT/SGPT) 19, Alkaline Phosphatase 81, Total Protein 7.1, Albumin 3.9 Assessment/Plan Assessment/Plan Assessment/Plan Acute diverticulitis- Pt will receive IV abx and we will re-evaluate in the morning Obesity DANIEL DARDEN DO 11/03/20 2016: History of Present Illness History of Present Illness History of Present Illness Also requested by Dr. Zamora for diverticulitis. Patient is a 60-year-old male who has been having diverticulitis for approximately the last month. He has been treated and would improve and then started having recurrence of symptoms. Patient just finished a week of ciprofloxacin on nine six he states. He then began having worsening aching type pain in the left lower quadrant. He states that he has had poor appetite. The pain does not radiate. Movement makes worse. Nothing really seems to make better. He just had a recent colonoscopy in March which she was found to have diverticulosis and multiple polyps he states. Patient has had some nausea but not having any emesis. Patient had a CT scan which demonstrates diverticulosis with an area of diverticulitis there is question of a small microperforation but no abscess. Patient denies any fever sweats chills shortness of breath or chest pain at this time. Allergies and Home Medications Allergies Coded Allergies: No Known Drug Allergies (Unverified , 05/05/16) Patient Home Medication List Home Medication List Reviewed: Yes Albuterol Sulfate (Proair Hfa) 1 Puff Puff, 2 PUFF IH Q4H PRN for SHORTNESS OF BREATH, (Reported) Entered as Reported by: SAIDA HILLIARD on 06/04/16 1449 Albuterol Sulfate (Proair Hfa) 1 Puff Puff, 2 PUFF IH Q4H PRN for WHEEZING Prescribed by: COURTNEY MAURO on 03/01/18 1020 Aspirin (Aspirin EC) 81 Mg Tablet.dr, 81 MG PO DAILY, (Reported) Entered as Reported by: RALEIGH JUAREZ on 11/01/17 1217 Atorvastatin Calcium (Lipitor) 80 Mg Tablet, 40 MG PO HS, (Reported) Entered as Reported by: RALEIGH JUAREZ on 11/01/17 1217 Fluticasone Propionate (Flonase Allergy Relief) 9.9 Ml Toyah.susp, 1 SPRAY NS DAILY, (Reported) Entered as Reported by: SAIDA HILLIARD on 06/04/16 1449 Loratadine (Claritin) 10 Mg Tablet, 10 MG PO DAILY, (Reported) Entered as Reported by: SAIDA HILLIARD on 06/04/16 1449 Losartan Potassium (Losartan Potassium) 100 Mg Tablet, 100 MG PO DAILY, (Reported) Entered as Reported by: LC CARRERA on 12/07/18 1149 Metoprolol Tartrate (Metoprolol Tartrate) 25 Mg Tablet, 12.5 MG PO BID Prescribed by: BLANCA RICO on 11/01/17 1257 Ticagrelor (Brilinta) 90 Mg Tablet, 90 MG PO BID, (Reported) Entered as Reported by: RALEIGH JUAREZ on 11/01/17 1217 Past Zjdssav-Iyqdjh-Ejyxnp Hx Patient Social History Type Used: Smokeless Tobacco Surgeries Surgeries: Coronary Stent Reviewed Nursing Assessment Reviewed/Agree w Nursing PMH: Yes Family Medical History Significant Family History: No Pertinent Family Hx Family Medial History: Colon cancer 19 FATHER Diabetes mellitus 19 MOTHER Headache disorder G8 SISTER Thyroid disease G8 SISTER Review of Systems-General Constitutional: No chills, No fever Respiratory: No dyspnea on exertion, No short of breath Cardiovascular: No chest pain, No palpitations Gastrointestinal: abdominal pain (LLQ), constipation, loss of appetite, nausea; No vomiting Genitourinary: No decreased output, No discharge Musculoskeletal: No back pain, No joint pain Skin: No change in color, No change in hair/nails Psychiatric/Neurological: Denies Anxiety, Denies Depressed, Denies Emotional Problems All Other Systems Reviewed Negative Unless Noted: Yes (Negative excepted noted.) Physical Exam-General Problems Physical Exam General Appearance: WD/WN, no apparent distress HEENT: PERRL/EOMI, normal ENT inspection Neck: non-tender, normal inspection Respiratory: chest non-tender, no respiratory distress, no accessory muscle use Cardiovascular: regular rate, rhythm, no JVD Gastrointestinal: soft; No guarding, No rebound; tenderness (Left lower quadrant) Rectal: deferred Back: no CVA tenderness, no vertebral tenderness Extremities: normal range of motion, normal inspection, no pedal edema 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 Rocephin and Flagyl IV Repeat labs in the morning. Discussed conservative management with patient which he understands. Will follow Supervisory-Addendum Brief Verification & Attestation Participated in pt care: history, MDM, physical Personally performed: exam, history, MDM, supervision of care Care discussed with: Medical Student Procedures: n/a Results interpretation: Verified all documentation Verification and Attestation of Medical Student E/M Service A medical student performed and documented this service in my presence. I reviewed and verified all information documented by the medical student and made modifications to such information, when appropriate. I personally performed the physical exam and medical decision making. Daniel Fagan, Nov 03, 2020,20:18 LIZETTE CORONEL Nov 03, 2020 14:20 DANIEL FAGAN DO Nov 03, 2020 20:16
[2020-11-03 15:03] LABS: BILIRUBIN,URINE NEGATIVE (NEGATIVE); CLARITY,URINE CLEAR; COLOR,URINE YELLOW; GLUCOSE, URINE (UA) NEGATIVE (NEGATIVE); KETONES,URINE NEGATIVE (NEGATIVE); LEUKOCYTE ESTERASE ,URINE NEGATIVE (NEGATIVE); NITRITE,URINE NEGATIVE (NEGATIVE); PROTEIN,URINE NEGATIVE (NEGATIVE)
[2020-11-03 15:29] LABS: BACTERIA,URINE TRACE /HPF; WBC,URINE 0-2 /HPF
--- NOTE | 2020-11-03 15:36 | History & Physical-Hospitalist ---
NATALY ALCARAZ A MED STUDENT 11/03/20 1536: History of Present Illness HPI/Chief Complaint 60 yo male presented to ED for LLQ pain d/t diverticulitis for the last month. Pt states he has been treated with Ciprofloxacin x1week on two separate occasions with no relief of symptoms. Finished last dose on 10/31. Pt has also taken naporxen with little to no relief. Pt reports constipation for which he took miralax which helped. Pt states he has no appetite d/t pain that is 8/10. Admits to increased flatulence recently, which is abnormal for him. Denies N/V/D. Denies blood in stools. Denies frequency or burning with urination. Source: patient Exam Limitations: no limitations Date Seen 11/03/20 Time Seen by a Provider: 15:20 Attending Physician Blanca Alamo MD PCP Akash Pena DO Referring Physician Date of Admission Nov 03, 2020 at 13:30 Home Medications & Allergies Home Medications Reviewed patient Home Medication Reconciliation performed by pharmacy medication reconciliations photographic technician and/or nursing. Patients Allergies have been reviewed. Allergies Allergies Coded Allergies No Known Drug Allergies (Unverified05/05/16) Past Mjtcabp-Upxwcc-Avqqtf Hx Patient Social History Tobacco Use?: Yes Smokeless type used: Chew Smokeless Tobacco Frequency: Current Everyday User Use of E-Cig and/or Vaping dev: No Substance use?: No Alcohol Use?: No Pt feels they are or have been: No Immunizations Up To Date First/Initial COVID19 Vaccinat: 04/15/2020 Second COVID19 Vaccination Fco: 05/19/2020 Tetanus Booster (TDap): Unknown Hepatitis A: No Hepatitis B: No Seasonal Allergies Seasonal Allergies: Yes Current Status Advance Directives: No Primary Language: Macanese Preferred Spoken Language: Macanese Past Medical History Surgeries: Coronary Stent Asthma Currently Using CPAP: No Currently Using BIPAP: No Coronary Artery Disease, Heart Attack, Hypertension Sexually Transmitted Disease: No HIV/AIDS: No Loss of Vision: Bilateral Blood Disorders: No Adverse Reaction/Blood Tranf: No Family Medical History Colon cancer 19 FATHER Diabetes mellitus 19 MOTHER Headache disorder G8 SISTER Thyroid disease G8 SISTER Cancer, Diabetes Review of Systems Constitutional: no symptoms reported Respiratory: no symptoms reported Cardiovascular: no symptoms reported Gastrointestinal: abdominal pain (LLQ) Genitourinary: no symptoms reported Physical Exam Physical Exam Vital Signs Vital Signs - First Documented 11/03/20 11:55 Temp 36.8 Pulse 56 Resp 19 B/P (MAP) 172/86 (114) Pulse Ox 98 O2 Delivery Room Air Capillary Refill : Less Than 3 Seconds Height, Weight, BMI Height: 5'9.00" Weight: 200lbs. 0.0oz. 90.002187qj; 28.00 BMI Method:Stated General Appearance: WD/WN, Mild Distress HEENT: PERRL/EOMI Respiratory: Chest Non Tender, Lungs Clear, Normal Breath Sounds, No Accessory Muscle Use, No Respiratory Distress Cardiovascular: Regular Rate, Rhythm, No Murmur, Normal Peripheral Pulses Gastrointestinal: Normal Bowel Sounds, No Organomegaly, No Pulsatile Mass, Tenderness Extremity: Normal Capillary Refill Neurologic/Psychiatric: Alert, Oriented x3, No Motor/Sensory Deficits, Normal Mood/Affect, shirt cleaner II-XII Norm as Tested Skin: Normal Color, Warm/Dry Results Results/Procedures Labs Laboratory Tests 11/03/20 12:04 11/04/20 05:50 Patient resulted labs reviewed. Assessment/Plan Admission Diagnosis Diverticulitis Reason for Inpatient Admission: Diverticulitis Assessment and Plan Diverticulitis HTN CAD Diverticulitis -IV Zosyn -IV fentanyl -Consult surgery HTN -Likely d/t pain CAD -Pt noncompliant with atorvastatin d/t side effects. BLANCA ALAMO MD 11/05/20 1249: Past Sdtaclx-Nbewgw-Dttfwi Hx Family Medical History Colon cancer 19 FATHER Diabetes mellitus 19 MOTHER Headache disorder G8 SISTER Thyroid disease G8 SISTER Assessment/Plan Admission Diagnosis Admission Status: Inpatient Order (span 2 midnights) Reason for Inpatient Admission: failed outpatient management Assessment and Plan Patient is 60-year-old male who is being admitted due to acute diverticulitis with possible microperforation that has already healed. He has failed multiple rounds of outpatient oral antibiotics. He will be admitted for IV antibiotics and IV pain control. He will be kept on a clear liquid diet. Surgery is consulted. Supervisory-Addendum Brief Verification & Attestation Participated in pt care: history, MDM, physical Personally performed: exam, history, MDM, supervision of care Care discussed with: Medical Student Procedures: n/a Results interpretation: Verified all documentation Verification and Attestation of Medical Student E/M Service A medical student performed and documented this service in my presence. I revie wed and verified all information documented by the medical student and made modifications to such information, when appropriate. I personally performed the physical exam and medical decision making. Blanca Alamo, Nov 05, 2020,12:49 NATALY ALCARAZ MED STUDENT Nov 03, 2020 15:36 BLANCA ALAMO MD Nov 05, 2020 12:49
[2020-11-03 15:52] VITALS: BP 163/78
[2020-11-03] MEDS ORDERED: PIPERACILLIN/TAZO 4.5 GM/NS 100 ML IV NR ×2 (16:00)
[2020-11-03] MEDS ORDERED: ONDANSETRON 4 MG/2 ML (SDV) Z0FRAN IV PRN (16:00)
[2020-11-03] MEDS ORDERED: CATHETER FLUSH 10 ML SYR IV PRN (16:00)
[2020-11-03] MEDS: LACTATED RINGERS 1,000 ML IV SCH ×2 (16:22→21:06)
[2020-11-03] MEDS: fentaNYL INJ 100 MCG/2 ML AMP IV PRN ×2 (16:22→21:07)
[2020-11-03 20:46] VITALS: BP 141/68
[2020-11-03] MEDS: PIPERACILLIN/TAZO 4.5 GM/NS 100 ML IV SCH ×2 (21:06)
[2020-11-04] VITALS: BP 136/64
[2020-11-04 03:47] VITALS: BP 128/60
[2020-11-04 06:05] LABS: BASOPHILS # (AUTO) 0.1 10^3/uL (0.0-0.1); BASOPHILS % (AUTO) 1 % (0-10); EOSINOPHILS # (AUTO) 0.2 10^3/uL (0.0-0.3); EOSINOPHILS % (AUTO) 2 % (0-10); HEMATOCRIT 42 % (40-54); HEMOGLOBIN 13.7 g/dL (13.3-17.7); LYMPHOCYTES # (AUTO) 2.1 10^3/uL (1.0-4.0); LYMPHOCYTES % (AUTO) 23 % (12-44); MEAN CORPUSCULAR HEMOGLOBIN 30 pg (25-34); MEAN CORPUSCULAR HGB CONC 33 g/dL (32-36); MEAN CORPUSCULAR VOLUME 90 fL (80-99); MEAN PLATELET VOLUME 9.8 fL (9.0-12.2); MONOCYTES # (AUTO) 0.8 10^3/uL (0.0-1.0); MONOCYTES % (AUTO) 9 % (0-12); NEUTROPHILS # (AUTO) 6.2 10^3/uL (1.8-7.8); NEUTROPHILS % (AUTO) 66 % (42-75); PLATELET COUNT 276 10^3/uL (130-400); WHITE BLOOD COUNT 9.4 10^3/uL (4.3-11.0)
[2020-11-04] MEDS: LACTATED RINGERS 1,000 ML IV SCH ×3 (06:05→18:57)
[2020-11-04] MEDS: PIPERACILLIN/TAZO 4.5 GM/NS 100 ML IV SCH ×6 (06:05→21:32)
[2020-11-04 06:19] LABS: POTASSIUM 3.9 MMOL/L (3.6-5.0)
[2020-11-04 06:20] LABS: CALCIUM 9.2 MG/DL (8.5-10.1)
[2020-11-04 06:25] LABS: CREATININE SERUM 0.87 MG/DL (0.60-1.30)
[2020-11-04 08:00] VITALS: BP_SYST 138; BP_SYST 157; BP_DIAS 79; BP_DIAS 84
--- NOTE | 2020-11-04 11:03 | Progress Note - Hospitalist ---
NATALY ALCARAZ A MED STUDENT 11/04/20 1103: Subjective HPI/CC On Admission Date Seen by Provider: Nov 04, 2020 Time Seen by Provider: 08:42 60 yo male presented to ED for LLQ pain d/t diverticulitis for the last month. Pt states he has been treated with Ciprofloxacin x1week on two separate occasions with no relief of symptoms. Finished last dose on 10/31. Pt has also taken naporxen with little to no relief. Pt reports constipation for which he took miralax which helped. Pt states he has no appetite d/t pain that is 8/10. Admits to increased flatulence recently, which is abnormal for him. Denies N/V/D. Denies blood in stools. Denies frequency or burning with urination. Subjective/Events-last exam Pt reports feeling much better today. Denies any abdominal pain. Pt reports some nausea this morning, but denies vomiting. Denies BM since admission. Review of Systems General: No Chills, No Night Sweats, No Fatigue, No Malaise, No Appetite Pulmonary: No Dyspnea, No Cough, No Pleuritic Chest Pain, No Other Cardiovascular: Orthopnea; No: Chest Pain, Palpitations Gastrointestinal: Nausea, Melena; No: Vomiting, Abdominal Pain, Diarrhea, Constipation Genitourinary: No Dysuria, No Frequency Objective Exam Vital Signs Vital Signs Date Time Temp Pulse Resp B/P (MAP) Pulse Ox O2 Delivery O2 Flow Rate FiO2 11/04/20 08:00 Room Air 11/04/20 08:00 36.5 50 138/84 (102) 96 11/04/20 03:47 18 Capillary Refill : Less Than 3 Seconds General Appearance: No Apparent Distress, WD/WN HEENT: PERRL/EOMI Neck: Full Range of Motion, Normal Inspection Respiratory: Chest Non Tender, Lungs Clear, Normal Breath Sounds, No Accessory Muscle Use Cardiovascular: Regular Rate, Rhythm, No Murmur, Normal Peripheral Pulses Gastrointestinal: Normal Bowel Sounds, No Organomegaly, No Pulsatile Mass, Non Tender, Soft Extremity: Normal Capillary Refill, Normal Inspection, Normal Range of Motion, Non Tender, No Calf Tenderness, No Pedal Edema Neurologic/Psychiatric: Alert, Oriented x3, No Motor/Sensory Deficits, Normal Mood/Affect Skin: Normal Color, Warm/Dry Results/Procedures Lab Laboratory Tests 11/03/20 12:04 11/04/20 05:50 Patient resulted labs reviewed. Assessment/Plan Assessment and Plan Assess & Plan/Chief Complaint Diverticulitis HTN CAD Diverticulitis -IV Zosyn -IV fentanyl as needed -Consulted Dr. Wasserman who advised keeping pt on Clear liquid diet until tomorrow. HTN -Resolved CAD -Pt noncompliant with atorvastatin d/t side effects. ALE ALAMO MD 11/05/20 1246: Assessment/Plan Assessment and Plan Assess & Plan/Chief Complaint Patient doing much better. Pain improved. Will continue on clear liquid diets. If continues to do well will advance and hopefully discharge home tomorrow. Supervisory-Addendum Brief Verification & Attestation Participated in pt care: history, MDM, physical Personally performed: exam, history, MDM, supervision of care Care discussed with: Medical Student Procedures: n/a Results interpretation: Verified all documentation Verification and Attestation of Medical Student E/M Service A medical student performed and documented this service in my presence. I reviewed and verified all information documented by the medical student and made modifications to such information, when appropriate. I personally performed the physical exam and medical decision making. Ale Alamo, Nov 05, 2020,12:46 NATALY ALCARAZ MED STUDENT Nov 04, 2020 11:03 ALE ALAMO MD Nov 05, 2020 12:46
[2020-11-04] MEDS: fentaNYL INJ 100 MCG/2 ML AMP IV PRN (13:20)
[2020-11-04 13:48] VITALS: BP 123/82
--- NOTE | 2020-11-04 14:26 | Progress Note - Surgery ---
LIZETTE CORONEL 11/04/20 1426: Subjective Date Seen by a Provider: Nov 04, 2020 Time Seen by a Provider: 07:45 Subjective/Events-last exam Patient is feeling much better this morning following administration of abx yesterday. He reports no abdominal pain, no symptoms of fever, no nausea or vomiting. He has not had a bowel movement since arriving at hospital. He is hoping to go home today. Objective Exam Vital Signs Date Time Temp Pulse Resp B/P (MAP) Pulse Ox O2 Delivery O2 Flow Rate FiO2 11/04/20 13:48 35.8 55 16 123/82 (96) 96 Room Air 11/04/20 08:00 Room Air 11/04/20 08:00 36.5 50 138/84 (102) 96 Room Air 11/04/20 03:47 36.4 61 18 128/60 (82) 95 Room Air 11/04/20 00:00 36.8 69 16 136/64 (88) 98 Room Air 11/03/20 20:46 36.3 61 18 141/68 (92) 97 Room Air 11/03/20 20:42 Room Air 11/03/20 15:52 37.7 71 24 163/78 (106) 94 Room Air 11/03/20 15:16 56 17 155/89 98 Room Air I & O 11/04/20 07:00 Intake Total 1070 ml Balance 1070 ml Capillary Refill : Less Than 3 Seconds General Appearance: No Apparent Distress, WD/WN HEENT: PERRL/EOMI Neck: Full Range of Motion, Normal Inspection Respiratory: Chest Non Tender, Lungs Clear, Normal Breath Sounds, No Accessory Muscle Use Cardiovascular: Regular Rate, Rhythm, No JVD, Normal Peripheral Pulses Peripheral Pulses: 2+ Radial Pulses (L) Gastrointestinal: soft; No guarding, No rebound Extremity: Normal Inspection, Non Tender, No Calf Tenderness Neurologic/Psychiatric: Alert, Oriented x3, Normal Mood/Affect Skin: Normal Color, Warm/Dry Results Lab Laboratory Tests 11/03/20 14:51: Urine Color YELLOW, Urine Clarity CLEAR, Urine pH 7.0, Urine Specific [place] <=1.005, Urine Protein NEGATIVE, Urine Glucose (UA) NEGATIVE, Urine Ketones N EGATIVE, Urine Nitrite NEGATIVE, Urine Bilirubin NEGATIVE, Urine Urobilinogen 0.2, Urine Leukocyte Esterase NEGATIVE, Urine RBC (Auto) 1+H, Urine RBC 2-5H, Urine WBC 0-2, Urine Crystals NONE, Urine Bacteria TRACE, Urine Casts NONE, Urine Mucus NEGATIVE, Urine Culture Indicated NO 11/04/20 05:50: White Blood Count 9.4, Red Blood Count 4.64, Hemoglobin 13.7, Hematocrit 42, Mean Corpuscular Volume 90, Mean Corpuscular Hemoglobin 30, Mean Corpuscular Hemoglobin Concent 33, Red Cell Distribution Width 12.7, Platelet Count 276, Mean Platelet Volume 9.8, Immature Granulocyte % (Auto) 0, Neutrophils (%) (Auto) 66, Lymphocytes (%) (Auto) 23, Monocytes (%) (Auto) 9, Eosinophils (%) (Auto) 2, Basophils (%) (Auto) 1, Neutrophils # (Auto) 6.2, Lymphocytes # (Auto) 2.1, Monocytes # (Auto) 0.8, Eosinophils # (Auto) 0.2, Basophils # (Auto) 0.1, Immature Granulocyte # (Auto) 0.0, Sodium Level 139, Potassium Level 3.9, Chloride Level 107, Carbon Dioxide Level 24, Anion Gap 8, Blood Urea Nitrogen 7, Creatinine 0.87, Estimat Glomerular Filtration Rate 90, BUN/Creatinine Ratio 8, Glucose Level 98, Calcium Level 9.2 Assessment/Plan Assessment/Plan Assessment/Plan Acute diverticulitisfailed outpatient therapy Htn Obesity CAD Patient improving clear liquid diet at this time. Continue CARMELITA Navarro IV DO 11/04/20 1552: Subjective Subjective/Events-last exam Clear liquids. Still with some llq abd pain was better but when moving around started increasing.. Passing flatus some. No n/v fever sweats chills shortness of breath or chest pain. Objective Exam General Appearance: No Apparent Distress, WD/WN HEENT: PERRL/EOMI Neck: Full Range of Motion, Normal Inspection Respiratory: Chest Non Tender, Normal Breath Sounds, No Accessory Muscle Use Cardiovascular: Regular Rate, Rhythm, No JVD Gastrointestinal: soft; No guarding, No rebound; tenderness (llq mild with deep palpation) Extremity: Normal Inspection, Non Tender Neurologic/Psychiatric: Alert, Oriented x3 Skin: Normal Color, Warm/Dry Lymphatic: No Adenopathy Assessment/Plan Assessment/Plan Assessment/Plan Acute diverticulitisfailed outpatient therapy Htn Obesity CAD Patient improving clear liquid diet at this time. Continue Zosyn IV If feeling well tomorrow advance diet Vicodin for oral pain medication. Supervisory-Addendum Brief Verification & Attestation Participated in pt care: history, MDM, physical Personally performed: exam, history, MDM, supervision of care Care discussed with: Medical Student Procedures: n/a Results interpretation: Verified all documentation Verification and Attestation of Medical Student E/M Service A medical student performed and documented this service in my presence. I reviewed and verified all information documented by the medical student and made modifications to such information, when appropriate. I personally performed the physical exam and medical decision making. Carmelita Wasserman, Nov 04, 2020,15:52 LIZETTE CORONEL Nov 04, 2020 14:26 CARMELITA WASSERMAN DO Nov 04, 2020 15:52
[2020-11-04] MEDS ORDERED: LEVO5TAB28 PO (14:30)
[2020-11-04] MEDS ORDERED: LOSA50TA63 PO (14:30)
[2020-11-04] MEDS ORDERED: METO-333 PO (14:30)
[2020-11-04 15:37] VITALS: BP 125/76
[2020-11-04] MEDS: HYDROcodone/APAP 5 MG/325 MG (LORTAB) TAB PO PRN ×2 (16:30→21:33)
[2020-11-04 19:59] VITALS: BP 144/83
[2020-11-05] VITALS: BP 135/76
[2020-11-05] MEDS: LACTATED RINGERS 1,000 ML IV SCH ×2 (01:33→04:40)
[2020-11-05 03:38] VITALS: BP 131/75
[2020-11-05] MEDS: PIPERACILLIN/TAZO 4.5 GM/NS 100 ML IV SCH ×2 (05:56)
[2020-11-05 07:34] VITALS: BP 124/58
[2020-11-05] MEDS ORDERED: ACETAMINOPHEN 325 MG TABLET PO PRN (08:00)
--- NOTE | 2020-11-05 08:52 | Discharge Summary ---
NATALY ALCARAZ A MED STUDENT 11/05/20 0852: Diagnosis/Chief Complaint Date of Admission Nov 03, 2020 at 13:30 Date of Discharge Nov 05, 2020 Discharge Date: Nov 05, 2020 Admission Diagnosis Sigmoid Diverticulitis Primary Care Akash Pena DO Discharge Diagnosis Diverticulitis (1) Sigmoid diverticulitis Status: Acute Assessment & Plan: Pt improved after IV Zosyn and Fentanyl, LLQ pain resolved. Will d/c home on Augmentin 875mg PO BID x7 days. Will send this medication to [facility] F/u with PCP, Dr. Pena in 7 days. Discharge Summary Discharge Physical Exam Allergies: Coded Allergies: No Known Drug Allergies (Unverified , 05/05/16) Vitals & I&Os Vital Signs Date Time Temp Pulse Resp B/P (MAP) Pulse Ox O2 Delivery O2 Flow Rate FiO2 11/05/20 08:03 Room Air 11/05/20 07:34 35.0 50 18 124/58 (80) 94 General Appearance: No Apparent Distress, WD/WN HEENT: PERRL/EOMI Respiratory: Chest Non Tender, Lungs Clear, Normal Breath Sounds, No Accessory Muscle Use, No Respiratory Distress Cardiovascular: Regular Rate, Rhythm, No Edema, No Murmur, Normal Peripheral Pulses Gastrointestinal: Normal Bowel Sounds, No Organomegaly, No Pulsatile Mass, Non Tender, Soft Extremity: Normal Capillary Refill, Non Tender, No Pedal Edema Skin: Normal Color, Warm/Dry Neurologic/Psychiatric: Alert, Oriented x3, No Motor/Sensory Deficits, Normal Mood/Affect, civil rights attorney II-XII Norm as Tested Hospital Course Pt is a 60 yo male who presented to ED for LLQ pain for the last month that is refractory to two seperate courses of PO ciprofloxacin x1 week. Pt had colonoscopy in Mar and was found to have sigmoid diverticulitis. CT on admission showed sigmoid colitis. Pt was admitted to floor and started on IV Zosyn and Fentanyl with clear liquid diet. Pt's pain was resolved by second day of admission. Pts diet was advanced to soft foods, which he tolerated well. Pt denies N/V/D, but confirms passing gas. Pt feels ready to be discharged so he can manage diverticulitis at home. Labs (last 24 hrs) Patient resulted labs reviewed. Discharge Home Medications: Active Scripts Active Augmentin 875-125 Tablet (Amoxicillin/Potassium Clav) 1 Each Tablet 1 Each PO BID Reported Metoprolol Tartrate 25 Mg Tablet 12.5 Mg PO BID TAKES OF A 25MG TAB Xyzal (Levocetirizine Dihydrochloride) 5 Mg Tablet 5 Mg PO HS PRN Losartan Potassium 50 Mg Tablet 50 Mg PO BID Aspirin EC (Aspirin) 81 Mg Tablet.dr 81 Mg PO DAILY Instructions to patient/family Please see electronic discharge instructions given to patient. Supervisory-Addendum Brief Verification & Attestation Participated in pt care: history, physical Personally performed: exam, history Care discussed with: other Procedures: n/a ALE ALAMO MD 11/06/20 1351: Discharge Summary Discharge Physical Exam Allergies: Coded Allergies: No Known Drug Allergies (Unverified , 05/05/16) Discussion & Recommendations Discharge Planning: >30 minutes discharge planning Supervisory-Addendum Brief Verification & Attestation Participated in pt care: history, MDM, physical Personally performed: exam, history, MDM, supervision of care Care discussed with: Medical Student Procedures: n/a Results interpretation: Verified all documentation Verification and Attestation of Medical Student E/M Service A medical student performed and documented this service in my presence. I reviewed and verified all information documented by the medical student and made modifications to such information, when appropriate. I personally performed the physical exam and medical decision making. Ale Alamo, Nov 06, 2020,13:51 NATALY ALCARAZ MED STUDENT Nov 05, 2020 08:52 ALE ALAMO MD Nov 06, 2020 13:51
--- NOTE | 2020-11-05 09:35 | Progress Note - Surgery ---
KEVAN TORRE 11/05/20 0935: Subjective Date Seen by a Provider: Nov 05, 2020 Time Seen by a Provider: 08:15 Subjective/Events-last exam Patient is a 60 y/o male present for ruptured diverticulitis. He reports he is feeling better. He has been passing gas but has not had a bowel movement. He is able to walk and urinate. He is on a clear liquid diet. He denies pain but says that he is sore. He has not abdominal tenderness. Review of Systems General: No Chills, No Night Sweats HEENT: No Head Aches, No Visual Changes Pulmonary: No Dyspnea, No Cough Cardiovascular: No: Chest Pain, Palpitations Gastrointestinal: No: Nausea, Vomiting, Abdominal Pain Genitourinary: No Dysuria Neurological: No: Weakness Focused Exam Respiratory: Chest Non Tender, Lungs Clear, Normal Breath Sounds, No Accessory Muscle Use, No Respiratory Distress Cardiovascular: Regular Rate, Rhythm, No Edema, Normal Peripheral Pulses Peripheral Pulses: 2+ Radial Pulses (R), 2+ Radial Pulses (L) Skin: normal color, warm/dry Objective Exam Vital Signs Date Time Temp Pulse Resp B/P (MAP) Pulse Ox O2 Delivery O2 Flow Rate FiO2 11/05/20 08:03 Room Air 11/05/20 07:34 35.0 50 18 124/58 (80) 94 Room Air 11/05/20 03:38 36.0 47 18 131/75 (93) 94 Room Air 11/05/20 00:00 36.0 45 16 135/76 (95) 95 Room Air 11/04/20 20:00 Room Air 11/04/20 19:59 36.6 51 16 144/83 (103) 97 Room Air 11/04/20 15:37 35.8 57 18 125/76 (92) 95 Room Air 11/04/20 13:48 35.8 55 16 123/82 (96) 96 Room Air I & O 11/05/20 07:00 Intake Total 1444 ml Balance 1444 ml Capillary Refill : Less Than 3 Seconds General Appearance: No Apparent Distress, WD/WN HEENT: PERRL/EOMI Neck: Normal Inspection, Non Tender Respiratory: Chest Non Tender, Lungs Clear, Normal Breath Sounds, No Accessory Muscle Use, No Respiratory Distress Cardiovascular: Regular Rate, Rhythm, No Edema, No Murmur, Normal Peripheral Pulses Peripheral Pulses: 2+ Radial Pulses (R), 2+ Radial Pulses (L) Gastrointestinal: normal bowel sounds, non tender, soft; No guarding, No rebound Extremity: Normal Capillary Refill, Non Tender, No Pedal Edema Neurologic/Psychiatric: Alert, Oriented x3, No Motor/Sensory Deficits, Normal Mood/Affect, ict analyst II-XII Norm as Tested Skin: Normal Color, Warm/Dry Lymphatic: No Adenopathy Assessment/Plan Assessment/Plan Assessment/Plan Assessment: 1. Perforated diverticulitis Plan: 1. Continue clear liquid diet and antibiotics. Continue to monitor for abdominal tenderness and check for bowel movement. Acute diverticulitisfailed outpatient therapy Htn Obesity CAD Patient improving clear liquid diet at this time. Continue Zosyn IV If feeling well tomorrow advance diet Vicodin for oral pain medication. BARI TRINIDAD DO 11/05/20 1458: Subjective Time Seen by a Provider: 10:32 Subjective/Events-last exam Pt seen and examined, states he still has some mild LLQ pain. Ate some of his lunch, soft diet. Wants to go home. Review of Systems General: No Chills, No Night Sweats HEENT: No Head Aches, No Visual Changes Pulmonary: No Dyspnea, No Cough Cardiovascular: No: Chest Pain, Palpitations Gastrointestinal: Abdominal Pain; No: Nausea, Vomiting Objective Exam General Appearance: No Apparent Distress, WD/WN Respiratory: Lungs Clear, Normal Breath Sounds, No Accessory Muscle Use, No Respiratory Distress Cardiovascular: Regular Rate, Rhythm, No Murmur Gastrointestinal: soft; No guarding, No rebound; tenderness (LLQ) Assessment/Plan Assessment/Plan Assessment/Plan Acute diverticulitisfailed outpatient therapy, improving now and will try to send him home again. HTN, Obesity, CAD Patient improving and tolerating clear liquid diet with increase to soft at this time. Pt encouraged to ambulate and use IS. If he gets increased pain at home he should go back to liquids. If he has fever or severe pain he needs to go back to ER; pt understood. Supervisory-Addendum Brief Verification & Attestation Participated in pt care: history, MDM, physical Personally performed: exam, history, MDM, supervision of care Care discussed with: Medical Student Procedures: n/a Verification and Attestation of Medical Student E/M Service A medical student performed and documented this service. I then reviewed and verified all information documented by the medical student and made modifications to such information, when appropriate. I personally performed a physical exam, medical decision making and then discussed any differences between the notes and made revisions as necessary to create one note. Bari Trinidad , 11/05/20 , 14:58 KEVAN TORRE Nov 05, 2020 09:35 BARI TRINIDAD DO Nov 05, 2020 14:58
[2020-11-05] MEDS ORDERED: AMOX-358 PO (09:48)
--- NOTE | 2020-11-05 09:49 | Discharge Inst-Simple/Standard ---
Discharge Inst-Standard Discharge Medications New, Converted or Re-Newed RX: Transmitted to Pharmacy Patient Instructions/Follow Up Plan of Care/Instructions/FU: Please continue to take your medications as written. Please follow up with your primary care doctor to follow up this hospital Activity as Tolerated: Yes Discharge Diet: Semi-Solid Diet (and bland diet) Return to The Hospital For: Chest pain, shortness of breath, weakness, fever, confusion, if you feel you are getting worse. BLANCA RICO MD Nov 05, 2020 09:49
[2020-11-05] MEDS: HYDROcodone/APAP 5 MG/325 MG (LORTAB) TAB PO PRN (11:13)
[2020-11-05 11:24] VITALS: BP 145/74
== END 2020-11-05 14:50 | disposition home or self-care (01) | DRG 392 ==
LOC: EDUNIT# 11:20 → ER 11:22 → 4TH 13:30
PROVIDERS: ADMIT Family Medicine; ATTEND Family Medicine
DX: K57.20 Diverticulitis of large intestine with perforation and abscess without bleeding (principal); I10 Essential (primary) hypertension; E66.9 Obesity, unspecified; I25.10 Atherosclerotic heart disease of native coronary artery without angina pectoris; I25.2 Old myocardial infarction; Z95.5 Presence of coronary angioplasty implant and graft; Z79.82 Long term (current) use of aspirin; Z79.899 Other long term (current) drug therapy; Z68.28 Body mass index [BMI] 28.0-28.9, adult
CPT/HCPCS: 36415; 74177; 80048; 80053; 81000; 85025

== ENCOUNTER 2020-11-17 16:10 | Emergency (ER) | payer BC ==
[~2020-11-17] VITALS: Ht 175 cm; Wt 88.6 kg
[~2020-11-17 16:10] MED LIST changes: +LEVO5TAB28 PO
[2020-11-17] MEDS ORDERED: KETOROLAC 30 MG/ML VIAL IVP STA (16:21)
--- NOTE | 2020-11-17 16:28 | ED Abdominal Pain ---
General Chief Complaint: Abdominal/GI Problems Stated Complaint: ABD PAIN Source of Information: Patient, Old Records History of Present Illness Date Seen by Provider: Nov 17, 2020 Time Seen by Provider: 16:19 Initial Comments PT ARRIVES VIA POV FROM HOME C/O SEVERE LEFT MID ABDOMINAL PAIN ALL DAY TODAY RATES PAIN 9/10 NO RADIATION OF PAIN PAIN IS CONSTANT, NOTHING WORSENS OR IMPROVES PAIN HAS NOT TAKEN ANYTHING FOR PAIN AT ANY TIME NO NAUSEA/VOMITING--HAS CONTINUED ON CLEAR LIQUIDS SINCE BEING DISMISSED FROM HOSPITAL, AND LAST HAD 1/2 BOTTLE OF WATER ON THE WAY HERE. HAD NORMAL BM THIS AM NO FEVER NO DIFFICULTY URINATING, BUT THOUGHT HE HAD BLOOD IN HIS URINE EARLIER TODAY--STATES THEY NOTED INCIDENTAL KIDNEY STONE ON RECENT CT SCAN--HAS NEVER PASSED ONE PT WAS ADMITTED HERE 11/03-11/05 FOR DIVERTICULITIS WITH PERFORATION. NO SURGERY DONE AT THAT TIME. SENT HOME ON AUGMENTIN STATES HE SAW DR. FAGAN ON SATURDAY FOR FOLLOW UP AND ANTIBIOTIC WAS CHANGED. HAS NOT ATTEMPTED TO CONTACT HIM ALL DAY UNTIL 5 MINUTES PRIOR TO COMING HERE--OFFICE CLOSED. PT HAS TAKEN AM MEDICATIONS , BUT NOT PM MEDICATIONS PT RECEIVED BOTH MODERNA COVID-19 VACCINES--LAST ONE IN [facility] PCP: DR. MCCLELLAN SURGEON: DR. FAGAN Allergies and Home Medications Allergies Coded Allergies: No Known Drug Allergies (Unverified , 05/05/16) Patient Home Medication List Amoxicillin/Potassium Clav (Augmentin 875-125 Tablet) 1 Each Tablet, 1 EACH PO BID Prescribed by: BLANCA RICO on 11/05/20 0948 Aspirin (Aspirin EC) 81 Mg Tablet., 81 MG PO DAILY, (Reported) Entered as Reported by: RALEIGH JUAREZ on 11/01/17 1217 Levocetirizine Dihydrochloride (Xyzal) 5 Mg Tablet, 5 MG PO HS PRN for ALLERGY SYMPTOMS, (Reported) Entered as Reported by: YUMI MULLEN on 11/04/20 1430 Losartan Potassium (Losartan Potassium) 50 Mg Tablet, 50 MG PO BID, (Reported) Entered as Reported by: YUMI MULLEN on 11/04/20 1430 Metoprolol Tartrate (Metoprolol Tartrate) 25 Mg Tablet, 12.5 MG PO BID, (Reported) Entered as Reported by: YUMI MULLEN on 11/04/20 1430 Review of Systems Review of Systems Constitutional: no symptoms reported Respiratory: No Symptoms Reported Cardiovascular: No Symptoms Reported Gastrointestinal: See HPI, Abdominal Pain; Denies Diarrhea, Denies Nausea, Denies Vomiting Genitourinary: See HPI, Hematuria Musculoskeletal: no symptoms reported Skin: no symptoms reported Psychiatric/Neurological: No Symptoms Reported Endocrine: No Symptoms Reported Hematologic/Lymphatic: No Symptoms Reported Past Tqrbuhu-Ptigmn-Chndhq Hx Patient Social History Tobacco Use?: No Smokeless Tobacco Frequency: Current Everyday User Substance use?: No Alcohol Use?: No Immunizations Up To Date Tetanus Booster (TDap): Unknown First/Initial COVID19 Vaccinat: MAR 2020 Second COVID19 Vaccination Fco: APRIL 2020 Seasonal Allergies Seasonal Allergies: Yes Past Medical History Surgery/Hospitalization HX: LEFT SUBMANDIBULAR GLAND RESECTION CARDIAC CATH WITH STENT X 1 WISDOM TEETH SINUS SURGERY Surgeries: Yes (SINUS SURGERY, SUBMANDIBULAR GLAND RESECTION, ) Cardiac, Coronary Stent Respiratory: Yes Asthma Currently Using CPAP: No Currently Using BIPAP: No Cardiac: Yes (STENT X 1 ) Coronary Artery Disease, Heart Attack, High Cholesterol, Hypertension Neurological: No Reproductive Disorders: No Sexually Transmitted Disease: No HIV/AIDS: No Genitourinary: Yes (INCIDENTAL KIDNEY STONE NOTED ON CT SCAN-NEVER PASSED ONE) Gastrointestinal: Yes (PERF. DIVERTICULITIS 11/03/20-NO SURGERY) Diverticulosis Musculoskeletal: No Endocrine: No HEENT: Yes (wears glasses) Loss of Vision: Bilateral Cancer: No Psychosocial: No Integumentary: No Blood Disorders: No Adverse Reaction/Blood Tranf: No Family Medical History Colon cancer 19 FATHER Diabetes mellitus 19 MOTHER Headache disorder G8 SISTER Thyroid disease G8 SISTER No Pertinent Family Hx Physical Exam Vital Signs Vital Signs - First Documented 11/17/20 16:13 Temp 36.0 Pulse 62 Resp 18 B/P (MAP) 150/93 (112) Pulse Ox 97 Capillary Refill : Height/Weight/BMI Height: 5'9.00" Weight: 200lbs. 0.0oz. [id number]; 28.92 BMI Method:Stated General Appearance: WD/WN, no apparent distress, other (WALKS UPRIGHT AND MOVES WITHOUT DIFFICULTY) Respiratory: normal breath sounds, no respiratory distress, no accessory muscle use Cardiovascular: regular rate, rhythm, no murmur Gastrointestinal: normal bowel sounds, soft, no pulsatile mass; No distended, No guarding, No rebound; tenderness (LEFT MID ABDOMEN/LLQ TENDERNESS); No hernia, No mass; other (ROTUND) Extremities: normal inspection Back: no CVA tenderness Neurologic/Psychiatric: funeral planning counselor II-XII nml as tested, no motor/sensory deficits, alert, normal mood/affect, oriented x 3 Skin: normal color, warm/dry; No rash Progress/Results/Core Measures Results/Orders Lab Results Laboratory Tests Test 11/17/20 16:24 11/17/20 16:30 Range/Units White Blood Count 10.8 4.3-11.0 10^3/uL Red Blood Count 4.57 4.30-5.52 10^6/uL Hemoglobin 13.7 13.3-17.7 g/dL Hematocrit 41 40-54 % Mean Corpuscular Volume 90 80-99 fL Mean Corpuscular Hemoglobin 30 25-34 pg Mean Corpuscular Hemoglobin Concent 33 32-36 g/dL Red Cell Distribution Width 12.7 10.0-14.5 % Platelet Count 322 130-400 10^3/uL Mean Platelet Volume 9.5 9.0-12.2 fL Immature Granulocyte % (Auto) 0 % Neutrophils (%) (Auto) 68 42-75 % Lymphocytes (%) (Auto) 22 12-44 % Monocytes (%) (Auto) 9 0-12 % Eosinophils (%) (Auto) 1 0-10 % Basophils (%) (Auto) 1 0-10 % Neutrophils # (Auto) 7.3 1.8-7.8 10^3/uL Lymphocytes # (Auto) 2.4 1.0-4.0 10^3/uL Monocytes # (Auto) 0.9 0.0-1.0 10^3/uL Eosinophils # (Auto) 0.1 0.0-0.3 10^3/uL Basophils # (Auto) 0.1 0.0-0.1 10^3/uL Immature Granulocyte # (Auto) 0.0 0.0-0.1 10^3/uL Sodium Level 139 135-145 MMOL/L Potassium Level 3.9 3.6-5.0 MMOL/L Chloride Level 104 98-107 MMOL/L Carbon Dioxide Level 25 21-32 MMOL/L Anion Gap 10 5-14 MMOL/L Blood Urea Nitrogen 9 7-18 MG/DL Creatinine 0.94 0.60-1.30 MG/DL Estimat Glomerular Filtration Rate 82 BUN/Creatinine Ratio 10 Glucose Level 95 70-105 MG/DL Calcium Level 9.3 8.5-10.1 MG/DL Corrected Calcium 9.3 8.5-10.1 MG/DL Total Bilirubin 0.5 0.1-1.0 MG/DL Aspartate Amino Transf (AST/SGOT) 20 5-34 U/L Alanine Aminotransferase (ALT/SGPT) 23 0-55 U/L Alkaline Phosphatase 82 40-136 U/L Total Protein 6.8 6.4-8.2 GM/DL Albumin 4.0 3.2-4.5 GM/DL Amylase Level 53 25-125 U/L Lipase 27 8-78 U/L Urine Color YELLOW Urine Clarity SL CLOUDY Urine pH 5.5 5-9 Urine Specific [place] >=1.030 1.016-1.022 Urine Protein TRACE H NEGATIVE Urine Glucose (UA) NEGATIVE NEGATIVE Urine Ketones NEGATIVE NEGATIVE Urine Nitrite NEGATIVE NEGATIVE Urine Bilirubin NEGATIVE NEGATIVE Urine Urobilinogen 0.2 < = 1.0 MG/DL Urine Leukocyte Esterase TRACE H NEGATIVE Urine RBC (Auto) 2+ H NEGATIVE Urine RBC 5-10 H /HPF Urine WBC NONE /HPF Urine Squamous Epithelial Cells 2-5 /HPF Urine Crystals NONE /LPF Urine Bacteria TRACE /HPF Urine Casts NONE /LPF Urine Mucus MODERATE H /LPF Urine Culture Indicated NO My Orders Orders - JOCELYNE CHOW DO Ed Iv/Invasive Line Start (11/17/20 16:21) Monitor-Rhythm Ecg Trace Only (11/17/20 16:21) Amylase (11/17/20 16:21) Cbc With Automated Diff (11/17/20 16:21) Comprehensive Metabolic Panel (11/17/20 16:21) Lipase (11/17/20 16:21) Ua Culture If Indicated (11/17/20 16:21) Ed Iv/Invasive Line Start (11/17/20 16:21) Lactated Ringers (Lr 1000 Ml Iv Solution (11/17/20 16:30) Ketorolac Injection (Toradol Injection) (11/17/20 16:21) Ct Abd/Pelvis Wo(Kidney Stone) (11/17/20 16:53) Abdomen/Kub 1view (11/17/20 16:53) Medications Given in ED Current Medications Medications Dose Ordered Sig/Darek Route Start Time Stop Time Status Last Admin Dose Admin Lactated Ringer's 1,000 ml @ 0 mls/hr Q0M ONCE IV 11/17/20 16:30 11/17/20 16:31 DC 11/17/20 16:44 1,000 MLS/HR Vital Signs/I&O 11/17/20 16:13 Temp 36.0 Pulse 62 Resp 18 B/P (MAP) 150/93 (112) Pulse Ox 97 Departure Impression Primary Impression: Diverticulitis of colon with perforation Disposition: HOME, SELF-CARE Condition: Stable Departure-Patient Inst. Decision time for Depature: 17:29 Referrals: CARMELITA FAGAN WILLIAM J DO (PCP/Family) Primary Care Physician Patient Instructions: Diverticulosis Add. Discharge Instructions: CLEAR LIQUIDS ONLY--NO FOOD OF ANY KIND--WATER, BROTH, JELLO, GATORADE CONTINUE CIPRO AND FLAGYL ANTIBIOTICS PRESCRIBED BY DR. FAGAN FOLLOW UP WITH DR. FAGAN ON SATURDAY--CALL IN THE MORNING TO SCHEDULE APPOINTMENT RETURN TO ER IF SYMPTOMS WORSEN All discharge instructions reviewed with patient and/or family. Voiced understanding. Scripts Tramadol HCl (Ultram) 50 Mg Tablet 50 MG PO Q4H for Pain, #20 TAB Prov: JOCELYNE CHOW DO 11/17/20 Ketorolac Tromethamine (Ketorolac Tromethamine) 10 Mg Tablet 10 MG PO Q6H for Pain, #15 TAB Prov: JOCELYNE CHOW DO 11/17/20 Images Torso/Trunk 1 - Mild, Tenderness JOCELYNE CHOW DO Nov 17, 2020 16:28
[2020-11-17 16:29] LABS: BASOPHILS # (AUTO) 0.1 10^3/uL (0.0-0.1); BASOPHILS % (AUTO) 1 % (0-10); EOSINOPHILS # (AUTO) 0.1 10^3/uL (0.0-0.3); EOSINOPHILS % (AUTO) 1 % (0-10); HEMATOCRIT 41 % (40-54); HEMOGLOBIN 13.7 g/dL (13.3-17.7); LYMPHOCYTES # (AUTO) 2.4 10^3/uL (1.0-4.0); LYMPHOCYTES % (AUTO) 22 % (12-44); MEAN CORPUSCULAR HEMOGLOBIN 30 pg (25-34); MEAN CORPUSCULAR HGB CONC 33 g/dL (32-36); MEAN CORPUSCULAR VOLUME 90 fL (80-99); MEAN PLATELET VOLUME 9.5 fL (9.0-12.2); MONOCYTES # (AUTO) 0.9 10^3/uL (0.0-1.0); MONOCYTES % (AUTO) 9 % (0-12); NEUTROPHILS # (AUTO) 7.3 10^3/uL (1.8-7.8); NEUTROPHILS % (AUTO) 68 % (42-75); PLATELET COUNT 322 10^3/uL (130-400); WHITE BLOOD COUNT 10.8 10^3/uL (4.3-11.0)
[2020-11-17] MEDS ORDERED: LACTATED RINGERS 1,000 ML IV ONE (16:30)
[2020-11-17 16:38] LABS: BILIRUBIN,URINE NEGATIVE (NEGATIVE); CLARITY,URINE SL CLOUDY; COLOR,URINE YELLOW; GLUCOSE, URINE (UA) NEGATIVE (NEGATIVE); KETONES,URINE NEGATIVE (NEGATIVE); LEUKOCYTE ESTERASE ,URINE TRACE (NEGATIVE); NITRITE,URINE NEGATIVE (NEGATIVE); PH,URINE 5.5 (5-9); PROTEIN,URINE TRACE (NEGATIVE)
[2020-11-17 16:45] LABS: POTASSIUM 3.9 MMOL/L (3.6-5.0)
[2020-11-17 16:46] LABS: CALCIUM 9.3 MG/DL (8.5-10.1)
[2020-11-17 16:47] LABS: TOTAL PROTEIN 6.8 GM/DL (6.4-8.2)
[2020-11-17 16:48] LABS: BACTERIA,URINE TRACE /HPF
[2020-11-17 16:49] LABS: BILIRUBIN,TOTAL 0.5 MG/DL (0.1-1.0)
[2020-11-17 16:51] LABS: CREATININE SERUM 0.94 MG/DL (0.60-1.30)
--- NOTE | 2020-11-17 17:22 | Diagnostic Imaging Report ---
PROCEDURE: CT urinary tract, rule out kidney stone. TECHNIQUE: Multiple contiguous axial images were obtained through the abdomen and pelvis without the use of intravenous contrast. Auto Exposure Controls were utilized during the CT exam to meet ALARA standards for radiation dose reduction. INDICATION: Left-sided abdominal pain and flank pain. History of diverticulitis. COMPARISON: 11/03/2020. FINDINGS: The lung bases are clear. The heart is normal in size. The liver demonstrates a hypodense lesion in the anterior right liver, which measures 3.3 cm in diameter. This may represent a cyst or possibly a focal area of fatty infiltration. The spleen appears normal. The pancreas is normal. The adrenal glands appear normal. The right kidney is unremarkable. The left kidney demonstrates no hydronephrosis or hydroureter. No obstructing calculi are seen. There is a nonobstructing calculus in the left kidney, which measures 1.2 cm in diameter and appears stable since the prior study. The bowel loops are nondistended without obstruction. The appendix appears normal. There is diverticulosis of the descending and sigmoid colon. There is marked focal wall thickening of the sigmoid colon with adjacent pericolonic edema. No darian free air is seen. However, there is a pocket of air measuring about 2.2 cm in diameter, which could represent a contained perforation (image 83, series 2). No free fluid is seen. There is no lymphadenopathy. The aorta is normal in caliber. No acute osseous abnormality is seen. IMPRESSION: 1. Redemonstrated acute sigmoid colon diverticulitis. There appears to be a small associated contained perforation, but no darian free air or free fluid is seen. 2. Stable nonobstructing left renal calculus. No hydronephrosis. Findings discussed with Lacey Dailey D.O. by Dr. Beckford, on 11/17/2020 5:18 p.m. Dictated by: Dictated on workstation # [id number]
[2020-11-17] MEDS ORDERED: TRAM-42 PO (17:31)
[2020-11-17] MEDS ORDERED: KETO10TA PO (17:31)
--- NOTE | 2020-11-17 17:31 | Diagnostic Imaging Report ---
HISTORY: Abdominal pain. TECHNIQUE: Frontal view of the abdomen. COMPARISON: CT from the same day. FINDINGS: There is a calcification in the left kidney which appears unchanged, measuring 1.6 cm. No distended loops of bowel are seen. There is no large collection of free air appreciated. No acute osseous abnormality is seen. IMPRESSION: 1. Unchanged 1.6 cm calcification in the left kidney. No bowel obstruction or large collection of free air. Dictated by: Dictated on workstation # [id number]
[2020-11-17 18:08] VITALS: BP 159/95
== END 2020-11-17 18:08 | disposition home or self-care (01) ==
LOC: EDUNIT# 16:10 → ER 16:11
DX: K57.20 Diverticulitis of large intestine with perforation and abscess without bleeding (principal); J45.909 Unspecified asthma, uncomplicated; I25.2 Old myocardial infarction; I10 Essential (primary) hypertension; F17.290 Nicotine dependence, other tobacco product, uncomplicated; Z79.82 Long term (current) use of aspirin; Z79.899 Other long term (current) drug therapy
CPT/HCPCS: 36415; 74018; 74176; 80053; 81000; 82150; 83690; 85025

== ENCOUNTER 2020-12-26 05:36 | Outpatient (CLI) | payer BC ==
[~2020-12-26] VITALS: Ht 175.3 cm; Wt 89.0 kg
[~2020-12-26 05:36] MED LIST changes: +KETO10TA PO; +TRAM-42 PO
[2020-12-26] MEDS ORDERED: ATOR80TA76 PO (12:52)
== END 2020-12-26 13:02 | disposition home or self-care (01) ==
LOC: PREOP 05:36
PROVIDERS: ATTEND Surgery
DX: Z01.818 Encounter for other preprocedural examination (principal)

== ENCOUNTER → 2021-01-03 | Day surgery (SDC) | payer BC, OTHER ==
[2021-01-03] VITALS (8 sets, daily range): BP systolic 113–145; BP diastolic 70–83
[~2021-01-03] VITALS: Ht 175.3 cm; Wt 89.0 kg
[~2021-01-03] MED LIST changes: +LACTATED RINGERS 1,000 ML IV ONE; +LACTATED RINGERS 1,000 ML IV STA; +MIDAZOLAM 2 MG/2 ML (VERSED) VIAL ONE; +proPOfol 200 MG/20 ML (DIPRIVAN) VIAL IV ONE
--- NOTE | 2021-01-03 09:19 | Progress Note-Pre Operative ---
Pre-Operative Progress Note H&P Reviewed The H&P was reviewed, patient examined and no changes noted. Date Seen by Provider: Jan 03, 2021 Time Seen by Provider: 09:18 Date H&P Reviewed: Jan 03, 2021 Time H&P Reviewed: 09:18 Pre-Operative Diagnosis: hx diverticulitis CARMELITA FAGAN DO Jan 03, 2021 09:19
--- NOTE | 2021-01-03 10:36 | Progress Note-Post Operative ---
Post-Operative Progess Note Surgeon (s)/Documentation Lead (s) Surgeon CARMELITA FAGAN DO Documentation Lead: na Pre-Operative Diagnosis hx diverticulitis Post-Operative Diagnosis colon polyps, diverticulosis Procedure & Operative Findings Date of Procedure 01/03/21 Procedure Performed/Findings colonoscopy c snare polypectomy x 3, cold biopsy of sigmoid inflammation, cold biopsy polypectomy rectum, hot bx polypectomy rectum Anesthesia Type per education instructor Estimated Blood Loss Estimated blood loss (mL): none Specimens/Packing Specimens Removed colon polyps, sigmoid inflammation CARMELITA FAGAN DO Jan 03, 2021 10:36
--- NOTE | 2021-01-03 10:37 | Discharge Inst-Simple/Standard ---
Discharge Inst-Standard Patient Instructions/Follow Up Plan of Care/Instructions/FU: 2 weeks Lisy Activity as Tolerated: Yes Discharge Diet: Regular Diet (high fiber) CARMELITA FAGAN DO Jan 03, 2021 10:37
--- NOTE | 2021-01-03 20:26 | OPERATIVE REPORT ---
DATE OF SERVICE: 01/03/2021 PREOPERATIVE DIAGNOSIS: History of diverticulitis. POSTOPERATIVE DIAGNOSES: Colon polyps and diverticulosis. PROCEDURES PERFORMED: Colonoscopy with snare polypectomy x3, cold biopsy of sigmoid inflammation. Cold biopsy polypectomy of the rectum. Hot biopsy polypectomy of rectum. SURGEON: Carmelita Wasserman DO. ANESTHESIA: Per MAINTENANCE MECHANIC TECHNICIAN. ESTIMATED BLOOD LOSS: None. COMPLICATIONS: None. SPECIMENS: Colon polyps and sigmoid inflammation. INDICATIONS FOR PROCEDURE: The patient is a 60-year-old male, who had previous colonoscopy, began having diverticulitis afterwards. The patient has been treated medically and conservatively. He has been doing well. Discussed reexamining the colon with repeat colonoscopy. He understands the risks and benefits and wishes to proceed. Consent was signed in the chart. DESCRIPTION OF PROCEDURE: The patient was taken to the endoscopy suite and placed in a left lateral recumbent position. A timeout was performed. Digital rectal exam was performed. There were no palpable polyps, masses or ulcerations. Scope was inserted in the rectum, advanced all the way to the cecum with minimal difficulty. Prep was adequate. Scope was then slowly retracted back. There were no polyps, masses or ulcerations in the cecum. In the ascending colon, a polyp was present, which snare polypectomy was performed. Scope was then continuously slowly retracted back to the transverse colon, where there were two other small polyps, which snare polypectomies were performed. Scope was then continuously slowly retracted back. No polyps, masses or ulcerations within the remainder of the transverse and descending colon. In the sigmoid colon, I started noting a fairly significant diverticulosis present. There was an area of inflammation present, I think it is likely from the scope; however, we took cold biopsy to further evaluate. Scope was then continuously retracted back into the rectum, where there was a very small polyp, which cold biopsy polypectomy was performed. Scope was retroflexed noting a little larger polyp in the distal portion of the rectum, which a hot biopsy polypectomy was performed. Scope was then returned to its normal position, slowly withdrawn until completely removed. The patient tolerated the procedure well without any complications and taken to the recovery room in stable condition. RECOMMENDATIONS: The patient will follow up on biopsy results, would consider sigmoid resection due to the diverticulosis and history of perforation. We will discuss further with the patient, the risks and benefits of this. Job ID: [id number] DocumentID: [id number] Dictated Date: 01/03/2021 10:40:58 Automotive Metalsmith Date: 01/03/2021 20:26:20 Dictated By: CARMELITA WASSERMAN DO
--- NOTE | 2021-01-04 13:24 | Anesthesia-General Post-Op ---
General Patient Condition Mental Status/LOC: Same as Preop Cardiovascular: Satisfactory Nausea/Vomiting: Absent Respiratory: Satisfactory Pain: Controlled Complications: Absent Post Op Complications Complications None Follow Up Care/Instructions Patient Instructions None needed. Anesthesia/Patient Condition Patient Condition Patient is doing well, no complaints, stable vital signs, no apparent adverse anesthesia problems. No complications reported per nursing. TRAN ESPINOZA CRNA Jan 04, 2021 13:24
== END ==
LOC: ENDO 08:48
PROVIDERS: ATTEND Surgery
DX: D12.2 Benign neoplasm of ascending colon (principal); D12.3 Benign neoplasm of transverse colon; D12.8 Benign neoplasm of rectum; K62.1 Rectal polyp; K57.30 Diverticulosis of large intestine without perforation or abscess without bleeding; E78.5 Hyperlipidemia, unspecified; I10 Essential (primary) hypertension; I25.10 Atherosclerotic heart disease of native coronary artery without angina pectoris; I25.2 Old myocardial infarction; E78.00 Pure hypercholesterolemia, unspecified; J45.909 Unspecified asthma, uncomplicated; G47.33 Obstructive sleep apnea (adult) (pediatric); F17.220 Nicotine dependence, chewing tobacco, uncomplicated; Z99.89 Dependence on other enabling machines and devices; Z79.82 Long term (current) use of aspirin; Z79.899 Other long term (current) drug therapy; Z83.3 Family history of diabetes mellitus
CPT/HCPCS: 88305

== ENCOUNTER 2021-03-21 12:45 | Emergency (ER) | payer BC ==
[~2021-03-21] VITALS: Ht 175 cm; Wt 88.4 kg
[~2021-03-21 12:45] MED LIST changes: -LACTATED RINGERS 1,000 ML IV ONE; -LACTATED RINGERS 1,000 ML IV STA; -LISI-729 PO; +LISI5TAB20 PO; -MIDAZOLAM 2 MG/2 ML (VERSED) VIAL ONE; -proPOfol 200 MG/20 ML (DIPRIVAN) VIAL IV ONE
[2021-03-21 13:27] LABS: BASOPHILS % (AUTO) 0 % (0-10); EOSINOPHILS # (AUTO) 0.1 10^3/uL (0.0-0.3); EOSINOPHILS % (AUTO) 1 % (0-10); HEMATOCRIT 44 % (40-54); HEMOGLOBIN 14.7 g/dL (13.3-17.7); LYMPHOCYTES # (AUTO) 2.2 10^3/uL (1.0-4.0); LYMPHOCYTES % (AUTO) 17 % (12-44); MEAN CORPUSCULAR HEMOGLOBIN 30 pg (25-34); MEAN CORPUSCULAR HGB CONC 33 g/dL (32-36); MEAN CORPUSCULAR VOLUME 91 fL (80-99); MEAN PLATELET VOLUME 9.5 fL (9.0-12.2); MONOCYTES # (AUTO) 0.9 10^3/uL (0.0-1.0); MONOCYTES % (AUTO) 7 % (0-12); NEUTROPHILS # (AUTO) 9.5 10^3/uL (1.8-7.8); NEUTROPHILS % (AUTO) 74 % (42-75); PLATELET COUNT 331 10^3/uL (130-400); WHITE BLOOD COUNT 12.8 10^3/uL (4.3-11.0)
--- NOTE | 2021-03-21 13:27 | ED Abdominal Pain ---
General Chief Complaint: Abdominal/GI Problems Stated Complaint: DIVERTICULITIS Nursing Triage Note: PT AMBULATORY TO ER, C/O LOWER ABD PAIN ONSET A FEW WEEKS AGO, HX OF DIVERTICULITIS. REPORTS HAS ALREADY BEEN ON ONE ROUND OF ORAL CIPRO WITH NO RELIEF OF S/S. ALSO REPORTS DIARRHEA. Source of Information: Patient Exam Limitations: No Limitations ([employer]ALE[employer] CHAIDE[employer] STUDENT) History of Present Illness Date Seen by Provider: Mar 21, 2021 Time Seen by Provider: 13:15 Initial Comments Patient is a 61yoM with history of diverticulitis and perforation, WI status post stent placement 2017, HTN and HLD who presents with intractable diarrhea and abdominal pain since last Saturday. He says he has taken a full course of Ciprofloxacin prescribed by PCP Dr. Pena and started a second round yesterday. Patient thought he was improving after first course of antibiotics, but then "ate a lot of Cake Boss chocolate cake Saturday night" and symptoms returned. He denies fevers, N/V, PETERSON, cough, chest pain, dysuria, hematuria, melena and hematochezia. Patient reports an episode of sweating for a short time on Saturday. His last episode of acute diverticulitis was ~2 months ago and a 4- day hospital stay was required due to perforation. Patient reports a colonoscopy done 1-1.[address] Fagan who discussed possible bowel resection at that time. Patient says he had appointment with Dr. Fagan yesterday that he had to cancel due to diffuse diarrhea and he could not reschedule with him until next week. Patient is in no distress, denies dizziness upon standing, and report s that he has not had any diarrhea since this morning. He decided to come in today because he can't get LLQ pain under control. Timing/Duration: Constant Severity/Quality: Moderate Location: LLQ Radiation: No Radiation Associated Symptoms: Denies Symptoms ([employer] CHAIDEZ STUDENT) Allergies and Home Medications Allergies Coded Allergies: No Known Drug Allergies (Unverified , 05/05/16) Patient Home Medication List Home Medication List Reviewed: Yes (LILIAN BLANK MD) Aspirin (Aspirin EC) 81 Mg Tablet., 81 MG PO DAILY, (Reported) Entered as Reported by: RALEIGH JUAREZ on 11/01/17 1217 Atorvastatin Calcium (Atorvastatin Calcium) 80 Mg Tablet, 80 MG PO DAILY, (Reported) Entered as Reported by: GLORIA COELHO on 12/26/20 1252 Losartan Potassium (Losartan Potassium) 50 Mg Tablet, 50 MG PO BID, (Reported) Entered as Reported by: YUMI MULLEN on 11/04/20 1430 Metoprolol Tartrate (Metoprolol Tartrate) 25 Mg Tablet, 12.5 MG PO BID, (Reported) Entered as Reported by: YUMI MULLEN on 11/04/20 1430 Review of Systems Review of Systems Constitutional: No chills, No diaphoresis, No dizziness, No fever, No weakness EENTM: No Blurred Vision, No Nose Congestion, No Throat Pain Respiratory: Denies Cough, Denies Shortness of Air Cardiovascular: Denies Chest Pain, Denies Edema, Denies Lightheadedness Gastrointestinal: Abdominal Pain; Denies Blood Streaked Stools; Diarrhea, Nausea; Denies Rectal Bleeding, Denies Vomiting Genitourinary: Denies Burning, Denies Flank Pain, Denies Hematuria Musculoskeletal: No back pain, No muscle pain Skin: no symptoms reported Psychiatric/Neurological: No Symptoms Reported Endocrine: No Symptoms Reported Hematologic/Lymphatic: No Symptoms Reported ([employer]) Past Rirankx-Sfuvzr-Svpsst Hx Patient Social History Tobacco Use?: Yes Use of E-Cig and/or Vaping dev: No Substance use?: No Alcohol Use?: No Pt feels they are or have been: No ([employer]) Immunizations Up To Date Tetanus Booster (TDap): Unknown First/Initial COVID19 Vaccinat: MAR 2020 Second COVID19 Vaccination Fco: APRIL 2020 COVID19 Vaccine Ambulance Driver Paramedic: unk ([employer]) Seasonal Allergies Seasonal Allergies: Yes ([employer]) Past Medical History Surgery/Hospitalization HX: LEFT SUBMANDIBULAR GLAND RESECTION CARDIAC CATH WITH STENT X 1 WISDOM TEETH SINUS SURGERY Surgeries: Yes (SINUS SURGERY, SUBMANDIBULAR GLAND RESECTION, ) Cardiac, Coronary Stent Respiratory: Yes Asthma Currently Using CPAP: No Currently Using BIPAP: No Cardiac: Yes (STENT X 1 ) Coronary Artery Disease, Heart Attack, High Cholesterol, Hypertension Neurological: No Reproductive Disorders: No Sexually Transmitted Disease: No HIV/AIDS: No Genitourinary: Yes (INCIDENTAL KIDNEY STONE NOTED ON CT SCAN-NEVER PASSED ONE) Gastrointestinal: Yes (PERF. DIVERTICULITIS 11/03/20-NO SURGERY) Diverticulosis Musculoskeletal: No Endocrine: No HEENT: Yes (wears glasses) Loss of Vision: Bilateral Cancer: No Psychosocial: No Integumentary: No Blood Disorders: No Adverse Reaction/Blood Tranf: No ([employer]) Family Medical History Colon cancer 19 FATHER Diabetes mellitus 19 MOTHER Headache disorder G8 SISTER Thyroid disease G8 SISTER No Pertinent Family Hx ([employer]) Physical Exam Vital Signs Vital Signs - First Documented 03/21/21 13:07 Temp 36.4 Pulse 66 Resp 18 B/P (MAP) 143/85 (104) Pulse Ox 96 (LILIAN BLANK MD) Vital Signs Capillary Refill : ([employer] [employer]) Height/Weight/BMI Height: 5'9.00" Weight: 200lbs. 0.0oz. 90.962673lc; 28.00 BMI Method:Stated General Appearance: WD/WN, no apparent distress HEENT: normal ENT inspection, scleral icterus (R) Neck: non-tender, full range of motion, supple, normal inspection Respiratory: chest non-tender, lungs clear, normal breath sounds, no respiratory distress, no accessory muscle use Cardiovascular: regular rate, rhythm, no edema, no murmur Gastrointestinal: soft, abnormal bowel sounds (increased); No guarding, No rebound; tenderness (LLQ) Extremities: normal range of motion, non-tender, normal inspection, no pedal edema, no calf tenderness, normal capillary refill Back: no CVA tenderness, no vertebral tenderness Neurologic/Psychiatric: lead project manager II-XII nml as tested, no motor/sensory deficits, alert, normal mood/affect, oriented x 3 Skin: normal color, warm/dry Lymphatic: no adenopathy ([email or web address] STUDENT) Progress/Results/Core Measures Results/Orders Lab Results Laboratory Tests Test 03/21/21 13:21 Range/Units White Blood Count 12.8 H 4.3-11.0 10^3/uL Red Blood Count 4.89 4.30-5.52 10^6/uL Hemoglobin 14.7 13.3-17.7 g/dL Hematocrit 44 40-54 % Mean Corpuscular Volume 91 80-99 fL Mean Corpuscular Hemoglobin 30 25-34 pg Mean Corpuscular Hemoglobin Concent 33 32-36 g/dL Red Cell Distribution Width 12.9 10.0-14.5 % Platelet Count 331 130-400 10^3/uL Mean Platelet Volume 9.5 9.0-12.2 fL Immature Granulocyte % (Auto) 0 % Neutrophils (%) (Auto) 74 42-75 % Lymphocytes (%) (Auto) 17 12-44 % Monocytes (%) (Auto) 7 0-12 % Eosinophils (%) (Auto) 1 0-10 % Basophils (%) (Auto) 0 0-10 % Neutrophils # (Auto) 9.5 H 1.8-7.8 10^3/uL Lymphocytes # (Auto) 2.2 1.0-4.0 10^3/uL Monocytes # (Auto) 0.9 0.0-1.0 10^3/uL Eosinophils # (Auto) 0.1 0.0-0.3 10^3/uL Basophils # (Auto) 0.0 0.0-0.1 10^3/uL Immature Granulocyte # (Auto) 0.0 0.0-0.1 10^3/uL Sodium Level 140 135-145 MMOL/L Potassium Level 3.8 3.6-5.0 MMOL/L Chloride Level 104 98-107 MMOL/L Carbon Dioxide Level 24 21-32 MMOL/L Anion Gap 12 5-14 MMOL/L Blood Urea Nitrogen 10 7-18 MG/DL Creatinine 0.85 0.60-1.30 MG/DL Estimat Glomerular Filtration Rate 99 BUN/Creatinine Ratio 12 Glucose Level 108 H 70-105 MG/DL Calcium Level 9.3 8.5-10.1 MG/DL Corrected Calcium 9.3 8.5-10.1 MG/DL Total Bilirubin 0.6 0.1-1.0 MG/DL Aspartate Amino Transf (AST/SGOT) 13 5-34 U/L Alanine Aminotransferase (ALT/SGPT) 16 0-55 U/L Alkaline Phosphatase 94 40-136 U/L Total Protein 7.2 6.4-8.2 GM/DL Albumin 4.0 3.2-4.5 GM/DL (LILIAN BLANK MD) My Orders Orders - LILIAN BLANK MD Ed Iv/Invasive Line Start (03/21/21 13:17) Cbc With Automated Diff (03/21/21 13:17) Comprehensive Metabolic Panel (03/21/21 13:17) Ns Iv 1000 Ml (Sodium Chloride 0.9%) (03/21/21 13:30) Fentanyl Inj (Sublimaze Injection) (03/21/21 13:30) (LILIAN BLANK MD) Medications Given in ED Current Medications Medications Dose Ordered Sig/Darek Route Start Time Stop Time Status Last Admin Dose Admin Fentanyl Citrate 50 mcg ONCE ONCE IVP 03/21/21 13:30 03/21/21 13:31 DC 03/21/21 13:32 50 MCG (LILIAN BLANK MD) Vital Signs/I&O 03/21/21 13:07 Temp 36.4 Pulse 66 Resp 18 B/P (MAP) 143/85 (104) Pulse Ox 96 (LILIAN BLANK MD) Blood Pressure Mean: 104 Progress Progress Note : Time: 14:48 Progress Note Patient seen and examined, 61-year-old with a history of diverticulitis, had an episode in October of acute diverticulitis with microperforations. Follows with Dr. Fagan. Patient recently started Cipro last night. Complained of severe diarrhea all day yesterday and throughout the evening. No further diarrhea this morning. Has not really taken anything for pain. No fevers or chills, no nausea or vomiting. Physical exam remarkable for tenderness in the low left lower quadrant without rebound or involuntary guarding. His abdomen is soft. Nondistended. Basic laboratory studies have been evaluated he has a mild leukocytosis at 12.7. Clinically he looks very well. Normal vital signs. I do not think he needs repeat CT of the abdomen and pelvis. He has a scheduled appointment with Dr. Fagan in 1 week, on March 27. He has enough antibiotics to get him through that time. We will give him another small prescription of tramadol as he states he is not sure how much he has at home and is concerned about having possibly medicines at home. Plan of care reviewed with the patient, he is agreeable. All questions were sought and answered. Patient stable for discharge. (LILIAN BLANK MD) Departure Impression Primary Impression: Abdominal pain Qualified Codes: R10.32 - Left lower quadrant pain Additional Impression: Diverticulitis of intestine Qualified Codes: K57.32 - Diverticulitis of large intestine without perforation or abscess without bleeding Disposition: 01 HOME, SELF-CARE Condition: Stable Departure-Patient Inst. Decision time for Depature: 14:50 (LILIAN BLANK MD) Referrals: CARMELITA FAGAN WILLIAM J DO (PCP/Family) Primary Care Physician Patient Instructions: Diverticulitis (DC) Add. Discharge Instructions: Follow a clear liquid diet until your symptoms start improving. Use the tramadol as needed for severe pain every 6 hours. Otherwise you can take Tylenol or ibuprofen. Keep your follow-up appointment with Dr. Fagan on March 27. Please come back to the emergency department if you have increasing pain especially with nausea, vomiting, bloody stool or high fever. Scripts Tramadol HCl (Tramadol HCl) 50 Mg Tablet 50 MG PO Q6H PRN for PAIN, #12 TAB 0 Refills Prov: LILIAN BLANK MD 03/21/21 Verification and Attestation of Medical Student E/M Service A medical student performed and documented this service in my presence. I reviewed and verified all information documented by the medical student and made modifications to such information, when appropriate. I personally performed the physical exam and medical decision making. Lilian Blank, Mar 21, 2021,14:50 (LILIAN BLANK MD) RALEIGH CHAIDEZ MED STUDENT Mar 21, 2021 13:27 LILIAN BLANK MD Mar 21, 2021 14:52
[2021-03-21] MEDS ORDERED: NS IV 1000 ML 1,000 ML IV SCH (13:30)
[2021-03-21] MEDS ORDERED: fentaNYL INJ 100 MCG/2 ML AMP IVP ONE (13:30)
[2021-03-21 13:41] LABS: POTASSIUM 3.8 MMOL/L (3.6-5.0)
[2021-03-21 13:42] LABS: CALCIUM 9.3 MG/DL (8.5-10.1)
[2021-03-21 13:43] LABS: TOTAL PROTEIN 7.2 GM/DL (6.4-8.2)
[2021-03-21 13:45] LABS: BILIRUBIN,TOTAL 0.6 MG/DL (0.1-1.0)
[2021-03-21 13:47] LABS: CREATININE SERUM 0.85 MG/DL (0.60-1.30)
[2021-03-21] MEDS ORDERED: TRM50T PO (14:51)
[2021-03-21 14:56] VITALS: BP 127/81
== END 2021-03-21 14:57 | disposition home or self-care (01) ==
LOC: EDUNIT# 12:45 → ER 12:47
DX: K57.20 Diverticulitis of large intestine with perforation and abscess without bleeding (principal); J45.909 Unspecified asthma, uncomplicated; I25.2 Old myocardial infarction; I10 Essential (primary) hypertension; E78.00 Pure hypercholesterolemia, unspecified; I25.10 Atherosclerotic heart disease of native coronary artery without angina pectoris; Z72.0 Tobacco use; Z79.82 Long term (current) use of aspirin; Z79.899 Other long term (current) drug therapy
CPT/HCPCS: 36415; 80053; 85025

== ENCOUNTER 2021-05-18 05:42 | Outpatient (CLI) | payer BC ==
[~2021-05-18] VITALS: Ht 175.3 cm; Wt 88.4 kg
[~2021-05-18 05:42] MED LIST changes: +TRM50T PO
== END 2021-05-18 10:40 ==
LOC: PREOP 05:42
PROVIDERS: ATTEND Surgery
DX: Z01.812 Encounter for preprocedural laboratory examination (principal)

== ENCOUNTER 2021-05-25 08:14 | Inpatient (IN) | payer BC ==
[~2021-05-25] VITALS: Ht 175.3 cm; Wt 91.8 kg
[2021-05-25] VITALS (11 sets, daily range): BP systolic 108–149; BP diastolic 65–83
[2021-05-25] MEDS ORDERED: LIDOCAINE/EPI 2% 1:200,00 (XYLOCAINE) 20 ML VIAL ONE (08:36)
[2021-05-25] MEDS ORDERED: ceFAZolin 2 GM IV Premixed 50 ML IV ONE (08:45)
[2021-05-25] MEDS ORDERED: metroNIDAZOLE 500MG/100ML IVPB 100 ML IV ONE (08:45)
--- NOTE | 2021-05-25 09:09 | Progress Note-Pre Operative ---
Pre-Operative Progress Note H&P Reviewed The H&P was reviewed, patient examined and no changes noted. Date Seen by Provider: May 25, 2021 Time Seen by Provider: 09:09 Date H&P Reviewed: May 25, 2021 Time H&P Reviewed: 09:09 Pre-Operative Diagnosis: Recurrent diverticulitis CARMELITA FAGAN DO May 25, 2021 09:09
[2021-05-25] MEDS: LACTATED RINGERS 1,000 ML IV PRN ×2 (09:15→10:30)
[2021-05-25] MEDS ORDERED: fentaNYL INJ 100 MCG/2 ML AMP ONE ×2 (09:30→11:34)
[2021-05-25] MEDS ORDERED: MIDAZOLAM 2 MG/2 ML (VERSED) VIAL ONE (09:30)
[2021-05-25] MEDS ORDERED: proPOfol 200 MG/20 ML (DIPRIVAN) VIAL IV ONE (11:52)
[2021-05-25] MEDS ORDERED: ROCURONIUM 10 MG/ML 5 ML SYRINGE IV ONE (11:52)
[2021-05-25] MEDS ORDERED: LIDOCAINE PF 2% 5 ML (XYLOCAINE) VIAL ONE (11:52)
[2021-05-25] MEDS ORDERED: SEVOFLURANE (ULTANE) 15 ML INHAL SOLN ONE ×2 (11:52→11:57)
[2021-05-25] MEDS ORDERED: ONDANSETRON 4 MG/2 ML (SDV) Z0FRAN ONE (11:57)
--- NOTE | 2021-05-25 12:06 | Progress Note-Post Operative ---
Post-Operative Progess Note Surgeon (s)/Retirement Village Manager (s) Surgeon CARMELITA FAGAN DO Retirement Village Manager: Dr. Trinidad Pre-Operative Diagnosis Recurrent diverticulitis Post-Operative Diagnosis same Procedure & Operative Findings Date of Procedure 05/25/21 Procedure Performed/Findings Lap hand assisted low anterior resection Anesthesia Type general Estimated Blood Loss Estimated blood loss (mL): minimal Specimens/Packing Specimens Removed partial colon CARMELITA FAGAN DO May 25, 2021 12:05
--- NOTE | 2021-05-25 12:13 | Anesthesia-General Post-Op ---
General Patient Condition Mental Status/LOC: Same as Preop Cardiovascular: Satisfactory Nausea/Vomiting: Absent Respiratory: Satisfactory Pain: Controlled Complications: Absent Post Op Complications Complications None Follow Up Care/Instructions Patient Instructions None needed. Anesthesia/Patient Condition Patient Condition Patient is doing well, no complaints, stable vital signs, no apparent adverse anesthesia problems. No complications reported per nursing. ABDIFATAH LAMB CRNA May 25, 2021 12:13
[2021-05-25] MEDS ORDERED: NEOSTIGMINE 3 MG/3 ML VIAL ONE (12:14)
[2021-05-25] MEDS ORDERED: SUGAMMADEX 500 MG/5 ML VIAL (BRIDION) IV ONE (12:14)
[2021-05-25] MEDS ORDERED: GLYCOPYRROLATE 0.2 MG/ML (ROBINUL) 2 ML VIAL ONE (12:14)
[2021-05-25] MEDS ORDERED: HYDROmorphone 2 MG/ML VIAL (DILAUDID) ONE (12:14)
[2021-05-25] MEDS ORDERED: HYDROcodone/APAP 5 MG/325 MG (LORTAB) TAB PO PRN (12:15)
[2021-05-25] MEDS ORDERED: HYDROmorphone 2 MG/ML VIAL (DILAUDID) IV ONE (12:15)
[2021-05-25] MEDS ORDERED: fentaNYL INJ 100 MCG/2 ML AMP IVP ONE (12:15)
[2021-05-25] MEDS ORDERED: ONDANSETRON 4 MG/2 ML (SDV) Z0FRAN IVP PRN ×2 (12:15)
[2021-05-25] MEDS: morphine INJ 4 MG/ML 1 ML (VIAL/SYRINGE) IVP PRN ×5 (13:31→23:08)
[2021-05-25] MEDS: LACTATED RINGERS 1,000 ML IV SCH (14:25)
[2021-05-25] MEDS ORDERED: RT-ALBUTEROL SULF 2.5 MG/3 ML PRE-MIX VIAL INH PRN (15:15)
[2021-05-25] MEDS: metroNIDAZOLE 500MG/100ML IVPB 100 ML IV SCH (16:42)
[2021-05-25] MEDS: ceFAZolin 2 GM IV Premixed 50 ML IV SCH (18:04)
[2021-05-25] MEDS: meTOprolol TARTRATE 25 MG (LOPRESSOR) TABLET PO SCH (20:57)
[2021-05-26] MEDS: LACTATED RINGERS 1,000 ML IV SCH ×3 (00:16→16:02)
[2021-05-26] MEDS: ceFAZolin 2 GM IV Premixed 50 ML IV SCH (00:16)
[2021-05-26] MEDS: metroNIDAZOLE 500MG/100ML IVPB 100 ML IV SCH (01:39)
[2021-05-26 04:10] VITALS: BP 114/63
[2021-05-26] MEDS: morphine INJ 4 MG/ML 1 ML (VIAL/SYRINGE) IVP PRN ×5 (04:17→12:26)
[2021-05-26 06:01] LABS: HEMATOCRIT 40 % (40-54); HEMOGLOBIN 13.6 g/dL (13.3-17.7); MEAN CORPUSCULAR HEMOGLOBIN 30 pg (25-34); MEAN CORPUSCULAR HGB CONC 34 g/dL (32-36); MEAN CORPUSCULAR VOLUME 89 fL (80-99); MEAN PLATELET VOLUME 10.1 fL (9.0-12.2); PLATELET COUNT 308 10^3/uL (130-400); WHITE BLOOD COUNT 19.4 10^3/uL (4.3-11.0)
[2021-05-26 06:21] LABS: POTASSIUM 4.3 MMOL/L (3.6-5.0)
[2021-05-26 06:23] LABS: CALCIUM 8.6 MG/DL (8.5-10.1)
[2021-05-26 06:27] LABS: CREATININE SERUM 0.89 MG/DL (0.60-1.30); PHOSPHORUS 3.1 MG/DL (2.3-4.7)
[2021-05-26 06:29] LABS: MAGNESIUM 1.7 MG/DL (1.6-2.4)
[2021-05-26 08:30] VITALS: BP 111/66
[2021-05-26] MEDS: meTOprolol TARTRATE 25 MG (LOPRESSOR) TABLET PO SCH ×2 (08:40→20:59)
[2021-05-26] MEDS ORDERED: LOSARTAN 50 MG (COZAAR) TAB PO SCH (09:00)
--- NOTE | 2021-05-26 09:45 | Progress Note - Surgery ---
NATALY ALCARAZ A MED STUDENT 05/26/21 0945: Subjective Date Seen by a Provider: May 26, 2021 Time Seen by a Provider: 10:00 Subjective/Events-last exam Pt up in chair this morning, reports his abdominal pain was not well controlled last night, but is better this morning since getting pain medication. Pt denies passage of gas, but states he felt like his bowels were moving. Pt reports his gambino catheter was taken out this morning and he has been up walking and using his incentive spirometry. Pt reports he was put on oxygen overnight because he has a CPAP machine at home, but did not bring it with him to hospital. Pt denies fever, chills, SOA, cough, CP, palpitations, N/V or dysuria. Review of Systems General: No Chills, No Fatigue HEENT: No Head Aches, No Visual Changes Pulmonary: No Dyspnea, No Cough Cardiovascular: No: Chest Pain, Palpitations Gastrointestinal: Abdominal Pain; No: Nausea, Vomiting Genitourinary: No Dysuria, No Frequency Neurological: No: Weakness, Numbness Objective Exam Vital Signs Date Time Temp Pulse Resp B/P (MAP) Pulse Ox O2 Delivery O2 Flow Rate FiO2 05/26/21 08:30 36.8 51 18 111/66 (81) 94 Nasal Cannula 1.50 05/26/21 08:00 Room Air 05/26/21 06:46 36.7 05/26/21 06:21 36.7 05/26/21 04:47 36.7 05/26/21 04:17 36.7 05/26/21 04:10 36.7 52 18 114/63 (80) 96 Room Air 05/25/21 23:38 36.8 05/25/21 23:13 36.8 65 18 117/66 (83) 95 Room Air 05/25/21 23:08 36.8 05/25/21 20:09 36.8 05/25/21 19:45 Nasal Cannula 1.50 05/25/21 19:39 36.8 05/25/21 19:12 36.8 55 18 125/65 (85) 95 Room Air 05/25/21 18:30 94 Nasal Cannula 2.00 05/25/21 16:00 36.9 61 20 141/71 (94) 99 Room Air 05/25/21 14:51 61 98 28 05/25/21 14:48 Nasal Cannula 2.00 05/25/21 13:43 Nasal Cannula 2.00 05/25/21 13:40 Nasal Cannula 2.00 05/25/21 13:05 36.1 20 122/72 (89) 97 Nasal Cannula 2 05/25/21 13:05 35.6 58 18 149/79 (102) 93 Room Air 05/25/21 13:05 Nasal Cannula 2 05/25/21 13:00 Nasal Cannula 2 05/25/21 12:50 20 122/72 (89) 93 Room Air 05/25/21 12:45 Room Air 05/25/21 12:40 20 138/82 (100) 95 Room Air 05/25/21 12:30 OxyMask 2 05/25/21 12:30 20 141/77 (98) 95 OxyMask 2 05/25/21 12:20 20 147/83 (104) 98 OxyMask 4 05/25/21 12:15 OxyMask 4 05/25/21 12:08 OxyMask 4 05/25/21 12:08 36.1 20 144/80 (101) 100 OxyMask 4 I & O 05/26/21 07:00 Intake Total 3400 ml Output Total 995 ml Balance 2405 ml Capillary Refill : Less Than 3 Seconds General Appearance: No Apparent Distress, WD/WN HEENT: PERRL/EOMI, Normal ENT Inspection Neck: Full Range of Motion, Normal Inspection Respiratory: Chest Non Tender, Lungs Clear, Normal Breath Sounds, No Accessory Muscle Use, No Respiratory Distress Cardiovascular: Regular Rate, Rhythm, No Murmur Gastrointestinal: soft, abnormal bowel sounds (hypoactive bowel sounds ), tenderness, other (midline abdominal incision and two lateral incisions stapled without erythema, edema or drainage) Extremity: Normal Capillary Refill, Normal Inspection Neurologic/Psychiatric: Alert, Oriented x3, Normal Mood/Affect Skin: Normal Color, Warm/Dry Lymphatic: No Adenopathy Results Lab Laboratory Tests 05/26/21 05:43: White Blood Count 19.4H, Red Blood Count 4.53, Hemoglobin 13.6, Hematocrit 40, Mean Corpuscular Volume 89, Mean Corpuscular Hemoglobin 30, Mean Corpuscular Hemoglobin Concent 34, Red Cell Distribution Width 12.7, Platelet Count 308, Mean Platelet Volume 10.1, Sodium Level 137, Potassium Level 4.3, Chloride Level 104, Carbon Dioxide Level 20L, Anion Gap 13, Blood Urea Nitrogen 14, Creatinine 0.89, Estimat Glomerular Filtration Rate 97, BUN/Creatinine Ratio 16, Glucose Le denise 127H, Calcium Level 8.6, Phosphorus Level 3.1, Magnesium Level 1.7 Assessment/Plan Assessment/Plan Assessment/Plan s/p sigmoid resection for recurrent diverticulitis Leukocytosis HTN Obesity Plan: D/c morphine, start lortab Advance to clear liquid diet Daily labs to monitor leukocytosis, no sign of infection currently Continue to monitor incisions for erythema, edema or purulent drainage Restart home medications, per IM, thankful for their recommendations Continue ambulation and incentive spirometry DVT prophylaxis with SCDs DANIEL WASSERMAN DO 05/26/211921: Subjective Subjective/Events-last exam Patient feeling better today. Last night pain control was difficult but better now. Tolerating ice chips. Urinating without diffulty. Passed a little flatus. Using IS. Ambulating. Denies n/v fever sweats chills shortness of breath or chest pain. Objective Exam General Appearance: No Apparent Distress, WD/WN HEENT: PERRL/EOMI, Normal ENT Inspection Neck: Full Range of Motion, Normal Inspection Respiratory: Chest Non Tender, No Accessory Muscle Use, No Respiratory Distress Cardiovascular: Regular Rate, Rhythm, No JVD Gastrointestinal: soft, tenderness (incisional), other (midline abdominal incision and two lateral incisions stapled without erythema, edema or drainage) Extremity: Normal Capillary Refill, Normal Inspection Neurologic/Psychiatric: Alert, Oriented x3, Normal Mood/Affect Skin: Normal Color, Warm/Dry Lymphatic: No Adenopathy Assessment/Plan Assessment/Plan Assessment/Plan s/p low anterior resection for recurent diverticulitis htn obesity pain control ambulate IS repeat labs scd for dvt prophylaxis start lovenox start clears since passing flatus. LR Supervisory-Addendum Brief Verification & Attestation Participated in pt care: history, MDM, physical Personally performed: exam, history, MDM, supervision of care Care discussed with: Medical Student Procedures: n/a Results interpretation: Verified all documentation Verification and Attestation of Medical Student E/M Service A medical student performed and documented this service in my presence. I reviewed and verified all information documented by the medical student and made modifications to such information, when appropriate. I personally performed the physical exam and medical decision making. Daniel Wasserman, May 26, 2021,19:26 NATALY ALCARAZ MED STUDENT May 26, 2021 09:45 DANIEL WASSERMAN DO May 26, 2021 19:22
--- NOTE | 2021-05-26 10:00 | Physical Therapy Evaluation ---
PT Evaluation-General Medical Diagnosis Admission Date May 25, 2021 at 08:14 Medical Diagnosis: recurrent diverticulitis Onset Date: May 25, 2021 Therapy Diagnosis Therapy Diagnosis: debility Height/Weight Height (Feet): 5 Height (Inches): 9.00 Weight (Pounds): 200 Weight (Ounces): 0.0 Precautions Precautions/Isolations: Standard Precautions Referral Physician: Lisy Reason for Referral: Evaluation/Treatment Medical History Pertinent Medical History: CAD, HTN, IA, Renal Insufficiency, Smoking Current History s/p bowel resection Reviewed History: Yes Social History Home: Single Level Prior Prior Level of Function SCALE: Activities may be completed with or without assistive devices. 3-Otbsjbdagm-fcodcvw completes the activity by him/herself with no assistance from a helper. 5-Set-up or Clean-up Assistance-helper sets up or cleans up; patient completes activity. Mcdowell assists only prior to or following the activity. 4-Supervision or Touching Assistance-helper provides verbal cues and/or touching/steadying and/or contact guard assistance as patient completes activity. Assistance may be provided throughout the activity or intermittently. 3-Partial/Moderate Assistance-helper does LESS THAN HALF the effort. Mcdowell lifts, holds or supports trunk or limbs, but provides less than half the effort. 2-Substantial/Maximal Assistance-helper does MORE THAN HALF the effort. Mcdowell lifts or holds trunk or limbs and provides more than half the effort. 3-Tiaymkwim-jtcgys does ALL the effort. Patient does none of the effort to complete the activity. Or, the assistance of 2 or more helpers is required for the patient to complete the activity. If activity was not attempted, code reason: 7-Patient Refused. 9-Not Applicable-not attempted and the patient did not perform the activity before the current illness, exacerbation or injury. 10-Not Attempted due to Environmental Limitations-(lack of equipment, weather restraints, etc.). 88-Not Attempted due to Medical Conditions or Safety Concerns. Bed Mobility: 6 Transfers (B,C,W/C): 6 Gait: 6 Stairs: 6 Indoor Mobility (Ambulation): Independent Stairs: Independent Prior Devices Use: None PT Evaluation-Current Subjective Patient agrees to PT. Pain Numeric Pain Scale: 5-Moderate Pain Location: Lower Location Body Site: Abdomen Pain Description: Acute Objective Patient Orientation: Normal For Age Attachments: [place] Catheter, IV ROM/Strength ROM Lower Extremities bilateral LE WFL Strength Lower Extremities 4/5 grossly bilateral LE Integumentary/Posture Integumentary refer to nursing notes Bladder Incontinence: T[place]on Cath Posture WFL Neuromuscular (Tone, Coordination, Reflexes) grossly intact Sensory Vision: Wears Glasses Hearing: Functional Transfers Lying to Sitting/Side of Bed(Q: 6 Sit to Stand (QC): 6 Chair/Nmi-nq-Qgjih Xfer(QC): 6 Gait Mode of Locomotion: Walk Anticipated Mode of Locomotion: Walk Walk 10 feet (QC): 6 Walk 50 ft with 2 Turns(QC): 6 Walk 150 ft (QC): 6 Distance: 500' Gait Assistive Device: FWW Comments/Gait Description safe and functional without deviation Balance Sitting Static: Normal Sitting Dynamic: Normal Standing Static: Normal Standing Dynamic: Normal Assessment/Needs Patient is currently at independent PLOF with all gross motor skills and does not require skilled PT intervention. RN notified. Rehab Potential: Fair PT Plan Treatment/Plan Treatment Plan: Discontinue PT, goals met Treatment Duration: May 26, 2021 Frequency: 1 time per week Estimated Hrs Per Day: .25 hour per day Patient and/or Family Agrees t: Yes Time/GCodes Time In: 915 Time Out: 928 Total Billed Treatment Time: 13 Total Billed Treatment 1 visit [facility] 13 min KHANH BUCK PT May 26, 2021 10:00
[2021-05-26] MEDS ORDERED: TRAM50TA3 PO (11:19)
[2021-05-26] MEDS ORDERED: RT-ALBUINH INH (11:19)
[2021-05-26] MEDS ORDERED: LOSA100T57 PO (11:19)
--- NOTE | 2021-05-26 11:36 | Consultation - Hospitalist ---
HPI History of Present Illness: HPI/Chief Complaint Gregorio Ramires is a 61 year old male with hypertension who presented for partial colectomy due to recurrent diverticulitis. He underwent a low anterior resection on 05/25. He is still having abdominal pain. He had some nausea yesterday. He has not passed gas or had any bowel movements. He still has his gambino catheter in place. He just finished walking with physical therapy and they have signed off because he is independent. He has been using his incentive spirometer. He is still NPO. He denies fevers and chills. He denies chest pain. He denies shortness of breath. Source: patient Exam Limitations: no limitations Date Seen 05/26/21 Attending Physician Daniel Wasserman DO PCP Akash Pena DO Referring Physician Date of Admission May 25, 2021 at 08:14 Home Medications & Allergies Home Medications Reviewed patient Home Medication Reconciliation performed by pharmacy medication reconciliations bmw service technician and/or nursing. Patients Allergies have been reviewed. Allergies Allergies Coded Allergies clarithromycin (Verified Allergy, Unknown, 05/26/21) Past Bnqhtxv-Hogydq-Fchjje Hx Patient Social History Tobacco Use?: Yes Smokeless type used: Chew Smokeless Tobacco Frequency: Current Everyday User Use of E-Cig and/or Vaping dev: No Substance use?: No Alcohol Use?: No Pt feels they are or have been: No Immunizations Up To Date First/Initial COVID19 Vaccinat: 2020 Second COVID19 Vaccination Fco: 2020 Tetanus Booster (TDap): Unknown Hepatitis A: No Hepatitis B: No Seasonal Allergies Seasonal Allergies: Yes Current Status Advance Directives: No Communicates: Verbally Primary Language: Burmese Preferred Spoken Language: Burmese Is interpretation needed?: No Past Medical History Surgeries: Cardiac, Coronary Stent Asthma, Sleep Apnea Currently Using CPAP: No Currently Using BIPAP: No Coronary Artery Disease, Heart Attack, High Cholesterol, Hypertension Sexually Transmitted Disease: No HIV/AIDS: No Kidney Stones Diverticulosis Arthritis Loss of Vision: Bilateral Anxiety Blood Disorders: No Adverse Reaction/Blood Tranf: No Family Medical History Colon cancer 19 FATHER Diabetes mellitus 19 MOTHER Headache disorder G8 SISTER Thyroid disease G8 SISTER No Pertinent Family Hx Review of Systems Constitutional: no symptoms reported EENTM: no symptoms reported Respiratory: no symptoms reported Cardiovascular: no symptoms reported Gastrointestinal: abdominal pain, nausea Genitourinary: no symptoms reported Musculoskeletal: no symptoms reported Skin: no symptoms reported Psychiatric/Neurological: No Symptoms Reported Physical Exam Physical Exam Vital Signs Vital Signs - First Documented 05/25/21 05/25/21 08:49 14:51 Temp 36.1 Pulse 62 Resp 22 B/P (MAP) 108/81 (90) Pulse Ox 97 O2 Delivery Room Air FiO2 28 Capillary Refill : Less Than 3 Seconds Height, Weight, BMI Height: 5'9.00" Weight: 200lbs. 0.0oz. 90.462200gr; 28.76 BMI Method:Stated General Appearance: No Apparent Distress, WD/WN HEENT: PERRL/EOMI, Pharynx Normal Neck: Normal Inspection, Supple Respiratory: Chest Non Tender, Lungs Clear, Normal Breath Sounds, No Accessory Muscle Use, No Respiratory Distress Cardiovascular: Regular Rate, Rhythm, No Murmur Gastrointestinal: Soft, Abnormal Bowel Sounds (hypoactive), Guarding, Tenderness Extremity: Normal Inspection, No Pedal Edema Neurologic/Psychiatric: Alert, Oriented x3, No Motor/Sensory Deficits, Normal Mood/Affect Skin: Normal Color, Warm/Dry Lymphatic: No Adenopathy Results Results/Procedures Labs Laboratory Tests 05/26/21 05:43 Patient resulted labs reviewed. Imaging: Reviewed Imaging Report Assessment/Plan Assessment and Plan Assess & Plan/Chief Complaint Recurrent diverticulitis s/p partial colectomy Surgery primary s/p partial colectomy 05/25 Pain regimen Incentive spirometry PT signed off Remove gambino NPO HTN Resume home meds once able DVT prophylaxis: Lovenox once ok with surgery Diagnosis/Problems Diagnosis/Problems (1) S/P partial colectomy Status: Acute (2) History of diverticulitis Status: Chronic (3) HTN (hypertension) Status: Chronic EULOGIO CASTRO MD May 26, 2021 11:36
[2021-05-26 11:58] VITALS: BP 131/72
--- NOTE | 2021-05-26 14:21 | Anesthesia-General Post-Op ---
General Patient Condition Mental Status/LOC: Same as Preop Cardiovascular: Satisfactory Nausea/Vomiting: Absent Respiratory: Satisfactory Pain: Controlled Complications: Absent Post Op Complications Complications None Follow Up Care/Instructions Patient Instructions None needed. Anesthesia/Patient Condition Patient Condition Patient is doing well, no complaints, stable vital signs, no apparent adverse anesthesia problems. JENNY BARON DO May 26, 2021 14:21
[2021-05-26 15:33] VITALS: BP 117/67
[2021-05-26] MEDS: ENOXAPARIN 40 MG/0.4 ML (LOVENOX) SYR SC SCH (20:58)
[2021-05-26] MEDS: HYDROcodone/APAP 5 MG/325 MG (LORTAB) TAB PO PRN (21:02)
[2021-05-26 23:53] VITALS: BP 108/67
[2021-05-27] MEDS: LACTATED RINGERS 1,000 ML IV SCH ×4 (01:50→18:57)
--- NOTE | 2021-05-27 02:43 | OPERATIVE REPORT ---
DATE OF SERVICE: 05/25/2021 PREOPERATIVE DIAGNOSIS: Recurrent diverticulitis episodes. POSTOPERATIVE DIAGNOSIS: Recurrent diverticulitis episodes. PROCEDURE: Laparoscopic hand-assisted low anterior resection. SURGEON: Carmelita Wasserman DO C D STRIPPER: Dr. Trinidad, who assisted in retraction, dissection and closure. ANESTHESIA: General. ESTIMATED BLOOD LOSS: Minimal. COMPLICATIONS: None. INDICATIONS: The patient is a 61-year-old male who has had recurrent episodes of diverticulitis. He continued to have left lower quadrant abdominal pain as well. He understands risks and benefits of procedures and wishes to proceed. Consent was signed in the chart. DESCRIPTION OF PROCEDURE: The patient was taken to the operating suite, was prepped and draped in sterile fashion. Surgical pause was performed. Midline incision was made around the umbilicus for hand port down to and cautery was used to dissect down through the subcutaneous tissues and the fascia was then opened. Under direct visualization, a 12 mm trocar was placed in the right lower quadrant. Hand trocar was then put in place and pneumoperitoneum was achieved. Scope was inserted and another 12 mm trocar was placed in the left lower quadrant. Sigmoid colon was inspected in the distal portion near the rectosigmoid junction, significant adherence of the colon up to the sidewall. Lots of inflammation and extremely firm to touch. Hook cautery was used to begin to mobilize the left colon. Spatula hook cautery was then used to dissecting the left colon along the white line of Toldt. There was significant adherence, very difficult to get the adherent colon down, but began using some slight blunt finger dissection, which then mobilized the colon off of the sidewall and freeing it. The rectum distally was then dissected around mobilizing it on the left and right side, dissecting bluntly around the rectum distal to where the recurrent diverticular pathology was, a linear laparoscopic stapler was then fired across the colon. Proximal to the area of pathology, cautery and blunt dissection were used to dissect around the colon, which then reloads were used to staple across the colon. LigaSure was then used to divide the mesentery achieving hemostasis. The specimen was then removed. The proximal portion of the colon was then brought out through the incision. A pursestring suture was then fired across just proximal to the staple line, scissors were used to amputate it and a 31 anvil was then placed within it and secured. I went below and dilated the rectum serially until the 31 mm stapler was then able to be inserted and brought up into the rectum and end-to-end anastomosis was then created. Two good donuts were created and the stapler was removed. A leak test was performed. The area was irrigated. There were no bubbles created demonstrating medially. The abdomen was then irrigated and suctioned. The fascia was then closed using 1-0 looped PDS. The skin was then closed with corby. The patient tolerated procedure well without any complications, taken to recovery room in stable condition. Job ID: [id number] DocumentID: [id number] Dictated Date: 05/26/2021 19:08:28 Photographic Technician Date: 05/27/2021 02:42:20 Dictated By: CARMELITA WASSERMAN DO
[2021-05-27] MEDS: HYDROcodone/APAP 5 MG/325 MG (LORTAB) TAB PO PRN ×4 (04:23→20:43)
[2021-05-27 04:25] VITALS: BP 127/81
[2021-05-27 05:46] LABS: HEMATOCRIT 38 % (40-54); HEMOGLOBIN 12.7 g/dL (13.3-17.7); MEAN CORPUSCULAR HEMOGLOBIN 30 pg (25-34); MEAN CORPUSCULAR HGB CONC 34 g/dL (32-36); MEAN CORPUSCULAR VOLUME 90 fL (80-99); MEAN PLATELET VOLUME 10.7 fL (9.0-12.2); PLATELET COUNT 269 10^3/uL (130-400); WHITE BLOOD COUNT 17.7 10^3/uL (4.3-11.0)
[2021-05-27 06:02] LABS: POTASSIUM 3.8 MMOL/L (3.6-5.0)
[2021-05-27 06:03] LABS: CALCIUM 8.6 MG/DL (8.5-10.1)
[2021-05-27 06:07] LABS: CREATININE SERUM 0.75 MG/DL (0.60-1.30)
[2021-05-27 06:09] LABS: MAGNESIUM 1.8 MG/DL (1.6-2.4)
[2021-05-27 08:00] VITALS: BP 131/69
[2021-05-27] MEDS: meTOprolol TARTRATE 25 MG (LOPRESSOR) TABLET PO SCH ×2 (08:55→20:43)
[2021-05-27] MEDS: LOSARTAN 25 MG (COZAAR) TAB PO SCH (08:55)
[2021-05-27] MEDS: morphine INJ 4 MG/ML 1 ML (VIAL/SYRINGE) IVP PRN ×3 (08:57→20:44)
--- NOTE | 2021-05-27 10:31 | Progress Note ---
Subjective Date Seen by a Provider: May 27, 2021 Time Seen by a Provider: 10:00 Subjective/Events-last exam doing well. tolerating clears. no nausea/vomiting. no fever/chills. ambulating well. Objective Exam Vital Signs Date Time Temp Pulse Resp B/P (MAP) Pulse Ox O2 Delivery O2 Flow Rate FiO2 05/27/21 08:00 35.9 72 20 131/69 (89) 92 Room Air 05/27/21 08:00 Room Air 05/27/21 04:53 36.9 05/27/21 04:25 36.9 65 18 127/81 (96) 92 Room Air 05/27/21 04:23 36.8 05/26/21 23:53 36.8 61 18 108/67 (81) 93 Nasal Cannula 1.00 05/26/21 22:58 87 Room Air 05/26/21 21:30 36.9 05/26/21 20:05 Room Air 05/26/21 19:37 36.9 60 18 93 Room Air 05/26/21 18:55 Nasal Cannula 2.00 05/26/21 15:33 36.8 60 18 117/67 (84) 94 Room Air 05/26/21 11:58 37.3 64 18 131/72 (91) 97 Nasal Cannula 1.50 I & O 05/27/21 07:00 Intake Total 2210 ml Output Total 350 ml Balance 1860 ml Capillary Refill : Less Than 3 Seconds General Appearance: No Apparent Distress HEENT: PERRL/EOMI Neck: Full Range of Motion Respiratory: Chest Non Tender, Lungs Clear Cardiovascular: Regular Rate, Rhythm Gastrointestinal: soft, tenderness, other (incision clean/dry) Extremity: Normal Capillary Refill Neurologic/Psychiatric: Alert, Oriented x3 Skin: Normal Color Lymphatic: No Adenopathy Results Lab Laboratory Tests 05/27/21 05:30: White Blood Count 17.7H, Red Blood Count 4.19L, Hemoglobin 12.7L, Hematocrit 38L , Mean Corpuscular Volume 90, Mean Corpuscular Hemoglobin 30, Mean Corpuscular Hemoglobin Concent 34, Red Cell Distribution Width 13.0, Platelet Count 269, Mean Platelet Volume 10.7, Sodium Level 140, Potassium Level 3.8, Chloride Level 104, Carbon Dioxide Level 22, Anion Gap 14, Blood Urea Nitrogen 14, Creatinine 0.75, Estimat Glomerular Filtration Rate 103, BUN/Creatinine Ratio 19, Glucose Level 90, Calcium Level 8.6, Phosphorus Level 2.0L, Magnesium Level 1.8 Microbiology 05/25/21 MRSA Screen - Final, Complete MRSA not isolated Assessment/Plan Assessment/Plan Assess & Plan/Chief Complaint s/p LAR POD#2. continue ambulating. await more bowel fxn. JEREMY OSORIO MD May 27, 2021 10:31
--- NOTE | 2021-05-27 10:49 | Progress Note - Surgery ---
Subjective Date Seen by a Provider: May 27, 2021 Time Seen by a Provider: 10:47 Subjective/Events-last exam Pain controlled. Ambulating some. Using IS. No flatus. Slightly distended with clears. Denies n/v fever sweats chills shortness of breath or chest pain. Objective Exam Vital Signs Date Time Temp Pulse Resp B/P (MAP) Pulse Ox O2 Delivery O2 Flow Rate FiO2 05/27/21 08:00 35.9 72 20 131/69 (89) 92 Room Air 05/27/21 08:00 Room Air 05/27/21 04:53 36.9 05/27/21 04:25 36.9 65 18 127/81 (96) 92 Room Air 05/27/21 04:23 36.8 05/26/21 23:53 36.8 61 18 108/67 (81) 93 Nasal Cannula 1.00 05/26/21 22:58 87 Room Air 05/26/21 21:30 36.9 05/26/21 20:05 Room Air 05/26/21 19:37 36.9 60 18 93 Room Air 05/26/21 18:55 Nasal Cannula 2.00 05/26/21 15:33 36.8 60 18 117/67 (84) 94 Room Air 05/26/21 11:58 37.3 64 18 131/72 (91) 97 Nasal Cannula 1.50 I & O 05/27/21 07:00 Intake Total 2210 ml Output Total 350 ml Balance 1860 ml Capillary Refill : Less Than 3 Seconds General Appearance: No Apparent Distress, WD/WN HEENT: PERRL/EOMI, Normal ENT Inspection Neck: Full Range of Motion, Non Tender Respiratory: Chest Non Tender, Lungs Clear Cardiovascular: Regular Rate, Rhythm, No JVD Gastrointestinal: soft, tenderness (minimal incisional), other (incision clean/dry intact) Extremity: Normal Capillary Refill Neurologic/Psychiatric: Alert, Oriented x3 Skin: Normal Color Lymphatic: No Adenopathy Results Lab Laboratory Tests 05/27/21 05:30: White Blood Count 17.7H, Red Blood Count 4.19L, Hemoglobin 12.7L, Hematocrit 38L , Mean Corpuscular Volume 90, Mean Corpuscular Hemoglobin 30, Mean Corpuscular Hemoglobin Concent 34, Red Cell Distribution Width 13.0, Platelet Count 269, Mean Platelet Volume 10.7, Sodium Level 140, Potassium Level 3.8, Chloride Level 104, Carbon Dioxide Level 22, Anion Gap 14, Blood Urea Nitrogen 14, Creatinine 0.75, Estimat Glomerular Filtration Rate 103, BUN/Creatinine Ratio 19, Glucose Level 90, Calcium Level 8.6, Phosphorus Level 2.0L, Magnesium Level 1.8 Microbiology 05/25/21 MRSA Screen - Final, Complete MRSA not isolated Assessment/Plan Assessment/Plan Assessment/Plan S/p low anterior resection Clear liquids Pain control Denies Lovenox scd's for dvt prophylaxis Ambulate and IS CARMELITA FAGAN DO May 27, 2021 10:49
[2021-05-27] MEDS: MEROPENEM 500 MG in NS (IVPB) 100 ML IV SCH ×3 (11:10→23:41)
[2021-05-27 12:23] VITALS: BP 121/71
[2021-05-27 15:35] VITALS: BP 131/69
[2021-05-27 19:26] VITALS: BP 132/78
[2021-05-27] MEDS: ENOXAPARIN 40 MG/0.4 ML (LOVENOX) SYR SC SCH (20:43)
[2021-05-27 23:48] VITALS: BP 123/68
[2021-05-28] MEDS: morphine INJ 4 MG/ML 1 ML (VIAL/SYRINGE) IVP PRN (02:23)
[2021-05-28] MEDS: LACTATED RINGERS 1,000 ML IV SCH ×2 (03:20→11:53)
[2021-05-28 04:07] VITALS: BP 127/80
[2021-05-28] MEDS: MEROPENEM 500 MG in NS (IVPB) 100 ML IV SCH ×2 (05:27→11:53)
[2021-05-28 06:03] LABS: BASOPHILS # (AUTO) 0.1 10^3/uL (0.0-0.1); BASOPHILS % (AUTO) 0 % (0-10); EOSINOPHILS % (AUTO) 0 % (0-10); HEMATOCRIT 43 % (40-54); HEMOGLOBIN 14.1 g/dL (13.3-17.7); LYMPHOCYTES # (AUTO) 2.8 10^3/uL (1.0-4.0); LYMPHOCYTES % (AUTO) 18 % (12-44); MEAN CORPUSCULAR HEMOGLOBIN 30 pg (25-34); MEAN CORPUSCULAR HGB CONC 33 g/dL (32-36); MEAN CORPUSCULAR VOLUME 90 fL (80-99); MEAN PLATELET VOLUME 9.7 fL (9.0-12.2); MONOCYTES # (AUTO) 1.3 10^3/uL (0.0-1.0); MONOCYTES % (AUTO) 9 % (0-12); NEUTROPHILS # (AUTO) 11.2 10^3/uL (1.8-7.8); NEUTROPHILS % (AUTO) 72 % (42-75); PLATELET COUNT 277 10^3/uL (130-400); WHITE BLOOD COUNT 15.5 10^3/uL (4.3-11.0)
[2021-05-28 06:20] LABS: BAND NEUTROPHILS 1 %; NEUTROPHILS % (MANUAL) 78 %
[2021-05-28 06:21] LABS: LYMPHOCYTES % (MANUAL) 14 %; MONOCYTES % (MANUAL) 7 %; RBC MORPH NORMAL
[2021-05-28 06:22] LABS: POTASSIUM 4.2 MMOL/L (3.6-5.0)
[2021-05-28 06:23] LABS: CALCIUM 9.4 MG/DL (8.5-10.1)
[2021-05-28 06:27] LABS: PHOSPHORUS 3.1 MG/DL (2.3-4.7)
[2021-05-28 06:28] LABS: CREATININE SERUM 0.79 MG/DL (0.60-1.30)
[2021-05-28 06:30] LABS: MAGNESIUM 1.7 MG/DL (1.6-2.4)
[2021-05-28 07:32] VITALS: BP 141/75
[2021-05-28] MEDS: meTOprolol TARTRATE 25 MG (LOPRESSOR) TABLET PO SCH (08:48)
[2021-05-28] MEDS: LOSARTAN 25 MG (COZAAR) TAB PO SCH (08:48)
[2021-05-28] MEDS: HYDROcodone/APAP 5 MG/325 MG (LORTAB) TAB PO PRN (08:52)
[2021-05-28 11:24] VITALS: BP 140/75
[2021-05-28] MEDS ORDERED: ACHD5005 PO (12:19)
[2021-05-28] MEDS ORDERED: DOCU-143 PO (12:19)
--- NOTE | 2021-05-28 12:21 | Discharge Inst-Simple/Standard ---
Discharge Inst-Standard Discharge Medications New, Converted or Re-Newed RX: Transmitted to Pharmacy Patient Instructions/Follow Up Plan of Care/Instructions/FU: 2 weeks Lisy Activity as Tolerated: Yes Discharge Diet: Regular Diet Other Inst to Patient Follow up Appt: Make appointment for 2 week. Instructions: No lifting greater than 10 pounds. No strenuous activity. May shower in 24 hours, no tub bath or soaking. Use incentive spirometer at home as directed. No Smoking Skin/Wound Care: Keep incisions clean and dry. Symptoms to Report: Appetite Changes, Extremity Discoloration, Numbness/Tingling, Swelling Increased, Bleeding Excessive, Eyesight Changes, Pain Increased, Urine Color Change, Constipation(Persistent), Fever over 101 degree F, Pain/Pressure in chest, Urinating Difficulty, Cough Up/Vomit Blood, Heart Beat Irreg/Pounding, Pain/Pressure in jaw, Vaginal Bleeding Increase, Cramps in feet or legs, Lighth eadedness, Pain/Pressure in shoulder, Diarrhea(Persistent), Memory Changes Suddenly, Questions/Concerns, Weight gain consecutive days, Dizziness/Fainting, Nausea/Vomiting, Shortness of Breath, Weight gain over 2 pounds If questions or concerns contact your physician Or seek help at emergency department. CARMELITA FAGAN DO May 28, 2021 12:21
--- NOTE | 2021-05-28 12:27 | Progress Note - Surgery ---
Subjective Date Seen by a Provider: May 28, 2021 Time Seen by a Provider: 12:26 Subjective/Events-last exam Feeling well. Pain controlled. Tolerating diet. Having bowel function. Using IS and ambulating. Denies n/v fever sweats chills shortness of breath or chest pain. Objective Exam Vital Signs Date Time Temp Pulse Resp B/P (MAP) Pulse Ox O2 Delivery O2 Flow Rate FiO2 05/28/21 11:24 36.8 66 20 140/75 (96) 95 Room Air 05/28/21 08:53 93 Room Air 05/28/21 08:00 Room Air 05/28/21 07:32 36.8 63 20 141/75 (97) 93 Room Air 05/28/21 04:07 36.6 61 17 127/80 (96) 94 Room Air 05/27/21 23:48 36.8 63 17 123/68 (86) 94 Room Air 05/27/21 20:31 94 Room Air 05/27/21 20:22 Nasal Cannula 1.00 05/27/21 19:26 36.9 64 18 132/78 (96) 94 Room Air 05/27/21 15:35 37.0 66 18 131/69 (89) 95 Room Air I & O 05/28/21 07:00 Intake Total 3100 ml Balance 3100 ml Capillary Refill : Less Than 3 Seconds General Appearance: No Apparent Distress, WD/WN HEENT: PERRL/EOMI, Normal ENT Inspection Neck: Full Range of Motion, Non Tender Respiratory: Chest Non Tender, Lungs Clear Cardiovascular: Regular Rate, Rhythm, No JVD Gastrointestinal: soft, tenderness (minimal incisional), other (incision clean/dry intact) Extremity: Normal Capillary Refill Neurologic/Psychiatric: Alert, Oriented x3 Skin: Normal Color, Warm/Dry Lymphatic: No Adenopathy Results Lab Laboratory Tests 05/28/21 05:54: White Blood Count 15.5H, Red Blood Count 4.73, Hemoglobin 14.1, Hematocrit 43, Mean Corpuscular Volume 90, Mean Corpuscular Hemoglobin 30, Mean Corpuscular Hemoglobin Concent 33, Red Cell Distribution Width 12.8, Platelet Count 277, Mean Platelet Volume 9.7, Immature Granulocyte % (Auto) 1, Neutrophils (%) (Auto) 72, Lymphocytes (%) (Auto) 18, Monocytes (%) (Auto) 9, Eosinophils (%) (Auto) 0, Basophils (%) (Auto) 0, Neutrophils # (Auto) 11.2H, Lymphocytes # (Auto) 2.8, Monocytes # (Auto) 1.3H, Eosinophils # (Auto) 0.0, Basophils # (Auto) 0.1, Immature Granulocyte # (Auto) 0.1, Neutrophils % (Manual) 78, Lymphocytes % (Manual) 14, Monocytes % (Manual) 7, Band Neutrophils 1, Blood Morphology Comment NORMAL, Sodium Level 139, Potassium Level 4.2, Chloride Level 102, Carbon Dioxide Level 20L, Anion Gap 17H, Blood Urea Nitrogen 11, Creatinine 0.79, Estimat Glomerular Filtration Rate 101, BUN/Creatinine Ratio 14, Glucose Level 68L, Calcium Level 9.4, Phosphorus Level 3.1, Magnesium Level 1.7 Microbiology 05/25/21 MRSA Screen - Final, Complete MRSA not isolated Assessment/Plan Assessment/Plan Assessment/Plan S/p low anterior resection partial colectomy with end to end anastamosis. Diet as tolerates Pain control Denies Lovenox scd's for dvt prophylaxis Ambulate and IS Plan to dc home today. CARMELITA FAGAN DO May 28, 2021 12:27
[2021-05-28 13:41] VITALS: BP 140/75
--- NOTE | 2021-05-28 16:41 | Progress Note - Hospitalist ---
Subjective HPI/CC On Admission Date Seen by Provider: May 28, 2021 Time Seen by Provider: 10:40 Gregorio Ramires is a 61 year old male with hypertension who presented for partial colectomy due to recurrent diverticulitis. He underwent a low anterior resection on 05/25. He is still having abdominal pain. He had some nausea yesterday. He has not passed gas or had any bowel movements. He still has his gambino catheter in place. He just finished walking with physical therapy and they have signed off because he is independent. He has been using his incentive spirometer. He is still NPO. He denies fevers and chills. He denies chest pain. He denies shortness of breath. Subjective/Events-last exam He is doing much better today. He is having bowel movements. His abdominal pain has improved. He has been up and walking. Objective Exam Vital Signs Vital Signs Date Time Temp Pulse Resp B/P (MAP) Pulse Ox O2 Delivery O2 Flow Rate FiO2 05/28/21 13:41 36.8 66 20 140/75 95 Room Air 1.00 05/25/21 14:51 28 Capillary Refill : Less Than 3 Seconds General Appearance: No Apparent Distress, WD/WN Respiratory: Lungs Clear, No Respiratory Distress Cardiovascular: Regular Rate, Rhythm, No Murmur Gastrointestinal: Normal Bowel Sounds, Soft Extremity: Normal Inspection, No Pedal Edema Neurologic/Psychiatric: Alert, Normal Mood/Affect Skin: Normal Color, Warm/Dry Results/Procedures Lab Laboratory Tests 05/28/21 05:54 Patient resulted labs reviewed. Imaging: Reviewed Imaging Report Assessment/Plan Assessment and Plan Assess & Plan/Chief Complaint Recurrent diverticulitis s/p partial colectomy Surgery primary s/p partial colectomy 05/25 Pain regimen Incentive spirometry Tolerating diet Likely discharge today HTN Continue home meds DVT prophylaxis: Lovenox Diagnosis/Problems Diagnosis/Problems (1) S/P partial colectomy Status: Acute (2) History of diverticulitis Status: Chronic (3) HTN (hypertension) Status: Chronic EULOGIO CASTRO MD May 28, 2021 16:41
--- NOTE | 2021-05-29 04:38 | DISCHARGE SUMMARY ---
DATE OF SERVICE: ADMITTING DIAGNOSIS: Recurrent diverticulitis. DISCHARGE DIAGNOSES: Recurrent diverticulitis, status post low anterior resection, partial colectomy. ADMITTING PHYSICIAN: Carmelita Wasserman DO CONSULTING PHYSICIAN: Dr. Rios. HOSPITAL COURSE: The patient is a 61-year-old male, who has had multiple episodes of diverticulitis. He wishes to have elective resection. He was brought in on 05/25/2021 underwent low anterior resection for partial colectomy with end-to-end anastomosis. The patient postoperatively had pain control. He was very active and ambulating using incentive spirometer. He regained bowel function. He was advanced on his diet. His pain is controlled with oral pain medication. He is tolerating diet. He has bowel function. He is being discharged home on 05/28/2021. The patient was given discharge instructions. Please see computer. He was given hydrocodone 5/325, #30 and Colace 100 mg b.i.d. He is to resume his home medications. Please see computer for complete list. The patient has followup arranged for two weeks. Job ID: [id number] DocumentID: [id number] Dictated Date: 05/28/2021 12:25:41 No Bake Molder Date: 05/29/2021 04:38:20 Dictated By: CARMELITA WASSERMAN DO
== END 2021-05-28 13:20 | disposition home or self-care (01) | DRG 331 ==
LOC: 4TH 08:14 → SURG 08:15 → 4TH 13:05
PROVIDERS: ADMIT Surgery; ATTEND Surgery
PROC: 0DBN0ZZ Excision of Sigmoid Colon, Open Approach (ICD-10-PCS; principal; 2021-05-28)
DX: K57.32 Diverticulitis of large intestine without perforation or abscess without bleeding (principal); I25.2 Old myocardial infarction; I10 Essential (primary) hypertension; E78.00 Pure hypercholesterolemia, unspecified; J45.909 Unspecified asthma, uncomplicated; F17.210 Nicotine dependence, cigarettes, uncomplicated; Z95.5 Presence of coronary angioplasty implant and graft; I25.10 Atherosclerotic heart disease of native coronary artery without angina pectoris; M19.90 Unspecified osteoarthritis, unspecified site; K57.90 Diverticulosis of intestine, part unspecified, without perforation or abscess without bleeding; F41.9 Anxiety disorder, unspecified; D72.829 Elevated white blood cell count, unspecified; E66.9 Obesity, unspecified; Z68.29 Body mass index [BMI] 29.0-29.9, adult
CPT/HCPCS: 36415; 80048; 83735; 84100; 85007; 85027; 86850; 86900; 86901; 87081; 94664; 94760

== ENCOUNTER 2021-10-07 15:46 | Emergency (ER) | payer BC ==
[~2021-10-07] VITALS: Ht 175.3 cm; Wt 86.2 kg
[~2021-10-07 15:46] MED LIST changes: +ACHD5005 PO; +DOCU-143 PO; +RT-ALBUINH INH; +TRAM50TA3 PO
[2021-10-07] MEDS ORDERED: LOSARTAN 50 MG (COZAAR) TAB PO STA (17:46)
--- NOTE | 2021-10-07 17:52 | ED Headache ---
General Chief Complaint: Head/Cervical Problems Stated Complaint: MIGRAINE Nursing Triage Note: PT AMBULATE TO ROOM 04 WITH C/O HEADACHE SINCE SATURDAY. 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 PT REPORTS HX OF SEASONAL ALLERGIES. PT STATES THAT HE WAS AROUND THE ANIMALS THE PREVIOUS WEEK AND GOT A HEADACHE THAT WENT AWAY. PT STATES HE WAS AROUND THE ANIMALS AGAIN AND THE HEADACHE RETURNED. Source: patient Exam Limitations: no limitations History of Present Illness Date Seen by Provider: Oct 07, 2021 Time Seen by Provider: 16:06 Initial Comments This 61-year-old gentleman presents to the emergency room with complaints of right-sided headache which he attributes to seasonal allergies and exposure to animals. He generally experiences headaches like this in the summertime related to allergies. 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 He does take allergy medication frequently and uses steroid nasal spray on occasion. He does not use the nasal spray routinely. He is noted to be hypertensive during the visit. He is requesting a "doubled D" steroid injection which has helped him in the past. This is presu mably dexamethasone and Depo-Medrol. Patient notes he normally takes losartan twice daily. He ran out today and does not have his dose for tonight. 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 Allergies and Home Medications Allergies Coded Allergies: clarithromycin (Verified Allergy, Unknown, 05/26/21) Patient Home Medication List Home Medication List Reviewed: Yes Albuterol Sulfate (Proventil Hfa) 6.7 Gm Hfa.aer.ad, 2 PUFF INH Q4H PRN for SHORTNESS OF BREATH, (Reported) Entered as Reported by: YUMI MULLEN on 05/26/21 1119 Docusate Sodium (Colace) 100 Mg Capsule, 100 MG PO BID Prescribed by: CARMELITA FAGAN on 05/28/21 1219 Hydrocodone/Acetaminophen (Hydrocodone-Acetamin 5-325 mg) 1 Each Tablet, 1 EACH PO Q4H PRN for PAIN-MODERATE (5-7) Prescribed by: CARMELITA FAGAN on 05/28/21 1220 Losartan Potassium (Losartan Potassium) 100 Mg Tablet, 50 MG PO BID, (Reported) Entered as Reported by: YUMI MULLEN on 05/26/21 1119 Metoprolol Tartrate (Metoprolol Tartrate) 25 Mg Tablet, 12.5 MG PO BID, (Reported) Entered as Reported by: YUMI MULLEN on 11/04/20 1430 Tramadol HCl (Tramadol HCl) 50 Mg Tablet, 25-50 MG PO Q6H PRN for PAIN-MODERATE (5-7), (Reported) Entered as Reported by: YUMI MULLEN on 05/26/21 1119 Review of Systems Review of Systems Constitutional: no symptoms reported Eyes: No Symptoms Reported Ears, Nose, Mouth, Throat: no symptoms reported Respiratory: no symptoms reported Cardiovascular: see HPI Gastrointestinal: no symptoms reported Genitourinary: no symptoms reported Musculoskeletal: no symptoms reported Skin: no symptoms reported Psychiatric/Neurological: See HPI Past Wsphdhj-Omjymx-Tahcyz Hx Patient Social History Tobacco Use?: No Smoking Status: Never a Smoker Smokeless Tobacco Frequency: Current Everyday User, Never a User Use of E-Cig and/or Vaping dev: No Substance use?: No Alcohol Use?: No Pt feels they are or have been: No Immunizations Up To Date Tetanus Booster (TDap): Unknown First/Initial COVID19 Vaccinat: 2020 Second COVID19 Vaccination Fco: 2020 Third COVID19 Vaccination Date: 01/17/21 COVID19 Vaccine [employer]ist: [employer] Seasonal Allergies Seasonal Allergies: Yes Past Medical History Surgery/Hospitalization HX: LEFT SUBMANDIBULAR GLAND RESECTION CARDIAC CATH WITH STENT X 1 WISDOM TEETH SINUS SURGERY Surgeries: Yes (SINUS SURGERY, SUBMANDIBULAR GLAND RESECTION, ) Abdominal (Bowel resection for diverticulitis), Cardiac, Coronary Stent Respiratory: Yes (USES INHALER OCCASIONAL) Asthma, Sleep Apnea Currently Using CPAP: No Currently Using BIPAP: No Cardiac: Yes (STENT X 1 ) Coronary Artery Disease, Heart Attack, High Cholesterol, Hypertension Neurological: No Reproductive Disorders: No Sexually Transmitted Disease: No HIV/AIDS: No Genitourinary: Yes Kidney Stones Gastrointestinal: Yes (PERF. DIVERTICULITIS 11/03/20-NO SURGERY) Diverticulosis Musculoskeletal: Yes Arthritis Endocrine: No HEENT: Yes (wears glasses, DENTURES) Loss of Vision: Bilateral Cancer: No Psychosocial: Yes Anxiety Integumentary: No Blood Disorders: No Adverse Reaction/Blood Tranf: No Family Medical History Colon cancer 19 FATHER Diabetes mellitus 19 MOTHER Headache disorder G8 SISTER Thyroid disease G8 SISTER No Pertinent Family Hx Physical Exam Vital Signs Vital Signs - First Documented 10/07/21 10/07/21 15:56 18:09 Temp 36.6 Pulse 67 Resp 17 B/P (MAP) 144/93 (110) Pulse Ox 98 O2 Delivery Room Air Capillary Refill : Less Than 3 Seconds Height, Weight, BMI Height: 5'9.00" Weight: 200lbs. 0.0oz. [id number]; 28.00 BMI Method:Stated General Appearance: WD/WN, no apparent distress HEENT: PERRL/EOMI, normal ENT inspection, TMs normal, other (Cobblestoning in the posterior pharynx. No sinus tenderness) Neck: normal inspection Cardiovascular: regular rate, rhythm, no edema, no murmur Respiratory: lungs clear, normal breath sounds, no respiratory distress, no accessory muscle use Gastrointestinal: normal bowel sounds, non tender, soft Extremities: normal inspection, no pedal edema Psychiatric: alert, oriented x 3 Crainal Nerves: normal hearing, normal speech, PERRL Skin: normal color, warm/dry Progress/Results/Core Measures Results/Orders My Orders Orders - MELVINA ROOT MD Losartan Tablet (Cozaar Tablet) (10/07/21 17:46) Methylprednisolone Acetate Inj (Depo-Med (10/07/21 18:00) Dexamethasone Injection (Decadron Inje (10/07/21 18:00) Vital Signs/I&O 10/07/21 10/07/21 15:56 18:09 Temp 36.6 36.7 Pulse 67 79 Resp 17 18 B/P (MAP) 144/93 (110) 143/87 Pulse Ox 98 O2 Delivery Room Air Room Air Blood Pressure Mean: 110 Progress Progress Note : Progress Note Steroid injections were provided as requested. However, I did advise him that he needs to watch his blood pressure very closely, especially after receiving the steroid injections. His evening dose of losartan was administered. Departure Impression Primary Impression: Acute headache Qualified Codes: R51.9 - Headache, unspecified Additional Impressions: Environmental allergies Hypertension Qualified Codes: I10 - Essential (primary) hypertension Disposition: 01 HOME, SELF-CARE Condition: Stable Departure-Patient Inst. Decision time for Depature: 17:49 Referrals: JAMESON MCCLELLAN DO (PCP/Family) Primary Care Physician Patient Instructions: High Blood Pressure ED, Seasonal Allergies ED Add. Discharge Instructions: You may continue using long-acting antihistamines such as Claritin (loratadine) daily. During allergy seasons you should also use a nasal steroid spray such as Flonase (fluticasone) 2 sprays in each nostril daily. Your blood pressure is currently high. Steroids sometimes will increase blood pressure even more. Please monitor your blood pressure and increase your metoprolol to 25 mg twice daily if your systolic blood pressure remains above 140. If that does not correct your blood pressure, please contact your primary care provider promptly. In reviewing your chart, it was noted that you received a prescription for pseudoephedrine. Please be advised that decongestants like pseudoephedrine will escalate high blood pressure. Return to care if you have worsening symptoms despite following these instructions. All discharge instructions reviewed with patient and/or family. Voiced understanding. MELVINA ROOT MD Oct 07, 2021 17:52
[2021-10-07] MEDS ORDERED: methylPREDNISolone 40 MG/ML (DEPO MEDROL) VIAL IM ONE (18:00)
[2021-10-07 18:09] VITALS: BP 143/87
== END 2021-10-07 18:09 | disposition home or self-care (01) ==
LOC: EDUNIT# 15:46 → ER 15:49
DX: I10 Essential (primary) hypertension (principal); J30.2 Other seasonal allergic rhinitis
CPT/HCPCS: 99284

== ENCOUNTER 2022-01-05 12:26 | Emergency (ER) | payer BC ==
[~2022-01-05] VITALS: Ht 175.3 cm; Wt 84.6 kg
[~2022-01-05 12:26] MED LIST changes: +ALBU8.5H6 IH; -RT-ALBUINH IH
--- NOTE | 2022-01-05 12:56 | ED Abdominal Pain ---
General Chief Complaint: Abdominal/GI Problems Stated Complaint: ABD PAIN Nursing Triage Note: PT AMB TO TRIAGE W C/O LLQ ABD PAIN X1 WK THAT BEGAN AFTER HE MOWED A LAWN, LAST BM THIS AM. PT HAS HX OF BOWEL RESECTION [place] [address] FAGAN, APPT W DR. FAGAN ON 01/08/22 BUT PT DOES NOT BELIEVE HE CAN MANAGE THE PAIN FOR THAT LONG. PT A&OX4, DENIES ALL OTHER SYMPTOMS. Source of Information: Patient Exam Limitations: No Limitations History of Present Illness Date Seen by Provider: Jan 05, 2022 Time Seen by Provider: 12:45 Initial Comments 61-year-old male presents the emergency department today for left lower quadrant abdominal pain. Symptoms present for about a week and have been consistent. It is a burning type sensation in his left lower abdomen similar to previous episodes of diverticulitis. No aggravating or alleviating factors. No radiation. Mild to moderate. He did get a new stand on lower and was riding it just prior to the onset of his pain so he thought it may be related to this as well. Notably he had a bowel resection in May of this year for diverticulitis. He had no complications and has been doing well since that time. No changes in his bowels. No urinary symptoms. No fevers or chills. No nausea or vomiting. Allergies and Home Medications Allergies Coded Allergies: clarithromycin (Verified Allergy, Unknown, 05/26/21) Patient Home Medication List Home Medication List Reviewed: Yes Albuterol Sulfate (Proventil Hfa) 6.7 Gm Hfa.aer.ad, 2 PUFF INH Q4H PRN for SHORTNESS OF BREATH, (Reported) Entered as Reported by: YUMI MULLEN on 05/26/21 1119 Docusate Sodium (Colace) 100 Mg Capsule, 100 MG PO BID Prescribed by: CARMELITA FAGAN on 05/28/21 1219 Hydrocodone/Acetaminophen (Hydrocodone-Acetamin 5-325 mg) 1 Each Tablet, 1 EACH PO Q4H PRN for PAIN-MODERATE (5-7) Prescribed by: CARMELITA FAGAN on 05/28/21 1220 Losartan Potassium (Losartan Potassium) 100 Mg Tablet, 50 MG PO BID, (Reported) Entered as Reported by: YUMI MULLEN on 05/26/21 1119 Metoprolol Tartrate (Metoprolol Tartrate) 25 Mg Tablet, 12.5 MG PO BID, (Reported) Entered as Reported by: YUMI MULLEN on 11/04/20 1430 Tramadol HCl (Tramadol HCl) 50 Mg Tablet, 25-50 MG PO Q6H PRN for PAIN-MODERATE (5-7), (Reported) Entered as Reported by: YUMI MULLEN on 05/26/21 1119 Review of Systems Review of Systems Constitutional: no symptoms reported EENTM: No Symptoms Reported Respiratory: No Symptoms Reported Cardiovascular: No Symptoms Reported Gastrointestinal: Abdominal Pain Genitourinary: No Symptoms Reported Musculoskeletal: no symptoms reported Skin: no symptoms reported Psychiatric/Neurological: No Symptoms Reported Endocrine: No Symptoms Reported Hematologic/Lymphatic: No Symptoms Reported Past Pffsfcb-Tlfrhb-Tpzthx Hx Patient Social History Tobacco Use?: No Smokeless Tobacco Frequency: Current Everyday User Use of E-Cig and/or Vaping dev: No Substance use?: No Alcohol Use?: No Immunizations Up To Date Tetanus Booster (TDap): Unknown First/Initial COVID19 Vaccinat: 2020 Second COVID19 Vaccination Fco: 2020 Third COVID19 Vaccination Date: 01/17/21 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: [employer] Seasonal Allergies Seasonal Allergies: Yes Past Medical History Surgery/Hospitalization HX: LEFT SUBMANDIBULAR GLAND RESECTION CARDIAC CATH WITH STENT X 1 WISDOM TEETH SINUS SURGERY Surgeries: Yes (SINUS SURGERY, SUBMANDIBULAR GLAND RESECTION, ) Abdominal, Cardiac, Coronary Stent Respiratory: Yes (USES INHALER OCCASIONAL) Asthma, Sleep Apnea Currently Using CPAP: No Currently Using BIPAP: No Cardiac: Yes (STENT X 1 ) Coronary Artery Disease, Heart Attack, High Cholesterol, Hypertension Neurological: No Reproductive Disorders: No Sexually Transmitted Disease: No HIV/AIDS: No Genitourinary: Yes Kidney Stones Gastrointestinal: Yes (PERF. DIVERTICULITIS 11/03/20-NO SURGERY) Diverticulosis Musculoskeletal: Yes Arthritis Endocrine: No HEENT: Yes (wears glasses, DENTURES) Loss of Vision: Bilateral Cancer: No Psychosocial: Yes Anxiety Integumentary: No Blood Disorders: No Adverse Reaction/Blood Tranf: No Family Medical History Reviewed Nursing Family Hx Colon cancer 19 FATHER Diabetes mellitus 19 MOTHER Headache disorder G8 SISTER Thyroid disease G8 SISTER No Pertinent Family Hx Physical Exam Vital Signs Vital Signs - First Documented 01/05/22 12:32 Temp 36.1 Pulse 66 Resp 20 B/P (MAP) 125/78 (94) Pulse Ox 98 O2 Delivery Room Air Capillary Refill : Less Than 3 Seconds Height/Weight/BMI Height: 5'9.00" Weight: 200lbs. 0.0oz. 90.869134ia; 27.00 BMI Method:Stated General Appearance: WD/WN, no apparent distress HEENT: normal ENT inspection, pharynx normal Neck: non-tender, supple, normal inspection Respiratory: chest non-tender, lungs clear, normal breath sounds, no respiratory distress, no accessory muscle use Cardiovascular: regular rate, rhythm, no edema, no gallop, no JVD, no murmur Gastrointestinal: normal bowel sounds, soft, no organomegaly, no pulsatile mass, tenderness (There is palpation left lower abdomen without rebound or guarding. No mass organomegaly. No skin changes) Extremities: normal range of motion, non-tender, normal inspection, no pedal edema, no calf tenderness, normal capillary refill Neurologic/Psychiatric: alert, normal mood/affect, oriented x 3 Skin: normal color, warm/dry Lymphatic: no adenopathy Progress/Results/Core Measures Results/Orders Lab Results Laboratory Tests Test 01/05/22 12:55 01/05/22 13:19 Range/Units White Blood Count 10.4 4.3-11.0 10^3/uL Red Blood Count 4.89 4.30-5.52 10^6/uL Hemoglobin 15.1 13.3-17.7 g/dL Hematocrit 44 40-54 % Mean Corpuscular Volume 91 80-99 fL Mean Corpuscular Hemoglobin 31 25-34 pg Mean Corpuscular Hemoglobin Concent 34 32-36 g/dL Red Cell Distribution Width 12.6 10.0-14.5 % Platelet Count 314 130-400 10^3/uL Mean Platelet Volume 9.5 9.0-12.2 fL Immature Granulocyte % (Auto) 0 % Neutrophils (%) (Auto) 72 42-75 % Lymphocytes (%) (Auto) 19 12-44 % Monocytes (%) (Auto) 8 0-12 % Eosinophils (%) (Auto) 1 0-10 % Basophils (%) (Auto) 1 0-10 % Neutrophils # (Auto) 7.5 1.8-7.8 10^3/uL Lymphocytes # (Auto) 2.0 1.0-4.0 10^3/uL Monocytes # (Auto) 0.8 0.0-1.0 10^3/uL Eosinophils # (Auto) 0.1 0.0-0.3 10^3/uL Basophils # (Auto) 0.1 0.0-0.1 10^3/uL Immature Granulocyte # (Auto) 0.0 0.0-0.1 10^3/uL Sodium Level 136 135-145 MMOL/L Potassium Level 3.6 3.6-5.0 MMOL/L Chloride Level 104 98-107 MMOL/L Carbon Dioxide Level 23 21-32 MMOL/L Anion Gap 9 5-14 MMOL/L Blood Urea Nitrogen 8 7-18 MG/DL Creatinine 0.94 0.60-1.30 MG/DL Estimat Glomerular Filtration Rate 92 BUN/Creatinine Ratio 9 Glucose Level 107 H 70-105 MG/DL Calcium Level 9.5 8.5-10.1 MG/DL Corrected Calcium 9.5 8.5-10.1 MG/DL Total Bilirubin 0.7 0.1-1.0 MG/DL Aspartate Amino Transf (AST/SGOT) 16 5-34 U/L Alanine Aminotransferase (ALT/SGPT) 20 0-55 U/L Alkaline Phosphatase 82 40-136 U/L Total Protein 6.8 6.4-8.2 GM/DL Albumin 4.0 3.2-4.5 GM/DL Urine Color YELLOW Urine Clarity CLEAR Urine pH 6.0 5-9 Urine Specific [place] 1.010 L 1.016-1.022 Urine Protein NEGATIVE NEGATIVE Urine Glucose (UA) NEGATIVE NEGATIVE Urine Ketones NEGATIVE NEGATIVE Urine Nitrite NEGATIVE NEGATIVE Urine Bilirubin NEGATIVE NEGATIVE Urine Urobilinogen 0.2 < = 1.0 MG/DL Urine Leukocyte Esterase NEGATIVE NEGATIVE Urine RBC (Auto) 1+ H NEGATIVE Urine RBC RARE /HPF Urine WBC NONE /HPF Urine Squamous Epithelial Cells 0-2 /HPF Urine Crystals NONE /LPF Urine Bacteria NEGATIVE /HPF Urine Casts NONE /LPF Urine Mucus SMALL H /LPF Urine Culture Indicated NO My Orders Orders - JESSICA MEDRANO DO Comprehensive Metabolic Panel (01/05/22 12:52) Ua Culture If Indicated (01/05/22 12:52) Ct Abdomen/Pelvis W (01/05/22 12:52) Cbc With Automated Diff (01/05/22 12:52) Iohexol Injection (Omnipaque 350 Mg/Ml 1 (01/05/22 13:45) Received Contrast (Hold Metformin- Contr (01/05/22 13:45) Sodium Chloride Flush (Catheter Flush Sy (01/05/22 13:45) Ns (Ivpb) (Sodium Chloride 0.9% Ivpb Bag (01/05/22 13:45) Medications Given in ED Vital Signs/I&O 01/05/22 01/05/22 12:32 15:25 Temp 36.1 Pulse 66 58 Resp 20 18 B/P (MAP) 125/78 (94) 122/72 Pulse Ox 98 98 O2 Delivery Room Air Blood Pressure Mean: [address] ABDOMEN/PELVIS W TECHNIQUE: Multiple contiguous axial images were obtained through the abdomen and pelvis after administration of intravenous contrast. All CT scans use one or more of the following dose optimizing techniques: automated exposure control, MA and/or KvP adjustment based on patient size and exam type or iterative reconstruction. INDICATION: Left lower quadrant pain. COMPARISON: CT abdomen and pelvis of 11/17/2020. FINDINGS: Lower chest: The lung bases are clear. No pericardial or pleural effusion. Peritoneum: No free intraperitoneal air or fluid. Liver and biliary system: Stable 3.5 x 3.0 cm cyst in the anterior aspect of the liver. No concerning hepatic mass. Portal vein is patent. Gallbladder is normal in appearance. Spleen and Pancreas: Spleen is normal. The pancreas enhances normally without mass lesion or peripancreatic inflammatory changes. Adrenals: Normal. tract: The kidneys enhance normally without suspicious mass or obstruction. The nonobstructing 11 mm stone in the lower pole of the left kidney is stable. No ureteral stones. Urinary bladder is distended without wall thickening. Prostate is not enlarged. GI tract: Stomach is decompressed. No bowel obstruction. Prior colon resection in the region of sigmoid colon with anastomotic staple line in place. There is some residual diverticulosis but no features of diverticulitis in sigmoid colon. Normal appendix. Vasculature and Lymph nodes: Normal-caliber aorta has moderate atherosclerotic plaquing. No abdominal or pelvic lymphadenopathy. Musculoskeletal: No concerning osseous lesion. IMPRESSION: 1. Prior partial resection of the sigmoid colon with anastomotic staple line present. There is residual diverticulosis in the sigmoid and descending colon, but no features of acute diverticulitis. 2. No other acute inflammatory or obstructive process. Dictated on workstation # [id number] Dict: 01/05/22 1505 Trans: 01/05/22 1513 [id number] [id number] Interpreted by: SOLITARIO FLAHERTY MD Electronically signed by: Departure Communication (Admissions) Patient is hemodynamically stable nonsurgical abdominal exam. CT scan is negative for any acute medical conditions and this is likely secondary to riding his new lower across uneven, bumpy terrain. He is discharged in stable condition. No evidence for bowel obstruction, kidney stone, diverticulitis Impression Primary Impression: Left lower quadrant abdominal pain Disposition: HOME, SELF-CARE Condition: Stable Departure-Patient Inst. Referrals: JAMESON MCCLELLAN DO (PCP/Family) Primary Care Physician Add. Discharge Instructions: Use Motrin and Tylenol as needed for pain. Your CT scan is negative for any evidence for diverticulitis. No other emergent medical conditions identified today either. Return to the emergency department for any severe concerns. Follow-up with your primary physician for any nonemergent needs. All discharge instructions reviewed with patient and/or family. Voiced understanding. JESSICA MEDRANO DO Jan 05, 2022 12:56
[2022-01-05 13:08] LABS: BASOPHILS # (AUTO) 0.1 10^3/uL (0.0-0.1); BASOPHILS % (AUTO) 1 % (0-10); EOSINOPHILS # (AUTO) 0.1 10^3/uL (0.0-0.3); EOSINOPHILS % (AUTO) 1 % (0-10); HEMATOCRIT 44 % (40-54); HEMOGLOBIN 15.1 g/dL (13.3-17.7); LYMPHOCYTES % (AUTO) 19 % (12-44); MEAN CORPUSCULAR HEMOGLOBIN 31 pg (25-34); MEAN CORPUSCULAR HGB CONC 34 g/dL (32-36); MEAN CORPUSCULAR VOLUME 91 fL (80-99); MEAN PLATELET VOLUME 9.5 fL (9.0-12.2); MONOCYTES # (AUTO) 0.8 10^3/uL (0.0-1.0); MONOCYTES % (AUTO) 8 % (0-12); NEUTROPHILS # (AUTO) 7.5 10^3/uL (1.8-7.8); NEUTROPHILS % (AUTO) 72 % (42-75); PLATELET COUNT 314 10^3/uL (130-400); WHITE BLOOD COUNT 10.4 10^3/uL (4.3-11.0)
[2022-01-05 13:21] LABS: POTASSIUM 3.6 MMOL/L (3.6-5.0)
[2022-01-05 13:22] LABS: CALCIUM 9.5 MG/DL (8.5-10.1)
[2022-01-05 13:23] LABS: TOTAL PROTEIN 6.8 GM/DL (6.4-8.2)
[2022-01-05 13:25] LABS: BILIRUBIN,TOTAL 0.7 MG/DL (0.1-1.0)
[2022-01-05 13:26] LABS: BILIRUBIN,URINE NEGATIVE (NEGATIVE); CLARITY,URINE CLEAR; COLOR,URINE YELLOW; GLUCOSE, URINE (UA) NEGATIVE (NEGATIVE); KETONES,URINE NEGATIVE (NEGATIVE); LEUKOCYTE ESTERASE ,URINE NEGATIVE (NEGATIVE); NITRITE,URINE NEGATIVE (NEGATIVE); PROTEIN,URINE NEGATIVE (NEGATIVE)
[2022-01-05 13:27] LABS: CREATININE SERUM 0.94 MG/DL (0.60-1.30)
[2022-01-05 13:36] LABS: BACTERIA,URINE NEGATIVE /HPF; RBC,URINE RARE /HPF; SQUAMOUS EPITHELIAL CELL,UR 0-2 /HPF
[2022-01-05] MEDS ORDERED: NS 100 ML (IVPB) BAG IV ONE (13:45)
[2022-01-05] MEDS ORDERED: CATHETER FLUSH 10 ML SYR IV PRN (13:45)
[2022-01-05] MEDS ORDERED: HOLD METFORMIN - RECEIVED CONTRAST 20 ML VIAL IV SCH (13:45)
[2022-01-05] MEDS ORDERED: IOHEXOL 350 MG/ML 100 ML (OMNIPAQUE 350) VIAL IV ONE (13:45)
--- NOTE | 2022-01-05 15:13 | Diagnostic Imaging Report ---
CT ABDOMEN/PELVIS W TECHNIQUE: Multiple contiguous axial images were obtained through the abdomen and pelvis after administration of intravenous contrast. All CT scans use one or more of the following dose optimizing techniques: automated exposure control, MA and/or KvP adjustment based on patient size and exam type or iterative reconstruction. INDICATION: Left lower quadrant pain. COMPARISON: CT abdomen and pelvis of 11/17/2020. FINDINGS: Lower chest: The lung bases are clear. No pericardial or pleural effusion. Peritoneum: No free intraperitoneal air or fluid. Liver and biliary system: Stable 3.5 x 3.0 cm cyst in the anterior aspect of the liver. No concerning hepatic mass. Portal vein is patent. Gallbladder is normal in appearance. Spleen and Pancreas: Spleen is normal. The pancreas enhances normally without mass lesion or peripancreatic inflammatory changes. Adrenals: Normal. tract: The kidneys enhance normally without suspicious mass or obstruction. The nonobstructing 11 mm stone in the lower pole of the left kidney is stable. No ureteral stones. Urinary bladder is distended without wall thickening. Prostate is not enlarged. GI tract: Stomach is decompressed. No bowel obstruction. Prior colon resection in the region of sigmoid colon with anastomotic staple line in place. There is some residual diverticulosis but no features of diverticulitis in sigmoid colon. Normal appendix. Vasculature and Lymph nodes: Normal-caliber aorta has moderate atherosclerotic plaquing. No abdominal or pelvic lymphadenopathy. Musculoskeletal: No concerning osseous lesion. IMPRESSION: 1. Prior partial resection of the sigmoid colon with anastomotic staple line present. There is residual diverticulosis in the sigmoid and descending colon, but no features of acute diverticulitis. 2. No other acute inflammatory or obstructive process. Dictated by: Dictated on workstation # [id number]
[2022-01-05 15:25] VITALS: BP 122/72
== END 2022-01-05 15:25 | disposition home or self-care (01) ==
LOC: EDUNIT# 12:26 → ER 12:28
DX: R10.32 Left lower quadrant pain (principal); J45.909 Unspecified asthma, uncomplicated; F17.200 Nicotine dependence, unspecified, uncomplicated
CPT/HCPCS: 36415; 74177; 80053; 81000; 85025

== ENCOUNTER 2022-04-06 08:47 | Emergency (ER) | payer BC ==
[~2022-04-06] VITALS: Ht 175 cm; Wt 86.0 kg
--- NOTE | 2022-04-06 09:09 | ED EENT ---
History of Present Illness General Chief Complaint: Cough/Cold/Flu Symptoms Stated Complaint: SINUS ISSUE | HEAD ACHE Nursing Triage Note: PT AMBULATORY TO ER. PT C/O SINUS PRESSURE/CONGESTION ONSET APPROX 3 WEEKS AGO. PT HAS BEEN SEEN BY HIS PCP. PT HAS BEEN ON ABX, STEROIDS, MUCINEX, NO RELIEF. STARTED A NASAL SPRAY LAST NIGHT. PT HAS TAKEN SEVERAL COVID TESTS, ALL NEGATIVE. Source: patient Exam Limitations: no limitations History of Present Illness Date Seen by Provider: Apr 06, 2022 Time Seen by Provider: 08:55 Initial Comments This 62-year-old gentleman presents to the emergency room with a primary complaint of worsening chronic sinus symptoms including postnasal drainage and a right-sided headache that radiates all the way from the right maxilla and nose to the right occiput. He had sinus surgery many years ago with Dr. Spann but has not followed up with him in recent years. He has been seen Dr. Pena's office. He has been treated multiple times with cefprozil with prescriptions being filled on February 08, March 22, and April 02. He had nasal cultures collected on Saturday which were reportedly negative. He was then instructed to stop the antibiotic and start a compounded nasal spray per Dr. Spann's formulation. He started the spray last night and believes that it caused him more intense pain. The postnasal drip has been resolved for a few days but the pain has worsened. He describes the pain as an intense pressure. The pain is so intense that it is disturbing his activities of daily living. He takes Tylenol for the pain but has not tried any NSAIDs. He does not smoke. Allergies and Home Medications Allergies Coded Allergies: clarithromycin (Verified Allergy, Unknown, 05/26/21) Patient Home Medication List Home Medication List Reviewed: Yes Albuterol Sulfate (Proventil Hfa) 6.7 Gm Hfa.aer.ad, 2 PUFF INH Q4H PRN for SHORTNESS OF BREATH, (Reported) Entered as Reported by: YUMI MULLEN on 05/26/21 1119 Docusate Sodium (Colace) 100 Mg Capsule, 100 MG PO BID Prescribed by: CARMELITA FAGAN on 05/28/21 1219 Hydrocodone/Acetaminophen (Hydrocodone-Acetamin 5-325 mg) 1 Each Tablet, 1 EACH PO Q4H PRN for PAIN-MODERATE (5-7) Prescribed by: CARMELITA FAGAN on 05/28/21 1220 Hydrocodone/Acetaminophen (Hydrocodone-Acetamin 5-325 mg) 5 Mg-325 Mg Tablet, 0.5-1 TAB PO Q4H PRN for PAIN BREAKTROUGH Prescribed by: MELVINA HERNANDEZ on 04/06/22 1142 Losartan Potassium (Losartan Potassium) 100 Mg Tablet, 50 MG PO BID, (Reported) Entered as Reported by: YUMI MULLEN on 05/26/21 1119 Metoprolol Tartrate (Metoprolol Tartrate) 25 Mg Tablet, 12.5 MG PO BID, (Reported) Entered as Reported by: YUMI MULLEN on 11/04/20 1430 Tramadol HCl (Tramadol HCl) 50 Mg Tablet, 25-50 MG PO Q6H PRN for PAIN-MODERATE (5-7), (Reported) Entered as Reported by: YUMI MULLEN on 05/26/21 1119 Review of Systems Review of Systems Constitutional: no symptoms reported Eyes: No Symptoms Reported Ears: No Symptoms Reported Nose: see HPI Mouth: no symptoms reported Throat: no symptoms reported Respiratory: no symptoms reported Cardiovascular: no symptoms reported Gastrointestinal: no symptoms reported Musculoskeletal: no symptoms reported Skin: no symptoms reported Neurological: See HPI Hematologic/Lymphatic: No Symptoms Reported Immunological/Allergic: no symptoms reported Past Zadjzsw-Wbkdfe-Yxyaai Hx Patient Social History Tobacco Use?: No Use of E-Cig and/or Vaping dev: No Substance use?: No Alcohol Use?: No Pt feels they are or have been: No Immunizations Up To Date Tetanus Booster (TDap): Unknown First/Initial COVID19 Vaccinat: RECEIVED, UNK WHEN Second COVID19 Vaccination Fco: RECEIVED, UNK WHEN Third COVID19 Vaccination Date: RECEIVED, UNK WHEN COVID19 Vaccine Operations Administrator: UNK Seasonal Allergies Seasonal Allergies: Yes Past Medical History Surgery/Hospitalization HX: LEFT SUBMANDIBULAR GLAND RESECTION CARDIAC CATH WITH STENT X 1 WISDOM TEETH SINUS SURGERY Surgeries: Yes (SINUS SURGERY, SUBMANDIBULAR GLAND RESECTION, ) Abdominal (Partial colectomy), Cardiac, Coronary Stent Respiratory: Yes (USES INHALER OCCASIONAL) Asthma, Sleep Apnea Currently Using CPAP: No Currently Using BIPAP: No Cardiac: Yes (STENT X 1 ) Coronary Artery Disease, Heart Attack, High Cholesterol, Hypertension Neurological: No Reproductive Disorders: No Sexually Transmitted Disease: No HIV/AIDS: No Genitourinary: Yes Kidney Stones Gastrointestinal: Yes (PERF. DIVERTICULITIS 11/03/20-NO SURGERY) Diverticulosis Musculoskeletal: Yes Arthritis Endocrine: No HEENT: Yes (wears glasses, DENTURES, chronic sinusitis) Loss of Vision: Bilateral Cancer: No Psychosocial: Yes Anxiety Integumentary: No Blood Disorders: No Adverse Reaction/Blood Tranf: No Family Medical History Colon cancer 19 FATHER Diabetes mellitus 19 MOTHER Headache disorder G8 SISTER Thyroid disease G8 SISTER No Pertinent Family Hx Physical Exam Vital Signs Vital Signs - First Documented 04/06/22 04/06/22 08:53 11:47 Temp 36.4 Pulse 67 Resp 18 B/P (MAP) 132/98 (109) Pulse Ox 98 O2 Delivery Room Air Height, Weight, BMI Height: 5'9.00" Weight: 200lbs. 0.0oz. 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 CT demonstrated some mild ethmoid sinusitis. Cultures may have been negative because of collection in proximity to antibiotic use and because the sinus tissue involved is deep in the ethmoid sinuses. Patient was advised to complete his antibiotic therapy, especially since he had improvement briefly on prior antibiotic course. He was advised to continue the nasal spray if he can tolerate it and to seek a follow- up appointment with Dr. Spann. It is entirely possible that his pain is from some other etiology. He was advised to pursue other possible causes if completing treatment for sinusitis does not resolve the symptoms. See discharge instructions for further discussion. Diagnostic Imaging Diagonstic Imaging: Xray Plain Films/CT/US/NM/MRI: head Comments CT head and sinuses reviewed by me. I appreciated no significant acute abnormalities. Radiologist report was reviewed which suggested some minor sinus opacification in the ethmoid sinuses. Report below reviewed: NAME: ISADORA DALE [facility] REC#: [id number] PT STATUS: DEP ER : 1960 PHYSICIAN: MELVINA ROOT MD ADMIT DATE: 04/06/22/ER Signed Date of Exam:04/06/22 CT HEAD WO INDICATION: Head and sinus pain. TECHNIQUE: Multiple contiguous axial images were obtained through the brain without the use of intravenous contrast. Auto Exposure Controls were utilized during the CT exam to meet ALARA standards for radiation dose reduction. There are no extra-axial fluid collections. No intracranial hemorrhage. No intracranial mass or mass effect. No midline shift. The ventricles are normal in size and position. There were no focal parenchymal abnormalities in the brain. Calvarial windows are unremarkable. The visualized portions of the mastoid air cells are well aerated. Patient appears to have had bilateral antral windows. The maxillary sinuses are well aerated. The ethmoid air cells show minimal mucosal thickening. The sphenoid sinuses are clear. The frontal sinuses are clear. IMPRESSION: No acute intracranial abnormality or mass effect or hemorrhage. No overt bony abnormality. Patient appears to have had bilateral antral windows in the maxillary sinuses. There is some mild partial opacification of the ethmoid air cells, remaining sinuses are clear. Dictated by: Dictated on workstation # [id number] Dict: 04/06/22 0944 Trans: 04/06/22 1705 [id number] Interpreted by: ALDO FARRAR MD Electronically signed by: ALDO FARRAR MD 04/06/22 1702 Departure Impression Primary Impression: Recurrent sinusitis Additional Impressions: Right facial pain Right-sided headache Disposition: 01 HOME, SELF-CARE Condition: Improved Departure-Patient Inst. Decision time for Depature: 11:34 Referrals: SPANN,LUCY P MD PENA,JAMESON J DO (PCP/Family) Primary Care Physician Patient Instructions: Chronic Sinusitis, Headache, Adult ED Add. Discharge Instructions: Based on your history and CT images, the recommendation from the ER is to complete your current round of antibiotic therapy. Your CT scan showed some evidence of remnant disease deep in the ethmoid sinuses. Because the remnant disease is deep in the sinuses and you were on antibiotics just prior to culture collection, your culture results may have been a false negative. Also continue the nasal wash that you were prescribed if tolerated. If the wash is too irritating to tolerate, stop until you receive further instructions from Dr. Pena or Dr. Spann. Seek follow-up with Dr. Spann. You may call his office directly. If a referral is needed, please seek referral from Dr. Pena's office. Dr. Spann's number is listed below. For pain control try taking ibuprofen up to 600 mg (3 qhut-[id number]-[id number] tablets) every 6 hours as needed for primary pain control. Take with food or milk to avoid stomach irritation. For pain not controlled by ibuprofen, consider adding either Tylenol (acetaminophen) up to 1000 mg every 6 hours as needed or hydrocodone as prescribed. The hydrocodone tablets contain Tylenol (acetaminophen) so do not double up on acetaminophen doses. Hydrocodone may cause drowsiness, so do not operate machinery, drive, or make important decisions while taking hydrocodone. Hydrocodone may also cause constipation, so you may wish to use a stool softener while on it. If completing appropriate treatment for sinusitis does not resolve your facial pain and headaches, there may be another cause. Your primary care provider and Dr. Spann can help you sort through the possibilities if treating sinusitis fails to resolve symptoms. Return to the emergency room if you have worsening of condition despite following these instructions. All discharge instructions reviewed with patient and/or family. Voiced understanding. Scripts Hydrocodone/Acetaminophen (Hydrocodone-Acetamin 5-325 mg) 5 Mg-325 Mg Tablet 0.5-1 TAB PO Q4H PRN for PAIN KALEIGHTRFARAZ, #10 TAB Prov: MELVINA ROOT MD 04/06/22 Copy Copies To 1: JAMESON PENA DO Copies To 2: LUCY SPANN MD, JOSHUA T MD Apr 06, 2022 09:09
--- NOTE | 2022-04-06 09:51 | Diagnostic Imaging Report ---
INDICATION: Head and sinus pain. TECHNIQUE: Multiple contiguous axial images were obtained through the brain without the use of intravenous contrast. Auto Exposure Controls were utilized during the CT exam to meet ALARA standards for radiation dose reduction. There are no extra-axial fluid collections. No intracranial hemorrhage. No intracranial mass or mass effect. No midline shift. The ventricles are normal in size and position. There were no focal parenchymal abnormalities in the brain. Calvarial windows are unremarkable. The visualized portions of the mastoid air cells are well aerated. Patient appears to have had bilateral antral windows. The maxillary sinuses are well aerated. The ethmoid air cells show minimal mucosal thickening. The sphenoid sinuses are clear. The frontal sinuses are clear. IMPRESSION: No acute intracranial abnormality or mass effect or hemorrhage. No overt bony abnormality. Patient appears to have had bilateral antral windows in the maxillary sinuses. There is some mild partial opacification of the ethmoid air cells, remaining sinuses are clear. Dictated by: Dictated on workstation # [id number]
[2022-04-06] MEDS ORDERED: ACHD5005 PO (11:41)
[2022-04-06 11:47] VITALS: BP 118/80
== END 2022-04-06 11:47 | disposition home or self-care (01) ==
LOC: EDUNIT# 08:47 → ER 08:50
DX: J32.2 Chronic ethmoidal sinusitis (principal); Z88.1 Allergy status to other antibiotic agents
CPT/HCPCS: 70450

== ENCOUNTER 2022-09-05 07:41 | Emergency (ER) | payer OTHER, BC ==
[~2022-09-05] VITALS: Ht 175 cm; Wt 83.9 kg
[~2022-09-05 07:41] MED LIST changes: -LOSA100T57 PO; +LOSA100T58 PO
--- NOTE | 2022-09-05 07:47 | ED Integumentary General ---
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 He cannot recall his last tetanus shot. Is not allergic to anything. Is not a diabetic. He complains of hand pain and inability to extend his middle finger. denies numbness to the tip of the finger. No other injuries reported. Timing/Duration: just prior to arrival Severity: moderate Location: hands (left) Possible Cause: other (saw) Associated Symptoms: other (decr ROM extension middle finger) Allergies and Home Medications Allergies Coded Allergies: clarithromycin (Verified Allergy, Unknown, 05/26/21) Patient Home Medication List Home Medication List Reviewed: Yes Albuterol Sulfate (Proventil Hfa) 6.7 Gm Hfa.aer.ad, 2 PUFF INH Q4H PRN for SHORTNESS OF BREATH, (Reported) Entered as Reported by: YUMI MULLEN on 05/26/21 1119 Docusate Sodium (Colace) 100 Mg Capsule, 100 MG PO BID Prescribed by: CARMELITA FAGAN on 05/28/21 1219 Hydrocodone/Acetaminophen (Hydrocodone-Acetamin 5-325 mg) 1 Each Tablet, 1 EACH PO Q4H PRN for PAIN-MODERATE (5-7) Prescribed by: CARMELITA FAGAN on 05/28/21 1220 Hydrocodone/Acetaminophen (Hydrocodone-Acetamin 5-325 mg) 5 Mg-325 Mg Tablet, 0.5-1 TAB PO Q4H PRN for PAIN BREAKTROUGH Prescribed by: MELVINA HERNANDEZ on 04/06/22 1142 Losartan Potassium (Losartan Potassium) 100 Mg Tablet, 50 MG PO BID, (Reported) Entered as Reported by: YUMI MULLEN on 05/26/21 1119 Metoprolol Tartrate (Metoprolol Tartrate) 25 Mg Tablet, 12.5 MG PO BID, (Reported) Entered as Reported by: YUMI MULLEN on 11/04/20 1430 Tramadol HCl (Tramadol HCl) 50 Mg Tablet, 25-50 MG PO Q6H PRN for PAIN-MODERATE (5-7), (Reported) Entered as Reported by: YUMI MULLEN on 05/26/21 1119 Review of Systems Review of Systems Constitutional: see HPI EENTM: no symptoms reported Respiratory: no symptoms reported Cardiovascular: no symptoms reported Gastrointestinal: no symptoms reported Musculoskeletal: joint pain (left hand) Skin: other (laceration) Past Qmfqkiq-Aqecma-Vpkfdu Hx Patient Social History Tobacco Use?: No Smoking Status: Never a Smoker Smokeless Tobacco Frequency: Current Everyday User Substance use?: No Alcohol Use?: No Pt feels they are or have been: No Immunizations Up To Date Tetanus Booster (TDap): Unknown First/Initial COVID19 Vaccinat: RECEIVED, UNK WHEN Second COVID19 Vaccination Fco: RECEIVED, UNK WHEN Third COVID19 Vaccination Date: RECEIVED, UNK WHEN Seasonal Allergies Seasonal Allergies: Yes Past Medical History Surgery/Hospitalization HX: LEFT SUBMANDIBULAR GLAND RESECTION CARDIAC CATH WITH STENT X 1 WISDOM TEETH SINUS SURGERY Surgeries: Yes (SINUS SURGERY, SUBMANDIBULAR GLAND RESECTION, ) Abdominal, Cardiac, Coronary Stent Respiratory: Yes (USES INHALER OCCASIONAL) Asthma, Sleep Apnea Currently Using CPAP: No Currently Using BIPAP: No Cardiac: Yes (STENT X 1 ) Coronary Artery Disease, Heart Attack, High Cholesterol, Hypertension Neurological: No Reproductive Disorders: No Sexually Transmitted Disease: No HIV/AIDS: No Genitourinary: Yes Kidney Stones Gastrointestinal: Yes (PERF. DIVERTICULITIS 11/03/20-NO SURGERY) Diverticulosis Musculoskeletal: Yes Arthritis Endocrine: No HEENT: Yes (wears glasses, DENTURES, chronic sinusitis) Loss of Vision: Bilateral Cancer: No Psychosocial: Yes Anxiety Integumentary: No Blood Disorders: No Adverse Reaction/Blood Tranf: No Family Medical History Colon cancer 19 FATHER Diabetes mellitus 19 MOTHER Headache disorder G8 SISTER Thyroid disease G8 SISTER No Pertinent Family Hx Physical Exam Vital Signs Vital Signs - First Documented 09/05/22 07:45 Temp 36.5 Pulse 67 Resp 18 B/P (MAP) 177/93 (121) Pulse Ox 98 Capillary Refill : General Appearance: WD/WN, no apparent distress HEENT: PERRL/EOMI Respiratory: no respiratory distress, no accessory muscle use Extremities: normal range of motion, normal capillary refill, other (laceration to hand as described under "skin" exam. patient has impaired extension at the MCP joint. He seems to have good extension at the DIP and PIP) Neurologic/Psychiatric: alert, normal mood/affect, oriented x 3 Skin: normal color, warm/dry, other (5cm laceration over zone 6 of the dorsum of the hand. Visible distal segment of extensor tendon associated with the 3rd digit. I am unable to visualize the prox portion. No arterial bleeding. Small hematoma in the wound bed ) Procedures/Interventions Wound Location: Upper Extremities (left hand) Other Wound Location mid dorsal hand (zone 6) Wound Length (cm): 5 Wound's Depth, Shape: into muscle, linear, contused tissue, bone Wound Explored: contaminated Irrigated w/ Saline (ccs): 500 Betadine Prep?: Yes Anesthesia: 1% Lidocaine Volume Anesthetic (ccs): 4 Suture: Prolene Suture Size: 4-0 Number of Sutures: 5 Layer Closure?: 1 Sterile Dressing Applied?: Yes Progress/Results/Core Measures Results/Orders My Orders Orders - LILIAN WADE MD Hand, Left, 3 Views (09/05/22 07:53) Dipht,Pertuss(Acell),Tet Adult (Boostrix (09/05/22 08:00) Lidocaine 1% Inj 10 Ml (Xylocaine 1% Inj (09/05/22 08:00) Medications Given in ED Current Medications Medications Dose Ordered Sig/Darek Route Start Time Stop Time Status Last Admin Dose Admin Diphtheria/ Tetanus/Acell Pertussis 0.5 ml ONCE ONCE IM 09/05/22 08:00 09/05/22 08:01 DC 09/05/22 07:59 0.5 ML Lidocaine HCl 10 ml ONCE ONCE INJ 09/05/22 08:00 09/05/22 08:01 DC 09/05/22 07:59 10 ML Vital Signs/I&O 09/05/22 07:45 Temp 36.5 Pulse 67 Resp 18 B/P (MAP) 177/93 (121) Pulse Ox 98 Progress Progress Note : Time: 08:56 Progress Note Patient seen and examined by me. Evaluation today includes physical exam and 3 views of the left hand. Pertinent physical exam findings. - WDWN male in mild distress due to hand pain. VSS. 5cm laceration over the dorsum of the left hand, minimal bleeding. Obvious extensor tendon injury. Sensation intact. limited active extension at the MCP joint of the 3rd finger. Xrays did demonstrate bony defect to the mid point of the 3rd metacarpal. Patient's hand was cleansed with betadine and then the wound was visually inspected for foreign body. It was noted to be contaminated with debris/dirt. Irrigated with 500ml of sterile water and cleaned with betasept soap and irrigated again. Skin was closed with 4-0 prolene superficial interrupted sutures x5. hemostasis. Covered with triple antibiotic ointment and a dry gauze dressing. I spoke with Tori the rn cardiovascular icu for [facility] [address] [place] [address]. She requested a copy of the patient's chart for referral/follow up with Dr Naqvi - this has been faxed. Patient will be sent out with pain medication and antibiotics (keflex 500mg QID 10 days). Splinted with wrist dorsiflexed and MCP's slightly flexed. Once I hear from Tori I will be able to contact the patient regarding follow up. Diagnostic Imaging Diagonstic Imaging: Xray Comments Hand xray - independently reviewed and interpreted by me - small fracture noted to the midshaft of the 3rd metacarpal [facility] [place], [place] NAME: ISADORA [facility]ALE [facility] REC#: [id number] PT STATUS: REG ER : 1960 PHYSICIAN: LILIAN WADE MD ADMIT DATE: 09/05/22/ER Draft Date of Exam:09/05/22 HAND, LEFT, 3 VIEWS CLINICAL INDICATION: Patient cut left posterior hand with zip saw. Patient has a 3 cm laceration. Patient has difficulty flexing middle finger of left hand. EXAM: X-ray of the left hand, 3 views. COMPARISON: None. FINDINGS AND IMPRESSION: 1: There is a small traumatic bony defect involving the dorsal cortex of the mid portion of the 3rd metacarpal bone diaphysis. There is a small fracture fragment seen dorsally and in the soft tissue. There is soft tissue swelling dorsal to the 3rd metacarpal region with a small soft tissue laceration. 2: There is no other fracture or dislocation seen. There is no other significant abnormality seen on this exam. Dictated on workstation # [id number] Dict: 09/05/22818 Trans: 09/05/22 0835 [id number] Interpreted by: CRYSTAL BOND MD Electronically signed by: Departure Impression Primary Impression: Extensor tendon laceration of left hand with open wound Qualified Codes: S66.822A - Laceration of other specified muscles, fascia and tendons at wrist and hand level, left hand, initial encounter; S61.402A - Unspecified open wound of left hand, initial encounter Additional Impression: Open fracture of third metacarpal bone of left hand Qualified Codes: S62.353B - Nondisplaced fracture of shaft of third metacarpal bone, left hand, initial encounter for open fracture Disposition: HOME, SELF-CARE Condition: Improved Departure-Patient Inst. Decision time for Depature: 09:11 Referrals: JAMESON MCCLELLAN DO (PCP/Family) Primary Care Physician Patient Instructions: Laceration Repair With Stitches ED Add. Discharge Instructions: Keep the splint on until you follow up with the Hand Surgeon. Please take the antibiotics (Keflex 500mg) 4 times a day for 10 days. Elevate your left hand to decrease swelling. An ice pack will also help with swelling. Hydrocodone 5mg with one extra strength tylenol every 6 hours as needed for pain. Hydrocodone can cause constipation so take a stool softener daily if you are having to take this on a regular basis. You can alternate with Ibuprofen 600mg (3 tablets) every [address] Naqvi is the hand surgeon I have sent your information to. We will contact you about follow up at [facility]/[address] Their address and phone number are : [address] [phone] If you have any increased pain, swelling, fever please return to the Emergency Department for re-evaluation. Scripts Hydrocodone/Acetaminophen (Hydrocodone-Acetamin 5-325 mg) 5 Mg-325 Mg Tablet 1 TAB PO Q6H PRN for PAIN-MODERATE (5-7), #15 TAB Prov: LILIAN WADE MD 09/05/22 Cephalexin (Cephalexin) 500 Mg Tablet 500 MG PO QID, #40 TAB Prov: LILIAN WADE MD 09/05/22 Images Extremities-Upper 1 - Laceration, Swelling, Tenderness LILIAN WADE MD Sep 05, 2022 07:47
[2022-09-05] MEDS ORDERED: TETANUS,DIPTH,PERTUSS P/F (BOOSTRIX) 0.5 ML VIAL IM ONE (08:00)
[2022-09-05] MEDS ORDERED: LIDOCAINE 1% INJ 10 ML VIAL INJ ONE (08:00)
--- NOTE | 2022-09-05 08:35 | Diagnostic Imaging Report ---
CLINICAL INDICATION: Patient cut left posterior hand with zip saw. Patient has a 3 cm laceration. Patient has difficulty flexing middle finger of left hand. EXAM: X-ray of the left hand, 3 views. COMPARISON: None. FINDINGS AND IMPRESSION: 1: There is a small traumatic bony defect involving the dorsal cortex of the mid portion of the 3rd metacarpal bone diaphysis. There is a small fracture fragment seen dorsally and in the soft tissue. There is soft tissue swelling dorsal to the 3rd metacarpal region with a small soft tissue laceration. 2: There is no other fracture or dislocation seen. There is no other significant abnormality seen on this exam. Dictated by: Dictated on workstation # [id number]
[2022-09-05] MEDS ORDERED: CEPH500T PO (09:18)
[2022-09-05] MEDS ORDERED: ACHD5005 PO (09:18)
[2022-09-05 09:40] VITALS: BP 177/93
== END 2022-09-05 09:47 | disposition home or self-care (01) ==
LOC: EDUNIT# 07:41 → ER 07:43
DX: S62.323B Displaced fracture of shaft of third metacarpal bone, left hand, initial encounter for open fracture (principal); F17.200 Nicotine dependence, unspecified, uncomplicated; Z23 Encounter for immunization; Z88.1 Allergy status to other antibiotic agents; W27.0XXA Contact with workbench tool, initial encounter
CPT/HCPCS: 12002; 29125; 73130; 90715

== ENCOUNTER 2022-09-07 20:09 | Emergency (ER) | payer OTHER, BC ==
[~2022-09-07] VITALS: Ht 180 cm; Wt 88.0 kg
[~2022-09-07 20:09] MED LIST changes: +CEPH500T PO
--- NOTE | 2022-09-07 20:30 | ED Upper Extremity ---
General Chief Complaint: Upper Extremity Stated Complaint: INJ LEFT ARM Nursing Triage Note: PT TO ED WITH C/O SWELLING TO LEFT HAND, STATES HE SLICED HIS HAD WITH A SAW ON 09/05 AND WAS SEEN HERE IN THE ED AND REFERRED TO A SURGEON, HAS AN APPT WITH DR GRAVES ON SATURDAY BUT IS CONCERNED WITH THE INCREASED SWELLING Source: patient Exam Limitations: no limitations (CHRISSY RIVERO) History of Present Illness Date Seen by Provider: Sep 07, 2022 Time Seen by Provider: 20:26 Initial Comments Patient is a 62-year-old male who presents the ED for evaluation of his left hand. Patient was seen here on September 05 after a injury to his left hand. Patient suffered extensor tendon injury and a third metacarpal injury and is scheduled to follow-up with orthopedic on Saturday. Patient states this evening few hours ago noted some swelling to the left hand. Denies of any increased pain. He is currently on Keflex prophylactically and does have pain medication at home. Patient denies of any fever, chills, nausea, vomiting, distal numbness and tingling of the left hand. (CHRISSY RIVERO) Allergies and Home Medications Allergies Coded Allergies: clarithromycin (Verified Allergy, Unknown, 05/26/21) Patient Home Medication List Home Medication List Reviewed: Yes (CHRISSY RIVERO) Albuterol Sulfate (Proventil Hfa) 6.7 Gm Hfa.aer.ad, 2 PUFF INH Q4H PRN for SHORTNESS OF BREATH, (Reported) Entered as Reported by: YUMI MULLEN on 05/26/21 1119 Cephalexin (Cephalexin) 500 Mg Tablet, 500 MG PO QID Prescribed by: LILIAN WADE on 09/05/22 0918 Docusate Sodium (Colace) 100 Mg Capsule, 100 MG PO BID Prescribed by: CARMELITA FAGAN on 05/28/21 1219 Hydrocodone/Acetaminophen (Hydrocodone-Acetamin 5-325 mg) 1 Each Tablet, 1 EACH PO Q4H PRN for PAIN-MODERATE (5-7) Prescribed by: CARMELITA FAGAN on 05/28/21 1220 Hydrocodone/Acetaminophen (Hydrocodone-Acetamin 5-325 mg) 5 Mg-325 Mg Tablet, 0.5-1 TAB PO Q4H PRN for PAIN BREAKTROUGH Prescribed by: MELVINA HERNANDEZ on 04/06/22 1142 Hydrocodone/Acetaminophen (Hydrocodone-Acetamin 5-325 mg) 5 Mg-325 Mg Tablet, 1 TAB PO Q6H PRN for PAIN-MODERATE (5-7) Prescribed by: LILIAN WADE on 09/05/22 0918 Losartan Potassium (Losartan Potassium) 100 Mg Tablet, 50 MG PO BID, (Reported) Entered as Reported by: YUMI MULLEN on 05/26/21 1119 Metoprolol Tartrate (Metoprolol Tartrate) 25 Mg Tablet, 12.5 MG PO BID, (Reported) Entered as Reported by: YUMI MULLEN on 11/04/20 1430 Tramadol HCl (Tramadol HCl) 50 Mg Tablet, 25-50 MG PO Q6H PRN for PAIN-MODERATE (5-7), (Reported) Entered as Reported by: YUMI MULLEN on 05/26/21 1119 Review of Systems Constitutional: No chills, No diaphoresis EENTM: No ear pain, No blurred vision, No double vision Respiratory: No cough, No dyspnea on exertion Cardiovascular: No chest pain Gastrointestinal: No abdominal pain, No diarrhea, No nausea, No vomiting Genitourinary: No decreased output, No discharge Musculoskeletal: No back pain; joint pain, joint swelling Skin: No change in color, No change in hair/nails (CHRISSY RIVERO) All Other Systems Reviewed Negative Unless Noted: Yes (CHRISSY RIVERO) Past Kmneexr-Tfwykx-Zzwrvz Hx Patient Social History Tobacco Use?: No Substance use?: No Alcohol Use?: No (CHRISSY RIVERO) Immunizations Up To Date Tetanus Booster (TDap): Unknown First/Initial COVID19 Vaccinat: RECEIVED, UNK WHEN Second COVID19 Vaccination Fco: RECEIVED, UNK WHEN Third COVID19 Vaccination Date: RECEIVED, UNK WHEN (CHRISSY RIVERO) Seasonal Allergies Seasonal Allergies: Yes (CHRISSY RIVERO) Past Medical History Surgery/Hospitalization HX: LEFT SUBMANDIBULAR GLAND RESECTION CARDIAC CATH WITH STENT X 1 WISDOM TEETH SINUS SURGERY Surgeries: Yes (SINUS SURGERY, SUBMANDIBULAR GLAND RESECTION, ) Abdominal, Cardiac, Coronary Stent Respiratory: Yes (USES INHALER OCCASIONAL) Asthma, Sleep Apnea Currently Using CPAP: No Currently Using BIPAP: No Cardiac: Yes (STENT X 1 ) Coronary Artery Disease, Heart Attack, High Cholesterol, Hypertension Neurological: No Reproductive Disorders: No Sexually Transmitted Disease: No HIV/AIDS: No Genitourinary: Yes Kidney Stones Gastrointestinal: Yes (PERF. DIVERTICULITIS 11/03/20-NO SURGERY) Diverticulosis Musculoskeletal: Yes Arthritis Endocrine: No HEENT: Yes (wears glasses, DENTURES, chronic sinusitis) Loss of Vision: Bilateral Cancer: No Psychosocial: Yes Anxiety Integumentary: No Blood Disorders: No Adverse Reaction/Blood Tranf: No (CHRISSY RIVERO) Family Medical History Colon cancer 19 FATHER Diabetes mellitus 19 MOTHER Headache disorder G8 SISTER Thyroid disease G8 SISTER No Pertinent Family Hx (CHRISSY RIVERO) Physical Exam Vital Signs Vital Signs - First Documented 09/07/22 20:18 Temp 36.4 Pulse 60 Resp 16 B/P (MAP) 128/75 (92) Pulse Ox 99 (CLAUDINE,JOCELYNE K DO) Vital Signs Capillary Refill : Less Than 3 Seconds (CHRISSY RIVERO) Height, Weight, BMI Height: 5'9.00" Weight: 200lbs. 0.0oz. [id number]; 27.00 BMI Method:Stated General Appearance: WD/WN, no apparent distress HEENT: PERRL/EOMI, normal ENT inspection, TMs normal, pharynx normal Neck: non-tender, full range of motion, supple, normal inspection Cardiovascular: regular rate, rhythm, no edema, no gallop, no JVD Respiratory: chest non-tender, lungs clear, normal breath sounds, no respiratory distress, no accessory muscle use Gastrointestinal: normal bowel sounds, non tender, soft, no organomegaly Back: normal inspection, no CVA tenderness Shoulder: normal inspection, non-tender, no evidence of injury Elbow/Forearm: normal inspection, non-tender, Left Wrist: Yes normal ROM (Left wrist) Hand: Left, swelling (Mild left dorsum hand swelling proximal of the the second through fourth MCP joints. No erythema or warmth. Healing wound noted. No purulent drainage. Mild tenderness to palpate. 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 Differential diagnosis posttraumatic swelling, cellulitis. Patient presents ED for evaluation of his left hand. Patient was seen here September 05 after a grinding injury to his left dorsum hand. Patient had sutures placed. Patient Was treated with Keflex prophylactically. Was given pain medications.'s schedule follow-up with orthopedic at [address] [place] [address] orthopedic hand specialist next Saturday. Concern this evening has he noted some increased swelling. He did have swelling post injury but thought that the swelling has increased. Denies increasing pain, fever, chills. Denies any distal numbness or tingling. Removed the splint. Evaluated the wound. Wound appears to be healing. No surrounding erythema or warmth. No purulent drainage. Does have mild swelling proximal second through fourth MCP joint. Patient did suffer a small traumatic bone defect along the dorsal cortex of the midportion of the third metacarpal bone diaphysis. There was noted soft tissue swelling dorsally to the third metacarpal region with small soft tissue laceration which was repaired. There was a small fracture fragment seen dorsally in the soft tissue. Discussed with patient this appears to be healing. No evidence suggesting compartment syndrome. He is not in significant pain. No evidence of cellulitis. Continue with wound care. Antibiotics as prescribed. If increased developing pain, swelling or redness to return back to ED. Patient agrees with plan of action. (CHRISSY RIVERO) Impression Primary Impression: Encounter for evaluation of wound Disposition: HOME, SELF-CARE Condition: Stable Departure-Patient Inst. Decision time for Depature: 20:29 (CHRISSY RIVERO) Referrals: JAMESON MCCLELLAN DO (PCP/Family) Primary Care Physician Patient Instructions: Wound Care (DC) Add. Discharge Instructions: Recommend following up with orthopedic next Saturday. If increased swelling redness and pain to return back to ED. Take antibiotics and pain medication as prescribed All discharge instructions reviewed with patient and/or family. Voiced understanding. ATTENDING PHYSICIAN NOTE: I WAS PHYSICALLY PRESENT ER PHYSICIAN, BUT I WAS NOT INVOLVED IN ANY DECISION MAKING OR ANY CARE OF THIS PATIENT, AND I AM NOT COLLABORATING PHYSICIAN. (JOCELYNE CHOW DO) CHRISSY RIVERO Sep 07, 2022 20:30 JOCELYNE CHOW DO Sep 07, 2022 22:17
[2022-09-07 20:38] VITALS: BP 128/75
== END 2022-09-07 20:38 | disposition home or self-care (01) ==
LOC: EDUNIT# 20:09 → ER 20:12
DX: S61.412D Laceration without foreign body of left hand, subsequent encounter (principal); W27.0XXD Contact with workbench tool, subsequent encounter
CPT/HCPCS: 99283